=== PATIENT | female | born 1975 | race Caucasian/White ===

== ENCOUNTER 2022-08-26 16:47 | Emergency (ER) | payer MEDICAID, SELFPAY ==
[2022-08-26 16:48] VITALS: BP 164/107; PULSE 95; RESP 18; TEMP 36.6; O2SAT 95; BMI 49.6
--- NOTE | 2022-08-26 17:06 | RAD_ITS ---
STUDY: X-RAY - LEFT KNEE REASON FOR EXAM: Female, 47 years old. INJURY TECHNIQUE: 4 view(s) of the knee. COMPARISON: 12/30/2015 FINDINGS: Progression of spur formation along the distal femur and tibia on the medial greater than lateral, increased spurring along the femoral notch and tibial spine. Normal visualized proximal tibia and fibula. Normal proximal tibiofibular articulation. There is moderate degenerative arthrosis of the medial femorotibial compartment with moderate joint space narrowing. There is mild degenerative arthrosis of the lateral femorotibial compartment. There is mild degenerative arthrosis of the patellofemoral articulation. There is a soft tissue prominence in the suprapatellar region suggesting a small volume joint effusion. The soft tissue structures are unremarkable. RAD/Knee 4 or More Views IMPRESSION: Progression of tricompartmental degenerative changes with stable mild effusion Electronically Signed: Tanya Dupree MD at 19:35 EST Reading Location ID and State: , Service support ,
--- NOTE | 2022-08-26 18:40 | ED.VIS.LOWEX ---
HPI History of Present Illness Chief Complaint: Lower Extremity Injury Informant: patient Narrative Narrative: Patient states she was lifting a grill out of a truck and as she stepped back, she suddenly had pain with her left knee feeling like she hyperextended it. This was over a week ago. She presents on [place] because the pain is getting worse and she cannot bear weight on it hardly anymore. She denies other injury or pain or neurologic symptoms. She feels like it has been swollen. PFSH PFSH Medical History (Updated 08/26/22 @ 20:[address] Chilo Dave MD) Anxiety Benign essential hypertension BiPAP (biphasic positive airway pressure) dependence Brain aneurysm Depression DVT (deep venous thrombosis) history of bleeding aneurysm Hypertension Obesity Sleep apnea Smoker Substance abuse Tobacco abuse Home Medications gabapentin 600 mg tablet 800 mg PO TIDCM 01/21/16 [History Last Taken Unknown] bupropion HCl 300 mg 24 hr tablet, extended release 300 mg PO DAILY 08/26/22 [History Last Taken Unknown] naproxen 500 mg tablet 500 mg PO BID #14 tabs 08/26/22 [Rx Last Taken Unknown] prazosin 2 mg capsule 2 mg PO QHS 08/26/22 [History Last Taken Unknown] quetiapine 100 mg tablet 100 mg PO QHS 08/26/22 [History Last Taken Unknown] topiramate 200 mg tablet 200 mg PO QHS 08/26/22 [History Last Taken Unknown] tramadol 50 mg tablet 50 mg PO Q6H PRN pain 3 days #12 tabs 08/26/22 [Rx Last Taken Unknown] Allergy/AdvReac Type Severity Reaction Status Date / Time ondansetron HCl [From Zofran] Allergy Other Verified 08/26/22 16:49 meloxicam [From Mobic] AdvReac Nausea Verified 08/26/22 16:49 Surgical History (Updated 08/26/22 @ 19:24 by Mirian Bo) H/O foot surgery Social History Smoking Status: Current every day smoker tobacco type: cigarettes ROS ROS ED Constitutional Constitutional ED: Denies chills or fever(s) Musculoskeletal Musculoskeletal: Reports extremity pain; Denies neck pain Integumentary Denies Abrasions, rash or wounds Neurologic Neurologic: Denies paresthesias or weakness EXAM Physical Exam Const Vital Signs: 08/26/22 16:48 Temperature 97.8 F Temperature Source Temporal Pulse Rate 95 Respiratory Rate 18 Blood Pressure 164/107 H Blood Pressure Mean 126 Pulse Ox 95 Oxygen Delivery Method Room Air Positive well nourished and well developed General Appearance ED: well developed and NAD Neck full ROM and supple Back/Spine normal ROM and normal to inspection Extremity normal to inspection Extremity Narrative: Limited range of motion left knee with regards to flexion, it hurts to extend but she is able to fully. Extensor mechanism intact. Mild tenderness in the distal quadriceps, and around the patella, and very mild bony tenderness laterally near the joint line but no other areas of bony tenderness. Ligaments intact and stable without laxity but there is pain on stressing the ACL PCL especially ACL. Neuro oriented x3, no focal motor deficits and no sensory deficits noted Sensorium / Orientation: alert Psych mental status grossly normal and thought process normal Skin no wounds Rashes: no rashes MDM MDM MDM Narrative Medical decision making narrative: 4 view x-ray series of the left knee mitral rotation shows nothing acute. Radiology is in agreement, there is a mild effusion. Suspicious for possible ACL injury, but she is not examining like she is ruptured so I am placing her in an Marcelo wrap, given her crutches, anti-inflammatories and pain medication follow-up with orthopedics. Radiography Diagnostic Testing: Clinical Impression(s) from Imaging Studies Knee X-Ray 08/26/22 17:06 IMPRESSION: Progression of tricompartmental degenerative changes with stable mild effusion Electronically Signed: Tanya Dupree MD at 19:35 EST Reading Location ID and State: , Service support , Discharge Plan Triage Chief Complaint: Lower Extremity Injury ED Provider: Chilo Dave Dx/Rx/DC Orders Clinical Impression: ACL sprain Instructions: ACL Injury Tx Prescriptions: New tramadol 50 mg tablet 50 mg PO Q6H PRN (Reason: pain) 3 Days Qty: 12 0RF naproxen 500 mg tablet 500 mg PO BID Qty: 14 0RF No Action gabapentin 600 MG tablet 800 mg PO TIDCM quetiapine 100 mg tablet 100 mg PO QHS topiramate 200 mg tablet 200 mg PO QHS Label Comments: TAKE ONE TABLET BY MOUTH DAILY prazosin 2 mg capsule 2 mg PO QHS Label Comments: TAKE ONE CAPSULE BY MOUTH AT BEDTIME bupropion HCl 300 mg tablet extended release 24 hr 300 mg PO DAILY Primary Care Provider: Jose Hdez Referrals: Jose Hdez MD [Primary Care Provider] - Nicho Pope DO [Med Staff - Active Staff] - As soon as possible (Call for appointment after the weekend) Disposition Disposition: Home, Self Care
[2022-08-26] MEDS: Naproxen 250 MG Tablet 500 MG PO (19:18)
[2022-08-26] MEDS: traMADol 50 MG Tablet PO (19:18)
== END 2022-08-26 20:49 | disposition home or self-care (01) ==
PROVIDERS: Emergency Provider Emergency Medicine; PCP Family Medicine; Visit Provider Emergency Medicine
DX: S83.512A Sprain of anterior cruciate ligament of left knee, initial encounter (principal); I10 Essential (primary) hypertension; F17.210 Nicotine dependence, cigarettes, uncomplicated; F32.A Depression, unspecified; Z79.899 Other long term (current) drug therapy; X50.0XXA Overexertion from strenuous movement or load, initial encounter
CPT/HCPCS: 73564; 99284

== ENCOUNTER 2023-05-23 16:21 | Emergency (ER) | payer MEDICAID, SELFPAY ==
[2023-05-23 16:23] VITALS: BP 134/87; PULSE 96; RESP 20; TEMP 36.6; O2SAT 99; BMI 42.5
--- NOTE | 2023-05-23 16:32 | EKG12_ITS ---
Test Reason : SYNCOPE Blood Pressure : / mmHG Vent. Rate : 082 BPM Atrial Rate : 082 BPM P-R Int : 136 ms QRS Dur : 090 ms QT Int : 394 ms P-R-T Axes : 046 038 054 degrees QTc Int : 460 ms Normal sinus rhythm Normal ECG Confirmed by AUSTIN LOPEZ, GEE ([id number]), city editor BAKARI GALE ([id number]) on 05/29/2023 10:47:00 AM Referred By: Confirmed By:CRIS AVILA MD
--- NOTE | 2023-05-23 16:56 | CT_ITS ---
STUDY: CT BRAIN WITHOUT CONTRAST REASON FOR EXAM: Female, 48 years old. syncope, hx coil, headache RADIATION DOSAGE (If Supplied By Facility): CTDIvol = ( 44.99 ) mGy, DLP = ( 796.11 ) mGycm TECHNIQUE: Transaxial CT imaging of the brain was performed without administration of intravenous contrast material. Individualized dose optimization techniques were used for this CT. COMPARISON: 06/30/2013 FINDINGS: Normal soft tissue structures. Normal calvarium. Stable embolization coil in position compatible with the right anterior communicating artery. Normal size ventricles and extra-axial spaces for the patient''s age. Normal white matter tracts of the cerebral hemispheres. Normal basal ganglia and thalami. Normal brainstem. Normal cerebellum. There is no intracranial hemorrhage. There are no findings of an acute ischemic infarction. Normal visualized paranasal sinuses. CT/Brain/Head without Contrast IMPRESSION: No definite acute or significant abnormality seen. Electronically Signed: Pranay Flynn MD at 17:58 EDT ,
[2023-05-23 17:11] LABS: Mucous, Urine 0 SEEN /hpf (<or=2+); Red Blood Cells-Urine 0 SEEN /hpf (0-5); White Blood Cells 0 SEEN /hpf (0-5)
--- NOTE | 2023-05-23 17:11 | EX.ED.DYSGE1 ---
HPI History of Present Illness Chief Complaint: Syncope Informant: patient Narrative Narrative: Patient is a 48-year-old female with history of psychiatric diagnoses, tobacco use, migraines and DVT (provoked after seizure) presenting for dizziness, lightheadedness and 2 episodes of syncope. Patient states she was discharged from [place] and inpatient psychiatric care on 05/13. She had a lot of her psych meds adjusted. She is followed up outpatient with ann lyon. Since she switched her medications she has been feeling dizzy and lightheaded. She has been having nausea and then had 1 episode of vomiting with some dry heaves. She has had 2 episodes of syncope today when helping her mom that she had. She notes she is had some increased light sensitivity. States this feels little different than her migraine today but she does have a headache. She denies any chest pain, shortness of breath or difficulty breathing. She does note increased thirst and increased urination. Denies any dysuria. She thinks her symptoms are from her medication changes but wanted to get checked out further. Denies any swelling of her legs. No other complaints or concerns at this time. [facility] Medical History Anxiety Benign essential hypertension BiPAP (biphasic positive airway pressure) dependence Brain aneurysm Depression DVT (deep venous thrombosis) history of bleeding aneurysm Hypertension Obesity Sleep apnea Smoker Substance abuse Tobacco abuse Home Medications gabapentin 600 mg tablet 600 mg PO .Q6 01/21/16 [History Last Taken Unknown] bupropion HCl 300 mg 24 hr tablet, extended release 300 mg PO DAILY 08/26/22 [History Last Taken Unknown] prazosin 2 mg capsule 2 mg PO QHS 08/26/22 [History Last Taken Unknown] quetiapine 100 mg tablet 100 mg PO QHS 08/26/22 [History Last Taken Unknown] topiramate 200 mg tablet 200 mg PO QHS 08/26/22 [History Last Taken Unknown] aripiprazole 10 mg tablet 10 mg PO DAILY 05/23/23 [History Last Taken Unknown] lithium carbonate 300 mg capsule 300 mg PO .QAM 05/23/23 [History Last Taken Unknown] lithium carbonate 600 mg capsule 600 mg PO QHS 05/23/23 [History Last Taken Unknown] Allergy/AdvReac Type Severity Reaction Status Date / Time ondansetron HCl [From Zofran] Allergy Other Verified 05/23/23 16:22 Surgical History H/O foot surgery Social History Smoking Status: Current every day smoker tobacco type: cigarettes ROS ROS ED Constitutional Constitutional ED: Denies chills or fever(s) Eyes Eyes: Denies blurry vision or change in vision Cardiovascular Cardiovascular: Denies chest pain Respiratory/Chest Respiratory/Chest: Denies cough or dyspnea Gastrointestinal Gastrointestinal: Reports nausea and vomiting; Denies abdominal pain, constipation or diarrhea Genitourinary Genitourinary ED: Reports urinary frequency; Denies dysuria Musculoskeletal Musculoskeletal: Denies arthralgias or myalgias Integumentary Denies rash Neurologic Neurologic: Reports headache(s); Denies paresthesias or weakness Psychiatric Psychiatric: Denies anxiety Hematologic/Lymphatic Hematologic/Lymphatic: Denies easy bleeding or easy bruising EXAM Physical Exam Const Vital Signs: 05/23/23 16:23 05/23/23 17:25 Temperature 97.8 F Temperature Source Temporal Pulse Rate 96 Pulse Rate [Lying] 91 Pulse Rate [Sitting (for 1 minute prior to obtaining)] 85 Pulse Rate [Standing (for 1 minute prior to obtaining)] 84 Respiratory Rate 20 H Blood Pressure 134/87 H Blood Pressure [Lying] 116/59 L Blood Pressure [Sitting (for 1 minute prior to obtaining)] 138/89 H Blood Pressure [Standing (for 1 minute prior to obtaining)] 135/94 H Blood Pressure Mean 102 Blood Pressure Mean [Lying] 78 Blood Pressure Mean [Sitting (for 1 minute prior to obtaining)] 105 Blood Pressure Mean [Standing (for 1 minute prior to obtaining)] 107 Pulse Ox 99 Oxygen Delivery Method Room Air Positive well nourished and well developed General Appearance ED: well developed and NAD HEENT Reports TM's clear and moist mucous membranes Tympanic Membrane ED: Yes TM's clear Eyes PERRL and EOMs intact bilaterally Neck supple and no JVD Chest Wall inspection of chest normal and palpation of chest normal Resp normal respiratory effort and clear to auscultation bilaterally Cardio regular rate, regular rhythm and no murmurs GI normal to inspection, nondistended, normoactive bowel sounds and non-tender Extremity normal to inspection General Extremety ED: Negative for edema or tenderness General Extremity: Negative for edema Neuro oriented x3 Sensorium / Orientation: alert Motor Exam: Negative for general weakness Psych mental status grossly normal Mood & Affect: Negative for depressed or anxious Skin no rashes or lesions noted Skin Narrative: Superficial abrasion noted to the right anterior [place] MDM MDM MDM Narrative Medical decision making narrative: Patient evaluated for lightheadedness, syncope and headache. She is concerned it could be related to recent medication changes associate with her psych meds. She is not on any blood thinners does not history of DVT. Differential includes hypovolemia, medication side effect, hyperglycemia, UTI and vasovagal syncope. Her vital signs are normal and she is not hypoxic. Will obtain D-dimer for PE work-up. This is negative I think that is sufficient to rule out pulmonary embolism as the cause of her syncope. Especially she does not have any chest pain or shortness of breath. She does have a history of an aneurysm with a coil will obtain a CT of the brain as well. Patient is given IV fluids, Compazine and Benadryl for symptoms initially. Patient's orthostatics are mildly positive. She is given a liter of fluid however and states she feels much better. She has improvement with the Compazine and Benadryl for her headache. Her lab work is unremarkable. She is mildly subtherapeutic on her lithium but states that she was recently increased on her dose. Urinalysis is not consistent with infection. She has no HUY or electrolyte derangement. No signs of infection or anemia. Patient is comfortable with outpatient follow-up. CT of the brain does not show any acute process. She is discharged home in stable and improved condition. Lab Data Attestation: I reviewed the patient's lab results. Labs: Laboratory Results - last 24 hr 05/23/23 05/23/23 17:02 17:20 WBC 10.8 RBC 5.17 Hgb 15.0 Hct 46.8 MCV 90.5 MCH 29.0 MCHC 32.1 RDW Std Deviation 45.7 H RDW Coeff of Miya 13.7 Plt Count 426 MPV 8.7 Immature Gran % (Auto) 0.600 Neut % (Auto) 67.5 Lymph % (Auto) 25.0 Gray % (Auto) 4.9 Eos % (Auto) 1.8 Baso % (Auto) 0.2 Absolute Neuts (auto) 7.3 Absolute Lymphs (auto) 2.71 Nucleated RBC % 0 D-Dimer Quant (PE/DVT) 0.35 Sodium 139 Potassium 4.2 Chloride 107 Carbon Dioxide 29.0 Anion Gap 3 L BUN 8 Creatinine 0.61 Estim Creat Clear Calc 95.33 Est GFR (MDRD) Af Amer 137 Est GFR (MDRD) Non-Af 113 BUN/Creatinine Ratio 13.2 Glucose 89 Calcium 9.0 Urine Color Straw Urine Clarity Clear Urine pH 7.0 Ur Specific [place] 1.010 Urine Protein Negative Urine Glucose (UA) Normal Urine Ketones Negative Urine Occult Blood Negative Urine Nitrite Negative Urine Bilirubin Negative Urine Urobilinogen Normal Ur Leukocyte Esterase Negative Urine RBC 0 SEEN Urine WBC 0 SEEN Ur Squamous Epith Cells 0-5 SEEN Urine Bacteria RARE Urine Mucus 0 SEEN [place] 0.30 L Radiography Diagnostic Testing: Clinical Impression(s) from Imaging Studies Brain CT 05/23/23 16:56 IMPRESSION: No definite acute or significant abnormality seen. Electronically Signed: Pranay Flynn MD at 17:58 EDT , Rhythm Strip Rhythm Strip: Sinus Rhythm Rate: 82 Ectopy: None EKG Initial EKG: Attestation: I personally reviewed and interpreted this EKG as follows: Interpretation: Sinus Rhythm Comments: Normal sinus rhythm at a rate of 82 bpm Normal axis Normal intervals Normal ST segments Discharge Plan Triage Chief Complaint: Syncope ED Provider: Jasmine Hayes Dx/Rx/DC Orders Clinical Impression: Syncope and collapse, Abnormal lithium level in blood Instructions: ED Fainting, Uncertain Cause Prescriptions: No Action gabapentin 600 MG tablet 600 mg PO .Q6 quetiapine 100 mg tablet 100 mg PO QHS topiramate 200 mg tablet 200 mg PO QHS Patient Comments: TAKE ONE TABLET BY MOUTH DAILY prazosin 2 mg capsule 2 mg PO QHS Patient Comments: TAKE ONE CAPSULE BY MOUTH AT BEDTIME bupropion HCl 300 mg tablet extended release 24 hr 300 mg PO DAILY aripiprazole 10 mg tablet 10 mg PO DAILY lithium carbonate 300 mg capsule 300 mg PO .QAM lithium carbonate 600 mg capsule 600 mg PO QHS Patient Comments: TAKE ONE CAPSULE BY MOUTH AT BEDTIME Primary Care Provider: Care Physician,No Primary Referrals: Care Physician,No Primary [Primary Care Provider] - Activity Restrictions/Additional Instructions: Please follow-up with your primary care doctor. Make sure you are drinking enough fluids. Your work-up was largely normal today. I think it safe for her to go home. Of note your lithium level was 0.3, which is mildly low. He can follow-up with this with your psychiatrist. Disposition Disposition: Home, Self Care
[2023-05-23 17:12] LABS: Color, Urine Straw (Yellow); Glucose, Dipstick Normal (Normal); Ketone-Dipstick Negative (Negative); Leukocyte Esterase-Dipstick Negative /ul (Negative); Nitrite-Dipstick Negative (Negative); Occult Blood-Urine Negative /ul (Negative); Protein-Dipstick Negative (Negative); Urine Bilirubin Dipstick Negative (Negative); Urine Clarity Clear (Clear); Urine Urobilinogen Normal (Normal)
[2023-05-23] MEDS: 0.9% Normal Saline (1000mL) 1,000 ML 999 ML IV (17:21)
[2023-05-23 17:22] LABS: Bacteria RARE /hpf (None Seen); Squamous Epithelial Cells - UA 0-5 SEEN /hpf (5-10)
[2023-05-23] MEDS: proCHLORPERazine 10 MG/2 ML Vial 5 MG IV (17:22)
[2023-05-23 17:25] VITALS: BP 116/59; BP 135/94; BP 138/89; PULSE 84; PULSE 85; PULSE 91
[2023-05-23] MEDS: DiphenhydrAMINE 50 MG/ML Syringe 25 MG IV (17:32)
[2023-05-23 17:43] LABS: Absolute Lymphocyte Count 2.71 X10^3/uL (0.83-4.51); Absolute Neutrophil Count 7.3 X10^3/uL (2.0-7.7); Basophil# 0.02 X10^3/uL; Basophil% 0.2 % (0-1); Eosinophil# 0.19 X10^3/uL; Eosinophils% 1.8 % (0-5); Hematocrit 46.8 % (37-47); Lymphocyte # 2.71 X10^3/ul (0.83-4.51); Mean Corp Hgb Conc 32.1 g/dL (32-36); Mean Corpuscular Volume 90.5 fL (81-99); Mean Platelet Vol. 8.7 fl (6.2-12.0); Monocyte# 0.53 X10^3/uL; Monocyte% 4.9 % (0-10); NRBC Flagged by Analyzer 0 % (0-5); Neutrophil # 7.32 X10^3/uL (2.7-7.7); Neutrophil % 67.5 % (47-70); Platelet Count 426 K/mm3 (150-450); RBC Distribution Width CV 13.7 % (11.6-14.6); RBC Distribution Width SD 45.7 fl (35.1-43.9); Red Blood Count 5.17 M/mm3 (4.2-5.4); White Blood Count 10.8 K/mm3 (4.4-11.0)
[2023-05-23 17:57] LABS: D-Dimer Quantitative (DVT/PE) 0.35 FEU/ug/m (0.27-0.49)
[2023-05-23 17:59] LABS: Anion Gap 3 (5-15); BUN 8 mg/dL (7-18); BUN/Creat Ratio 13.2 RATIO (10-20); Chloride 107 mmol/L (98-107); Creatinine, Serum 0.61 mg/dL (0.55-1.02); EST Glomerular Filtration Rate 113 mL/min (>60); Est Glom Filt Rate - Afr Amer 137 mL/min (>60); Estimated Creatinine Clearance 95.33 ml/min; Glucose 89 mg/dL (74-106); Potassium 4.2 mmol/L (3.5-5.1); Sodium Level 139 mmol/L (136-145)
[2023-05-23 20:05] VITALS: RESP 16
== END 2023-05-23 20:07 | disposition home or self-care (01) ==
PROVIDERS: Emergency Provider Emergency Medicine; Visit Provider Emergency Medicine
DX: R55 Syncope and collapse (principal); R78.89 Finding of other specified substances, not normally found in blood; I10 Essential (primary) hypertension; R35.0 Frequency of micturition; R51.9 Headache, unspecified
CPT/HCPCS: 70450; 80048; 80178; 81001; 85025; 85379; 93005; 96361; 96374; 96375; 99285; J7030; A4216

== ENCOUNTER 2025-05-29 08:55 | Emergency (ER) | payer MEDICAID, SELFPAY ==
[2025-05-29] VITALS (14 sets, daily range): BP systolic 125–215; BP diastolic 80–127; PULSE 74–112; RESP 9–23; TEMP 36.6–37.1; O2SAT 93–100
--- NOTE | 2025-05-29 09:32 | EKG12_ITS ---
Test Reason : HIGH BP Blood Pressure : */* mmHG Vent. Rate : 90 BPM Atrial Rate : 90 BPM P-R Int : 130 ms QRS Dur : 86 ms QT Int : 374 ms P-R-T Axes : 40 55 59 degrees QTcB Int : 457 ms Normal sinus rhythm Cannot rule out Anterior infarct , age undetermined Abnormal ECG Confirmed by KWASI ACKERMAN ([id number]), telegraph editor BAKARI GALE ([id number]) on 06/01/2025 9:12:26 AM Referred By: Confirmed By: KWASI ACKERMAN
[2025-05-29] MEDS: 0.9% Normal Saline (1000mL) 1,000 ML 1000 ML IV (09:42)
--- NOTE | 2025-05-29 09:57 | EX.ED.DYSGE1 ---
HPI History of Present Illness Chief Complaint: Hypertension Narrative Narrative: Chief complaint and HPI: 50-year-old female with past medical history of HTN, depression, anxiety, methamphetamine abuse,, history of brain aneurysm with coil presents for evaluation of hypertension and headache. Patient states that she did methamphetamine on Sunday. States she feels that it was completely out of her system yesterday. Has had a headache for the past 2 days. Was seen to get help with her methamphetamine abuse today when her blood pressure was found to be elevated and she was sent to the emergency department. She denies any trauma or injury. Headache has been gradual. She denies any fever, chills, URI symptoms, neck pain, neurological deficits, syncope, weakness, numbness/tingling, chest pain, shortness of breath, abdominal pain, nausea, vomiting. States she has been under a lot of stress due to recently losing a loved one. Review of systems: See HPI Medications: As listed on the chart Allergies: As listed on the chart PFSH: Per chart Vital signs: As listed on the chart. Reviewed. Physical exam: Gen: A&O x3, NAD Head: Normocephalic, atraumatic Eyes: No sclera icterus, conjunctiva clear, PERRL, EOMI ENT: TMs clear BL, moist mucous membranes, posterior oropharynx unremarkable, uvula midline, tonsils not enlarged Neck: Trachea midline, No JVD, Full ROM, No meningismus CV: RRR, no murmurs, no peripheral edema Resp: Lungs CTA BL, no w/r/c GI: Abd soft, non-distended, non-tender, no r/r/g Musc: Full ROM, no deformity, strength +5/5 in all extremities Skin: Warm, dry, excoriations from scratching/picking Neuro: Alert, oriented, grossly intact, sensation intact Psych: Cooperative, appropriate mood and affect [facility] Medical History Anxiety Benign essential hypertension BiPAP (biphasic positive airway pressure) dependence Brain aneurysm Depression DVT (deep venous thrombosis) history of bleeding aneurysm Hypertension Obesity Sleep apnea Smoker Substance abuse Tobacco abuse Home Medications ?Medication ?Instructions ?Recorded ?Last Taken ?Type gabapentin 600 mg tablet 600 mg PO .Q6 01/21/16 Unknown History bupropion HCl 300 mg 24 hr tablet, 300 mg PO DAILY 08/26/22 Unknown History extended release prazosin 2 mg capsule 2 mg PO QHS 08/26/22 Unknown History quetiapine 100 mg tablet 100 mg PO QHS 08/26/22 Unknown History topiramate 200 mg tablet 200 mg PO QHS 08/26/22 Unknown History aripiprazole 10 mg tablet 10 mg PO DAILY 05/23/23 Unknown History lithium carbonate 300 mg capsule 300 mg PO .QAM 05/23/23 Unknown History lithium carbonate 600 mg capsule 600 mg PO QHS 05/23/23 Unknown History amlodipine 10 mg tablet 10 mg PO DAILY 30 days #30 tabs 05/29/25 Unknown Rx clonidine HCl 0.1 mg tablet 0.1 mg PO Q8H PRN hypertensive 05/29/25 Unknown Rx emergency 5 days #15 tabs Allergy/AdvReac Type Severity Reaction Status Date / Time ondansetron HCl (From Zofran) Allergy Other Verified 05/23/23 16:22 Surgical History H/O foot surgery Social History Smoking Status: Heavy Smoker (>10/day) EXAM Physical Exam Const Vital Signs: 05/29/25 08:55 05/29/25 08:56 05/29/25 09:04 Temperature 98.7 F 97.8 F Temperature Source Oral Oral Pulse Rate 101 H 100 Respiratory Rate 22 H 18 Respiratory Effort Normal Non-Labored Respiratory Pattern Normal Blood Pressure 172/100 H 200/100 H Blood Pressure Mean 124 133 Pulse Ox 97 95 Oxygen Delivery Method Room Air Room Air 05/29/25 09:55 05/29/25 10:00 05/29/25 11:00 Temperature 98.7 F 97.8 F Temperature Source Oral Oral Pulse Rate 94 86 112 H Respiratory Rate 20 H 17 23 H Respiratory Effort Respiratory Pattern Blood Pressure 215/127 H 171/111 H 198/115 H Blood Pressure Mean 156 131 142 Pulse Ox 96 100 97 Oxygen Delivery Method Room Air Room Air Room Air 05/29/25 11:10 05/29/25 11:15 05/29/25 11:30 Temperature Temperature Source Pulse Rate 91 101 H 102 H Respiratory Rate 13 21 H 21 H Respiratory Effort Respiratory Pattern Blood Pressure 198/115 H 205/103 H Blood Pressure Mean 138 126 Pulse Ox 97 96 95 Oxygen Delivery Method 05/29/25 11:45 05/29/25 11:50 05/29/25 11:51 Temperature Temperature Source Pulse Rate 108 H 86 87 Respiratory Rate 20 H 15 Respiratory Effort Respiratory Pattern Blood Pressure 188/106 H 139/80 H 139/80 H Blood Pressure Mean 123 92 99 Pulse Ox 98 93 Oxygen Delivery Method 05/29/25 12:00 05/29/25 12:16 Temperature Temperature Source Pulse Rate 80 74 Respiratory Rate 9 L 18 Respiratory Effort Respiratory Pattern Blood Pressure 137/88 H 128/104 H Blood Pressure Mean 100 112 Pulse Ox 93 97 Oxygen Delivery Method MDM MDM MDM Narrative Medical decision making narrative: 50-year-old female with past medical history of HTN, depression, anxiety, methamphetamine abuse, history of brain aneurysm with coil presents for evaluation of hypertension and headache. Patient states that she did methamphetamine on Sunday. States she feels that it was completely out of her system yesterday. Has had a headache for the past 2 days. States she has been under a lot of stress due to recently losing a loved one. Denies acute onset of headache reaching maximal intensity in under one hour. This is neither the worst headache that they have ever experienced, nor was the onset timed with exertional activity or trauma. Patient has not experienced any fever, unusual neck pain or stiffness, syncope, or near syncope. They deny numbness, tingling, or weakness of the extremities. Patient does have a history of a brain aneurysm with coil. Chart review, patient does not take any medication for her known hypertension. On presentation, patient no acute distress, vitals are stable other than hypertension. Differential diagnosis includes but is not limited to untreated hypertension, hypertension urgency, hypertension emergency, tension headache, migraine headache, side effect from methamphetamines, anxiety suspect less likely intracranial bleed or aneurysm. Patient requesting medication for anxiety. NS bolus, morphine, Ativan, hydralazine ordered. EKG and chest x-ray reviewed. Hypertension/headache workup ordered. CBC without leukocytosis. Patient has hemoconcentration of 17.7. Platelets unremarkable. BMP unremarkable. BNP unremarkable. Troponin unremarkable x 2. Urine drug screen positive for opiates but otherwise negative. CT head negative for any acute intracranial abnormality. 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 No evidence of residual or recurrent aneurysm. Patient remained hypertensive here in the emergency department however hypertension improved with clonidine as well as labetalol. Her headache has resolved and patient now asymptomatic. Patient's headache was likely secondary to hypertension urgency. She has a history of hypertension in which she does not take anything for it. Will place her on amlodipine daily. She was told to watch her blood pressure frequently at home. Clonidine for SBP greater than 175. Return back to ED symptoms change or worsen. Follow-up with primary care physician. She confirmed understand the plan. Patient able to discharge home. EKG: Interpreted by me/EM physician: EKG shows normal sinus rhythm without any ST elevation. Normal QTc. Diagnostic: Interpreted by me/EM physician: Chest x-ray without pneumonia, effusion, cardiomegaly, pneumothorax. Radiology in agreement. Impression: 1. Hypertension urgency 2. History of hypertension not on medication 3. Headache, resolved 4. History of methamphetamine abuse Lab Data Labs: Laboratory Results - last 24 hr 05/29/25 05/29/25 05/29/25 09:15 10:50 11:31 WBC 10.7 RBC 6.08 H Hgb 17.7 H Hct 51.5 H MCV 84.7 MCH 29.1 MCHC 34.4 RDW Std Deviation 41.2 RDW Coeff of Miya 13.3 Plt Count 449 MPV 9.4 Immature Gran % (Auto) 0.300 Neut % (Auto) 65.2 Lymph % (Auto) 27.1 [place] % (Auto) 5.7 Eos % (Auto) 1.3 Baso % (Auto) 0.4 Absolute Neuts (auto) 7.0 Absolute Lymphs (auto) 2.89 Nucleated RBC % 0 Sodium 136 Potassium 4.0 Chloride 103 Carbon Dioxide 22.0 Anion Gap 12 BUN 12 Creatinine 0.70 Est GFR (MDRD) Non-Af 107 BUN/Creatinine Ratio 17.1 Glucose 122 H Calcium 9.6 Troponin T High Sens < 6 Troponin T Hi Sens 2 Hr 9 NT pro BNP II 241 Urine Opiates Screen PRESUMPTIVE POSITIVE U Buprenorphine Qual NEGATIVE Ur Oxycodone Screen NEGATIVE Urine Methadone Screen NEGATIVE Urine Fentanyl Screen NEGATIVE Ur Barbiturates Screen NEGATIVE Ur Phencyclidine Scrn NEGATIVE Ur Amphetamines Screen NEGATIVE U Benzodiazepines Scrn NEGATIVE Urine Cocaine Screen NEGATIVE U Cannabinoids Screen NEGATIVE Radiography Diagnostic Testing: Clinical Impression(s) from Imaging Studies Brain CT 05/29/25 10:00 IMPRESSION: No acute intracranial abnormalities. 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 No evidence of residual or recurrent aneurysm. Reading Location: [id number] Chest X-Ray 05/29/25 10:10 IMPRESSION: No acute pulmonary process Reading Location: [id number] Discharge Plan Triage Chief Complaint: Hypertension ED Provider: Ajit Robles Dx/Rx/DC Orders Clinical Impression: Hypertensive urgency Instructions: ED Hypertension, Established Prescriptions: New amlodipine 10 mg tablet 10 mg PO DAILY 30 Days Qty: 30 0RF clonidine HCl 0.1 mg tablet 0.1 mg PO Q8H PRN (Reason: hypertensive emergency) 5 Days Qty: 15 0RF Rx Instructions: Take if SBP greater than 175 No Action gabapentin 600 MG tablet 600 mg PO .Q6 quetiapine 100 mg tablet 100 mg PO QHS topiramate 200 mg tablet 200 mg PO QHS Patient Comments: TAKE ONE TABLET BY MOUTH DAILY prazosin 2 mg capsule 2 mg PO QHS Patient Comments: TAKE ONE CAPSULE BY MOUTH AT BEDTIME bupropion HCl 300 mg tablet extended release 24 hr 300 mg PO DAILY aripiprazole 10 mg tablet 10 mg PO DAILY lithium carbonate 300 mg capsule 300 mg PO .QAM lithium carbonate 600 mg capsule 600 mg PO QHS Patient Comments: TAKE ONE CAPSULE BY MOUTH AT BEDTIME Primary Care Provider: Care Physician,No Primary Referrals: Armani William MD [Med Staff - Active Staff, Family Practice] - 3-5 Days Activity Restrictions/Additional Instructions: Monitor your blood pressure closely at home. Follow-up with your primary care physician, if you do not have a primary care physician follow-up with the one listed above. You were written for an antihypertensive. Take this every day. Clonidine as needed for severe hypertension. Return back to ED if symptoms change or worsen. Print Language: [place] Disposition Disposition: Home, Self Care
--- NOTE | 2025-05-29 10:00 | CT_ITS ---
PROCEDURE: CTA HEAD W/WO CONTRAST 05/29/2025 REASON FOR EXAM: GONZÁLES, HISTORY OF BRAIN ANEURYSM Previous aneurysm. Headache. TECHNIQUE: Procedure Code: [id number] Modality: CT Procedure: CTA HEAD W/WO CONTRAST Multiplanar Sagittal and Coronal images were obtained. 3D post processing was performed CONTRAST: Isovue 370 VOLUME: 100 mL One or more dose reduction techniques were used (e.g., Automated exposure control, adjustment of the mA and/or kV according to patient size, use of iterative reconstruction technique). RADIATION DOSE SUMMARY: CTDlvol: 80 mGy DLP: 1203 mGycm COMPARISON: CTA head May 2023. FINDINGS: CT BRAIN: Cerebrum: Normal cerebral volume. Negative for mass the frontal, parietal, temporal and occipital lobes negative. White matter: Negative for periventricular white matter changes. Cerebellum: Negative. Negative for mass. Negative for acute infarction. CSF pathways and ventricles: Negative. Negative for ventricular dilatation or obstruction. Basal ganglia and thalami: Negative. No acute infarctions. Brainstem: Midbrain, lucy and medulla otherwisenegative. Calvarium: Negative. Negative for fractures. Orbital structures: Globes negative. Extraocular muscles negative. Paranasal sinuses: No air fluid levels. Remainder of the sinuses negative. Vascular structures: Aneurysm clip adjacent to the anticipated location of the anterior communicating artery metallic artifact but no definitive residual aneurysm. Slight calcifications of the intracranial structures. Other: : Negative for acute intracranial hemorrhage. Negative for acute infarction. Remainder of exam negative. CTA BRAIN: Codominant distal vertebral arteries. Otherwise distal vertebral arteries negative. Basilar artery negative. Posterior cerebral arteries: Right posterior communicating artery patent. Left posterior communicating artery hypoplastic. Posterior cerebral arteries and branches otherwise negative. Negative for stenosis of the posterior cerebral arteries. Distal internal carotid arteries: Slight calcifications of the distal internal carotid arteries. Negative for stenosis. Anterior cerebral arteries: Metallic artifact adjacent to the anterior communicating artery. No residual or recurrent aneurysm noted. Anterior cerebral arteries and branches negative. Middle cerebral arteries: Middle cerebral arteries and branches otherwise negative. Negative for stenosis of the middle cerebral arteries. Negative for intracranial recurrent or residual aneurysm or significant stenosis. Asymmetric dural sinuses more prominent on the right. No thrombus. 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 No evidence of residual or recurrent aneurysm. Reading Location: [id number]
--- NOTE | 2025-05-29 10:00 | CT_ITS ---
PROCEDURE: BRAIN/HEAD WITHOUT CONTRAST 05/29/2025 REASON FOR EXAM: HEADACHE TECHNIQUE: Procedure Code: CTBR Modality: CT Procedure: BRAIN/HEAD WITHOUT CONTRAST Coronal and Sagittal reconstruction series were provided. One or more dose reduction techniques were used (e.g., Automated exposure control, adjustment of the mA and/or kV according to patient size, use of iterative reconstruction technique. RADIATION DOSE SUMMARY: CTDlvol: 21.20 mGy DLP: 1202.75 mGycm COMPARISON: CT head May 23, 2023. FINDINGS: Brain: No acute intracranial hemorrhage. No acute territorial infarction. No mass-effect or midline shift. The craniocervical junction is unremarkable. 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 The orbits are unremarkable. The craniocervical junction is unremarkable. CSF Spaces: Unremarkable. Sinuses/Mastoids: Clear. Bones: No acute bony abnormalities. CT/Brain/Head without Contrast IMPRESSION: No acute intracranial abnormalities. Reading Location: [id number]
[2025-05-29 10:02] LABS: Hematocrit 51.5 % (37-47); Hemoglobin 17.7 g/dL (12.0-15.0); Immature Granulocytes Count 0.030 X10^3/uL (0.0-0.0); Mean Corp Hgb Conc 34.4 g/dL (32-36); Mean Corpuscular Volume 84.7 fL (81-99); Mean Platelet Vol. 9.4 fl (6.2-12.0); NRBC Flagged by Analyzer 0 % (0-5); Platelet Count 449 K/mm3 (150-450); RBC Distribution Width CV 13.3 % (11.6-14.6); RBC Distribution Width SD 41.2 fl (35.1-43.9); Red Blood Count 6.08 M/mm3 (4.2-5.4); White Blood Count 10.7 K/mm3 (4.4-11.0)
--- NOTE | 2025-05-29 10:10 | RAD_ITS ---
PROCEDURE: CHEST PA AND LATERAL 05/29/2025 REASON FOR EXAM: HTN TECHNIQUE: Procedure Code: RADCXR Modality: DX Procedure: CHEST PA AND LATERAL PA and 2 lateral views of the chest COMPARISON: None FINDINGS: Hardware: EKG leads overlie the chest Heart: The heart size is normal. Mediastinum: The mediastinal contour is unremarkable. Lungs: The lungs are clear. Bones: Degenerative changes are identified within the thoracic spine. RAD/Chest PA and Lateral IMPRESSION: No acute pulmonary process Reading Location: [id number]
[2025-05-29 10:15] LABS: Troponin T High Sensitivity < 6 ng/L (<=14)
[2025-05-29 10:18] LABS: Anion Gap 12 (5-15); BUN 12 mg/dL (4-19); BUN/Creat Ratio 17.1 RATIO (10-20); Calcium,Total 9.6 mg/dL (7.6-11.0); Carbon Dioxide 22.0 mmol/L (21.0-32.0); Chloride 103 mmol/L (98-108); Glucose 122 mg/dL (70-99); Potassium 4.0 mmol/L (3.3-5.1); Pro- Brain NATRIURETIC PEPTIDE 241 pg/mL (<=450)
[2025-05-29 11:40] LABS: Barbiturate Urine NEGATIVE (< 200 ng/mL); Benzodiazepine Urine NEGATIVE (< 200 ng/mL); PCP Urine NEGATIVE (< 25 ng/mL); THC Urine NEGATIVE (< 50 ng/mL)
[2025-05-29 12:35] LABS: Troponin T High Sens 2 HR 9 ng/L (<=14)
== END 2025-05-29 13:58 | disposition home or self-care (01) ==
PROVIDERS: Emergency Provider Surgery; Visit Provider Surgery
DX: I16.0 Hypertensive urgency (principal); F15.10 Other stimulant abuse, uncomplicated; I10 Essential (primary) hypertension; Z63.4 Disappearance and death of family member; F32.A Depression, unspecified; F41.9 Anxiety disorder, unspecified; G47.30 Sleep apnea, unspecified; F17.200 Nicotine dependence, unspecified, uncomplicated; Z86.79 Personal history of other diseases of the circulatory system; Z86.718 Personal history of other venous thrombosis and embolism; Z79.899 Other long term (current) drug therapy
CPT/HCPCS: 70450; 70496; 71046; 80048; 80307; 83880; 84484; 85025; 93005; 96361; 96374; 96375; 96376; 99285; Q9967; A4216

== ENCOUNTER → 2025-06-02 | Outpatient (CLI) | payer MEDICAID, SELFPAY ==
[2025-06-02 11:14] LABS: Hematocrit 49.3 % (37-47); Hemoglobin 17.1 g/dL (12.0-15.0); Immature Granulocytes Count 0.030 X10^3/uL (0.0-0.0); Mean Corp Hgb Conc 34.7 g/dL (32-36); Mean Corpuscular Volume 83.7 fL (81-99); Mean Platelet Vol. 9.5 fl (6.2-12.0); NRBC Flagged by Analyzer 0 % (0-5); Platelet Count 408 K/mm3 (150-450); RBC Distribution Width CV 13.5 % (11.6-14.6); RBC Distribution Width SD 41.4 fl (35.1-43.9); Red Blood Count 5.89 M/mm3 (4.2-5.4); White Blood Count 11.2 K/mm3 (4.4-11.0)
[2025-06-02 11:50] LABS: Microalbumin,Random Urine 23.0 mg/L (<20 mg/L)
[2025-06-02 12:05] LABS: AST(SGOT) 24 U/L (<=31); Alanine Aminotransfer ALT/SGPT 19 U/L (<=34); Albumin, Serum 4.1 g/dL (3.5-5.0); Alkaline Phosphatase 113 U/L (35-104); Anion Gap 10 (5-15); BUN 13 mg/dL (4-19); BUN/Creat Ratio 21.2 RATIO (10-20); Calcium,Total 9.9 mg/dL (7.6-11.0); Carbon Dioxide 22.3 mmol/L (21.0-32.0); Chloride 104 mmol/L (98-108); Ferritin 165 ng/mL (22-378); Globulin 3.3 g/dL (2.2-4.2); Glucose 93 mg/dL (70-99); Magnesium 2.0 mg/dL (1.5-2.2); Potassium 4.7 mmol/L (3.3-5.1); Vitamin B12 313 pg/mL (180-914); Vitamin D,25 Hydroxy 20.1 ng/mL (30-100)
[2025-06-02 20:42] LABS: Cholesterol 233 mg/dL (<=200); Low Density Lipoprotein Calc. 151 mg/dL; Triglycerides 100 mg/dL; Very Low Density Lipoprotein 20 mg/dL (5-40); cholesterol:hdl ratio screen 3.78
== END | disposition home or self-care (01) ==
LOC: VSLAB 09:11
PROVIDERS: PCP Family Medicine; Visit Provider Family Medicine
DX: I10 Essential (primary) hypertension (principal); F39 Unspecified mood [affective] disorder
CPT/HCPCS: 36415; 80053; 80061; 82043; 82306; 82607; 82728; 83036; 83735; 84443; 85025

== ENCOUNTER → 2025-06-11 | Outpatient (CLI) | payer MEDICAID, SELFPAY ==
[2025-06-11 16:20] LABS: Hematocrit 46.9 % (37-47); Hemoglobin 15.7 g/dL (12.0-15.0); Immature Granulocytes Count 0.050 X10^3/uL (0.0-0.0); Mean Corp Hgb Conc 33.5 g/dL (32-36); Mean Corpuscular Volume 85.3 fL (81-99); Mean Platelet Vol. 9.6 fl (6.2-12.0); NRBC Flagged by Analyzer 0 % (0-5); Platelet Count 391 K/mm3 (150-450); RBC Distribution Width CV 13.2 % (11.6-14.6); RBC Distribution Width SD 41.3 fl (35.1-43.9); Red Blood Count 5.50 M/mm3 (4.2-5.4); White Blood Count 13.4 K/mm3 (4.4-11.0)
== END | disposition home or self-care (01) ==
LOC: LAB 15:13
PROVIDERS: PCP Family Medicine; Referring Provider Family Medicine; Visit Provider Family Medicine
DX: D75.1 Secondary polycythemia (principal)
CPT/HCPCS: 36415; 82668; 85025

== ENCOUNTER 2025-06-20 17:06 | Emergency (ER) | payer MEDICAID, SELFPAY ==
[2025-06-20 17:12] VITALS: BP 132/92; PULSE 92; RESP 19; TEMP 36.4; O2SAT 95; BMI 43.3
--- OUTSIDE RECORDS SUMMARY | 2025-06-20 17:40 | XMS RPT_ITS | CCD ---
Author Organization [facility] Care Team Providers Care It Consulting Manager Name Role Phone OLLIE PARK Unavailable Unavailable TERRI ESPINO Unavailable Unavailable Abhilash Sanchez Unavailable Unavailable Abhilash Sanchez Unavailable Unavailable Maura Slade Jeffers Primary Care Provider LUCIO WOOD JR. Consulting Unavail able ARTEMIO GAVIRIA Admitting Unavaila MAURA Mejias HASTY Primary Care Unavailab MELBA Zayas Attending Unavailable SABRINA AYALA Attending Unavailable [facility] Primary Care Unavailab NNEKA Mccall Attending Unavail able Free, Text Entry Unavailable Unavailable Gladis Spencer Unavailable Unavailable Angelita Espinoza Unavailable [phone] Ollie Oscar Unavailable Unavailable Rolf Rosas Unavailable Unavailable Madan Duran Unavailable Dr. Angelita Espinoza Primary Ca re Unavailable Madan Duran Attending Unavailable Scottie Ng Unavailable Unavailabl e Adelaide Westbrook Primary Care Provider [phone] [facility] Primary Care Unavailable ADRIEN BROOKS Attending Unavail able [facility] Primary Care Unavailable NAMAN SEGAL Attending Unavailable Angelita Espinoza MD Primary Care Provider Angelita Espinoza MD Primary Care Provider ANMOL SCHMITZ Attending Unavailable [facility] Referring Unavailable ANGELITA ESPINOZA Primary Care Unavailabl e [facility] RODG[facility] I Attending Unavailable HE[facility] RODGERS I Referring Unavailable ANGELITA ESPINOZA Primary Care Unavailabl e HEATH RODGERS I Admitting Unavailable ANGELITA ESPINOZA Primary Care Unavailabl e ANGELITA ESPINOZA Primary Care Unavailabl e HE[facility] RODGERS I Attending Unavailable ANGELITA ESPINOZA Referring Unavailruth e ANGELITA ESPINOZA Primary Care Unavailabl e Care Physician, No Primary Primary Care Physicia n Unavailable Dr. Ajit Robles DO Emergency Departmen t Physician Belen Wallace DO Primary Care Physician Belen Wallace DO Attending Physician [phone] Rodrigo VSC, Belen Primary Care Unavailable Landy INTERIOR BLOCK WIRER, Loulou Attending Unavailable Rodrigo VSC, Belen Referring Unavailable Ajit Robles Attending Unavailrtuh e Care Physician, No Primary Primary Care Unava ilable Rodrigo VSC, Belen Attending Unavailable Rodrigo VSC, Belen Primary Care Unavailable Rodrigo VSC Belen Attending Unavailable Rodrigo VSC, Belne Primary Care Unavailable Rodrigo VSC, Belen Referring Unavailable Allergies Allergy Classification Reported Allergen(s) Allergy Type Date of Onset Reaction(s) Facility (11 sources) Ondansetron; Translations: [Unknown] Drug Allergy 1 Anxiety, Mental Status Change, Other [facility] (9 sources) meloxicam; Translations: [MELOXICAM] Drug Allergy 3 GI Upset, Nausea/vomiting [facility] Work Phone: (2 sources) Ondansetron; Translations: [ondansetron HCl] Drug Allergy 2 Other [facility] Repository Medications Current Medications Medication Drug Class(es) Dates Sig (Normalized) Sig (Original) amLODIPine 10 mg oral tablet (1 source) Dihydropyridine Calcium Channel Claudette Start: 05-29-2025 take 1 tablet by mouth once daily ARIPiprazole 10 mg oral tablet (2 sources) Atypical Antipsychotic Start: 05-23-2023 take 1 tablet by mouth once daily cloNIDine hydrochloride 0.1 mg oral tablet (1 source) Central alpha-2 Adrenergic Agonist Start: 05-29-2025 cyclobenzaprine hydrochloride 10 mg oral tablet (7 sources) Muscle Relaxant Start: 12-08-2023 take 1 tablet by mouth three times daily as needed for muscle spasms cyclobenzaprine (Flexeril) 10 mg tablet Indications: Acute right-sided low back pain with right-sided sciatica Take 1 tablet (10 mg) by mouth 3 times a day as needed for muscle spasms for up to 12 doses. 12 tablet 12/08/2023 Active Start: 06-01-2016 End: 01-01-2019 take 10 mg by mouth three times daily as needed for muscle spasms 10 mg, Oral, 3 times daily PRN, muscle spasms, Starting Sun12/31/18 at 1344 Comment on above: Take 1 tablet by milo th three times daily as needed for Muscle Spasm. hydroCHLOROthiazide 12.5 mg / lisinopril 10 mg oral tablet (1 source) Thiazide Diuretic, Angiotensin Converting Enzyme Inhibitor Start: 10-19-19 take 10-12.5 mg by mouth once lisinopril-hydroc hlorothiazide (PRINZIDE,ZESTORE TIC) 10-12.5 mg per tablet Take 1 tablet by mouth daily. 0 10/19/2016 Active ibuprofen 600 mg oral tablet (3 sources) Nonsteroidal Anti-inflammatory Drug Start: 06-09-20 End: 06-09-20 ibuprofen tablet 600 mg Start: 06-09-2023 End: 06-09-2023 ibuprofen 600 mg tablet - Om nicell Override Pull Start: 04-14-2016 take 1 tablet by milo th every six hours as needed for pain ibuprofen (MOTRIN) 600 mg tablet Indications: Other polyneuropathy Take 1 tablet by mouth every 6 hours as needed. FOR PAIN. 30 tablet 3 04/14/2016 Active Comment on above: Take 1 tablet by milo th every 6 hours as needed. FOR PAIN. lithium carbonate 300 mg oral capsule (5 sources) Start: 05-23-2023 take 1 capsule by mouth once daily in the morning Start: 05-23-2023 take 1 capsule by me ut at bedtime Start: 12-14-2022 take 1 capsule by mo ut once daily at bedtime lithium carbonate 600 mg capsule Take 600 mg by mouth daily at bedtime. 0 12/14/2022 Active Comment on above: Take 600 mg by mouth daily at bedtime. naproxen 500 mg oral tablet (9 sources) Nonsteroidal Anti-inflammatory Drug Start: 12-18-2023 End: 01-17-2024 take 1 tablet by mouth twice daily naproxen (Naprosyn) 500 mg tablet Indications: Low back pain, unspecified back pain laterality, unspecified chronicity, unspecified whether sciatica present Take 1 tablet (500 mg) by mouth 2 times a day. 60 tablet 12/18/2023 01/17/2024 Active Start: 12-08-2023 End: 12-15-2023 take 1 tablet by mouth twice daily as needed for pain naproxen (Naprosyn) 500 mg tablet Indications: Acute right-sided low back pain with right-sided sciatica Take 1 tablet (500 mg) by mouth 2 times a day as needed for moderate pain (4 - 6) for up to 7 days. 14 tablet 0 12/08/2023 12/15/2023 Active Start: 08-26-2022 End: 05-23-2023 take 1 tablet by mouth twice daily Naproxen 500 mg tablet Discontinued 500 mg PO TWICE A DAY 14 0 August 26, 2022 1:00am May 23, 2023 4:41pm Comment on above: Check with your doct or before becoming .May cause drowsiness or dizziness.Obtain medical advice before taking any non-prescription drugs as some may affect the action of this medication.Take with food or milk. prazosin 2 mg oral capsule (4 sources) alpha-Adrenergic Claudette Start: 08-26-20 take 1 capsule by mouth at bedtime Comment on above: Take by mouth. predniSONE 20 mg oral tablet (2 sources) Start: 12-08-19 End: 12-13-19 take 2 tablets by mouth once daily predniSONE (Deltasone) 20 mg tablet Indications: Acute right-sided low back pain with right-sided sciatica Take 2 tablets (40 mg) by mouth once daily for 5 days. 10 tablet 0 12/08/2023 12/13/2023 Active QUEtiapine 100 mg oral tablet (3 sources) Atypical Antipsychotic Start: 08-26-20 take 1 tablet by mouth at bedtime topiramate 200 mg oral tablet (6 sources) Start: 08-26-20 take 1 tablet by mouth at bedtime Start: 01-01-2019 End: 01-01-2019 100 mg, Oral, Daily, First d ose on Sun01/01/19 at 0900 Do Not Crush or Chew if administering orally due to bitter taste. May be crushed if given via tube. Comment on above: Take by mouth. Completed/Discontinued Medications Medication Drug Class(es) Dates Sig (Normalized) Sig (Original) acetaminophen 325 mg / HYDROcodone bitartrate 7.5 mg oral tablet (2 sources) Opioid Agonist Start: 01-01-2019 End: 01-01-2019 take 1 tablet by mouth every six hours as needed HYDROcodone-aceta minophen (NORCO) 7.5-325 mg per tablet 1 tablet Start: 12-31-2018 End: 01-01-2019 take 1 tablet by mouth every four hours as needed 1 tablet, Oral, Every 4 hours PRN, moderate to severe pain, Starting Sun12/31/18 at 1347 albuterol 0.83 mg/ml inhalant solution (1 source) beta2-Adrenergic Agonist Start: 12-31-2018 End: 01-01-2019 take 2.5 mg by inhalation every two hours as needed 2.5 mg, Inhalation, Every 2 hour PRN (RT), wheezing, shortness of breath, Starting Sun12/31/18 at 1347 aluminum hydroxide 40 mg/ml / magnesium hydroxide 40 mg/ml / simethicone 4 mg/ml oral suspension (1 source) Start: 12-31-2018 End: 01-01-2019 take 30 mL by mouth every four hours as needed 30 mL, Oral, Every 4 hours PRN, indigestion, Starting Sun12/31/18 at 1347 bisacodyl 10 mg rectal suppository (1 source) Stimulant Laxative Start: 12-31-2018 End: 01-01-2019 take 10 mg rectal route once daily as needed for constipation 10 mg, Rectal, Daily PRN, constipation, Starting Sun12/31/18 at 1347 Try oral medications first for constipation.&n bsp; Try rectal medication if oral meds are ineffective, not tolerated, or not ordered. buprenorphine 4 mg / naloxone 1 mg sublingual film (3 sources) Partial Opioid Agonist, Opioid Antagonist Start: 01-07-2023 buprenorphine-n aloxone (SUBOXONE) 4-[address] FILM UNDER THE TONGUE AND ALLOW TO DISSOLVE THREE TIMES A DAY 0 01/07/2023 Active Start: 11-13-2016 SUBOXONE 8-2 m g Film Take by mouth daily. 0 11/13/2016 Active Start: 02-15-2016 Buprenorphine- nalOXone (SUBOXONE) 8-2 mg film Take one and 1/2 film daily 1 Each 0 02/15/2016 Active Comment on above: Take one and 1/[address] ONE FILM UNDER THE TONGUE AND ALLOW TO DISSOLVE THREE TIMES A DAY buprenorphine HCl/naloxone HCl (SUBOXONE SUBLINGUAL) (1 source) buprenorphine HCl/naloxone HCl (SUBOXONE SUBLINGUAL) Dissolve under the tongue. 0 Active Comment on above: Dissolve under the t ongue. 24 hr buPROPion hydrochloride 300 mg extended release oral tablet (4 sources) Aminoketone Start: 08-26-20 take 1 tablet by mouth every twenty-four hours buPROPion XL (WELLBUTRIN XL) 300 mg 24 hr tablet Take by mouth. 0 08/26/2022 Active Start: 08-26-2022 take 1 tablet by mouth once da fuad Comment on above: Take by mouth. calcium chloride 0.0014 meq/ml / potassium chloride 0.004 meq/ml / sodium chloride 0.103 meq/ml / sodium lactate 0.028 meq/ml injectable solution (1 source) Start: End: take 100 mL intravenous route every hour 100 mL/hr, Intravenous, Continuous, Starting 01/01/19 at 1245, PACU (only) cephalexin 500 mg oral capsule (6 sources) Cephalosporin Antibacterial Start: End: take 1 capsule by mouth four times daily Keflex 500 mg oral capsule ; 1 cap(s) orally 4 times a day Quantity: 28 Refills: 0 Ordered: 23-Jun-2021 Ollie Oscar Start: 23-Jun-2021 End: 27-Oct-2021 Generic Substitution Allowed Comments: Finish all this medication unless otherwise directed by prescriber. Comment on above: Finish all this medi cation unless otherwise directed by prescriber. cholecalciferol 1.25 mg oral capsule (1 source) Vitamin D Start: 016 take 1 capsule by mouth every week cholecalciferol, Vitamin D3, (VITAMIN D3) 50,000 unit cap capsule Take 1 capsule by mouth once each week. 12 capsule 0 02/28/2016 Active Comment on above: Take 1 capsule by [facility] once each week. 50 ml clindamycin 12 mg/ml injection (2 sources) Lincosamide Antibacterial Start: 019 End: 019 take 600 mg intravenous route every eight hours 600 mg, Intravenous, at 100 mL/hr, Every 8 hours, First dose on Sun12/31/18 at 1430 Indication: Skin & Soft Tissue Infection Start: 12-31-2018 End: 12-31-2018 clindamycin (CLEOCIN) IVPB 9 00 mg (premix) COMPOUNDED PRESCRIPTION (1 source) Start: 01-11-2016 COMPOUNDED PRESCRIPTION Indications: Other polyneuropathy KNEE HIGH COMPRESSION STOCKINGS 30-40 MM. DX: EDEMA 1 Each 2 01/11/2016 Active Comment on above: KNEE HIGH COMPRESSIO N STOCKINGS 30-40 MM. DX: EDEMA CPAP (1 source) Start: 07-07-2014 CPAP Initiate CPAP @ 12 cm of water with humidification. Mask (per patient preference) optional chin strap (if indicated) , filters, tubing, humidifier and lifetime supplies. 1 Device 0 07/07/2014 Active Comment on above: Initiate CPAP @ 12 c m of water with humidification. Mask (per patient preference) optional chin strap (if indicated) , filters, tubing, humidifier and lifetime supplies. 1 ml dexamethasone phosphate 4 mg/ml injection (1 source) Corticosteroid Start: 12-31-2018 End: 01-01-2019 take 8 mg intravenous route every eight hours dexamethasone (DECADRON) injection 8 mg diclofenac sodium 0.01 mg/mg topical gel (1 source) Nonsteroidal Anti-inflammatory Drug Start: 04-05-2016 apply 2 g topically four times daily diclofenac sodium (VOLTAREN) 1 % topical gel Apply 2 g to affected area four times daily. 1 Tube 0 04/05/2016 Active Comment on above: Apply 2 g to affecte d area four times daily. docusate sodium 100 mg oral capsule (1 source) Start: 03-14-2016 take 1 capsule by mouth every twelve hours as needed docusate sodium (COLACE) 100 mg capsule Take 1 capsule by mouth twice daily as needed for Constipation. 60 capsule 5 03/14/2016 Active Comment on above: Take 1 capsule by mo [facility] twice daily as needed for Constipation. DULoxetine 60 mg delayed release oral capsule (3 sources) Serotonin and Norepinephrine Reuptake Inhibitor Start: 06-01-2016 End: 01-01-2019 take 60 mg by mouth once daily 60 mg, Oral, Daily, First dose on Sun01/01/19 at 0900 DO NOT CRUSH OR CHEW. Comment on above: Take 1 capsule by [facility] once daily. 0.4 ml enoxaparin sodium 100 mg/ml prefilled syringe (1 source) Low Molecular Weight Heparin Start: 12-31-2018 End: 01-01-2019 inject 40 mg by subcutaneous injection once daily 40 mg, Subcutaneous, Daily, First dose on Sun12/31/18 at 1445 Administer in abdomen unless otherwise directed by prescriber. Notify physician if patient refuses. furosemide 40 mg oral tablet (7 sources) Loop Diuretic Start: 06-23-2021 End: 06-26-2021 take 1 tablet by mouth once daily Lasix 40 mg oral tablet ; 1 tab(s) orally once a day Quantity: 4 Refills: 0 Ordered: 23-Jun-2021 Ollie Oscar Start: 23-Jun-2021 End: 26-Jun-2021 Generic Substitution Allowed Comments: Avoid prolonged or excessive exposure to direct and/or artificial sunlight while taking this medication.It is very important that you take or use this exactly as directed. Do not skip doses or discontinue unless directed by your doctor.It may be advisable to drink a full glass orange juice or eat a banana daily while taking this medication. 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 60 tablet 1 06/01/2016 Active Comment on above: Avoid prolonged or e xcessive exposure to direct and/or artificial sunlight while taking this medication.It is very important that you take or use this exactly as directed. Do not skip doses or discontinue unless directed by your doctor.It may be advisable to drink a full glass orange juice or eat a banana daily while taking this medication. Take 1 tablet by milo th twice daily. gabapentin 600 mg oral tablet (4 sources) Anti-epileptic Agent Start: 01-21-2016 gabapentin (NEURONTIN) 600 mg tablet Take by mouth. 0 01/21/2016 Active Start: 01-21-2016 take 6 tablets by mouth once Start: 01-21-2016 take 800 mg by mouth three times daily at mealtime Gabapentin Active 800 MG PO 3 TIMES DAILY WITH MEALS January 20, 2016 11:00pm Comment on above: Take by mouth. HYDROmorphone (DILAUDID) 0.5 mg/mL injection 0.5 mg (3 sources) Start: 01-01-2019 End: 01-01-2019 0.5 mg, Intravenous, Every 5 min PRN, Pain, Starting 01/01/19 at 1148, For 6 doses, PACU (only) [] Give if fentanyl not effective or not ordered. [] Do not give more than 3 mg total. Start: 12-31-2018 End: 12-31-2018 HYDROmorphone (DILAUDID) 0.5 mg/mL injection 0.5 mg Start: 12-31-2018 End: 12-31-2018 HYDROmorphone (DILAUDID) 0.5 mg/mL injection 0.5 mg hydrOXYzine hydrochloride 50 mg oral tablet (1 source) Antihistamine Start: 01-07-2023 take 1 tablet by mouth every twenty-four hours as needed hydrOXYzine HCl (ATARAX) 50 mg tablet Take 50 mg by mouth at bedtime as needed. 0 01/07/2023 Active Comment on above: Take 50 mg by mouth at bedtime as needed. 1 ml ketorolac tromethamine 30 mg/ml injection (3 sources) Nonsteroidal Anti-inflammatory Drug, Cyclooxygenase Inhibitor Start: 12-08-2023 End: 12-08-2023 ketorolac (Toradol) injection 30 mg Start: 12-08-2023 End: 12-08-2023 ketorolac (Toradol) injectio n - Omnicell Override Pull Start: 12-31-2018 End: 12-31-2018 ketorolac (TORADOL) injectio n 15 mg lamoTRIgine 200 mg oral tablet (1 source) Mood Stabilizer, Anti-epileptic Agent Start: 11-25-2022 take 1 tablet by mouth once daily at bedtime lamoTRIgine (LAMICTAL) 200 mg tablet Take 200 mg by mouth daily at bedtime. 0 11/25/2022 Active Comment on above: Take 200 mg by mouth daily at bedtime. lidocaine 0.05 mg/mg medicated patch (1 source) Antiarrhythmic, Amide Local Anesthetic Start: 11-02-2015 apply 1 dose transdermal route every twenty-four hours lidocaine (LIDODERM) 5 % Apply 1 Patch as directed every 24 hours. Remove old patch prior to placing new patch. 30 Patch 0 11/02/2015 Active Comment on above: Apply 1 Patch as dir ected every 24 hours. Remove old patch prior to placing new patch. lisinopril 5 mg oral tablet (1 source) Angiotensin Converting Enzyme Inhibitor Start: 06-01-2016 take 1 tablet by mouth once daily lisinopril (ZESTRIL, PRINIVIL) 5 mg tablet Indications: Mild hypertension Take 1 tablet by mouth once daily. 30 tablet 1 06/01/2016 Active Comment on above: Take 1 tablet by milo once daily. lisinopril (PRINIVIL,ZESTRIL) 10 mg, hydroCHLOROthiazide (HYDRODIURIL) 12.5 mg COMBO (1 source) Start: 01-01-2019 End: 01-01-2019 take 1 dose by mouth once daily Oral, Daily, First dose on Sun01/01/19 at 0900 magnesium hydroxide 80 mg/ml oral suspension (1 source) Start: 12-31-2018 End: 01-01-2019 take 2400 mg by mouth once daily as needed for constipation 2,400 mg (30 mL), Oral, Daily PRN, constipation, For constipation., Starting Sun12/31/18 at 1347 methylPREDNISolone (1 source) Corticosteroid Start: 02-24-2016 methylPREDNISolone (MEDROL, GOSIA,) 4 mg Dose-Pack Indications: Local reaction to tetanus vaccine, initial encounter Take as directed 1 Package 0 02/24/2016 Active Comment on above: Take as directed metOLazone 2.5 mg oral tablet (1 source) Thiazide-like Diuretic Start: 06-01-2016 take 1 tablet by mouth twice daily metOLAzone (ZAROXOLYN) 2.5 mg tablet Indications: Other polyneuropathy Take 1 tablet by mouth twice daily. 60 tablet 1 06/01/2016 Active Comment on above: Take 1 tablet by [facility] twice daily. Naloxone (2 sources) Opioid Antagonist Start: 12-31-2018 End: 01-01-2019 0.1 mg, Intravenous, As needed, opioid reversal, For respiratory rate less than or equal to 8 per minute., Starting Sun12/31/18 at 1347 Mix nalOXone (NARCAN) 0.4 mg (1ml) with 9 mL of Normal Saline to total 10 mL. Administ er 0.1 mg (2.5ml) IV Push every 2 minutes until respiratory rate is 10 or greater. Start: 12-31-2018 End: 01-01-2019 0.4 mg, Intravenous, As need ed, opioid reversal, patient is pulseless, breathless, and unresponsive, Starting Sun12/31/18 at 1347 Call a code first, then administer naloxone dose undiluted IV Push over 30 seconds. naloxone (NARCAN) injection 0.1 mg (1 source) Start: 12-31-2018 End: 01-01-2019 naloxone (NARCAN) injection 0.1 mg 2 ml orphenadrine citrate 30 mg/ml injection (2 sources) Muscle Relaxant Start: 12-08-2023 End: 12-08-2023 orphenadrine (Norflex) injection 60 mg Start: 12-08-2023 End: 12-08-2023 orphenadrine (Norflex) injec tion - Omnicell Override Pull piperacillin 4000 mg / tazobactam 500 mg injection (1 source) Penicillin-class Antibacterial, beta Lactamase Inhibitor Start: 12-31-2018 End: 12-31-2018 piperacillin-tazobactam (ZOSYN) IVPB 4.5 g (premix) pregabalin 75 mg oral capsule (3 sources) Start: 01-01-2019 End: 01-01-2019 take 75 mg by mouth once daily 75 mg, Oral, Daily, First dose on Sun01/01/19 at 0900 Start: 06-01-2016 take 1 capsule by [facility] twice daily pregabalin (LYRICA) 75 mg capsule Indications: Other polyneuropathy Take 1 capsule by mouth twice daily. 60 capsule 0 06/01/2016 Active Comment on above: Take 1 capsule by mo [facility] twice daily. promethazine hydrochloride 25 mg oral tablet (1 source) Phenothiazine Start: 12-13-19 take 1 tablet by mouth every six hours as needed promethazine (PHENERGAN) 25 mg tablet Take 1 tablet by mouth every 6 hours as needed. 30 tablet 0 12/13/2015 Active Comment on above: Take 1 tablet by [facility] every 6 hours as needed. 1000 ml sodium chloride 9 mg/ml injection (2 sources) Start: 01-01-20 End: 01-02-20 sodium chloride 0.9% (NS) Start: 12-31-2018 End: 12-31-2018 sodium chloride 0.9% (NS) franklyn alex 1,000 mL traMADol hydrochloride 50 mg oral tablet (3 sources) Opioid Agonist Start: 08-26-2022 End: 05-23-2023 take 1 tablet by mouth every six hours as needed for pain Tramadol 50 mg tablet Discontinued 50 mg PO EVERY 6 HOURS as needed for pain 12 3 0 August 26, 2022 9:24pm May 23, 2023 4:42pm traZODone hydrochloride 50 mg oral tablet (1 source) Serotonin Reuptake Inhibitor Start: 12-31-2018 End: 01-01-2019 take 50 mg by mouth once daily as needed for sleep 50 mg, Oral, Nightly PRN, sleep, Starting Sun12/31/18 at 1347 [] May repeat times 1 in 30 minutes if still awake. vancomycin (VANCOCIN) 1500 mg in sodium chloride 0.9% (NS) 500 mL IVPB (1 source) Start: 12-31-2018 End: 12-31-2018 vancomycin (VANCOCIN) 1500 mg in sodium chloride 0.9% (NS) 500 mL IVPB varenicline (1 source) Partial Cholinergic Nicotinic Agonist Start: 04-25-2016 Varenicline (CHANTIX) 0.5 mg (11)- 1 mg (42) tablet Take 0.5 mg daily x3days, then twice daily for 4 days, then 1mg twice daily for duration. 1 Package 0 04/25/2016 Active Comment on above: Take 0.5 mg daily x3 days, then twice daily for 4 days, then 1mg twice daily for duration. 24 hr venlafaxine 150 mg extended release oral capsule (1 source) Serotonin and Norepinephrine Reuptake Inhibitor Start: 01-05-2023 take 1 capsule by mouth once daily in the morning venlafaxine ER (EFFEXOR XR) 150 mg 24 hr capsule Take 150 mg by mouth every morning. 0 01/05/2023 Active Comment on above: Take 150 mg by mouth every morning. Problems Active Problems Problem Classification Problem Date Documented Da te Episodic/Chronic Abdominal pain (4 sources) Abdominal pain; Translations: [Abdominal pain, unspecified site] 11-29-2021 Episodic Acute cerebrovascular disease (1 source) Hemorrhage into subarachnoid space of neuraxis; Translations: [Nontraumatic subarachnoid hemorrhage, unspecified] Onset: 02-20-2012 Chronic Anxiety disorders (1 source) Anxiety; Translations: [Anxiety disorder, unspecified] Onset: 05-02-2012 05-02-2012 Chronic E Codes: Fall (1 source) Unspecified fall, initial encounter; Translations: [Unspecified fall, initial encounter] Onset: 02-18-2023 Episodic Essential hypertension (6 sources) Essential (primary) hypertension; Translations: [Benign essential hypertension] Onset: 03-28-2011 03-28-2011 Chronic Genitourinary symptoms and ill-defined conditions (2 sources) Urinary symptoms 11-29-2021 Episodic Comment on above: URINARY SYMPTOMS Headache; including migraine (3 sources) Headache; including migraine; Translations: [Headache, unspecified] Onset: 02-18-2023 Hypertension with complications and secondary hypertension (1 source) Hypertensive urgency ; Translations: [Hypertensive urgency] 05-29-2025 Chronic Osteoarthritis (3 sources) Primary osteoarthritis of ankle; Translations: [Primary osteoarthritis, left ankle and foot] Onset: 06-09-2023 06-09-2023 Chronic Other connective tissue disease (1 source) Pain in leg, unspecified; Translations: [Pain in leg, unspecified] Onset: 02-18-2023 Episodic Other hematologic conditions (1 source) Secondary polycythemia; Translations: [Secondary polycythemia] Onset: 06-11-2025 Episodic Other hereditary and degenerative nervous system conditions (1 source) Dystonia, unspecified; Translations: [Dystonia, unspecified] Onset: 02-18-2023 Chronic Other nervous system disorders (2 sources) Chronic pain syndrome; Translations: [Chronic pain syndrome] Onset: 03-30-2018 Chronic Other nervous system disorders (1 source) Peripheral nerve disease ; Translations: [Polyneuropathy, unspecified] Onset: 06-13-2013 08-29-2021 Chronic Other non-traumatic joint disorders (1 source) Pain in joint, lower leg 01-05-2022 Episodic Other nutritional; endocrine; and metabolic disorders (3 sources) Obesity; Translations: [Obesity, unspecified] 08-26-2022 Chronic Other nutritional; endocrine; and metabolic disorders (1 source) Body mass index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 [place], [address] Cholesterol in VLDL [Mass/Vol] 20 mg/dL Normal 5-40 [facility] Comment on above: Performed By: #### L 503.0106, L500.4050, L502.0500, L500.4100, L100.0100, L501.5200, L501.9520, L501.9985, L503.6550, L506.1001 ####[facility] [address] [place], [address] Triglyceride [Mass/Vol] 100 mg/dL Normal [facility] Comment on above: Result Comment: The drugs N-Acetylcysteine and Metamizole may falsely depress this assay. Normal range: <150 mg/dL Borderline High: 150-199 mg/dL High: 200-499 mg/dL Very High: >500 mg/dL Performed By: #### L 503.0106, L500.4050, L502.0500, L500.4100, L100.0100, L501.5200, L501.9520, L501.9985, L503.6550, L506.1001 ####[facility] [address] [place], [place], [id number] MCV (mean corpuscular volume ) determinationOrdered By: Belen Wallace on 06-02-2025 MCV (RBC) [Entitic vol] 83.7 fL 81-99 [facility] Magnesiumon 06-02-2025 Magnesium [Mass/Vol] 2.0 mg/dL Normal 1.5-2.2 [facility] Comment on above: Performed By: #### L 503.0106, L500.4050, L502.0500, L500.4100, L100.0100, L501.5200, L501.9520, L501.9985, L503.6550, L506.1001 #### [facility] [address] [place], [place], [id number] Magnesium measurement (mass/ volume)Ordered By: Belen Wallace on 06-02-2025 Magnesium (Unsp spec) [Mass/Vol] 2.0 mg/dL 1.5-2.2 [facility] Mean corpuscular hemoglobin (MCH) determinationOrdered By: Belen Wallace on 06-02-2025 MCH (RBC) [Entitic mass] 29.0 pg 27.0-32.0 [facility] Mean corpuscular hemoglobin concentration (MCHC) determinationOrdered By: Belen Wallace on 06-02-2025 MCHC (RBC) [Mass/Vol] 34.7 g/dL 32-36 [facility] Mean platelet volume determi nationOrdered By: Belen Wallace on 06-02-2025 Platelet mean volume (Bld) [Entitic vol] 9.5 fL 6.2-12.0 [facility] Microalbumin,Random Urineon 06-02-2025 MICROALBUMIN,UR 23.0 mg/L Normal <20 mg/L [facility] Comment on above: Performed By: #### L 503.0106, L500.4050, L502.0500, L500.4100, L100.0100, L501.5200, L501.9520, L501.9985, L503.6550, L506.1001 #### [facility] [address] [place], [place], [id number] Monocyte percentageOrdered B y: Belen Wallace on 06-02-2025 Monocytes/100 WBC (Bld) 6.8 % 0-10 [facility] Neutrophil percentageOrdered By: Belen Wallace on 06-02-2025 Neutrophils/100 WBC (Bld) 59.5 % 47-70 [facility] Nucleated red blood cell per centageOrdered By: Belen Wallace on 06-02-2025 Nucleated RBC/100 WBC (Bld) [Ratio] 0 % 0-5 [facility] Platelet countOrdered By: Fran Wallace on 06-02-2025 Platelets (Bld) [#/Vol] 408 10*3/uL 150-450 [facility] Potassium measurement (mass/ volume)Ordered By: Belen Wallace on 06-02-2025 Potassium (Unsp spec) [Mass/Vol] 4.7 mmol/L 3.3-5.1 [facility] RBC Auto (Bld) [#/Vol]Ordere d By: Belen Wallace on 06-02-2025 RBC (Bld) [#/Vol] 5.89 10*6/uL High 4.2-5.4 [facility] Screening total cholesterol/ high density lipoprotein (HDL) cholesterol ratioOrdered By: Belen Wallace on 06-02-2025 Cholesterol.total/Cho lesterol in HDL [Mass ratio] 3.78 {ratio} [facility] Serum creatinine measurement (mass/volume)Ordered By: Belen Wallace on 06-02-2025 Creatinine [Mass/Vol] 0.62 mg/dL Low 0.70-1.20 [facility] Serum globulin measurementOr dered By: Belen Wallace on 06-02-2025 Globulin (S) [Mass/Vol] 3.3 g/dL 2.2-4.2 [facility] Serum glucose measurement (m ass/volume)Ordered By: Belen Wallace on 06-02-2025 Glucose [Mass/Vol] 93 mg/dL 70-[address] [facility] Serum or plasma alanine woods otransferase (ALT) measurementOrdered By: Belen Wallace on 06-02-2025 ALT [Catalytic activity/Vol] 19 U/L <35 [facility] Serum or plasma albumin savanna urement (mass/volume)Ordered By: Belen Wallace on 06-02-2025 Albumin [Mass/Vol] 4.1 g/dL 3.5-5.[address] [facility] Serum or plasma albumin/glob ulin mass ratioOrdered By: Belen Wallace on 06-02-2025 Albumin/Globulin [Mass ratio] 1.2 {ratio} 0.9-2.4 [facility] Serum or plasma alkaline ashwin sphatase measurementOrdered By: Belen Wallace on 06-02-2025 ALP [Catalytic activity/Vol] 113 U/L High 35-104 [facility] Serum or plasma calcium savanna urement (mass/volume)Ordered By: Belen Wallace on 06-02-2025 Calcium [Mass/Vol] 9.9 mg/dL 7.6-11.[address] [facility] Serum or plasma cholesterol in HDL measurement (mass/volume)Ordered By: Belen Wallace on 06-02-2025 Cholesterol in HDL [Mass/Vol] 62 mg/dL >40 [facility] Comment on above: National Cholesterol Education Program (NCEP) guidelines:<40 mg/dL: Low HDL-cholesterol (major risk factor for CHD)>= 60 mg/dL: High HDL-cholesterol (negative risk factor for CHD)HDL-cholesterol is affected by a number of factors, e.g. smoking, exercise, hormones, sex and age. Serum or plasma cholesterol measurement (mass/volume)Ordered By: Belne Wallace on 06-02-2025 Cholesterol [Mass/Vol] 233 mg/dL High <201 [facility] Comment on above: Cholesterol level, D esirable <200 mg/dLBorderline high cholesterol 200-239 mg/dLHigh cholesterol >=240 mg/dLRecommendations of the NCEP Adult Treatment Panel for the following risk-cutoff thresholds for the [place] population. Serum or plasma ferritin az surement (mass/volume)Ordered By: Belen Wallace on 06-02-2025 Ferritin [Mass/Vol] 165 ng/mL 22-378 [facility] Serum or plasma urea nitroge n measurement (mass/volume)Ordered By: Belen Wallace on 06-02-2025 Urea nitrogen [Mass/Vol] 13 mg/dL 4-19 [facility] Sodium levelOrdered By: Jose David Wallace on 06-02-2025 Sodium [Moles/Vol] 137 mmol/L 133-[address] [facility] TSH DL <= 0.005 mIU/L QnOrde red By: Belen Wallace on 06-02-2025 TSH Qn 2.450 uIU/mL 0.300-4.200 [facility] Thyroid Stim Hormone (TSH)on 06-02-2025 TSH 2.450 uIU/mL Normal 0.300-4.200 [facility] Comment on above: Performed By: #### L 503.0106, L500.4050, L502.0500, L500.4100, L100.0100, L501.5200, L501.9520, L501.9985, L503.6550, L506.1001 #### [facility] [place], [address] Total proteinOrdered By: Sweta Wallace on 06-02-2025 Protein [Mass/Vol] 7.4 g/dL 5.9-8.[address] [facility] Triglycerides measurementOrd ered By: Belen Wallace on 06-02-2025 Triglyceride [Mass/Vol] 100 mg/dL <199 [facility] Comment on above: The drugs N-Acetylcy steine and Metamizole may falsely depress this assay. Normal range: <150 mg/dLBorderline High: 150-199 mg/dLHigh: 200-499 mg/dLVery High: >500 mg/dL Urine albumin measurement wi detection limit of 20 mg/L or less (mass/volume)Ordered By: Belen Wallace on 06-02-2025 Albumin DL <= 20 mg/L (U) [Mass/Vol] 23.0 mg/L <20 mg/L [facility] Vitamin B12on 06-02-2025 Cobalamin (Vitamin B12) [Mass/Vol] 313 pg/mL Normal 180-914 [facility] Comment on above: Performed By: #### L 503.0106, L500.4050, L502.0500, L500.4100, L100.0100, L501.5200, L501.9520, L501.9985, L503.6550, L506.1001 #### [facility] [address] [facility] [place], [address] Vitamin B12 ser/plasOrdered By: Belen Wallace on 06-02-2025 Cobalamin (Vitamin B12) [Mass/Vol] 313 pg/mL 180-4 [facility] Vitamin D,25 Hydroxyon 06-02 Vitamin D 25-OH 20.1 ng/mL Low 30-100 [facility] Comment on above: Result Comment: Lisa min D Status Deficiency: <20 ng/mL (50nmol/L) Insufficiency: 20-30 ng/mL (50-75 nmol/L) Sufficiency: 30-100 ng/mL (75-250 nmol/L) Toxicity: >100 ng/mL (>250 nmol/L) Performed By: #### L 503.0106, L500.4050, L502.0500, L500.4100, L100.0100, L501.5200, L501.9520, L501.9985, L503.6550, L506.1001 ####[facility] [address] [place], [address] White blood cell (WBC) count Ordered By: Belen Wallace on 06-02-2025 WBC (Bld) [#/Vol] 11.2 10*3/uL High 4.4-11.0 [facility] 12 Lead EKGon 05-29-2025 12 Lead EKG [facility] [address] [place] [address] 12 Lead EKG 05/29/25 0941 MR#: [id number] Acct: [id number] Name: THEODORE STARKEY Rep #: [id number] : 1975 50 From: Kwasi Kerr MD Attending Dr: Status: DEP ER Ordering Dr: Ajit Robles DO Date: 5 Location: ED Sex: F C Admitted: Test Reason : HIGH BP Blood Pressure : */* mmHG Vent. Rate : 90 BPM Atrial Rate : 90 BPM P-R Int : 130 ms QRS Dur : 86 ms QT Int : 374 ms P-R-T Axes : 40 55 59 degrees QTcB Int : 457 ms Normal sinus rhythm Cannot rule out Anterior infarct , age undetermined Abnormal ECG Confirmed by KWASI KERR ([id number]), technical writer and editor BAKARI GALE ([id number]) on 06/01/2025 9:12:26 AM Referred By: Confirmed By: KWASI KERR 06/01/2512 Date Kwasi Kerr MD CC: Dr. Ajit Robles DO; No Primary Care Physician Signed Normal [facility] Absolute lymphocyte countOrd ered By: Ajit Robles on 05-29-2025 Lymphocytes Auto (Unsp spec) [#/Vol] 2.89 10*3/uL 0.83-4.51 [facility] Absolute neutrophil countOrd ered By: Ajit Robles on 05-29-2025 Neutrophils (Bld) [#/Vol] 7.0 10*3/uL 2.0-7.7 [facility] Amphetamine detection with 1 000 ng/mL as cutoffOrdered By: Ajit Robles on 05-29-2025 Amphetamines Screen method >1000 ng/mL Ql (U) Negative < 200 ng/mL [facility] Anion gap in Serum or Plasma Ordered By: Ajit Blanca on 05-29-2025 Anion gap [Moles/Vol] 12 mmol/L 01-15 [facility] Automated lymphocyte count a s percentage of total leukocytesOrdered By: Ajitshonna Robles on 05-29-2025 Lymphocytes/100 WBC Auto (Unsp spec) 27.1 % [facility] BUN/creatinine ratioOrdered By: [facility] Center[facility]va[facility]anco on 05-29-2025 Urea nitrogen/Creatinine [Mass ratio] 17.1 mg/mg - [facility] Basic Metabolic Profile (BMP )on 05-29-2025 BUN/CRE 17.1 RATIO Normal 06-22 [facility] Comment on above: Performed By: #### L 500.2500, L503.7505, L100.0100, L505.5000 ####[facility] [address] [place], [address] Calcium [Mass/Vol] 9.6 mg/dL Normal 7.6-11.[address] [facility] Comment on above: Performed By: #### L 500.2500, L503.7505, L100.0100, L505.5000 ####[facility] [address] [place], [address] Chloride [Moles/Vol] 103 mmol/L Normal 98-108 [facility] Comment on above: Performed By: #### L 500.2500, L503.7505, L100.0100, L505.5000 ####[facility] [address] [place], [address] CO2 [Moles/Vol] 22.0 mmol/L Normal 21.0-32.0 [facility] Comment on above: Performed By: #### L 500.2500, L503.7505, L100.0100, L505.5000 ####[facility] [address] [place], [address] Creatinine [Mass/Vol] 0.70 mg/dL Normal 0.70-1.20 [facility] Comment on above: Performed By: #### L 500.2500, L503.7505, L100.0100, L505.5000 ####[facility] [address] [place], [address] GAP 12 Normal 5-15 [facility] Comment on above: Performed By: #### L 500.2500, L503.7505, L100.0100, L505.5000 ####[facility] [address] [place], [address] GFR/1.73 sq M.predicted among non-blacks MDRD (S/P/Bld) [Vol rate/Area] 107 mL/min/{1.73_m2} Normal >60 [facility] Comment on above: Result Comment: mL/m in/1.73m2 CKD-EPI Creatinine Equation (2020) Performed By: #### L 500.2500, L503.7505, L100.0100, L505.5000 ####[facility] [address] [place], [address] Glucose [Mass/Vol] 122 mg/dL High 70-[address] [facility] Comment on above: Performed By: #### L 500.2500, L503.7505, L100.0100, L505.5000 ####[facility] [address] [place], [address] Potassium [Moles/Vol] 4.0 mmol/L Normal 3.3-5.1 [facility] Comment on above: Performed By: #### L 500.2500, L503.7505, L100.0100, L505.5000 ####[facility] [address] [place], [address] Sodium [Moles/Vol] 136 mmol/L Normal 133-[address] [facility] Comment on above: Performed By: #### L 500.2500, L503.7505, L100.0100, L505.5000 ####[facility] [address] [place], [address] Urea nitrogen [Mass/Vol] 12 mg/dL Normal 4-19 [facility] Comment on above: Performed By: #### L 500.2500, L503.7505, L100.0100, L505.5000 ####[facility] [address] [place], [address] Basophil percentageOrdered B y: Ajit Robles on 05-29-2025 Basophils/100 WBC (Bld) 0.4 % 0-1 [facility] Brain/Head without Contrasto n 05-29-2025 Brain/Head without Contrast [facility] [address] [place] [address] Brain/Head without Contrast MR#: [id number] Acct: [id number] Name: THEODORE STARKEY Rep #: [id number] : 1975 F 50 From: Kera Milligan MD PCP: Care Physician,No Primary Status: REG ER Study: Brain/Head without Contrast Date of Exam: 05/05 02/25 Exam# [id number] Ordering Dr: Ajit Robles DO PROCEDURE: BRAIN/HEAD WITHOUT CONTRAST 05/29/2025 REASON FOR EXAM: HEADACHE TECHNIQUE: Procedure Code: CTBR Modality: CT Procedure: BRAIN/HEAD WITHOUT CONTRAST Coronal and Sagittal reconstruction series were provided. One or more dose reduction techniques were used (e.g., Automated exposure control, adjustment of the mA and/or kV according to patient size, use of iterative reconstruction technique. RADIATION DOSE SUMMARY: CTDlvol: 21.20 mGy DLP: 1202.75 mGycm COMPARISON: CT head May 23, 2023. FINDINGS: Brain: No acute intracranial hemorrhage. No acute territorial infarction. No mass-effect or midline shift. The craniocervical junction is unremarkable. 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 The orbits are unremarkable. The craniocervical junction is unremarkable. CSF Spaces: Unremarkable. Sinuses/Mastoids: Clear. Bones: No acute bony abnormalities. CT/Brain/Head without Contrast IMPRESSION: No acute intracranial abnormalities. Reading Location: [id number] CC: [facility], ; No Primary Care Physician Medical Librarian: Signed Normal [facility] CBC W/Diff, Automatedon 05-05 Absolute Lymph 2.89 X10 3/uL Normal 0.83-4.51 [facility] Comment on above: Performed By: #### L 500.2500, L503.7505, L100.0100, L505.5000 ####[facility] [address] [place], [address] Absolute Neut 7.0 X10 3/uL Normal 2.0-7.7 [facility] Comment on above: Performed By: #### L 500.2500, L503.7505, L100.0100, L505.5000 ####[facility] [address] [place], [address] Basophils/100 WBC (Bld) 0.4 % Normal 0-1 [facility] Comment on above: Performed By: #### L 500.2500, L503.7505, L100.0100, L505.5000 ####[facility] [address] [place], [address] Eosinophils/100 WBC (Bld) 1.3 % Normal 0-5 [facility] Comment on above: Performed By: #### L 500.2500, L503.7505, L100.0100, L505.5000 ####[facility] [address] [place], [address] Erythrocyte distribution width (RBC) [Ratio] 13.3 % Normal 11.6-14.6 [facility] Comment on above: Performed By: #### L 500.2500, L503.7505, L100.0100, L505.5000 ####[facility] [address] [place], [address] Hematocrit (Bld) [Volume fraction] 51.5 % High 37-47 [facility] Comment on above: Performed By: #### L 500.2500, L503.7505, L100.0100, L505.5000 ####[facility] [address] [place], [address] Hemoglobin (Bld) [Mass/Vol] 17.7 g/dL High 12.0-15.0 [facility] Comment on above: Performed By: #### L 500.2500, L503.7505, L100.0100, L505.5000 ####[facility] [address] [place], [address] IG% 0.300 Normal 0.0-0.9 [facility] Comment on above: Result Comment: IG% - Immature Granulocytes (promyelocytes, myelocytes and metamyelocytes) > 1% indicates that a LEFT SHIFT is Present. Performed By: #### L 500.2500, L503.7505, L100.0100, L505.5000 ####[facility] [address] [place], [address] Lymphocytes/100 WBC (Bld) 27.1 % Normal 19-41 [facility] Comment on above: Performed By: #### L 500.2500, L503.7505, L100.0100, L505.5000 ####[facility] [address] [place], [address] MCH (RBC) [Entitic mass] 29.1 pg Normal 27.0-32.0 [facility] Comment on above: Performed By: #### L 500.2500, L503.7505, L100.0100, L505.5000 ####[facility] [address] [place], [address] MCHC (RBC) [Mass/Vol] 34.4 g/dL Normal 32-36 [facility] Comment on above: Performed By: #### L 500.2500, L503.7505, L100.0100, L505.5000 ####[facility] [address] [place], [address] MCV (RBC) [Entitic vol] 84.7 fL Normal 81-99 [facility] Comment on above: Performed By: #### L 500.2500, L503.7505, L100.0100, L505.5000 ####[facility] [address] [place], [address] Monocytes/100 WBC (Bld) 5.7 % Normal 0-10 [facility] Comment on above: Performed By: #### L 500.2500, L503.7505, L100.0100, L505.5000 ####[facility] [address] [place], [address] Neutrophils/100 WBC (Bld) 65.2 % Normal 47-70 [facility] Comment on above: Performed By: #### L 500.2500, L503.7505, L100.0100, L505.5000 ####[facility] [address] [place], [address] Nucleated RBC (Bld) [#/Vol] 0 10*3/uL Normal 0-5 [facility] Comment on above: Performed By: #### L 500.2500, L503.7505, L100.0100, L505.5000 ####[facility] [address] [place], [address] Platelet mean volume (Bld) [Entitic vol] 9.4 fL Normal 6.2-12.0 [facility] Comment on above: Performed By: #### L 500.2500, L503.7505, L100.0100, L505.5000 ####[facility] [address] [place], [address] Platelets (Bld) [#/Vol] 449 10*3/uL Normal 150-450 [facility] Comment on above: Performed By: #### L 500.2500, L503.7505, L100.0100, L505.5000 ####[facility] [address] [place], [address] RBC (Bld) [#/Vol] 6.08 10*6/uL High 4.2-5.4 [facility] Comment on above: Performed By: #### L 500.2500, L503.7505, L100.0100, L505.5000 ####[facility] [address] [place], [address] RDW SD 41.2 fl Normal 35.1-43.9 [facility] Comment on above: Performed By: #### L 500.2500, L503.7505, L100.0100, L505.5000 ####[facility] [address] [place], [address] WBC (Bld) [#/Vol] 10.7 10*3/uL Normal 4.4-11.0 [facility] Comment on above: Performed By: #### L 500.2500, L503.7505, L100.0100, L505.5000 ####[facility] [address] [place], [address] CTA Head W/WO Contraston CTA Head W/WO Contrast [facility] [address] [place] [address] CTA Head W/WO Contrast MR#: [id number] Acct: [id number] Name: THEODORE STARKEY Rep #: [id number] : 1975 F 50 From: Beck Martin MD PCP: Care Physician,No Primary Status: REG ER Study: CTA Head W/WO Contrast Date of Exam: 05/29/25 Exam# [id number] Ordering Dr: Ajit Robles DO PROCEDURE: CTA HEAD W/WO CONTRAST 05/29/2025 REASON FOR EXAM: GONZÁLES, HISTORY OF BRAIN ANEURYSM Previous aneurysm. Headache. TECHNIQUE: Procedure Code: CTCTAHWW Modality: CT Procedure: CTA HEAD W/WO CONTRAST Multiplanar Sagittal and Coronal images were obtained. 3D post processing was performed CONTRAST: Isovue 370 VOLUME: 100 mL One or more dose reduction techniques were used (e.g., Automated exposure control, adjustment of the mA and/or kV according to patient size, use of iterative reconstruction technique). RADIATION DOSE SUMMARY: CTDlvol: 80 mGy DLP: 1203 mGycm COMPARISON: CTA head May 2023. FINDINGS: CT BRAIN: Cerebrum: Normal cerebral volume. Negative for mass the frontal, parietal, temporal and occipital lobes negative. White matter: Negative for periventricular white matter changes. Cerebellum: Negative. Negative for mass. Negative for acute infarction. CSF pathways and ventricles: Negative. Negative for ventricular dilatation or obstruction. Basal ganglia and thalami: Negative. No acute infarctions. Brainstem: Midbrain, lucy and medulla otherwisenegative. Calvarium: Negative. Negative for fractures. Orbital structures: Globes negative. Extraocular muscles negative. Paranasal sinuses: No air fluid levels. Remainder of the sinuses negative. Vascular structures: Aneurysm clip adjacent to the anticipated location of the anterior communicating artery metallic artifact but no definitive residual aneurysm. Slight calcifications of the intracranial structures. Other: : Negative for acute intracranial hemorrhage. Negative for acute infarction. Remainder of exam negative. CTA BRAIN: Codominant distal vertebral arteries. Otherwise distal vertebral arteries negative. Basilar artery negative. Posterior cerebral arteries: Right posterior communicating artery patent. Left posterior communicating artery hypoplastic. Posterior cerebral arteries and branches otherwise negative. Negative for stenosis of the posterior cerebral arteries. Distal internal carotid arteries: Slight calcifications of the distal internal carotid arteries. Negative for stenosis. Anterior cerebral arteries: Metallic artifact adjacent to the anterior communicating artery. No residual or recurrent aneurysm noted. Anterior cerebral arteries and branches negative. Middle cerebral arteries: Middle cerebral arteries and branches otherwise negative. Negative for stenosis of the middle cerebral arteries. Negative for intracranial recurrent or residual aneurysm or significant stenosis. Asymmetric dural sinuses more prominent on the right. No thrombus. 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 No evidence of residual or recurrent aneurysm. Reading Location: [id number] CC: Dr. Ajit Robles DO; No Primary Care Physician Medical Librarian: Signed Normal [facility] Carbon dioxide, total [Moles /volume] in Central venous bloodOrdered By: Ajit Robles on 05-29-2025 CO2 [Moles/Vol] 22.0 mmol/L 21.0-32.0 [facility] Chest PA and Lateralon 05-29 Chest PA and Lateral [facility] [address] [place] [address] [id number] Chest PA and Lateral MR#: [id number] Acct: [id number] Name: THEODORE STARKEY Rep #: [id number] : 1975 F 50 From: Seth Chairez MD PCP: Care Physician,No Primary Status: REG ER Study: Chest PA and Lateral Date of Exam: 05/29/25 Exam# [id number] Ordering Dr: Ajit Robles DO PROCEDURE: CHEST PA AND LATERAL 05/29/2025 REASON FOR EXAM: HTN TECHNIQUE: Procedure Code: RADCXR Modality: DX Procedure: CHEST PA AND LATERAL PA and 2 lateral views of the chest COMPARISON: None FINDINGS: Hardware: EKG leads overlie the chest Heart: The heart size is normal. Mediastinum: The mediastinal contour is unremarkable. Lungs: The lungs are clear. Bones: Degenerative changes are identified within the thoracic spine. RAD/Chest PA and Lateral IMPRESSION: No acute pulmonary process Reading Location: [facility] CC: Dr. Ajit Robles DO; No Primary Care Physician Medical Librarian: Signed Normal [facility] Chloride assayOrdered By: Pedro Robles on 05-29-2025 Chloride [Moles/Vol] 103 mmol/L 98-108 [facility] Electrocardiogram reportOrde red By: Kwasi Kerr on 05-29-2025 EKG study [facility] [address] [place] [address] 12 Lead EKG 05/29/25 0941 MR#: [id number] Acct: [id number] Name: THEODORE STARKEY Rep #:[id number] : 1975 50 From: Kwasi Kerr MD Attending Dr: Status: DEP E R Ordering Dr: Ajit Robles ate: 05/29/25 Location: ED Sex: F C Admitted: Test Reason : HIGH BP Blood Pressure : */* mmHG Vent. Rate : 90 BPM Atrial Rate : 90 BPM P-R Int : 130 ms QRS Dur : 86 ms QT Int : 374 ms P-R-T Axes : 40 55 59 degrees QTcB Int : 457 ms Normal sinus rhythm Cannot rule out Anterior infarct , age undetermined Abnormal ECG Confirmed by KWASI KERR ([id number]), technical writer and editor BAKARI GALE ([id number]) on 06/01/2025 9:12:26 AM Referred By: Confirmed By: KWASI KERR 06/01/25911 Date _ Kwasi Kerr MD CC: Dr. Ajit Robles DO; No Primary Care Physician ~ Signed [facility] Other Emergency Department Summary on 05-29-2025 Emergency Department Summary [facility] Medical Records Department [address] [place] [address] Emergency Department Summary 05/29/25 MR#: [id number] Acct: [id number] Name: THEODORE STARKEY Rep #: [id number] : 1975 50 From: Ajit Robles DO PCP: Care Physician,No Primary Status:REG ER Location: ED HPI History of Present Illness Chief Complaint: Hypertension Narrative Narrative: Chief complaint and HPI: 50-year-old female with past medical history of HTN, depression, anxiety, methamphetamine abuse,, history of brain aneurysm with coil presents for evaluation of hypertension and headache. Patient states that she did methamphetamine on Sunday. States she feels that it was completely out of her system yesterday. Has had a headache for the past 2 days. Was seen to get help with her methamphetamine abuse today when her blood pressure was found to be elevated and she was sent to the emergency department. She denies any trauma or injury. Headache has been gradual. She denies any fever, chills, URI symptoms, neck pain, neurological deficits, syncope, weakness, numbness/tingling, chest pain, shortness of breath, abdominal pain, nausea, vomiting. States she has been under a lot of stress due to recently losing a loved one. Review of systems: See HPI Medications: As listed on the chart Allergies: As listed on the chart PFSH: Per chart Vital signs: As listed on the chart. Reviewed. Physical exam: Gen: A O x3, NAD Head: Normocephalic, atraumatic Eyes: No sclera icterus, conjunctiva clear, PERRL, EOMI ENT: TMs clear BL, moist mucous membranes, posterior oropharynx unremarkable, uvula midline, tonsils not enlarged Neck: Trachea midline, No JVD, Full ROM, No meningismus CV: RRR, no murmurs, no peripheral edema Resp: Lungs CTA BL, no w/r/c GI: Abd soft, non-distended, non-tender, no r/r/g Musc: Full ROM, no deformity, strength +5/5 in all extremities Skin: Warm, dry, excoriations from scratching/picking Neuro: Alert, oriented, grossly intact, sensation intact Psych: Cooperative, appropriate mood and affect [facility] Medical History Anxiety Benign essential hypertension BiPAP (biphasic positive airway pressure) dependence Brain aneurysm Depression DVT (deep venous thrombosis) history of bleeding aneurysm Hypertension Obesity Sleep apnea Smoker Substance abuse Tobacco abuse Home Medications ???Medication ???Instructions ???Recorded ???Last Taken ???Type gabapentin 600 mg tablet 600 mg PO .Q6 01/21/16 Unknown His tory bupropion HCl 300 mg 24 hr tablet, 300 mg PO DAILY 08/26/22 Unknown History extended release prazosin 2 mg capsule 2 mg PO QHS 08/26/22 Unknown Histo ry quetiapine 100 mg tablet 100 mg PO QHS 08/26/22 Unknown His tory topiramate 200 mg tablet 200 mg PO QHS 08/26/22 Unknown His tory aripiprazole 10 mg tablet 10 mg PO DAILY 05/23/23 Unknown Hi story lithium carbonate 300 mg capsule 300 mg PO .QAM 05/23/23 Unknown Hi story lithium carbonate 600 mg capsule 600 mg PO QHS 05/23/23 Unknown His tory amlodipine 10 mg tablet 10 mg PO DAILY 30 days #30 tabs Unknown Rx clonidine HCl 0.1 mg tablet 0.1 mg PO Q8H PRN hypertensive Unknown Rx emergency 5 days #15 tabs Allergy/AdvReac Type Severity Reaction Status Date / Time ondansetron HCl (From Zofran) Allergy Other Verified 05/23/23 16:22 Surgical History H/O foot surgery Social History Smoking Status: Heavy Smoker (>10/day) EXAM Physical Exam Const Vital Signs: 05/29/25 08:55 05/29/25 08:56 05/29/25 09:04 Temperature 98.7 F 97.8 F Temperature Source Oral Oral Pulse Rate 101 H 100 Respiratory Rate 22 H 18 Respiratory Effort Normal Non-Labored Respiratory Pattern Normal Blood Pressure 172/100 H 200/100 H Blood Pressure Mean 124 133 Pulse Ox 97 95 Oxygen Delivery Method Room Air Room Air 05/29/25 09:55 05/29/25 10:00 05/29/25 11:00 Temperature 98.7 F 97.8 F Temperature Source Oral Oral Pulse Rate 94 86 112 H Respiratory Rate 20 H 17 23 H Respiratory Effort Respiratory Pattern Blood Pressure 215/127 H 171/111 H 198/115 H Blood Pressure Mean 156 131 142 Pulse Ox 96 100 97 Oxygen Delivery Method Room Air Room Air Room Air 05/29/25 11:10 05/29/25 11:15 05/29/25 11:30 Temperature Temperature Source Pulse Rate 91 101 H 102 H Respiratory Rate 13 21 H 21 H Respiratory Effort Respiratory Pattern Blood Pressure 198/115 H 205/103 H Blood Pressure Mean 138 126 Pulse Ox 97 96 95 Oxygen Delivery Method 05/29/25 11:45 05/29/25 11:50 05/29/25 (more content not included)... Normal [facility] Eosinophil percentageOrdered By: Ajit Robles on 05-29-2025 Eosinophils/100 WBC (Bld) 1.3 % 0-5 [facility] Erythrocyte distribution wid th ratioOrdered By: Ajitshonna Robles on 05-29-2025 Erythrocyte distribution width (RBC) [Ratio] 13.3 % 11.6-14.6 [facility] Erythrocyte distribution wid th standard deviationOrdered By: Gypsum Corinne Gamez on 05-29-2025 Erythrocyte distribution width (RBC) [Ratio] 41.2 fl 35.1-43.9 [facility] Glomerular filtration rate ( GFR) estimation/1.73 sq m using serum, plasma, or whole bOrdered By: Ajit Robles on 05-29-2025 GFR/1.73 sq M.predicted among non-blacks MDRD (S/P/Bld) [Vol rate/Area] 107 mL/min/{1.73_m2} >60 [facility] Comment on above: mL/min/1.73m2 CKD-EP I Creatinine Equation (2020) Hematocrit Auto (Bld) [Volum e fraction]Ordered By: Ajit Travis on 05-29-2025 Hematocrit (Bld) [Volume fraction] 51.5 % High 37-47 [facility] Hemoglobin measurementOrdere d By: Ajit Robles on 05-29-2025 Hemoglobin (Bld) [Mass/Vol] 17.7 g/dL High 12.0-15.0 [facility] Immature granulocytes/100 WB C Auto (Bld)Ordered By: Ajit Robles on 05-29-2025 Immature granulocytes/100 WBC (Bld) 0.300 % 0.0-0.9 [facility] Comment on above: IG% - Immature Granu locytes (promyelocytes, myelocytes and metamyelocytes) > 1% indicates that a LEFT SHIFT is Present. L501.4021on 05-29-2025 Trop T High Sen < 6 Normal <=14 [facility] Comment on above: Performed By: #### L 501.4021 ####[facility] [address] [place], [address] MCV (mean corpuscular volume ) determinationOrdered By: Ajit Robles on 05-29-2025 MCV (RBC) [Entitic vol] 84.7 fL 81-99 [facility] Mean corpuscular hemoglobin (MCH) determinationOrdered By: Gypsum Travis on 05-29-2025 MCH (RBC) [Entitic mass] 29.1 pg 27.0-32.0 [facility] Mean corpuscular hemoglobin concentration (MCHC) determinationOrdered By: Ajitshonna Robles on 05-29-2025 MCHC (RBC) [Mass/Vol] 34.4 g/dL 32-36 [facility] Mean platelet volume determi nationOrdered By: Ajitshonna Robles on 05-29-2025 Platelet mean volume (Bld) [Entitic vol] 9.4 fL 6.2-12.0 [facility] Monocyte percentageOrdered B y: Ajit Robles on 05-29-2025 Monocytes/100 WBC (Bld) 5.7 % 0-10 [facility] Natriuretic peptide.B prohor arthur N-Terminal [Mass/volume] in Serum or PlasmaOrdered By: Ajit Robles on 05-29-2025 Natriuretic peptide.B prohormone N-Terminal [Mass/Vol] 241 pg/mL <450 [facility] Comment on above: Heart Failure Unlike ly: < 300 pg/mLHeart Failure Likely< 50 Years: > 450 pg/mL50-75 Years: > 900 pg/mL>75 Years: > 1800 pg/mL Neutrophil percentageOrdered By: Ajit Robles on 05-29-2025 Neutrophils/100 WBC (Bld) 65.2 % 47-70 [facility] No Panel InformationOrdered By: Ajit Robles on 05-29-2025 Urine Buprenorphine Qualitative Negative < 200 ng/mL [facility] Urine Oxycodone Screen Negative < 100 ng/mL [facility] Nucleated red blood cell per centageOrdered By: Ajit Robles on 05-29-2025 Nucleated RBC/100 WBC (Bld) [Ratio] 0 % 0-5 [facility] Platelet countOrdered By: Pedro Robles on 05-29-2025 Platelets (Bld) [#/Vol] 449 10*3/uL 150-450 [facility] Potassium measurement (mass/ volume)Ordered By: Ajit Robles on 05-29-2025 Potassium (Unsp spec) [Mass/Vol] 4.0 mmol/L 3.3-5.1 [facility] Pro- Brain NATRIURETIC PEPTI Allyssa 05-29-2025 Natriuretic peptide B (Bld) [Mass/Vol] 241 pg/mL Normal <=450 [facility] Comment on above: Result Comment: Hear t Failure Unlikely: < 300 pg/mL Heart Failure Likely < 50 Years: > 450 pg/mL 50-75 Years: > 900 pg/mL >75 Years: > 1800 pg/mL Performed By: #### L 500.2500, L503.7505, L100.0100, L505.5000 ####[facility] [address] [place], [address] Quantitative urine opiates m easurementOrdered By: Ajit Robles on 05-29-2025 Opiates Ql (U) Positive < 300 ng/mL [facility] Comment on above: If confirmation test ing is needed, a separate order will be required to send out testing to the reference laboratory. RBC Auto (Bld) [#/Vol]Ordere d By: Ajit Robles on 05-29-2025 RBC (Bld) [#/Vol] 6.08 10*6/uL High 4.2-5.4 [facility] Screening urine fentanyl az surementOrdered By: Ajit Robles on 05-29-2025 fentaNYL Screen Ql (U) Negative <5 ng/mL [facility] Comment on above: CONFIRMATORY TESTING FOR ALL POSITIVE URINE DRUG SCREENRESULTS WILL ONLY BE SENT OUT UPON PHYSICIAN ORDER. Too Pro Urine Drug Screen methods provide only preliminaryanalytical test results. A more specific alternate chemicalmethod must be used in order to obtain a confirmedanalytical result. Gas chromatography/mass spectrometery(GC/MS) is the preferred confirmatory method. Clinicalconsideration and professional judgement should be appliedto any drug of abuse test result, particularly whenpreliminary positive results are used. Urine TCA testing must be ordered separately. Use test mnemonic: [facility] Serum creatinine measurement (mass/volume)Ordered By: Ajit Robles on 05-29-2025 Creatinine [Mass/Vol] 0.70 mg/dL 0.70-1.20 [facility] Serum glucose measurement (m ass/volume)Ordered By: Ajit Robles on 05-29-2025 Glucose [Mass/Vol] 122 mg/dL High 70-[address] [facility] Serum or plasma calcium savanna urement (mass/volume)Ordered By: Ajit Gamez on 05-29-2025 Calcium [Mass/Vol] 9.6 mg/dL 7.6-11.[address] [facility] Serum or plasma urea nitroge n measurement (mass/volume)Ordered By: Ajit Robles on 05-29-2025 Urea nitrogen [Mass/Vol] 12 mg/dL 4-19 [facility] Sodium levelOrdered By: Jamil Robles on 05-29-2025 Sodium [Moles/Vol] 136 mmol/L 133-[address] [facility] Troponin T HS 2 HRon 025 Trop T High Sen 9 ng/L Normal <=14 [facility] Comment on above: Performed By: #### L 499.0042 ####[facility] [address] [place], [address] Troponin T.cardiac [Mass/vol ume] in Serum or Plasma by High sensitivity methodOrdered By: Ajit Robles on 05-29-2025 Troponin T.cardiac High sensitivity method [Mass/Vol] 9 ng/L <14 [facility] Troponin T.cardiac High sensitivity method [Mass/Vol] < 6 ng/L <14 [facility] Urine Drug Screen (VISTA)on 05-29-2025 AMPHETAMINES Negative Normal <1000 ng/mL [facility] Comment on above: Performed By: #### L 500.2500, L503.7505, L100.0100, L505.5000 ####[facility] [address] [place] [address] BARBITIURATES Negative Normal < 200 ng/mL [facility] Comment on above: Performed By: #### L 500.2500, L503.7505, L100.0100, L505.5000 ####[facility] [address] [place] [address] BENZODIAZIPINE Negative Normal < 200 ng/mL [facility] Comment on above: Performed By: #### L 500.2500, L503.7505, L100.0100, L505.5000 ####[facility] [address] [place] [address] BUP Ur Drug Scr Negative Normal < 200 ng/mL [facility] Comment on above: Performed By: #### L 500.2500, L503.7505, L100.0100, L505.5000 ####[facility] [address] [place] [address] COCAINE Negative Normal < 300 ng/mL [facility] Comment on above: Performed By: #### L 500.2500, L503.7505, L100.0100, L505.5000 ####[facility] [address] [place] [address] Fentanyl Negative Normal <5 ng/mL [facility] Comment on above: Result Comment: CONF IRMATORY TESTING FOR ALL POSITIVE URINE DRUG SCREEN RESULTS WILL ONLY BE SENT OUT UPON PHYSICIAN ORDER. Too Pro Urine Drug Screen methods provide only preliminary analytical test results. A more specific alternate chemical method must be used in order to obtain a confirmed analytical result. Gas chromatography/mass spectrometery (GC/MS) is the preferred confirmatory method. Clinical consideration and professional judgement should be applied to any drug of abuse test result, particularly when preliminary positive results are used. Urine TCA testing must be ordered separately. Use test mnemonic: [facility]CA Performed By: #### L 500.2500, L503.7505, L100.0100, L505.5000 ####[facility] [address] [facility] [address] METHADONE Negative Normal < 300 ng/mL [facility] Comment on above: Performed By: #### L 500.2500, L503.7505, L100.0100, L505.5000 ####[facility] [address] [place] [address] OPIATES Positive Normal < 300 ng/mL [facility] Comment on above: Result Comment: If c onfirmation testing is needed, a separate order will be required to send out testing to the reference laboratory. Performed By: #### L 500.2500, L503.7505, L100.0100, L505.5000 ####[facility] [facility] [address] [place], [address] OXYCODONE Negative Normal < 100 ng/mL [facility] Comment on above: Performed By: #### L 500.2500, L503.7505, L100.0100, L505.5000 ####[facility] [address] [facility] [address] PCP Negative Normal < 25 ng/mL [facility] Comment on above: Performed By: #### L 500.2500, L503.7505, L100.0100, L505.5000 ####[facility] [address] [facility] [address] THC Negative Normal < 50 ng/mL [facility] Comment on above: Performed By: #### L 500.2500, L503.7505, L100.0100, L505.5000 ####[facility] [address] [place], [address] Urine benzodiazepine levelOr dered By: Ajit Robles on 05-29-2025 Benzodiazepines Ql (U) Negative < 200 ng/mL [facility] Urine cocaine levelOrdered B y: Ajit Gust on 05-29-2025 Cocaine Ql (U) Negative < 300 ng/mL [facility] Urine uvxur-1-uzyfgcvrixgfyi abinol (THC) measurementOrdered By: Ajit Gamez on 05-29-2025 Cannabinoids Screen Ql (U) Negative < 50 ng/mL [facility] Urine phencyclidine (PCP) de tectionOrdered By: Ajit Travis on 05-29-2025 Phencyclidine Ql (U) Negative < 25 ng/mL [facility] White blood cell (WBC) count [facility] WBC (Bld) [#/Vol] 10.7 10*3/uL 4.4-11.0 [facility] BI MAMMO BILATERAL SCREENING TOMOSYNTHESISon 01-02-2024 BI MAMMO BILATERAL SCREENING TOMOSYNTHESIS Interpreted By: Lamin Lam, STUDY: BI MAMMO BILATERAL SCREENING TOMOSYNTHESIS; 01/02/2024 10:29 am ACCESSION NUMBER(S): [id number] ORDERING CLINICIAN: ANGELITA ESPINOZA INDICATION: Screening. COMPARISON: No prior examination available for comparison. If a prior examination becomes available, this examination will be compared to the prior study. Addendum report will be issued. FINDINGS: 2D and tomosynthesis images were reviewed at 1 mm slice thickness. Density: The breast tissue is almost entirely fatty. No suspicious masses or calcifications are identified. IMPRESSION: No mammographic evidence of malignancy. Based on the Tyrer-Cuzick model for breast cancer risk assessment, the patient's lifetime risk of breast cancer is 3.82%. Patients with over a 20% lifetime risk of developing breast cancer may benefit from additional screening with breast MRI or ultrasound. Please note that this estimate is based on responses provided on the patient questionnaire. For more information regarding high risk consultation, please call [phone]. BI-RADS CATEGORY: BI-RADS Category: 1 Negative. Recommendation: Annual Screening. Recommended Date: 1 Year. Laterality: Bilateral. For any future breast imaging appointments, please call [phone] ([phone]). MACRO: None Signed by: Lamin Lam 01/02/2024 5:04 PM Dictation workstation: [id number] [facility] DBT Breast - bilateralon No mammographic evidence of malignancy. Based on the Tyrer-Cuzick model for breast cancer risk assessment, the patient's lifetime risk of breast cancer is 3.82%. Patients with over a 20% lifetime risk of developing breast cancer may benefit from additional screening with breast MRI or ultrasound. Please note that this estimate is based on responses provided on the patient questionnaire. For more information regarding high risk consultation, please call [phone]. BI-RADS CATEGORY: BI-RADS Category: 1 Negative. Recommendation: Annual Screening. Recommended Date: 1 Year. Laterality: Bilateral. For any future breast imaging appointments, please call [phone]). MACRO: None Signed by: Lamin Lam 01/02/2024 5:04 PM Dictation workstation: [id number] MMODAL Interpreted By: Lamin Lam, STUDY: BI MAMMO BILATERAL SCREENING TOMOSYNTHESIS; 01/02/2024 10:29 am ACCESSION NUMBER(S): [id number] ORDERING CLINICIAN: ANGELITA ESPINOZA INDICATION: Screening. COMPARISON: No prior examination available for comparison. If a prior examination becomes available, this examination will be compared to the prior study. Addendum report will be issued. FINDINGS: 2D and tomosynthesis images were reviewed at 1 mm slice thickness. Density: The breast tissue is almost entirely fatty. No suspicious masses or calcifications are identified. MMODAL Lamin Lam MD - 01/02/2024 Interpreted By: Lamin Lam, STUDY: BI MAMMO BILATERAL SCREENING TOMOSYNTHESIS; 01/02/2024 10:29 am ACCESSION NUMBER(S): [id number] ORDERING CLINICIAN: ANGELITA ESPINOZA INDICATION: Screening. COMPARISON: No prior examination available for comparison. If a prior examination becomes available, this examination will be compared to the prior study. Addendum report will be issued. FINDINGS: 2D and tomosynthesis images were reviewed at 1 mm slice thickness. Density: The breast tissue is almost entirely fatty. No suspicious masses or calcifications are identified. IMPRESSION: No mammographic evidence of malignancy. Based on the Tyrer-Cuzick model for breast cancer risk assessment, the patient's lifetime risk of breast cancer is 3.82%. Patients with over a 20% lifetime risk of developing breast cancer may benefit from additional screening with breast MRI or ultrasound. Please note that this estimate is based on responses provided on the patient questionnaire. For more information regarding high risk consultation, please call [phone]. BI-RADS CATEGORY: BI-RADS Category: 1 Negative. Recommendation: Annual Screening. Recommended Date: 1 Year. Laterality: Bilateral. For any future breast imaging appointments, please call [phone] ([phone]). MACRO: None Signed by: Lamin Lam 01/02/2024 5:04 PM Dictation workstation: [id number] [facility] Work Phone: Radiology Study observation (narrative) [facility] Work Phone: DBT Breast - bilateralOrdere d By: Lamin Lam on 01-02-2024 [facility] Work Phone: CT LUMBAR SPINE WO IV CONTRA STon 12-08-2023 CT LUMBAR SPINE WO IV CONTRAST STUDY: CT Lumbar Spine without IV Contrast; 12/08/2023 at 5:09 PM INDICATION: Fall 5 days ago, lumbar spine pain. COMPARISON: XR right hip/pelvis imaging of same date, 12/08/23. CT lumbar spine 02/18/23. ACCESSION NUMBER(S): [id number] ORDERING CLINICIAN: THEODORE TINEO TECHNIQUE: CT of the lumbar spine was performed without intravenous or intrathecal contrast. Sagittal and coronal reconstructions were generated. Automated mA/kV exposure control was utilized and patient examination was performed in strict accordance with principles of ALARA. FINDINGS: No spondylolysis or spondylolisthesis. Intact vertebral body heights with no acute fracture. Multilevel mild degenerative disc disease. Slight sclerosis about the L4-5 disc space. Mild multilevel disc space narrowing. There is moderate to severe multilevel facet arthropathy. At T11-12 no significant canal or foraminal encroachment. At T12-L1 no significant canal or foraminal encroachment. At L1-L2, no significant canal or foraminal encroachment. At L2-L3 diffuse generalized disc bulging and moderate facet arthropathy resulting in moderate bilateral foraminal encroachment. Ligamentum flavum hypertrophy. No central canal stenosis. At L3-4, there is generalized disc bulging. Moderate facet arthropathy and ligamentum flavum hypertrophy. Mild to moderate bilateral foraminal encroachment. No central canal stenosis. At L4-5 there is generalized disc bulging. Moderate to severe facet arthropathy right greater than left. Ligamentum flavum hypertrophy and mild calcification. Moderate to severe bilateral foraminal encroachment and mild central canal stenosis. There is equivocal subtle soft tissue density which may arise from the left facet joint or may represent extruded disc on slice 224 of series 4 with left foraminal encroachment appreciated. This focus also fills the left lateral recess. At the L5-S1 level, generalized disc bulging is appreciated. There is central disc protrusion slightly extending inferiorly raising the possibility of disc extrusion. Severe facet arthropathy and mild ligamentum flavum hypertrophy. No central canal stenosis. Mild to moderate left and mild right foraminal encroachment. 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 No visualized hepatic or splenic lesion. Thickening of the left greater than right adrenal gland. No hydronephrosis. Atherosclerosis with no visualized aneurysm. No adenopathy is seen.. Underdistended urinary bladder with possible mild wall and mucosal prominence. Small amount of gas in the vagina. Hysterectomy. IMPRESSION: No CT evidence of acute fracture of the lumbar spine. There is multilevel degenerative disc disease and moderate to severe facet arthropathy is appreciated. Most concerning levels are L4-5 and L5-S1. At L4-5 possible disc extrusion and/or synovial cyst with severe left foraminal encroachment. Mild central canal stenosis. At L5-S1 central disc protrusion possibly extending inferiorly raising the possibility of extrusion but without significant canal encroachment. Mild to moderate left and mild right foraminal encroachment. MRI is the study of choice for the indicated symptoms if not contraindicated. Please see incidental findings above. Cystitis should be excluded clinically. Signed by Leonila Fermin MD [facility] CT Lumbar spine WO contrasto n 12-08-[address] evidence of ac [place] fracture of the lumbar spine. There is multilevel degenerative disc disease and moderate to severe facet arthropathy is appreciated. Most concerning levels are L4-5 and L5-S1. At L4-5 possible disc extrusion and/or synovial cyst with severe left foraminal encroachment. Mild central canal stenosis. At L5-S1 central disc protrusion possibly extending inferiorly raising the possibility of extrusion but without significant canal encroachment. Mild to moderate left and mild right foraminal encroachment. MRI is the study of choice for the indicated symptoms if not contraindicated. Please see incidental findings above. Cystitis should be excluded clinically. Signed by Leonila Fermin MD TELERADIOLOGY STUDY: CT Lumbar Spine without IV Contrast; 12/08/2023 at 5:09 PM INDICATION: Fall 5 days ago, lumbar spine pain. COMPARISON: XR right hip/pelvis imaging of same date, 12/08/23. CT lumbar spine 02/18/23. ACCESSION NUMBER(S): [id number] ORDERING CLINICIAN: THEODORE TINEO TECHNIQUE: CT of the lumbar spine was performed without intravenous or intrathecal contrast. Sagittal and coronal reconstructions were generated. Automated mA/kV exposure control was utilized and patient examination was performed in strict accordance with principles of ALARA. FINDINGS: No spondylolysis or spondylolisthesis. Intact vertebral body heights with no acute fracture. Multilevel mild degenerative disc disease. Slight sclerosis about the L4-5 disc space. Mild multilevel disc space narrowing. There is moderate to severe multilevel facet arthropathy. At T11-12 no significant canal or foraminal encroachment. At T12-L1 no significant canal or foraminal encroachment. At L1-L2, no significant canal or foraminal encroachment. At L2-L3 diffuse generalized disc bulging and moderate facet arthropathy resulting in moderate bilateral foraminal encroachment. Ligamentum flavum hypertrophy. No central canal stenosis. At L3-4, there is generalized disc bulging. Moderate facet arthropathy and ligamentum flavum hypertrophy. Mild to moderate bilateral foraminal encroachment. No central canal stenosis. At L4-5 there is generalized disc bulging. Moderate to severe facet arthropathy right greater than left. Ligamentum flavum hypertrophy and mild calcification. Moderate to severe bilateral foraminal encroachment and mild central canal stenosis. There is equivocal subtle soft tissue density which may arise from the left facet joint or may represent extruded disc on slice 224 of series 4 with left foraminal encroachment appreciated. This focus also fills the left lateral recess. At the L5-S1 level, generalized disc bulging is appreciated. There is central disc protrusion slightly extending inferiorly raising the possibility of disc extrusion. Severe facet arthropathy and mild ligamentum flavum hypertrophy. No central canal stenosis. Mild to moderate left and mild right foraminal encroachment. 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 No visualized hepatic or splenic lesion. Thickening of the left greater than right adrenal gland. No hydronephrosis. Atherosclerosis with no visualized aneurysm. No adenopathy is seen.. Underdistended urinary bladder with possible mild wall and mucosal prominence. Small amount of gas in the vagina. Hysterectomy. TELERADIOLOGY Leonila Fermin MD - 12/08/2023 STUDY: CT Lumbar Spine without IV Contrast; 12/08/2023 at 5:09 PM INDICATION: Fall 5 days ago, lumbar spine pain. COMPARISON: XR right hip/pelvis imaging of same date, 12/08/23. CT lumbar spine 02/18/23. ACCESSION NUMBER(S): [id number] ORDERING CLINICIAN: THEODORE TINEO TECHNIQUE: CT of the lumbar spine was performed without intravenous or intrathecal contrast. Sagittal and coronal reconstructions were generated. Automated mA/kV exposure control was utilized and patient examination was performed in strict accordance with principles of ALARA. FINDINGS: No spondylolysis or spondylolisthesis. Intact vertebral body heights with no acute fracture. Multilevel mild degenerative disc disease. Slight sclerosis about the L4-5 disc space. Mild multilevel disc space narrowing. There is moderate to severe multilevel facet arthropathy. At T11-12 no significant canal or foraminal encroachment. At T12-L1 no significant canal or foraminal encroachment. At L1-L2, no significant canal or foraminal encroachment. At L2-L3 diffuse generalized disc bulging and moderate facet arthropathy resulting in moderate bilateral foraminal encroachment. Ligamentum flavum hypertrophy. No central canal stenosis. At L3-4, there is generalized disc bulging. Moderate facet arthropathy and ligamentum flavum hypertrophy. Mild to moderate bilateral foraminal encroachment. No central canal stenosis. At L4-5 there is generalized disc bulging. Moderate to severe facet arthropathy right greater than left. Ligamentum flavum hypertrophy and mild calcification. Moderate to severe bilateral foraminal encroachment and mild central canal stenosis. There is equivocal subtle soft tissue density which may arise from the left facet joint or may represent extruded disc on slice 224 of series 4 with left foraminal encroachment appreciated. This focus also fills the left lateral recess. At the L5-S1 level, generalized disc bulging is appreciated. There is central disc protrusion slightly extending inferiorly raising the possibility of disc extrusion. Severe facet arthropathy and mild ligamentum flavum hypertrophy. No central canal stenosis. Mild to moderate left and mild right foraminal encroachment. 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 No visualized hepatic or splenic lesion. Thickening of the left greater than right adrenal gland. No hydronephrosis. Atherosclerosis with no visualized aneurysm. No adenopathy is seen.. Underdistended urinary bladder with possible mild wall and mucosal prominence. Small amount of gas in the vagina. Hysterectomy. IMPRESSION: No CT evidence of acute fracture of the lumbar spine. There is multilevel degenerative disc disease and moderate to severe facet arthropathy is appreciated. Most concerning levels are L4-5 and L5-S1. At L4-5 possible disc extrusion and/or synovial cyst with severe left foraminal encroachment. Mild central canal stenosis. At L5-S1 central disc protrusion possibly extending inferiorly raising the possibility of extrusion but without significant canal encroachment. Mild to moderate left and mild right foraminal encroachment. MRI is the study of choice for the indicated symptoms if not contraindicated. Please see incidental findings above. Cystitis should be excluded clinically. Signed by Leonila Fermin MD [facility] Work Phone: Radiology Study observation (narrative) [facility] Work Phone: CT Lumbar spine WO contrastO rdered By: Leonila Fermin on 12-08-2023 [facility] Work Phone: XR HIP RIGHT WITH PELVIS WHE N PERFORMED 2 OR 3 VIEWSon 12-08-2023 XR HIP RIGHT WITH PELVIS WHEN PERFORMED 2 OR 3 VIEWS STUDY: Pelvis and Right Hip Radiographs; 12-08-2023 at 5:08 PM INDICATION: Pain, post fall. COMPARISON: None Available. ACCESSION NUMBER(S): [id number] ORDERING CLINICIAN: THEODORE TINEO TECHNIQUE: AP view of the pelvis and two view(s) of the right hip. FINDINGS: PELVIS: The pelvic ring is intact. There is no acute fracture. RIGHT HIP: There is no displaced fracture. The alignment is anatomic. No soft tissue abnormality is seen. IMPRESSION: No fracture of the right hip. Signed by Enmanuel Aldrich MD [facility] XR Hip Viewson 12-08-2023 No fracture of the right hip. Signed by Enmanuel Aldrich MD TELERADIOLOGY STUDY: Pelvis and Right Hip Radiographs; 12-08-2023 at 5:08 PM INDICATION: Pain, post fall. COMPARISON: None Available. ACCESSION NUMBER(S): [id number] ORDERING CLINICIAN: THEODORE TINEO TECHNIQUE: AP view of the pelvis and two view(s) of the right hip. FINDINGS: PELVIS: The pelvic ring is intact. There is no acute fracture. RIGHT HIP: There is no displaced fracture. The alignment is anatomic. No soft tissue abnormality is seen. TELERADIOLOGY Enmanuel Aldrich M D - 12/08/2023 STUDY: Pelvis and Right Hip Radiographs; 12-08-2023 at 5:08 PM INDICATION: Pain, post fall. COMPARISON: None Available. ACCESSION NUMBER(S): [id number] ORDERING CLINICIAN: THEODORE TINEO TECHNIQUE: AP view of the pelvis and two view(s) of the right hip. FINDINGS: PELVIS: The pelvic ring is intact. There is no acute fracture. RIGHT HIP: There is no displaced fracture. The alignment is anatomic. No soft tissue abnormality is seen. IMPRESSION: No fracture of the right hip. Signed by Enmanuel Aldrich MD [facility] Work Phone: Radiology Study observation (narrative) [facility] Work Phone: XR Hip ViewsOrdered By: Iker Aldrich on 12-08-2023 [facility] Work Phone: CBC W Auto Differential pane l (Bld)on 06-09-2023 Basophils (Bld) [#/Vol] 0.03 10*3/uL [facility] Basophils/100 WBC (Bld) 0.3 % 0.0 - 2.0 % [facility] Eosinophils (Bld) [#/Vol] 0.27 10*3/uL [facility] Eosinophils/100 WBC (Bld) 3.1 % 0.0 - 6.0 % [facility] Erythrocyte distribution width (RBC) [Ratio] 14.1 % 11.5 - 14.5 % [facility] Hematocrit (Bld) [Volume fraction] 43.0 % 36.0 - 46.0 % [facility] Hemoglobin (Bld) [Mass/Vol] 14.2 g/dL 12.0 - 16.0 g/dL [facility] Immature granulocytes (Bld) [#/Vol] 0.04 10*3/uL [facility] Immature granulocytes/100 WBC (Bld) 0.5 % 0.0 - 0.9 % [facility] Comment on above: Immature Granulocyte Count (IG) includes promyelocytes, myelocytes and metamyelocytes but does not include bands. Percent differential counts (%) should be interpreted in the context of the absolute cell counts (cells/UL). Lymphocytes (Bld) [#/Vol] 2.63 10*3/uL [facility] Lymphocytes/100 WBC (Bld) 30.1 % 13.0 - 44.0 % [facility] MCH (RBC) [Entitic mass] 30.1 pg 26.0 - 34.0 pg [facility] MCHC (RBC) [Mass/Vol] 33.0 g/dL 32.0 - 36.0 g/dL [facility] MCV (RBC) [Entitic vol] 91 fL 80 - 100 fL [facility] Monocytes (Bld) [#/Vol] 0.48 10*3/uL [facility] Monocytes/100 WBC (Bld) 5.5 % 2.0 - 10.0 % [facility] Neutrophils (Bld) [#/Vol] 5.30 10*3/uL [facility] Comment on above: Percent differential counts (%) should be interpreted in the context of the absolute cell counts (cells/uL). Neutrophils/100 WBC (Bld) 60.5 % 40.0 - 80.0 % [facility] Nucleated RBC/100 WBC (Bld) [Ratio] 0.0 % [facility] Platelet mean volume (Bld) [Entitic vol] 9.2 fL 7.5 - 11.5 fL [facility] Platelets (Bld) [#/Vol] 314 10*3/uL [facility] RBC (Bld) [#/Vol] 4.71 10*6/uL [facility] WBC (Bld) [#/Vol] 8.8 10*3/uL [facility] Basophils (Bld) [#/Vol] 0.03 x10*3/uL Normal 0.00-0.10 [facility] Comment on above: Performed By: #### 5 7021-8 #### YOAV Pendleton ([id number]) [facility] ([facility]) [address] [place] [address] Basophils/100 WBC (Bld) 0.3 % Normal 0.0-2.0 [facility] Comment on above: Performed By: #### 5 7021-8 #### YOAV Pendleton ([id number]) [facility] ([facility]) [address] [place] [id number] Eosinophils (Bld) [#/Vol] 0.27 x10*3/uL Normal 0.00-0.70 [facility] Comment on above: Performed By: #### 5 7021-8 #### YOAV Pendleton ([id number]) [facility] ([facility]) [address] [place] [address] Eosinophils/100 WBC (Bld) 3.1 % Normal 0.0-6.0 [facility] Comment on above: Performed By: #### 5 7021-8 #### YOAV Pendleton ([id number]) [facility] ([facility]) [address] [place] [address] Erythrocyte distribution width (RBC) [Ratio] 14.1 % Normal 11.5-14.5 [facility] Comment on above: Performed By: #### 5 7021-8 #### YOAV Pendleton ([id number]) [facility] ([facility]) [address] [place] [address] Hematocrit (Bld) [Volume fraction] 43.0 % Normal 36.0-46.0 [facility] Comment on above: Performed By: #### 5 7021-8 #### YOAV Pendleton ([id number]) [facility] ([facility]) [address] [place] [address] Hemoglobin (Bld) [Mass/Vol] 14.2 g/dL Normal 12.0-16.0 [facility] Comment on above: Performed By: #### 5 7021-8 #### YOAV Pendleton ([id number]) [facility] ([facility]) [address] [place] [address] Immature granulocytes (Bld) [#/Vol] 0.04 x10*3/uL Normal 0.00-0.70 [facility] Comment on above: Performed By: #### 5 7021-8 #### YOAV Pendleton ([id number]) [facility] ([facility]) [address] [place] [address] Immature granulocytes/100 WBC (Bld) 0.5 % Normal 0.0-0.9 [facility] Comment on above: Result Comment: Vanessa ture Granulocyte Count (IG) includes promyelocytes, myelocytes and metamyelocytes but does not include bands. Percent differential counts (%) should be interpreted in the context of the absolute cell counts (cells/UL). Performed By: #### 5 7021-8 #### YOAV Pendleton ([id number]) [facility] ([facility]) [address] [place] [address] Lymphocytes (Bld) [#/Vol] 2.63 x10*3/uL Normal 1.20-4.80 [facility] Comment on above: Performed By: #### 5 7021-8 #### YOAV Pendleton ([id number]) [facility] ([facility]) [address] [place] [address] Lymphocytes/100 WBC (Bld) 30.1 % Normal 13.0-44.0 [facility] Comment on above: Performed By: #### 5 7021-8 #### YOAV Pendleton ([id number]) [facility] ([facility]) [address] [place] [address] MCH (RBC) [Entitic mass] 30.1 pg Normal 26.0-34.0 [facility] Comment on above: Performed By: #### 5 7021-8 #### YOAV Pendleton ([id number]) [facility] ([facility]) [address] [place] [address] MCHC (RBC) [Mass/Vol] 33.0 g/dL Normal 32.0-36.0 [facility] Comment on above: Performed By: #### 5 7021-8 #### YOAV Pendleton ([id number]) [facility] ([facility]) [address] [place] [address] MCV (RBC) [Entitic vol] 91 fL Normal 80-100 [facility] Comment on above: Performed By: #### 5 7021-8 #### YOAV Pendleton ([id number]) [facility] ([facility]) [address] [place] [address] 11486 Monocytes (Bld) [#/Vol] 0.48 x10*3/uL Normal 0.10-1.00 [facility] Comment on above: Performed By: #### 5 7021-8 #### YOAV Pendleton ([id number]) [facility] ([facility]) [address] [place] [address] 76040 Monocytes/100 WBC (Bld) 5.5 % Normal 2.0-10.0 [facility] Comment on above: Performed By: #### 5 7021-8 #### YOAV Pendleton ([id number]) [facility] ([facility]) [address] [place] [address] 09575 Neutrophils (Bld) [#/Vol] 5.30 x10*3/uL Normal 1.20-7.70 [facility] Comment on above: Result Comment: Perc ent differential counts (%) should be interpreted in the context of the absolute cell counts (cells/uL). Performed By: #### 5 7021-8 #### YOAV Pendleton ([id number]) [facility] ([facility]) [address] [place] [address] Neutrophils/100 WBC (Bld) 60.5 % Normal 40.0-80.0 [facility] Comment on above: Performed By: #### 5 7021-8 #### YOAV Pendleton ([id number]) [facility] ([facility]) [address] [place] [address] Nucleated RBC/100 WBC (Bld) [Ratio] 0.0 /100 WBCs Normal 0.0-0.0 [facility] Comment on above: Performed By: #### 5 7021-8 #### YOAV Pendleton ([id number]) [facility] ([facility]) [address] [place] [address] 02608 Platelet mean volume (Bld) [Entitic vol] 9.2 fL Normal 7.5-11.5 [facility] Comment on above: Performed By: #### 5 7021-8 #### YOAV Pendleton ([id number]) [facility] ([facility]) [address] [place] [address] 10323 Platelets (Bld) [#/Vol] 314 x10*3/uL Normal 150-450 [facility] Comment on above: Performed By: #### 5 7021-8 #### YOAV Pendleton ([id number]) [facility] ([facility]) [address] [place] [address] RBC (Bld) [#/Vol] 4.71 x10*6/uL Normal 4.00-5.20 [facility] Comment on above: Performed By: #### 5 7021-8 #### YOAV Pendleton ([id number]) [facility] ([facility]) [address] [place] [address] WBC (Bld) [#/Vol] 8.8 x10*3/uL Normal 4.4-11.3 [facility] Comment on above: Performed By: #### 5 7021-8 #### YOAV Pendleton ([id number]) [facility] ([facility]) [address] [place] [address] Natriuretic peptide B [Mass/ Vol]on 06-09-2023 Interpretation and review of laboratory results Normal [facility] Natriuretic peptide B (Bld) [Mass/Vol] 27 pg/mL 0 - 99 pg/mL [facility] <100 pg/mL - Heart failure unlikely 100-299 pg/mL - Intermediate probability of acute heart failure exacerbation. Correlate with clinical context and patient history. >=300 pg/mL - Heart Failure likely. Correlate with clinical context and patient history. BNP testing is performed using different testing methodology at [facility] than at [facility]. Direct result comparisons should only be made within the same method. [facility] Natriuretic peptide B (Bld) [Mass/Vol] 27 pg/mL Normal 0-99 [facility] Comment on above: Order Comment: <100 pg/mL - Heart failure unlikely 100-299 pg/mL - Intermediate probability of acute heart failure exacerbation. Correlate with clinical context and patient history. >=300 pg/mL - Heart Failure likely. Correlate with clinical context and patient history. BNP testing is performed using different testing methodology at [facility] than at [facility]. Direct result comparisons should only be made within the same method. Performed By: #### 3 0934-4 #### YOAV Pendleton ([id number]) [facility] ([facility]) [address] [place] [address] US.doppler Lower extremity v ein - righton 06-09-2023 No sign of deep veno us thrombus in the right lower extremity. MACRO: None. Signed by: Diane Sarkar 06/09/2023 1:34 AM Dictation workstation: [id number] MMODAL Interpreted By: Diane Sarkar, STUDY: [facility] US LOWER EXTREMITY VENOUS DUPLEX RIGHT; 06/09/2023 1:31 am INDICATION: Signs/Symptoms:right leg swelling. COMPARISON: Ultrasound of the right lower extremity dated 11/29/2021. ACCESSION NUMBER(S): [id number] ORDERING CLINICIAN: HEATH RODGERS TECHNIQUE: 2D grayscale and color-flow duplex images were obtained along with Doppler spectral waveform analysis of the deep venous system of the right lower extremity from the groin to the knee. Attempts were made to image the calf veins. Venous compression and augmentation were performed. Contralateral common femoral vein also interrogated. FINDINGS: Right Lower Extremity: There is normal compressibility and flow within the visualized vessels of the deep venous system of right lower extremity. Contralateral common femoral vein was patent. MMODAL Rosalina Sarkar v, MD - 06/09/2023 Interpreted By: Diane Sarkar, STUDY: [facility] US LOWER EXTREMITY VENOUS DUPLEX RIGHT; 06/09/2023 1:31 am INDICATION: Signs/Symptoms:right leg swelling. COMPARISON: Ultrasound of the right lower extremity dated 11/29/2021. ACCESSION NUMBER(S): [id number] ORDERING CLINICIAN: HEATH RODGERS TECHNIQUE: 2D grayscale and color-flow duplex images were obtained along with Doppler spectral waveform analysis of the deep venous system of the right lower extremity from the groin to the knee. Attempts were made to image the calf veins. Venous compression and augmentation were performed. Contralateral common femoral vein also interrogated. FINDINGS: Right Lower Extremity: There is normal compressibility and flow within the visualized vessels of the deep venous system of right lower extremity. Contralateral common femoral vein was patent. IMPRESSION: No sign of deep venous thrombus in the right lower extremity. MACRO: None. Signed by: Diane Sarkar 06/09/2023 1:34 AM Dictation workstation: [id number] [facility] Work Phone: Radiology Study observation (narrative) [facility] Work Phone: US.doppler Lower extremity v ein - rightOrdered By: Diane Sarkar on 06-09-2023 [facility] Work Phone: [facility] US LOWER EXTREMITY VENO US DUPLEX RIGHTon 06-09-2023 [facility] US LOWER EXTREMITY VENOUS DUPLEX RIGHT Interpreted By: Diane Sarkar, STUDY: [facility] US LOWER EXTREMITY VENOUS DUPLEX RIGHT; 06/09/2023 1:31 am INDICATION: Signs/Symptoms:right leg swelling. COMPARISON: Ultrasound of the right lower extremity dated 11/29/2021. ACCESSION NUMBER(S): [id number] ORDERING CLINICIAN: HEATH RODGERS TECHNIQUE: 2D grayscale and color-flow duplex images were obtained along with Doppler spectral waveform analysis of the deep venous system of the right lower extremity from the groin to the knee. Attempts were made to image the calf veins. Venous compression and augmentation were performed. Contralateral common femoral vein also interrogated. FINDINGS: Right Lower Extremity: There is normal compressibility and flow within the visualized vessels of the deep venous system of right lower extremity. Contralateral common femoral vein was patent. IMPRESSION: No sign of deep venous thrombus in the right lower extremity. MACRO: None. Signed by: Diane Sarkar 06/09/2023 1:34 AM Dictation workstation: [id number] [facility] XR ANKLE RIGHT 3+ VIEWSon XR ANKLE RIGHT 3+ VIEWS Interpreted By: Pilo Koehler, STUDY: XR ANKLE RIGHT 3+ VIEWS; ; 06/09/2023 1:36 am INDICATION: Signs/Symptoms:fall. COMPARISON: None. ACCESSION NUMBER(S): [id number] ORDERING CLINICIAN: HEATH RODGERS FINDINGS: Three views of the right ankle. There is lucency through the base of a dorsal osteophyte arising from the talar neck on the lateral radiograph, that could relate to acute or chronic fracture deformity versus fortuitous imaging of a nutrient foramen. Please correlate clinically with mechanism of injury and point tenderness on physical exam. Otherwise, no evidence of acute fracture or malalignment. Moderate tibiotalar osteoarthropathy. Plantar and dorsal calcaneal enthesophytes. Questionable tibiotalar joint effusion. Diffuse soft tissue swelling and subcutaneous edema of the lower leg, ankle and imaged foot. Nonspecific calcification in the medial soft tissues of the lower leg. IMPRESSION: Please see above. MACRO: None Signed by: Pilo Koehler 06/09/2023 1:39 AM Dictation workstation: [id number] [facility] XR Ankle - right 3 Viewson 1 Please see above. MACRO: None Signed by: Pilo Koehler 06/09/2023 1:39 AM Dictation workstation: [id number] [facility] MMODAL Interpreted By: Pilo Morel, STUDY: XR ANKLE RIGHT 3+ VIEWS; ; 06/09/2023 1:36 am INDICATION: Signs/Symptoms:fall. COMPARISON: None. ACCESSION NUMBER(S): [id number] ORDERING CLINICIAN: HEATH RODGERS FINDINGS: Three views of the right ankle. There is lucency through the base of a dorsal osteophyte arising from the talar neck on the lateral radiograph, that could relate to acute or chronic fracture deformity versus fortuitous imaging of a nutrient foramen. Please correlate clinically with mechanism of injury and point tenderness on physical exam. Otherwise, no evidence of acute fracture or malalignment. Moderate tibiotalar osteoarthropathy. Plantar and dorsal calcaneal enthesophytes. Questionable tibiotalar joint effusion. Diffuse soft tissue swelling and subcutaneous edema of the lower leg, ankle and imaged foot. Nonspecific calcification in the medial soft tissues of the lower leg. [facility] MMODAL Pilo Koehler MD - 06/09/2023 Interpreted By: Pilo Koehler, STUDY: XR ANKLE RIGHT 3+ VIEWS; ; 06/09/2023 1:36 am INDICATION: Signs/Symptoms:fall. COMPARISON: None. ACCESSION NUMBER(S): [id number] ORDERING CLINICIAN: HEATH RODGERS FINDINGS: Three views of the right ankle. There is lucency through the base of a dorsal osteophyte arising from the talar neck on the lateral radiograph, that could relate to acute or chronic fracture deformity versus fortuitous imaging of a nutrient foramen. Please correlate clinically with mechanism of injury and point tenderness on physical exam. Otherwise, no evidence of acute fracture or malalignment. Moderate tibiotalar osteoarthropathy. Plantar and dorsal calcaneal enthesophytes. Questionable tibiotalar joint effusion. Diffuse soft tissue swelling and subcutaneous edema of the lower leg, ankle and imaged foot. Nonspecific calcification in the medial soft tissues of the lower leg. IMPRESSION: Please see above. MACRO: None Signed by: Pilo Koehler 06/09/2023 1:39 AM Dictation workstation: [id number] [facility] Work Phone: Radiology Study observation (narrative) [facility] Work Phone: XR Ankle - right 3 ViewsOrde red By: Pilo Koehler on 06-09-2023 [facility] Work Phone: Absolute lymphocyte countOrd ered By: Jasmine Hayes on 05-23-2023 Lymphocytes Auto (Unsp spec) [#/Vol] 2.71 10*3/uL 0.83-4.51 [facility] Basophil percentageOrdered B y: Jasmine Hayes on 05-23-2023 Basophils/100 WBC (Bld) 0.2 % 0-1 [facility] Chloride [Moles/Vol] 107 mmol/L 98-107 [facility] Eosinophils/100 WBC (Bld) 1.8 % 0-5 [facility] Glucose [Mass/Vol] 89 mg/dL 74-[address] [facility] Neutrophils (Bld) [#/Vol] 7.3 10*3/uL 2.0-7.7 [facility] Neutrophils/100 WBC (Bld) 67.5 % 47-70 [facility] Potassium [Moles/Vol] 4.2 mmol/L 3.5-5.1 [facility] Sodium [Moles/Vol] 139 mmol/L 136-[address] [facility] WBC (Bld) [#/Vol] 10.8 10*3/uL 4.4-11.0 [facility] Basophil percentage 0 SEEN /hpf 0-5 [facility] Bilirubin Test strip Ql (U)O rdered By: Jasmine Hayes on 05-23-2023 Bilirubin Ql (U) Negative Negative [facility] Blood erythrocytes count (nu mber/volume)Ordered By: Jasmine Hayes on 05-23-2023 RBC (Bld) [#/Vol] 5.17 10*6/uL 4.2-5.4 [facility] Blood hemoglobin measurement (mass/volume)Ordered By: Jasmine Hayes on 05-23-2023 Hemoglobin (Bld) [Mass/Vol] 15.0 g/dL 12.0-15.0 [facility] Blood lymphocytes/100 leukoc ytesOrdered By: Jasmine Hayes on 05-23-2023 Lymphocytes/100 WBC (Bld) 25.0 % 19-41 [facility] Blood monocytes/100 leukocyt esOrdered By: Jasmine Hayes on 05-23-2023 Monocytes/100 WBC (Bld) 4.9 % 0-10 [facility] Blood platelet mean volumeOr dered By: Jasmine Hayes on 05-23-2023 Platelet mean volume (Bld) [Entitic vol] 8.7 fL 6.2-12.0 [facility] Determination of erythrocyte mean corpuscular volume (MCV)Ordered By: Jasmine Hayes on 05-23-2023 MCV (RBC) [Entitic vol] 90.5 fL 81-99 [facility] Hematocrit Auto (Bld) [Volum e fraction]Ordered By: Jasmine Hayes on 05-23-2023 Hematocrit (Bld) [Volume fraction] 46.8 % 37-47 [facility] Ketones Test strip Ql (U)Ord ered By: Jasmine Hayes on 05-23-2023 Ketones Ql (U) Negative Negative [facility] Laboratory - Chemistry and C hemistry - challengeOrdered By: Jasmine Hayes on 05-23-2023 CO2 [Moles/Vol] 29.0 mmol/L 21.0-32.0 [facility] Urea nitrogen/Creatinine [Mass ratio] 13.2 mg/mg 06-22 [facility] Laboratory - Hematology and Cell countsOrdered By: Jasmine Hayes on 05-23-2023 Erythrocyte distribution width (RBC) [Entitic vol] 45.7 fL 35.1-43.9 [facility] Erythrocyte distribution width (RBC) [Ratio] 13.7 % 11.6-14.6 [facility] Immature granulocytes/100 WBC (Bld) 0.600 % 0.0-0.9 [facility] Comment on above: IG% - Immature Granu locytes (promyelocytes, myelocytes and metamyelocytes) > 1% indicates that a LEFT SHIFT is Present. MCH (RBC) [Entitic mass] 29.0 pg 27.0-32.0 [facility] Nucleated RBC/100 WBC (Bld) [Ratio] 0 % 0-5 [facility] MCHC Auto (RBC) [Mass/Vol]Or dered By: Jasmine Hayes on 05-23-2023 MCHC (RBC) [Mass/Vol] 32.1 g/dL 32-36 [facility] Mucus LM Ql (Urine sed)Order ed By: Jasmine Hayes on 05-23-2023 Mucus Ql (Urine sed) 0 SEEN /hpf [facility] Nitrite Test strip Ql (U)Ord ered By: Jasmine Hayes on 05-23-2023 Nitrite Ql (U) Negative Negative [facility] No Panel InformationOrdered By: Jasmine Hayes on 05-23-2023 D-Dimer Quantitative (PE/DVT) 0.35 FEU/ug/m 0.27-0.49 [facility] Comment on above: NORMAL D-Dimer level (<0.50) indicates no DVT or PE. Estimated Creatinine Clearance Calc 95.33 ml/min [facility] Estimated GFR (MDRD) Amer 137 mL/min >60 [facility] Comment on above: GFR Calc Estimated GFR (MDRD) Non-Af Amer 113 mL/min >60 [facility] Comment on above: Non- GFR Calc Cetronia Level 0.30 mmol/L 0.60-1.20 [facility] Platelets bldOrdered By: Katiana Hayes on 05-23-2023 Platelets (Bld) [#/Vol] 426 10*3/uL 150-450 [facility] Protein Test strip Ql (U)Ord ered By: Jasmine Hayes on 05-23-2023 Protein Ql (U) Negative Negative [facility] Serum or plasma calcium savanna urement (mass/volume)Ordered By: Jasmine Hayes on 05-23-2023 Calcium [Mass/Vol] 9.0 mg/dL 8.5-10.[address] [facility] Serum or plasma creatinine m easurement (mass/volume)Ordered By: Jasmine Hayes on 05-23-2023 Creatinine [Mass/Vol] 0.61 mg/dL 0.55-1.02 [facility] Comment on above: The validity of the calculated GFR & GFRAA in patients over 70 years has not been determined. Clinical correlation is essential. Serum or plasma urea nitroge n measurement (mass/volume)Ordered By: Jasmine Hayes on 05-23-2023 Urea nitrogen [Mass/Vol] 8 mg/dL 7-18 [facility] Squamous epithelial cells de tection in urine sediment by light microscopyOrdered By: Jasmine Hayes on 05-23-2023 Epithelial cells.squamous LM Ql (Urine sed) 0-5 SEEN /hpf 5-10 [facility] Thin prep Papanicolaou smear with manual screeningOrdered By: Jasmine Hayes on 05-23-2023 Thin prep Papanicolaou smear with manual screening 3 5-15 [facility] Urine blood detectionOrdered By: Jasmine Hayes on 05-23-2023 RBC Ql (U) Negative Negative [facility] RBC Ql (U) 0 SEEN /hpf 0-5 [facility] Urine clarityOrdered By: Katiana Hayes on 05-23-2023 Clarity (U) Clear Clear [facility] Urine color determinationOrd ered By: Jasmine Hayes on 05-23-2023 Color (U) Straw Yellow [facility] Urine glucose detectionOrder ed By: Jasmine Hayes on 05-23-2023 Glucose Ql (U) Normal mg/dl Normal [facility] Urine leukocyte esterase det ection by dipstickOrdered By: Jasmine Hayes on 05-23-2023 Leukocyte esterase Test strip Ql (U) Negative Negative [facility] Urine pHOrdered By: Jasmine jeff on 05-23-2023 pH (U) 7.0 [pH] 5.0 - 8.0 [facility] Urine sediment bacteria coun t by microscopy (number/high power field)Ordered By: Jasmine Hayes on 05-23-2023 Bacteria LM.HPF (Urine sed) [#/Area] RARE /hpf None Seen [facility] Urine specific gravity measu rementOrdered By: Jasmine Hayes on 05-23-2023 Specific gravity (U) [Rel density] 1.010 1.002-1.030 [facility] Urobilinogen Auto test strip Ql (U)Ordered By: Jasmine Hayes on 05-23-2023 Urobilinogen Ql (U) Normal mg/dl Normal [facility] APAP SerPl-mCncon 05-11-2023 Acetaminophen [Mass/Vol] ug/mL Low 10-30 [facility] Comment on above: Order Comment: Speci filomena Type: BLOOD SPECIMEN [facility] Facility[facility] Address: [address] [place] [address] Result Comment: Toxi c > 150 ug/mL 4 hours post ingestion The Presley Machado nomogram can be used to estimate the probability of hepatotoxicity via the relationship of plasma acetaminophen concentration to the post ingestion interval. (Odalys. Pediatrics. 1975. 55:871 to 876 and Presley et al. Arch [employer] Med. 1981. 141:380 to 385). Reference ranges and high/low indicator flags are provided as general guidelines only. The treating physician must determine appropriate target levels/dosing based on the specific clinical situation. Performed By: #### 3 0934-4 #### [facility] CLIA [id number] [facility] [place] [address] [place] CBC W Auto Differential pane l (Bld)on 05-11-2023 Basophils (Bld) [#/Vol] 0.04 10*3/uL Normal <0.11 [facility] Comment on above: Order Comment: Escobar butt Type: BLOOD SPECIMEN [facility] Address: [address] [address] Performed By: #### 5 7021-8 #### [facility] CLIA [id number] [address] [place] [address] [place] Basophils/100 WBC (Bld) 0.4 % Normal [facility] Comment on above: Order Comment: Speci men Type: BLOOD SPECIMEN [facility] Address: [address] [address] Performed By: #### 5 7021-8 #### [facility] CLIA [id number] [address] [place] [address] [place] Differential cell count method Nom (Bld) Auto Normal [facility] Comment on above: Order Comment: Speci men Type: BLOOD SPECIMEN [facility] Address: [address] [place] [address] Performed By: #### 5 7021-8 #### [facility] CLIA [id number] [address] [place] Eosinophils (Bld) [#/Vol] 0.30 10*3/uL Normal <0.46 [facility] Comment on above: Order Comment: Speci men Type: BLOOD SPECIMEN [facility] Address: [address] [address] Performed By: #### 5 7021-8 #### [facility] CLIA [id number] [address] Eosinophils/100 WBC (Bld) 2.6 % Normal [facility] Comment on above: Order Comment: Speci men Type: BLOOD SPECIMEN [facility] Address: [address] [place] [address] Performed By: #### 5 7021-8 #### [facility] CLIA [id number] [address] [place] Erythrocyte distribution width (RBC) [Ratio] 13.9 % Normal 11.5-15.0 [facility] Comment on above: Order Comment: Speci men Type: BLOOD SPECIMEN [facility] Address: [address] [address] Performed By: #### 5 7021-8 #### [facility] CLIA [id number] [address] [place] Hematocrit (Bld) [Volume fraction] 41.5 % Normal 36.0-46.0 [facility] Comment on above: Order Comment: Speci men Type: BLOOD SPECIMEN [facility] Address: [address] [place] [address] Performed By: #### 5 7021-8 #### [facility] CLIA [id number] [address] [place] Hemoglobin (Bld) [Mass/Vol] 13.7 g/dL Normal 11.5-15.5 [facility] Comment on above: Order Comment: Speci men Type: BLOOD SPECIMEN [facility] Address: [address] [place] [address] Performed By: #### 5 7021-8 #### [facility] CLIA [id number] [address] [place] Immature granulocytes (Bld) [#/Vol] 0.09 10*3/uL Normal <0.10 [facility] Comment on above: Order Comment: Speci men Type: BLOOD SPECIMEN [facility] Address: [address] [place] [address] Performed By: #### 5 7021-8 #### [facility] CLIA [id number] [address] [place] Immature granulocytes/100 WBC (Bld) 0.8 % Normal [facility] Comment on above: Order Comment: Speci men Type: BLOOD SPECIMEN Order[facility] Address: [address] [place] [address] Performed By: #### 5 7021-8 #### [facility] CLIA [id number] [address] [place] Lymphocytes (Bld) [#/Vol] 4.17 10*3/uL High 1.00-4.00 [facility] Comment on above: Order Comment: Speci men Type: BLOOD SPECIMEN Order[facility] Address: [address] [place] [address] Performed By: #### 5 7021-8 #### [facility] CLIA [id number] [address] [place] Lymphocytes/100 WBC (Bld) 36.7 % Normal [facility] Comment on above: Order Comment: Speci men Type: BLOOD SPECIMEN Ordering [facility] Address: [address] [place] [address] Performed By: #### 5 7021-8 #### [facility] CLIA [id number] [address] MCH (RBC) [Entitic mass] 29.3 pg Normal 26.0-34.0 [facility] Comment on above: Order Comment: Speci men Type: BLOOD SPECIMEN Order[facility] Address: [address] [place] [address] Performed By: #### 5 7021-8 #### [facility] CLIA [id number] [address] MCHC (RBC) [Mass/Vol] 33.0 g/dL Normal 30.5-36.0 [facility] Comment on above: Order Comment: Speci men Type: BLOOD SPECIMEN [facility] Address: [address] [place] [address] Performed By: #### 5 7021-8 #### [facility] LABORATORY CLIA [id number] [address] MCV (RBC) [Entitic vol] 88.7 fL Normal 80.0-100.0 [facility] Comment on above: Order Comment: Speci men Type: BLOOD SPECIMEN [facility] Facility[facility] Address: [address] [place] [address] Performed By: #### 5 7021-8 #### [facility] CLIA [id number] [address] Monocytes (Bld) [#/Vol] 0.86 10*3/uL Normal <0.87 [facility] Comment on above: Order Comment: Speci men Type: BLOOD SPECIMEN [facility] Address: [address] [place] [address] Performed By: #### 5 7021-8 #### [facility] CLIA [id number] [address] Monocytes/100 WBC (Bld) 7.6 % Normal [facility] Comment on above: Order Comment: Speci men Type: BLOOD SPECIMEN [facility] Address: [address] [address] Performed By: #### 5 7021-8 #### [facility] CLIA [id number] [address] [place] Neutrophils (Bld) [#/Vol] 5.89 10*3/uL Normal 1.45-7.50 [facility] Comment on above: Order Comment: Speci men Type: BLOOD SPECIMEN [facility] Address: [address] [place] [address] Performed By: #### 5 7021-8 #### [facility] CLIA [id number] [address] Neutrophils/100 WBC (Bld) 51.9 % Normal [facility] Comment on above: Order Comment: Speci men Type: BLOOD SPECIMEN [facility] Address: [address] [place] [address] Performed By: #### 5 7021-8 #### [facility] CLIA [id number] [address] [place] Nucleated RBC (Bld) [#/Vol] 10*3/uL Normal <0.01 [facility] Comment on above: Order Comment: Speci men Type: BLOOD SPECIMEN [facility] Address: [address] [place] [address] Performed By: #### 5 7021-8 #### [facility] CLIA [id number] [address] OF [facility] Nucleated RBC/100 WBC (Bld) [Ratio] 0.0 /100 WBC Normal [facility] Comment on above: Order Comment: Speci men Type: BLOOD SPECIMEN [facility] Address: [address] [place] [address] Performed By: #### 5 7021-8 #### [facility] CLIA [id number] [address] [place] Platelet mean volume (Bld) [Entitic vol] 8.8 fL Low 9.0-12.7 [facility] Comment on above: Order Comment: Speci men Type: BLOOD SPECIMEN [facility] Address: [address] [place] [address] Performed By: #### 5 7021-8 #### [facility] CLIA [id number] [address] OF [facility] Platelets (Bld) [#/Vol] 387 10*3/uL Normal 150-400 [facility] Comment on above: Order Comment: Speci men Type: BLOOD SPECIMEN [facility] Address: [address] [place] [address] Performed By: #### 5 7021-8 #### [facility] CLIA [id number] [address] RBC (Bld) [#/Vol] 4.68 10*6/uL Normal 3.90-5.20 [facility] Comment on above: Order Comment: Speci men Type: BLOOD SPECIMEN [facility] Address: [address] [place] [address] Performed By: #### 5 7021-8 #### [facility] CLIA [id number] [address] OF [facility] WBC (Bld) [#/Vol] 11.35 10*3/uL High 3.70-11.00 [facility] Comment on above: Order Comment: Speci men Type: BLOOD SPECIMEN [facility] Address: [address] [place] [address] Performed By: #### 5 7021-8 #### [facility] CLIA [id number] [address] OF [facility] CK SerPl-cCncon 05-11-2023 CK [Catalytic activity/Vol] 101 U/L Normal 42-196 [facility] Comment on above: Order Comment: Speci men Type: BLOOD SPECIMEN [facility] Address: [address] [place] [address] Performed By: #### 2 4328, 2157-02 #### [facility] CLIA [id number] [address] Comprehensive metabolic 2000 panelon 05-11-2023 Albumin [Mass/Vol] 3.6 g/dL Low 3.9-4.9 [facility] Comment on above: Order Comment: Speci men Type: BLOOD SPECIMEN [facility] Address: [address] [place] [address] Performed By: #### 2 8, 2157-02 #### [facility] CLIA [id number] [address] ALP [Catalytic activity/Vol] 101 U/L Normal 34-123 [facility] Comment on above: Order Comment: Speci men Type: BLOOD SPECIMEN [facility] Address: [address] [place] [address] Performed By: #### 2 4323-04, 2157-02 #### [facility] CLIA [id number] [address] ALT With P-5'-P [Catalytic activity/Vol] 43 U/L High 7-38 [facility] Comment on above: Order Comment: Speci men Type: BLOOD SPECIMEN [facility] Address: [address] [place] [address] Performed By: #### 2 4323-04, 2157-02 #### [facility] CLIA [id number] [address] Anion gap [Moles/Vol] 10 mmol/L Normal 9-18 [facility] Comment on above: Order Comment: Speci men Type: BLOOD SPECIMEN [facility] Address: [address] [place] [address] Performed By: #### 2 8, 2157-02 #### [facility] CLIA [id number] [address] AST With P-5'-P [Catalytic activity/Vol] 24 U/L Normal 13-35 [facility] Comment on above: Order Comment: Speci men Type: BLOOD SPECIMEN [facility] Address: [address] [place] [address] Performed By: #### 2 8, 2157-02 #### [facility] CLIA [id number] [address] [place] Bilirubin [Mass/Vol] 0.2 mg/dL Normal 0.2-1.3 [facility] Comment on above: Order Comment: Speci men Type: BLOOD SPECIMEN [facility] Address: [address] [place] [address] Performed By: #### 2 4323-04, 2157-02 #### [facility] CLIA [id number] [address] [place] Calcium [Mass/Vol] 9.3 mg/dL Normal 8.5-10.2 [facility] Comment on above: Order Comment: Speci men Type: BLOOD SPECIMEN [facility] Address: [address] [place] [address] Performed By: #### 2 4323-04, 2157-02 #### [facility] CLIA [id number] [address] [place] Chloride [Moles/Vol] 108 mmol/L High 97-105 [facility] Comment on above: Order Comment: Speci men Type: BLOOD SPECIMEN [facility] Address: [address] [address] Performed By: #### 2 4323-04, 2157-02 #### [facility] CLIA [id number] [address] [place] [address] [place] CO2 [Moles/Vol] 21 mmol/L Low 22-30 [facility] Comment on above: Order Comment: Speci men Type: BLOOD SPECIMEN [facility] Address: [address] [address] Performed By: #### 2 4323-04, 2157-02 #### [facility] CLIA [id number] [address] [place] Creatinine [Mass/Vol] 0.84 mg/dL Normal 0.58-0.96 [facility] Comment on above: Order Comment: Escobar butt Type: BLOOD SPECIMEN [facility] Address: [address] [place] [address] Performed By: #### 2 4323-8, 2157-02 #### [facility] CLIA [id number] [address] Creatinine and Glomerular filtration rate.predicted panel (S/P/Bld) 87 mL/min/1.73m??? Normal >=60 [facility] Comment on above: Order Comment: Escobar butt Type: BLOOD SPECIMEN [facility] Address: [address] [place] [address] Result Comment: Caroline mated Glomerular Filtration Rate (eGFR) is calculated using the 2020 CKD-EPI creatinine equation. This equation utilizes serum creatinine, sex, and age as parameters. The creatinine assay has traceable calibration to isotope dilution-mass spectrometry. Refer to KDIGO guidelines for clinical interpretation. In patients with unstable renal function, e.g. those with acute kidney injury, the eGFR may not accurately reflect actual GFR. Performed By: #### 2 4323-8, 2157-02 #### [facility] CLIA [id number] [address] STATES OF [facility] Glucose [Mass/Vol] 83 mg/dL Normal 74-99 [facility] Comment on above: Order Comment: Escobar butt Type: BLOOD SPECIMEN [facility] Address: [address] [place], [place] [address] Result Comment: The [place] [employer] (ADA) provides guidance for cutoff values for fasting glucose and random glucose. The ADA defines fasting as no caloric intake for at least 8 hours. Fasting plasma glucose results between 100 to 125 mg/dL indicate increased risk for diabetes (prediabetes). Fasting plasma glucose results greater than or equal to 126 mg/dL meet the criteria for diagnosis of diabetes. In the absence of unequivocal hyperglycemia, results should be confirmed by repeat testing. In a patient with classic symptoms of hyperglycemia or hyperglycemic crisis, random plasma glucose results greater than or equal to 200 mg/dL meet the criteria for diagnosis of diabetes. Reference: Standards of Medical Care in Diabetes 2016, [place] [employer]. Diabetes Care. 2016.39(Suppl 1). Performed By: #### 2 8, 2157-02 #### [facility] CLIA [id number] [address] [place] [address] [place] Potassium [Moles/Vol] 3.9 mmol/L Normal 3.7-5.1 [facility] Comment on above: Order Comment: Speci men Type: BLOOD SPECIMEN [facility] Address: [address] [place] [address] Performed By: #### 2 4323-04, 2157-02 #### [facility] CLIA [id number] [address] [place] [address] [place] Protein [Mass/Vol] 6.3 g/dL Normal 6.3-8.0 [facility] Comment on above: Order Comment: Speci men Type: BLOOD SPECIMEN [facility] Address: [address] [address] Performed By: #### 2 4323-04, 2157-02 #### [facility] CLIA [id number] [address] [place] Sodium [Moles/Vol] 139 mmol/L Normal 136-144 [facility] Comment on above: Order Comment: Speci men Type: BLOOD SPECIMEN [facility] Address: [address] [address] Performed By: #### 2 4323-04, 2157-02 #### [facility] CLIA [id number] [address] [place] [address] [place] Urea nitrogen [Mass/Vol] 14 mg/dL Normal 7-21 [facility] Comment on above: Order Comment: Speci men Type: BLOOD SPECIMEN [facility] Address: [address] [address] Performed By: #### 2 4323-04, 6 #### [facility][1] CLIA [id number] [address] STATES OF [facility] ECG COMPLETEon 05-11-2023 ECG COMPLETE Ventricular Rate : 7 3 BPM Atrial Rate : 73 BPM P-R Interval : 150 ms QRS Duration : 100 ms Q-T Interval : 414 ms QTC Calculation(Bazett) : 456 ms Calculated P [place] : 40 degrees Calculated R [place] : 41 degrees Calculated T [place] : 60 degrees NORMAL SINUS RHYTHM NONSPECIFIC T WAVE ABNORMALITY ABNORMAL ECG WHEN COMPARED WITH ECG OF 17-JAN-2023 15:58, NO SIGNIFICANT CHANGE WAS FOUND Confirmed by MD KUMAR THOMAS ([id number]) on 05/28/2023 12:02:13 AM NAME : THEODORE STARKEY PID : [id number] : 1975 Gender : Female Race : ORD : [id number] Procedure Date : May 10 2023 23:17:04 Edit Date : May 28 2023 00:02:16 Diagnosis: NORMAL SINUS RHYTHM NONSPECIFIC T WAVE ABNORMALITY ABNORMAL ECG WHEN COMPARED WITH ECG OF 17-JAN-2023 15:58, NO SIGNIFICANT CHANGE WAS FOUND Confirmed by MD KUMAR THOMAS ([id number]) on 05/28/2023 12:02:13 AM Test Reason : Chest Pain Location : 4 : [facility] EM Overread By : MD KUMAR THOMAS Edited By : MD KUMAR THOMAS Referred By : , Acquired by : DANILO RASCON [facility] ED NOTEon 05-11-2023 ED NOTE HNO ID: [id number] Author: Homer Santos RN Service: ? Author Type: Registered Nurse Type: ED Notes Filed: 05/10/2023 11:12 PM Note Text: Bed: [facility] Expected date: Expected time: Means of arrival: Comments: [facility] ED PROV NOTEon 05-11-2023 ED PROV NOTE HNO ID: [id number] Author: Adrien Brooks DO Service: Emergency Medicine Author Type: Physician Type: ED Provider Notes Filed: 05/11/2023 1:19 AM Note Text: The patient was seen and evaluated with the resident physician. I performed a separate HANDP. Please see the resident's note for further details. I agree with the resident's assessment and plan. I personally saw the patient and performed a substantive portion of the visit including all aspects of the medical decision making. HPI: Patient presents to the ED with a chief complaint of medical clearance. She presented to has because she states for the past week she has been having billy. She has a history of bipolar disorder and is on lithium. She states she also has been having suicidal thoughts. She increased her lithium without results. PE: She is cooperative in no distress with a GCS of 15. Lungs are clear to auscultation. Heart regular rate and rhythm. Skin is dry and intact. ADRIEN BROOKS 05/11/23 0119 Normal [facility] ED PROV NOTE HNO ID: [id number] Author: Adrien Brooks DO Service: Emergency Medicine Author Type: Physician Type: ED Provider Notes Filed: 05/25/2023 8:13 AM Note Text: ED Provider Note Patient Name: Theodore Starkey : 1975 SERVICE DATE: 05/10/23 History Patient presents with: Medical Clearance: Pt from [facility] and was brought here by EMS for med clearance. Pt admits to taking more of her medications that she is supposed to b/c she could not reach her psychiatrist and she was trying to get rid of her billy. Pt also admits to using meth yesterday. Denies SI/HI. Pt is AANDOx3. Patient is a 48-year-old female presenting [facility]. She states that she was seen on 05/06/2023 for positive suicidal ideation with plan. At that time she also admitted to homicidal ideation. At that time, she stated she could not get a hold of her psychiatrist via telephone so she took an extra each of her at home medications. She states she did this to get rid of her billy. Today she denies any suicidal ideation, homicidal ideation, auditory or visual hallucinations. Patient admits to using methamphetamines, most recently 2 days ago. Denies any chest pain or shortness of breath at this time. PAST MEDICAL HISTORY Diagnosis Date Abnormal Pap smear Cerebral aneurysm 02/20/12 SAH, anterior communicating artery aneurysm Concussion with no loss of consciousness 08/08/2007 no LOC Diverticulosis DVT (deep venous thrombosis) (HCC) 2011 after plantar fascitis Hypertension 03/28/2011 Idiopathic peripheral neuropathy 05/27/2013 verified by EMG Migraine PAST SURGICAL HISTORY Procedure Laterality Date DELIVERY ONLY , low cervical x 2 COLPOSCOPY CERVIX UPPER/ADJACENT VAGINA 1998 Colposcopy LEEP PROCEDURE (PANTRY CHEF DEPT)_*FL 02/11 TRACI 2 LIG/TRNSXJ FLP TUBE ABDL/VAG APPR UNI/BI 2000 Tubal ligation after she had her daughter NEUROPLASTY AND/TRANSPOS MEDIAN NRV CARPAL TUNNE Carpal tunnel decomp BL NOV2012 PAST SURGICAL HISTORY OF 2008 bone spur left ankle- in pain management PAST SURGICAL HISTORY OF planter facitis surg/ dvt after SIMPLE INTRACRANIAL ARYSM CAROTID CIRCULATION 02/20/12 coil bleeding anterior communicating artery aneurysm FAMILY HISTORY Problem Relation Age of Onset Emphysema Mother Alive None Father of drug overdose Cancer Maternal Grandfather Cancer Paternal Grandmother Diabetes Paternal Grandmother Diabetes Maternal Aunt Diabetes Maternal Aunt Diabetes Maternal Grandfather Alcohol/Drug Father None Brother Headache Daughter COPD Mother Social History Tobacco Use Smoking status: Every Day Packs/day: 2.00 Years: 15.00 Additional pack years: 0.00 Total pack years: 30.00 Types: Cigarettes Smokeless tobacco: Never Substance and Sexual Activity Alcohol use: No Drug use: Yes Types: Amphetamines Comment: smokes meth once every 5 months Sexual activity: Never Partners: Female control/protection: Tubal Ligation ALLERGIES Allergen Reactions Mobic [Meloxicam] GI Upset Zofran [Ondansetron* Mental Status Change Review of Systems Constitutional: Negative for fatigue and fever. HENT: Negative for congestion. Eyes: Negative for visual disturbance. Respiratory: Negative for cough and shortness of breath. Cardiovascular: Negative for chest pain. Gastrointestinal: Negative for abdominal pain, diarrhea, nausea and vomiting. Genitourinary: Negative for dysuria, flank pain and hematuria. Musculoskeletal: Negative for back pain and myalgias. Skin: Negative for rash. Neurological: Negative for dizziness, weakness and headaches. Psychiatric/Behavioral: Positive for suicidal ideas (Suicidal ideation yesterday, denies active suicidal ideation today). Negative for hallucinations. Physical Exam Vitals [05/10/23 2337] BP Pulse Temp Temp src Resp SpO2 Weight Height 136/89 74 36.5 ?C (97.7 ?F) Oral 18 97 % 117.9 kg (260 lb) 1.6 m (5' 3) Physical Exam Vitals and nursing note reviewed. Constitutional: Appearance: Normal appearance. HENT: Head: Normocephalic and atraumatic. Mouth/Throat: Pharynx: Oropharynx is clear. Eyes: Extraocular Movements: Extraocular movements intact. Pupils: Pupils are equal, round, and reactive to light. Cardiovascular: Rate and Rhythm: Normal rate and regular rhythm. Pulmonary: Effort: Pulmonary effort is normal. Breath sounds: Normal breath sounds. Abdominal: General: Abdomen is flat. Palpations: Abdomen is soft. Tenderness: There is no abdominal tenderness. There is no guarding. Musculoskeletal: Cervical back: Neck supple. Skin: General: Skin is warm and dry. Neurological: General: No focal deficit present. Mental Status: She is oriented to person, place, and time. Psychiatric: Mood and Affect: Mood normal. Behavior: Behavior normal. Diagnostic Testing ED Labs Ordered (more content not included)... Normal [facility] Ethanol SerPl-ncon 023 Ethanol [Mass/Vol] mg/dL Normal <11 [facility] Comment on above: Order Comment: Escobar butt Type: BLOOD SPECIMEN [facility] Address: [address] [place] [address] Performed By: #### 3 0934-4 #### [facility] CLIA [id number] [address] [place], [place] [address] [place] HCG Preg Ur Qlon 05-11-2023 HCG ( test) Ql (U) Negative Normal Negative [facility] Comment on above: Order Comment: Escobar butt Type: URINE SPECIMEN [facility] Address: [address] [place] [address] Result Comment: This test is intended to aid in the early detection of . Very dilute urine samples, as indicated by a low specific gravity, may not contain bilingual call center representative levels of hCG. This test detects intact hCG only. This test does not reliably detect hCG degradation products, including free-beta subunit and beta-core fragment. Therefore, this test may show reduced reactivity in urine after 8 weeks gestation. A number of conditions other than , including trophoblastic disease and certain non-trophoblastic neoplasms cause elevated levels of hCG. As with any assay employing mouse antibodies, the possibility exists for interference by human anti-mouse antibodies (HAMA) in the specimen. The test provides a presumptive diagnosis for . Performed By: #### 2 106-3 #### [facility][1] CLIA [id number] [address] [place] Cetronia SerPl-sCncon 023 Cetronia [Moles/Vol] 0.5 mmol/L Low 0.6-1.2 [facility] Comment on above: Order Comment: Speci men Type: BLOOD SPECIMEN [facility] Address: [address] [place] [phone] Result Comment: Refe rence ranges and high/low indicator flags are provided as general guidelines only. The treating physician must determine appropriate target levels/dosing based on the specific clinical situation. Performed By: #### 1 4334-7 #### [facility][1] CLIA [id number] [address] [place] [address] [place] SARS-CoV-2 RNA Resp Ql JAZMINE+p robeon 05-11-2023 SARS-CoV-2 (COVID-19) RNA JAZMINE+probe Ql (Resp) COVID 19 RESULT: Not detected The method used is RT-PCR or an equivalent NAAT method. Reference Range(the expected result in uninfected individuals): Not detected Normal [facility] Comment on above: Performed By: #### 2 4323-8, 2157-6 #### [facility][1] CLIA [id number] [address] [place] Salicylates SerPl-mCncon Salicylates [Mass/Vol] mg/dL Low 3.0-30.0 [facility] Comment on above: Order Comment: Speci filomena Type: BLOOD SPECIMEN [facility] Address: [address] [place] [phone] Result Comment: The therapeutic range varies and has been reported to be 3.0 to 10.0 mg/dL for anti pyretic/analgesic conditions and 15.0 to 30.0 mg/dL for anti inflammatory/rheumatic fever conditions. Ranges published by the instrument senior counsel. Reference ranges and high/low indicator flags are provided as general guidelines only. The treating physician must determine appropriate target levels/dosing based on the specific clinical situation. Performed By: #### 3 0934-4 #### [facility] CLIA [id number] [address] [place] TOX SCREEN ROUT URon 023 Amphetamines Confirm (U) [Mass/Vol] Positive Abnormal Negative [facility] Comment on above: Order Comment: Speci men Type: BLOOD SPECIMEN [facility] Address: [address] [place] [address] Result Comment: Cuto ff threshold at 1000 ng/mL. Performed By: #### 2 4323-04, 2157-02 #### [facility] CLIA [id number] [address] BARBITURATES, URINE Negative Normal Negative [facility] Comment on above: Order Comment: Speci men Type: BLOOD SPECIMEN [facility] Address: [address] [place] [address] Result Comment: Cuto ff threshold at 200 ng/mL. Performed By: #### 2 4323-04, 2157-02 #### [facility] CLIA [id number] [address] [place] BENZODIAZEPINES, UR Negative Normal Negative [facility] Comment on above: Order Comment: Speci men Type: BLOOD SPECIMEN [facility] Address: [address] [place] [address] Result Comment: Cuto ff threshold at 200 ng/mL. Performed By: #### 2 4323-04, 2157-02 #### [facility] CLIA [id number] [address] OF [facility] Cannabinoids Screen Ql (U) Positive Abnormal Negative [facility] Comment on above: Order Comment: Speci men Type: BLOOD SPECIMEN [facility] Address: [address] [address] Result Comment: Cuto ff threshold at 50 ng/mL. Performed By: #### 2 4323-04, 2157-02 #### [facility] CLIA [id number] [address] [place] Cocaine Ql (U) Negative Normal Negative [facility] Comment on above: Order Comment: Speci men Type: BLOOD SPECIMEN [facility] Address: [address] [place] [address] Result Comment: Cuto ff threshold at 300 ng/mL. Performed By: #### 2 4323-04, 2157-02 #### [facility] CLIA [id number] [address] [place] Ethanol (U) [Mass/Vol] <11 Normal <11 [facility] Comment on above: Order Comment: Speci men Type: BLOOD SPECIMEN [facility] Address: [address] [place] [address] Performed By: #### 2 4323-04, 2157-02 #### [facility] CLIA [id number] [address] Opiates Screen Ql (U) Negative Normal Negative [facility] Comment on above: Order Comment: Speci men Type: BLOOD SPECIMEN [facility] Address: [address] [place] [address] Result Comment: Cuto ff threshold at 300 ng/mL. Performed By: #### 2 4323-04, 2157-02 #### [facility] CLIA [id number] [address] oxyCODONE cutoff Screen (U) [Mass/Vol] Negative Normal Negative [facility] Comment on above: Order Comment: Speci men Type: BLOOD SPECIMEN [facility] Address: [address] [place] [address] Result Comment: Cuto ff threshold at 100 ng/mL. Performed By: #### 2 4323-04, 2157-02 #### [facility] CLIA [id number] [address] [place] Phencyclidine Ql (U) Negative Normal Negative [facility] Comment on above: Order Comment: Speci filomena Type: BLOOD SPECIMEN [facility] Address: [address] [place] [phone] Result Comment: Cuto ff threshold at 25 ng/mL. Performed By: #### 2 4323-8, 2157-02 #### [facility] CLIA [id number] [address] Urinalysis complete pnl Uron 05-11-2023 Urinalysis complete panel (U) COLOR: Light [place] CLARITY: Dense Turbid GLUCOSE, URINE: Negative BILIRUBIN, URINE: Negative KETONES, URINE: Negative SPECIFIC GRAVITY, UR: 1.015 HEMOGLOBIN/BLOOD, UR: Negative PH, URINE: 7.0 PROTEIN, URINE: Trace UROBILINOGEN: Normal NITRITES: Negative LEUKEST: Negative WBC, URINE: >25 /HPF RBC, URINE: 6-10 /HPF BACTERIA: Few SQUAMOUS EPITHELIAL CELLS: Moderate HYALINE CASTS: >10 /LPF BUDDING YEAST (UA): Many CULTURE, URINE: 10,000-<50,000 CFU/mL Three or more organisms, no one type predominant, suggesting contamination during collection. Recollect if clinically indicated. Abnormal [facility] Comment on above: Order Comment: Escobar butt Type: BLOOD SPECIMEN [facility] Address: [address] [place] [phone] Performed By: #### 2 4323-8, 2157-02 #### [facility] CLIA [id number] [address] [place] [address] Provider Note - ED v3on 02-01 Provider Note - ED v3 Provider Note: Results/Vital Signs: Pediatric Clinical Scoring (GIOVANA) is no recent GIOVANA charted on this account Chart Review: ED NOTES ED NOTES: Patient presents after a fall last evening. She states that she has an issue with sleepwalking. She slept walk last night and apparently fell backwards and hit her head and neck. She having pain in the neck and lower back. The pain in the back radiates down the left leg. Pain is worse with movement. She denies any numbness or tingling in the arms or extremities. Denies any weakness in her legs. She states she has had issues with sleepwalking for many months. She is on a multitude of psychiatric medications which she states exacerbates this. She denies any vision changes. She took nothing for the pain at home. She is on no blood thinning medications. Physical exam: Vital signs are reviewed. Age appropriate individual in no acute distress. Head is atraumatic. EENT exam shows equal pupils. Extraocular motions are intact. The mucous membranes are moist. Heart is regular rate and rhythm without murmurs. Lungs are clear to auscultation bilaterally. Abdomen soft and nontender. Spine is diffusely tender. There is tenderness in the lower lumbar spine region as well. No step-offs noted. Extremities reveal no edema. Peripheral pulses are equal. GCS 15. Strength and sensation are equal bilaterally. She does have dyskinetic movements, likely due to her psychiatric medications. Skin exam reveals no rashes or cyanosis. HISTORY OF PRESENTING ILLNESS THEODORE is a 47 year old Female and was seen by me at 18-Feb-2023 13:19 for a chief complaint of (states she fell while sleep walking, head,neck, back, leg pain)(1). Triage Information: Most recent Vital Sign Value Date Temp (F): 98.7 02-18-2023 13:06 Temp (C): 37 02-18-2023 13:06 Heart Rate (beats/min): 98 02-18-2023 13:06 Respirations (breaths/min): 18 02-18-2023 13:06 SpO2 (%): 95 02-18-2023 13:06 BP Systolic (mm Hg): 136 02-18-2023 13:06 BP Diastolic (mm Hg): 68 02-18-2023 13:06 PAST MEDICAL HISTORY ALLERGIES/INTOLERANCES: No Known Allergies HEALTH HISTORY: No documented data. OUTPATIENT MEDICATIONS: Home Medications Review Status for Reconciliation: N/A Med Status: Incomplete Medication History Drug Name: Keflex 500 mg oral capsule Instructions: 1 cap(s) orally 4 times a day Drug Name: Lasix 40 mg oral tablet Instructions: 1 tab(s) orally once a day SIGNIFICANT EVENTS: Past Medical History Description:aneurysm brain Past Surgical History Description:brain surgery MDM MDM/ED COURSE: Differentials include fracture versus contusion. Imaging studies, if performed, were independently reviewed and interpreted by myself and confirmed by radiologist. EKG(s), if performed, were interpreted by myself.The patient had CAT scans of the head, C-spine and L-spine. No acute findings were found on these imaging studies. Patient was given 1 oxycodone here. This is likely contusions to each of these areas. At this time I feel the patient can be discharged to take naproxen for pain at home. She will use ice on any areas that are sore and will follow-up with her PCP. DISPOSITION Diagnosis/Annotation: ED Dx Name:Lumbar contusion Code:S30.0XXA Name:Cervical strain Code:S16.1XXA Disposition: discharged CONSULT CRITICAL CARE TIME Is this a critically ill patient: no Electronic Signatures: Madan Duran) (Signed 18-Feb-2023 15:22) Authored: ED Notes, HPI, PMH, Results/Vital Signs, MDM/ED Course, Clinical Impression, Attestation, Chart Review, Scores Last Updated: 18-Feb-2023 15:22 by Madan Duran) References: 1. Data Referenced From Triage - ED 18-Feb-2023 13:06 Normal [facility] Risk Screen - Adult Emergenc yon 02-18-2023 Risk Screen - Adult Emergency Preferred Language: Preferred Language: Preferred Language for Discussing Health Care (patient/designee)Ricky blair Patient Preferred Pharmacy: Patient Preferred Pharmacy Statement: I have reviewed and updated the patient's preferred pharmacy selection for today's visit. Advanced Directives: Advance Directive/DNRno Advance Directive Information Givenpatient/family declined Family Violence Adult: Abuse Screen: Are you or have you been threatened or abused physically, emotionally, or sexually by anyoneno Learning Assessment (Patient): Learning Assessment (Patient): Patient is Able to be Assessed for Learningyes Factors Influencing Readiness to Learnacuteness of illness; anxiety Factors that Impact Ability to Learnnone Devices/Methods Used to Communicatenone Learning Preferencesverbal instruction; individual instruction Cultural Considerationsnone Developmental Considerationsnone Pentecostalism Considerationsnone Learning Assessment (Other Learner): Learning Assessment (Other Learner): Other learner availableno Pressure Injury/TB/Substance: Pressure Injury: Do you have a coughno Smoking Statusunable to assess Admission Risk Screen: Significant IndicatorsComplete CAGE: CAGE: Is this an injured patient at a Trauma Center ([facility]/[place]): no Electronic Signatures: Jennifer Henning (RN) (Signed 18-Feb-2023 13:59) Authored: Preferred Language, Patient Preferred Pharmacy, Advanced Directives, Family Violence Adult, Learning Assessment (Patient), Learning Assessment (Other Learner), Pressure Injury/TB/Substance, Pressure Injury, CAGE Last Updated: 18-Feb-2023 13:59 by Jennifer Henning (RN) Normal [facility] Basic metabolic 2000 panelon 01-17-2023 Anion gap [Moles/Vol] 3 mmol/L Low 9-18 [facility] Comment on above: Order Comment: Speci men Type: BLOOD SPECIMEN [facility] Address: [address] [place] [address] Performed By: #### 2 4321-2 #### [facility] CLIA [id number] [address] [place] [address] [place] Calcium [Mass/Vol] 9.0 mg/dL Normal 8.6-10.3 [facility] Comment on above: Order Comment: Speci men Type: BLOOD SPECIMEN [facility] Address: [address] [address] Performed By: #### 2 4321-2 #### [email or web address] CLIA [id number] [address] [place] [address] [place] Chloride [Moles/Vol] 110 mmol/L Normal 101-111 [facility] Comment on above: Order Comment: Speci men Type: BLOOD SPECIMEN [facility] Address: [address] [address] Performed By: #### 2 4321-2 #### [facility] CLIA [id number] [address] [place] [address] [place] CO2 [Moles/Vol] 26 mmol/L Normal 21-31 [facility] Comment on above: Order Comment: Speci men Type: BLOOD SPECIMEN [facility] Address: [address] [address] Performed By: #### 2 4321-2 #### [email or web address] CLIA [id number] [address] [place], [place] [address] [place] Creatinine [Mass/Vol] 0.76 mg/dL Normal 0.60-1.30 [facility] Comment on above: Order Comment: Speckosta butt Type: BLOOD SPECIMEN [facility] Address: [address] [place] [address] Result Comment: Use of this assay is not recommended for patients undergoing treatment with phenindione, due to the potential for falsely depressed results. Performed By: #### 2 4321-2 #### [email or web address] CLIA [id number] [address] [place], [place] [address] [place] [facility] ESTIMATED GLOMERULAR FILTRATION RATE 99 mL/min/1.73m??? Normal >=60 [facility] Comment on above: Order Comment: Escobar butt Type: BLOOD SPECIMEN [facility] Address: [address] [place] [address] Result Comment: Caroline mated Glomerular Filtration Rate (eGFR) is calculated using the 2020 CKD-EPI creatinine equation. This equation utilizes serum creatinine, sex, and age as parameters. The creatinine assay has traceable calibration to isotope dilution-mass spectrometry. Refer to KDIGO guidelines for clinical interpretation. In patients with unstable renal function, e.g. those with acute kidney injury, the eGFR may not accurately reflect actual GFR. Performed By: #### 2 4321-2 #### [email or web address] CLIA [id number] [address] [place], [place] [address] [place] Glucose [Mass/Vol] 87 mg/dL Normal 74-99 [facility] Comment on above: Order Comment: Escobar butt Type: BLOOD SPECIMEN [facility] Address: [address] [place] [address] Result Comment: The [place] Diabetes Association (ADA) provides guidance for cutoff values for fasting glucose and random glucose. The ADA defines fasting as no caloric intake for at least 8 hours. Fasting plasma glucose results between 100 to 125 mg/dL indicate increased risk for diabetes (prediabetes). Fasting plasma glucose results greater than or equal to 126 mg/dL meet the criteria for diagnosis of diabetes. In the absence of unequivocal hyperglycemia, results should be confirmed by repeat testing. In a patient with classic symptoms of hyperglycemia or hyperglycemic crisis, random plasma glucose results greater than or equal to 200 mg/dL meet the criteria for diagnosis of diabetes. Reference: Standards of Medical Care in Diabetes 2016, [place] Diabetes Association. Diabetes Care. 2016.39(Suppl 1). Performed By: #### 2 4321-2 #### [facility] CLIA [id number] [address] [place] [address] [place] Potassium [Moles/Vol] 4.0 mmol/L Normal 3.6-5.1 [facility] Comment on above: Order Comment: Speci filomena Type: BLOOD SPECIMEN [facility] Address: [address] [place] [address] Performed By: #### 2 4321-2 #### [facility] CLIA [id number] [address] [place] [address] [place] Sodium [Moles/Vol] 139 mmol/L Normal 136-144 [facility] Comment on above: Order Comment: Escobar butt Type: BLOOD SPECIMEN [facility] Address: [address] [place] [address] Performed By: #### 2 4321-2 #### [facility] CLIA [id number] [address] [place] [address] [place] Urea nitrogen [Mass/Vol] 15 mg/dL Normal 7-25 [facility] Comment on above: Order Comment: Speci men Type: BLOOD SPECIMEN [facility] Address: [address] [place] [address] Performed By: #### 2 4321-2 #### [facility] CLIA [id number] [address] [place], [place] [address] [place] CBC W Auto Differential pane l (Bld)on 01-17-2023 Basophils (Bld) [#/Vol] 10*3/uL Normal <0.11 [facility] Comment on above: Order Comment: Speci men Type: BLOOD SPECIMEN [facility] Address: [address] [place] [address] Performed By: #### 5 7021-8 #### [facility] CLIA [id number] [address] [place] [address] [place] Basophils/100 WBC (Bld) 0.2 % Normal [facility] Comment on above: Order Comment: Speci men Type: BLOOD SPECIMEN [facility] Address: [address] [address] Performed By: #### 5 7021-8 #### [facility] CLIA [id number] [address] [place] [address] [place] Differential cell count method Nom (Bld) Auto Normal [facility] Comment on above: Order Comment: Speci men Type: BLOOD SPECIMEN [facility] Address: [address] [place] [address] Performed By: #### 5 7021-8 #### [facility] CLIA [id number] [address] [place] [address] [place] Eosinophils (Bld) [#/Vol] 0.31 10*3/uL Normal <0.46 [facility] Comment on above: Order Comment: Speci men Type: BLOOD SPECIMEN [facility] Address: [address] [address] Performed By: #### 5 7021-8 #### [facility] CLIA [id number] [address] [place] [address] [place] Eosinophils/100 WBC (Bld) 3.5 % Normal [facility] Comment on above: Order Comment: Speci men Type: BLOOD SPECIMEN [facility] Address: [address] [place] [address] Performed By: #### 5 7021-8 #### [facility] CLIA [id number] [address] [place] Erythrocyte distribution width (RBC) [Ratio] 12.5 % Normal 11.5-15.0 [facility] Comment on above: Order Comment: Speci men Type: BLOOD SPECIMEN [facility] Address: [address] [place] [address] Performed By: #### 5 7021-8 #### [facility] CLIA [id number] [address] [place] [address] [place] Hematocrit (Bld) [Volume fraction] 40.4 % Normal 36.0-46.0 [facility] Comment on above: Order Comment: Speci men Type: BLOOD SPECIMEN [facility] Address: [address] [place] [address] Performed By: #### 5 7021-8 #### [facility] CLIA [id number] [address] [place] [address] [place] Hemoglobin (Bld) [Mass/Vol] 13.0 g/dL Normal 11.5-15.5 [facility] Comment on above: Order Comment: Speci men Type: BLOOD SPECIMEN [facility] Address: [address] [place] [address] Performed By: #### 5 7021-8 #### [facility] CLIA [id number] [address] [place] [address] [place] Immature granulocytes (Bld) [#/Vol] 10*3/uL Normal <0.10 [facility] Comment on above: Order Comment: Speci men Type: BLOOD SPECIMEN [facility] Address: [address] [place] [address] Performed By: #### 5 7021-8 #### [facility] CLIA [id number] [address] [address] [facility] [place] Immature granulocytes/100 WBC (Bld) 0.1 % Normal [facility] Comment on above: Order Comment: Speci men Type: BLOOD SPECIMEN [facility] Address: [address] [address] Performed By: #### 5 7021-8 #### [facility] CLIA [id number] [address] [place], [place] [address] [place] Lymphocytes (Bld) [#/Vol] 2.83 10*3/uL Normal 1.00-4.00 [facility] Comment on above: Order Comment: Speci men Type: BLOOD SPECIMEN [facility] Address: [address] [place] [address] Performed By: #### 5 7021-8 #### [facility] CLIA [id number] [address] [place] [address] [place] Lymphocytes/100 WBC (Bld) 31.9 % Normal [facility] Comment on above: Order Comment: Speci men Type: BLOOD SPECIMEN [facility] Address: [address] [place] [address] Performed By: #### 5 7021-8 #### [facility] CLIA [id number] [address] [place] [address] [place] MCH (RBC) [Entitic mass] 28.7 pg Normal 26.0-34.0 [facility] Comment on above: Order Comment: Speci men Type: BLOOD SPECIMEN [facility] Address: [address] [place] [address] Performed By: #### 5 7021-8 #### [facility] CLIA [id number] [address] [place], [place] [address] [place] MCHC (RBC) [Mass/Vol] 32.2 g/dL Normal 30.5-36.0 [facility] Comment on above: Order Comment: Speci men Type: BLOOD SPECIMEN [facility] Address: [address] [place] [address] Performed By: #### 5 7021-8 #### [facility] CLIA [id number] [address] [place] [address] [place] MCV (RBC) [Entitic vol] 89.2 fL Normal 80.0-100.0 [facility] Comment on above: Order Comment: Speci men Type: BLOOD SPECIMEN [facility] Address: [address] [place] [address] Performed By: #### 5 7021-8 #### [facility] CLIA [id number] [address] [place] [address] [place] Monocytes (Bld) [#/Vol] 0.57 10*3/uL Normal <0.87 [facility] Comment on above: Order Comment: Speci men Type: BLOOD SPECIMEN [facility] Address: [address] [place] [address] Performed By: #### 5 7021-8 #### [facility] CLIA [id number] [address] [place] [address] [place] Monocytes/100 WBC (Bld) 6.4 % Normal [facility] Comment on above: Order Comment: Speci men Type: BLOOD SPECIMEN [facility] Address: [address] [place] [address] Performed By: #### 5 7021-8 #### [facility] CLIA [id number] [address] [place] [address] [place] Neutrophils (Bld) [#/Vol] 5.13 10*3/uL Normal 1.45-7.50 [facility] Comment on above: Order Comment: Speci men Type: BLOOD SPECIMEN [facility] Address: [address] [place] [address] Performed By: #### 5 7021-8 #### [facility] CLIA [id number] [address] [place] [address] [place] Neutrophils/100 WBC (Bld) 57.9 % Normal [facility] Comment on above: Order Comment: Speci men Type: BLOOD SPECIMEN [facility] Address: [address] [place] [address] Performed By: #### 5 7021-8 #### [facility] CLIA [id number] [address] [place], [place] [address] [place] Nucleated RBC (Bld) [#/Vol] Normal [facility] Comment on above: Order Comment: Speci men Type: BLOOD SPECIMEN [facility] Address: [address] [address] Performed By: #### 5 7021-8 #### [facility] CLIA [id number] [address] [place] [address] [place] Nucleated RBC/100 WBC (Bld) [Ratio] Normal [facility] Comment on above: Order Comment: Speci men Type: BLOOD SPECIMEN [facility] Address: [address] [address] Performed By: #### 5 7021-8 #### [facility] CLIA [id number] [address] [place] [address] [place] Platelet mean volume (Bld) [Entitic vol] 8.6 fL Low 9.0-12.7 [facility] Comment on above: Order Comment: Speci men Type: BLOOD SPECIMEN [facility] Address: [address] [address] Performed By: #### 5 7021-8 #### [facility] CLIA [id number] [address] [place] [address] [place] Platelets (Bld) [#/Vol] 295 10*3/uL Normal 150-400 [facility] Comment on above: Order Comment: Speci men Type: BLOOD SPECIMEN [facility] Address: [address] Performed By: #### 5 7021-8 #### [facility] CLIA [id number] [address] [place], [place] [address] [place] RBC (Bld) [#/Vol] 4.53 10*6/uL Normal 3.90-5.20 [facility] Comment on above: Order Comment: Speci men Type: BLOOD SPECIMEN [facility] Address: [place] Performed By: #### 5 7021-8 #### [facility] CLIA [id number] [address] [place] [address] [place] WBC (Bld) [#/Vol] 8.87 10*3/uL Normal 3.70-11.00 [facility] Comment on above: Order Comment: Speci men Type: BLOOD SPECIMEN [facility] Address: [address] [address] Performed By: #### 5 7021-8 #### [facility] CLIA [id number] [address] ECG COMPLETEon 01-17-2023 ECG COMPLETE Ventricular Rate : 6 3 BPM Atrial Rate : 63 BPM P-R Interval : 158 ms QRS Duration : 106 ms Q-T Interval : 436 ms QTC Calculation(Bazett) : 446 ms Calculated P [place] : 41 degrees Calculated R [place] : 38 degrees Calculated T [place] : 58 degrees NORMAL SINUS RHYTHM T WAVE ABNORMALITY, CONSIDER ANTERIOR ISCHEMIA ABNORMAL ECG NO PREVIOUS ECGS AVAILABLE Confirmed by MD KUMAR THOMAS ([id number]) on 02/04/2023 7:29:19 AM NAME : THEODORE STARKEY PID : [id number] : 1975 Gender : Female Race : ORD : [id number] Procedure Date : Jan 17 2023 15:58:12 Edit Date : Feb 04 2023 07:29:21 Diagnosis: NORMAL SINUS RHYTHM T WAVE ABNORMALITY, CONSIDER ANTERIOR ISCHEMIA ABNORMAL ECG NO PREVIOUS ECGS AVAILABLE Confirmed by MD KUMAR THOMAS ([id number]) on 02/04/2023 7:29:19 AM Test Reason : Chest Pain Location : 153 : [facility]-ED 5 Overread By : MD KUMAR THOMAS Edited By : MD KUMAR THOMAS Referred By : , Acquired by : SHELLEY MILLER [facility] ED PROV NOTEon 01-17-2023 ED PROV NOTE HNO ID: [id number] Author: Naamn Segal MD Service: Emergency Medicine Author Type: Physician Type: ED Provider Notes Filed: 01/17/2023 5:14 PM Note Text: ED Provider Note Patient Name: Theodore Starkey : 1975 SERVICE DATE: 01/17/23 History Patient presents with: Fall: States fall on Sunday off porch landing on back. Ms Starkey presents with a 4-day history of pain in her left knee after a fall. She states she is always had weak legs and falls frequently, has had problems with her knees and they frequently give out. 4 days ago, her knee gave out and she fell backwards. Did not hit her head, no loss of consciousness, confusion, vomiting since the event. She has had persistent pain in her left knee since then, she says she is able to walk but it occasionally gives out on her again. She also says that her legs have been more swollen than normal for the last several months so she wanted that checked out to make sure it was not a heart problem. When asked about chest pain or shortness of breath, she says she has that intermittently over the last several months but not exertional, no orthopnea, no specific situations where it occurs. PAST MEDICAL HISTORY Diagnosis Date Abnormal Pap smear Cerebral aneurysm 02/20/12 SAH, anterior communicating artery aneurysm Concussion with no loss of consciousness 08/08/2007 no LOC Diverticulosis DVT (deep venous thrombosis) ([facility]) 2011 after plantar fascitis Hypertension 03/28/2011 Idiopathic peripheral neuropathy 05/27/2013 verified by [facility] PAST SURGICAL HISTORY Procedure Laterality Date DELIVERY ONLY , low cervical x 2 COLPOSCOPY CERVIX UPPER/ADJACENT VAGINA 1998 Colposcopy LEEP PROCEDURE (PANTRY CHEF DEPT)_*FL 02/11 TRACI 2 LIG/TRNSXJ FLP TUBE ABDL/VAG APPR UNI/BI 2000 Tubal ligation after she had her daughter NEUROPLASTY AND/TRANSPOS MEDIAN NRV CARPAL TUNNE Carpal tunnel decomp BL NOV2012 PAST SURGICAL HISTORY OF 2008 bone spur left ankle- in pain management PAST SURGICAL HISTORY OF [place] facitis surg/ dvt after SIMPLE INTRACRANIAL ARYSM CAROTID CIRCULATION 02/20/12 coil bleeding anterior communicating artery aneurysm FAMILY HISTORY Problem Relation Age of Onset Emphysema Mother Alive None Father of drug overdose Cancer Maternal Grandfather Cancer Paternal Grandmother Diabetes Paternal Grandmother Diabetes Maternal Aunt Diabetes Maternal Aunt Diabetes Maternal Grandfather Alcohol/Drug Father None Brother Headache Daughter COPD Mother Social History Tobacco Use Smoking status: Every Day Packs/day: 2.00 Years: 9.00 Pack years: 18.00 Types: Cigarettes Smokeless tobacco: Never Substance and Sexual Activity Alcohol use: No Drug use: No Comment: caffeine 2 reg coffee cups and Mountain dew 6 cans a day, former IV drug use Sexual activity: Never Partners: Female control/protection: Tubal Ligation ALLERGIES Allergen Reactions Mobic [Meloxicam] GI Upset Zofran [Ondansetron* Mental Status Change Review of Systems Constitutional: Negative for chills and fever. HENT: Negative. Negative for congestion and sore throat. Eyes: Negative for visual disturbance. Respiratory: Positive for shortness of breath. Negative for cough and wheezing. Cardiovascular: Positive for chest pain. Gastrointestinal: Negative for abdominal pain, diarrhea and vomiting. Endocrine: Negative. Genitourinary: Negative. Negative for difficulty urinating. Musculoskeletal: Positive for arthralgias. Negative for myalgias. Skin: Negative for color change and rash. Allergic/Immunologic: Negative. Neurological: Negative for headaches. Hematological: Negative. Does not bruise/bleed easily. Psychiatric/Behavioral: Negative. Negative for confusion. All other systems reviewed and are negative. Physical Exam Vitals [01/17/23 1457] BP Pulse Temp Temp src Resp SpO2 Weight Height 158/86 56 36.2 ?C (97.2 ?F) Temporal 20 96 % 124.7 kg (275 lb) -- Physical Exam Vitals and nursing note reviewed. Constitutional: Appearance: She is well-developed. HENT: Head: Normocephalic and atraumatic. Nose: Nose normal. Mouth/Throat: Mouth: Mucous membranes are moist. Eyes: Extraocular Movements: Extraocular movements intact. Neck: Comments: Cervical spine nontender Cardiovascular: Rate and Rhythm: Normal rate and regular rhythm. Heart sounds: Normal heart sounds. No murmur heard. No friction rub. No gallop. Pulmonary: Effort: Pulmonary effort is normal. No respiratory distress. Breath sounds: Normal breath sounds. No wheezing or rales. Abdominal: Palpations: Abdomen is soft. Tenderness: There is no abdominal tenderness. There is no guarding or rebound. Musculoskeletal: General: No tenderness. Normal range of motion. Cervical back: Normal range of motion and neck supple. Comments: Mild swelling of the legs bilateral (more content not included)... Normal [facility] HIGH SENSITIVITY TROPONIN Io n 01-17-2023 Tropinin I.cardiac panel High sensitivity method 2.0 pg/mL Normal <=20.7 [facility] Comment on above: Order Comment: Speci men Type: BLOOD SPECIMEN Ordering Facility: [facility] Address: [address] [place] [address] Result Comment: New methodology (high sensitivity troponin I)/new testing platform; please note change in reference range. Performed By: #### H STROP #### [facility] CLIA [id number] [address] [place] [address] OF [place] Natriuretic peptide B [Mass/ Vol]on 01-17-2023 Natriuretic peptide B (Bld) [Mass/Vol] 38 pg/mL Normal <=100 [facility] Comment on above: Order Comment: Speci men Type: BLOOD SPECIMEN Ordering Facility: [facility] Address: [address] [place] [address] Result Comment: New methodology (BNP)/new testing platform; please note change in reference range. Performed By: #### 3 [id number] #### [facility] CLIA [id number] [address] [place] [address] [place] XR CHEST 2V FRONTAL/LATon XR CHEST 2V FRONTAL/LAT * * *Final Report* * * DATE OF EXAM: Jan 17 2023 4:35PM [id number] [id number] - XR CHEST 2V FRONTAL/LAT / PROCEDURE REASON: Chest pain, nonspecific * * * * Physician Interpretation * * * * EXAMINATION: CHEST RADIOGRAPH (2 VIEW FRONTAL and LATERAL) CLINICAL HISTORY: Chest pain, nonspecific MQ: [id number] EXAM DATE/TIME: 01/17/2023 4:35 PM COMPARISON: 02/21/2012, and others RESULT: Lines, tubes, and devices: None. Lungs and pleura: No consolidation. No lung mass. No pleural effusion. No pneumothorax. Cardiomediastinal silhouette: Normal cardiomediastinal silhouette. Bones and soft tissues: Unremarkable. IMPRESSION: No acute radiographic abnormality. Medical Librarian: MISSY Transcribe Date/Time: Jan 17 2023 5:05P Dictated by : LIZA BOWSER MD This examination was interpreted and the report reviewed and electronically signed by: LIZA BOWSER MD on Jan 17 2023 5:06PM EST [id number] Normal [facility] XR KNEE 2V AP/LAT LTon 01-17 XR KNEE 2V AP/LAT LT * * *Final Report* * * DATE OF EXAM: Jan 17 2023 4:35PM GRX [id number] - XR KNEE 2V AP/LAT LT / PROCEDURE REASON: Joint pain, knee * * * * Physician Interpretation * * * * LEFT KNEE: CLINICAL INDICATION: Joint pain, knee REFERENCE: 06/24/2015 FINDINGS: 2 Radiographs of the left knee demonstrate normally aligned and intact osseous structures. No fracture or dislocation is evident. Mild tricompartmental degenerative changes No large effusion or other soft tissue abnormality is present. IMPRESSION: Mild tricompartmental degenerative changes with no acute fracture or dislocation identified. Medical Librarian: [facility] Transcribe Date/Time: Jan 17 2023 5:06P Dictated by : LIZA BOWSER MD This examination was interpreted and the report reviewed and electronically signed by: LIZA BOWSER MD on Jan 17 2023 5:07PM EST [id number] Normal [facility] ED Provider Noteon ED Provider Note Emergency Department Encounter [facility] EMERGENCY DEPT Patient: Theodore Starkey : 1975 Date of Evaluation: 03/10/2021 ED Provider: YONIS RUBI MD During my exam I wore PPE including N95, surgical mask, and goggles TRIAGE NOTE I saw the patient in triage to initiate preliminary assessment and orders. Please see other providers notations for clinical course, results, initial diagnostic impressions, and disposition. BRIEF HPI: In brief, Theodore Starkey is a 45 y.o. female that presents for discomfort. Patient states that she has a history of mental health problems and has been on and off of her Effexor because her medications had run out and she was having some hot flashing symptoms because of that. Today though she has started back on her medications and started to notice that she was having a midsternal chest discomfort and that her blood pressure has been running high. She does not have a history of hypertension that she is aware of she is a smoker has a history of a cerebral aneurysm that was coiled, no known history of coronary artery disease, she does have a history of opioid use disorder and is on Suboxone. Pain is midsternal slightly worse with deep breathing or cough, no recent risk factors for DVT or pulmonary emboli and no prior history of any clotting disorder/VTE, she denies any orthopnea PND or new exertional dyspnea.. LIMITED PHYSICAL EXAM: ED Triage Vitals [03/10/211922] Enc Vitals Group BP (!) 136/92 Pulse 108 Resp 20 Temp 97.6 ?F (36.4 ?C) Temp Source Temporal SpO2 96 % Weight 300 lb (136.1 kg) Height Head Circumference Peak Flow Pain Score Pain Loc Pain Edu? Excl. in GC? LUNGS: Breath sounds are equal, clear to auscultation, no wheeze retractions or cyanosis and no crackles present. HEART: Slightly tachycardic no murmur thrill or rub Abdomen: BMI of 53 otherwise abdomen soft and nontender no guarding or rebound EXTREMITIES: Pulses are present, cap refills less than 2 seconds, no edema, no palpable tenderness negative cords, no signs of deep vein thrombosis. No erythema or warmth, or redness, neurovascularly intact and normal. INITIAL CLINICAL COURSE: I will initiate diagnostics/treatments as indicated. EKG laboratory studies and a troponin will be obtained she is tachycardic with a heart rate of 108 on presentation so we will get a D-dimer as well she is complaining of slight discomfort with a deep breath, and she is a BMI of 53. EKG obtained sinus tachycardia rate of 107 with no acute STEMI or significant ST segment depression there was some baseline artifact.. Please see other providers notations for results, and final diagnosis and disposition. YONIS RUBI MD [employer] Yonis Rubi MD 03/10/211927 Normal [facility] CNCOon 01-26-2021 CNCO Letter Text Normal [facility] CR Knee 1 or 2 Views Righton 12-08-2020 CR Knee 1 or 2 Views Right [facility]: [id number] Radiology ACCESSION EXAM DATE/TIME PROCEDURE ORDERING PROVIDER [id number] 12/08/2020 20:14 EDT CR Knee 1 or 2 Views MD JAZMIN, ANN Right CPT code 86125 Reason For Exam (CR Knee 1 or 2 Views Right) R knee pain, twisted it Report Clinical history: R knee pain, twisted it COMPARISON: None. TECHNIQUE: Right knee, two views FINDINGS: No focal soft tissue abnormalities are seen. No evidence of joint effusion. No acute fractures or dislocations are seen. Mild tricompartmental osteophytosis is seen. IMPRESSION: No acute osseous abnormality of the right knee. Report Dictated on Final Dictated: 12/08/2020 8:26 pm Dictating Physician: MD MANUEL JAMES Signed Date and Time: 12/08/2020 8:27 pm Signed by: MD MANUEL JAMES Transcribed Date and Time: 12/08/2020 8:26 Normal [facility] ED Provider Noteon [facility] Patient: Theodore Starkey : 1975 Date of Evaluation: 12/08/2020 ED TRUE Provider: SOFIE Garcia I have evaluated this patient on my own, per my scope of practice, with an attending physician available for consultation in the emergency department. Does this patient come from an ECF, SNF, Rehab, Detention or other Congregate setting: no (If yes to above patient needs a Covid-19 test) Chief Complaint Chief Complaint Patient presents with ? Knee Injury patient c/o right knee pain after twisting it on Sunday. KIERSTEN Starkey is a 45 y.o. female who presents to the emergency department for evaluation of right knee injury that occurred on Sunday. Patient states she was standing up from the restroom and twisted her right knee, heard a pop and now she is having pain mainly to the lateral aspect of her right knee and behind her right proximal calf muscle. It is constant, burning worse with ambulation alleviated with rest and nonradiating. 9 out of 10. She has not tried any diqq-obd-pyhgiyz analgesia. She denies numbness or tingling. She states her knee swelled after the injury. ROS: Review of Systems At least 10 systemsreviewed and otherwise acutely negative except as in the PAUMA. Past History Past Medical History: Diagnosis Date ? Aneurysm (HCC) head, I have a coil ? Hepatitis C ? Hypertension ? Neuropathy History reviewed. No pertinent surgical history. Social History Socioeconomic History ? Marital status: Spouse name: None ? Number of children: None ? Years of education: None ? Highest education level: None Occupational History ? None Social Needs ? Financial resource strain: None ? Food insecurity Worry: None Inability: None ? Transportation needs Medical: None Non-medical: None Tobacco Use ? Smoking status: Current Every Day Smoker Packs/day: 1.00 Types: Cigarettes ? Smokeless tobacco: Never Used Substance and Sexual Activity ? Alcohol use: Never Frequency: Never ? Drug use: Not Currently Types: Opiates , Methamphetamines Comment: Pt on suboxone, prev Heroin; Meth; Vicodin ? Sexual activity: None Lifestyle ? Physical activity Days per week: None Minutes per session: None ? Stress: None Relationships ? Social connections Talks on phone: None Gets together: None Attends methodist service: None Active member of club or organization: None Attends meetings of clubs or organizations: None Relationship status: None ? Intimate partner violence Fear of current or ex partner: None Emotionally abused: None Physically abused: None Forced sexual activity: None Other Topics Concern ? None Social History Narrative ? None Medications/Allergies Discharge Medication List as of 12/08/2020 8:53 PM CONTINUE these medications which have NOT CHANGED Details busPIRone (BUSPAR) 10 MG tablet Take 10 mg by mouth 3 times dailyHistorical Med QUEtiapine (SEROQUEL XR) 200 MG extended release tablet Take 200 mg by mouth nightlyHistorical Med Allergies Allergen Reactions ? Meloxicam Nausea And Vomiting ? Ondansetron Anxiety and Other (See Comments) Physical Exam ED Triage Vitals BP Temp Temp Source Pulse Resp SpO2 Height Weight 12/08/20192912/08/20 19312/08/20 19312/08/20192912/08/20192912/08/20192912/08/20192712/08/201927 (!) 152/98 98.1 ?F (36.7 ?C) Temporal 97 18 95 % 5' 3 (1.6 m) 300 lb (136.1 kg) Physical Exam Vitals signs and nursing note reviewed. Constitutional: General: She is not in acute distress. Appearance: Normal appearance. She is not ill-appearing, toxic-appearing or diaphoretic. HENT: Head: Normocephalic and atraumatic. Eyes: Extraocular Movements: Extraocular movements intact. Pupils: Pupils are equal, round, and reactive to light. Neck: Musculoskeletal: Normal range of motion. Cardiovascular: Rate and Rhythm: Normal rate. Pulmonary: Effort: Pulmonary effort is normal. No tachypnea, accessory muscle usage or respiratory distress. Musculoskeletal: Comments: There is no overt edema to the right knee, however this examination is limited due to the patient's body habitus. No skin changes to the right knee. There is a positive lateral Jean's. No medial lateral joint laxity. Negative ballottement sign. Negative Idalia's. Patient can fully flex and extend her right knee through passive and active range of motion without crepitus. She does have some pain with terminal flexion. 2+ DP PT pulses. She can wiggle all of her toes. Cap refill brisk. There are some tenderness palpation behind the right lateral proximal calf muscle. There is no knotting of the muscular ecchymosis or bruising. Negative Homans Skin: General: Skin is warm and dry. Neurological: General: No focal deficit present. Mental Status: She is alert and oriented to person, place, and time. SCREEN (more content not included)... Normal [facility] Basic Metabolic Panelon 03- Calcium [Mass/Vol] 9.6 mg/dL Normal 8.4-10.4 [facility] Comment on above: Performed By: #### L FT3, BMP3, TROPN, HEMDF, BNP3 #### [facility] [address] [place] [address] Glucose [Mass/Vol] 126 mg/dL High 70-100 [facility] Comment on above: Performed By: #### L FT3, BMP3, TROPN, HEMDF, BNP3 #### [facility] [address] [place], [place] Urea nitrogen [Mass/Vol] 8 mg/dL Normal 7-20 [facility] Comment on above: Performed By: #### L FT3, BMP3, TROPN, HEMDF, BNP3 #### [facility] [address] [place], [place] Anion gap [Moles/Vol] 6 mmol/L Normal 3-13 [facility] Comment on above: Performed By: #### L FT3, BMP3, TROPN, HEMDF, BNP3 #### [facility] [address] [place], [place] CO2 [Moles/Vol] 27 mmol/L Normal 22-30 [facility] Comment on above: Performed By: #### L FT3, BMP3, TROPN, HEMDF, BNP3 #### [facility] [address] [place], [place] Creatinine [Mass/Vol] 0.54 mg/dL Normal 0.52-1.25 [facility] Comment on above: Performed By: #### L FT3, BMP3, TROPN, HEMDF, BNP3 #### [facility] [address] [place], [place] eGFR OTHER > 90.0 Normal >60 [facility] Comment on above: Result Comment: KDIG O guidelines provide the following GFR categories: Stage GFR(ml/min/1.73 m2) Terms G1 >=90 Normal or high G2 60-89 Mildly decreased* G3a 45-59 Mildly to moderately decreased G3b 30-44 Moderately to severely decreased G4 15-29 Severely decreased G5 <15 Kidney failure *Relative to young adult level. In the absence of evidence of kidney damage, neither GFR category G1 nor G2 fulfill the criteria for CKD. The CKD-EPI equation is validated in individuals 18 years of age and older. Currently the best equation for estimating glomerular filtration rate (GFR) from serum creatinine in children is the Bedside Agudelo equation. It is less accurate in patients with extremes of muscle mass, restriction of dietary protein, ingestion of creatine, extra-renal metabolism of creatinine, or treatment with medications that affect renal tubular creatinine secretion. Performed By: #### L FT3, BMP3, TROPN, HEMDF, BNP3 #### [place] [address] [address] [place], [place] GFR/1.73 sq M.predicted among blacks MDRD (S/P/Bld) [Vol rate/Area] mL/min/{1.73_m2} Normal >60 [facility] Comment on above: Performed By: #### L FT3, BMP3, TROPN, HEMDF, BNP3 #### [place] [address] [address] [place], [place] Chloride [Moles/Vol] 103 mmol/L Normal 98-[address] [facility] Comment on above: Performed By: #### L FT3, BMP3, TROPN, HEMDF, BNP3 #### [address] Potassium [Moles/Vol] 4.1 mmol/L Normal 3.5-5.1 [facility] Comment on above: Result Comment: Slig htly hemolysed, interpret with caution. Performed By: #### L FT3, BMP3, TROPN, HEMDF, BNP3 #### [place] [address] [place], [place] Sodium [Moles/Vol] 136 mmol/L Normal 135-145 [facility] Comment on above: Performed By: #### L FT3, BMP3, TROPN, HEMDF, BNP3 #### [place] [address] [address] [place], [place] CR Chest Portableon 11-20-19 21 CR Chest Portable Patient [facility]: [id number] Diagnostic Radiology ACCESSION EXAM DATE/TIME PROCEDURE ORDERING PROVIDER [id number] 11/18/2020 22:25 EDT CR Chest Portable SHANIKA GAYTAN RYAN CPT code 34635 Reason For Exam (CR Chest Portable) SOB Report CHEST PORTABLE CLINICAL INDICATION: SOB TECHNIQUE: Single, portable chest x-ray. COMPARISON: None. FINDINGS: Cardiac and mediastinal silhouette within normal limits. Lungs are grossly clear. No significant vascular congestion. No apparent pleural effusion or pneumothorax. Mild degenerative change again noted in the thoracic spine. IMPRESSION: 1. No acute findings. Report Dictated on Workstation: MATY Final Dictated: 11/18/2020 10:45 pm Dictating Physician: MD MEDEIROS WENDELL Signed Date and Time: 11/18/2020 10:45 pm Signed by: MD MEDEIROS WENDELL Transcribed Date and Time: 11/18/2020 10:45 Normal [facility] Hemogram w/ Autodiffon 11-19 Abs Baso Cnt 0.1 10*3/uL Normal 0.0-0.2 [facility] Comment on above: Performed By: #### L FT3, BMP3, TROPN, HEMDF, BNP3 #### [address] Abs Neutrophile Cnt 6.5 10*3/uL Normal 1.8-7.[address] [facility] Comment on above: Performed By: #### L FT3, BMP3, TROPN, HEMDF, BNP3 #### [address] Basophils/100 WBC (Bld) 0.9 % Normal 0.0-2.0 [facility] Comment on above: Performed By: #### L FT3, BMP3, TROPN, HEMDF, BNP3 #### [address] Eosinophils (Bld) [#/Vol] 0.2 10*3/uL Normal 0.0-0.5 [facility] Comment on above: Performed By: #### L FT3, BMP3, TROPN, HEMDF, BNP3 #### [address] Eosinophils/100 WBC (Bld) 2.3 % Normal 1.0-6.0 [facility] Comment on above: Performed By: #### L FT3, BMP3, TROPN, HEMDF, BNP3 #### [address] Erythrocyte distribution width (RBC) [Ratio] 14.0 % Normal 11.5-14.5 [facility] Comment on above: Performed By: #### L FT3, BMP3, TROPN, HEMDF, BNP3 #### [address] Granulocytes/100 WBC (Bld) 62.8 % Normal 40.0-80.0 [facility] Comment on above: Performed By: #### L FT3, BMP3, TROPN, HEMDF, BNP3 #### [address] Hematocrit (Bld) [Volume fraction] 42.3 % Normal 35.0-47.0 [facility] Comment on above: Performed By: #### L FT3, BMP3, TROPN, HEMDF, BNP3 #### [address] Hemoglobin (Bld) [Mass/Vol] 14.3 g/dL Normal 11.7-16.0 [facility] Comment on above: Performed By: #### L FT3, BMP3, TROPN, HEMDF, BNP3 #### [address] Lymphocytes (Bld) [#/Vol] 3.0 10*3/uL Normal 1.0-4.3 [facility] Comment on above: Performed By: #### L FT3, BMP3, TROPN, HEMDF, BNP3 #### [address] Lymphocytes/100 WBC (Bld) 28.6 % Normal 20.0-40.0 [facility] Comment on above: Performed By: #### L FT3, BMP3, TROPN, HEMDF, BNP3 #### [address] MCH (RBC) [Entitic mass] 29.7 pg Normal 26.0-34.0 [facility] Comment on above: Performed By: #### L FT3, BMP3, TROPN, HEMDF, BNP3 #### [address] MCHC 33.8 % Normal 32.0-36.0 [facility] Comment on above: Performed By: #### L FT3, BMP3, TROPN, HEMDF, BNP3 #### [place] [address] [address] [place], [place] MCV (RBC) [Entitic vol] 88.0 fL Normal 79.0-98.0 [facility] Comment on above: Performed By: #### L FT3, BMP3, TROPN, HEMDF, BNP3 #### [place] [address] [address] [place], [place] Monocytes (Bld) [#/Vol] 0.6 10*3/uL Normal 0.0-0.8 [facility] Comment on above: Performed By: #### L FT3, BMP3, TROPN, HEMDF, BNP3 #### [place] [address] [address] [place], [place] Monocytes/100 WBC (Bld) 5.4 % Normal 2.0-10.0 [facility] Comment on above: Performed By: #### L FT3, BMP3, TROPN, HEMDF, BNP3 #### [place] [address] [address] [place], [place] Platelet mean volume (Bld) [Entitic vol] 7.0 fL Low 7.4-10.4 [facility] Comment on above: Performed By: #### L FT3, BMP3, TROPN, HEMDF, BNP3 #### [place] [address] [address] [place], [place] Platelets (Bld) [#/Vol] 313 10*3/uL Normal 140-440 [facility] Comment on above: Performed By: #### L FT3, BMP3, TROPN, HEMDF, BNP3 #### [place] [address] [address] [place], [place] RBC (Bld) [#/Vol] 4.81 10*6/uL Normal 3.80-5.20 [facility] Comment on above: Performed By: #### L FT3, BMP3, TROPN, HEMDF, BNP3 #### [place] [address] [place], [place] WBC (Bld) [#/Vol] 10.3 10*3/uL Normal 3.6-10.7 [facility] Comment on above: Performed By: #### L FT3, BMP3, TROPN, HEMDF, BNP3 #### [facility] [address] [place], [place] Hepatic Functionon 1 ALP [Catalytic activity/Vol] 121 U/L Normal 38-126 [facility] Comment on above: Result Comment: Slig htly hemolysed, interpret with caution. Performed By: #### L FT3, BMP3, TROPN, HEMDF, BNP3 #### [place] [address] [address] [place], [place] ALT [Catalytic activity/Vol] 178 U/L High 0-34 [facility] Comment on above: Result Comment: The ALT test is performed by an updated assay method. Please note that the reference intervals have been changed and are now sex specific. Performed By: #### L FT3, BMP3, TROPN, HEMDF, BNP3 #### [place] [address] [address] [place], [place] AST [Catalytic activity/Vol] 99 U/L High 15-46 [facility] Comment on above: Result Comment: Slig htly hemolysed, interpret with caution. Performed By: #### L FT3, BMP3, TROPN, HEMDF, BNP3 #### [place] [address] [address] [place], [place] Bilirubin [Mass/Vol] 0.5 mg/dL Normal 0.2-1.[address] [facility] Comment on above: Performed By: #### L FT3, BMP3, TROPN, HEMDF, BNP3 #### [place] [address] [address] [place], [place] Bilirubin.indirect [Mass/Vol] 0.0 mg/dL Normal 0.0-0.3 [facility] Comment on above: Performed By: #### L FT3, BMP3, TROPN, HEMDF, BNP3 #### [place] [address] [address] [place], [place] Protein [Mass/Vol] 7.3 g/dL Normal 6.3-8.2 [facility] Comment on above: Performed By: #### L FT3, BMP3, TROPN, HEMDF, BNP3 #### [address] [address] [address] Albumin [Mass/Vol] 3.9 g/dL Normal 3.5-5.0 [facility] Comment on above: Performed By: #### L FT3, BMP3, TROPN, HEMDF, BNP3 #### [address] [address] NT pro BNPon 11-19-2020 Natriuretic peptide B (Bld) [Mass/Vol] 16 pg/mL Normal 0-125 [facility] Comment on above: Performed By: #### L FT3, BMP3, TROPN, HEMDF, BNP3 #### [address] [address] Troponin Ion 11-19-2020 Troponin I.cardiac [Mass/Vol] ng/mL Normal 0.000-0.034 [facility] Comment on above: Result Comment: . Performed By: #### L FT3, BMP3, TROPN, HEMDF, BNP3 #### [address] [address] ED Provider Noteon 1 ED Provider Note [facility] EMERGENCY DEPARTMENT ENCOUNTER Pt Name: Theodore Starkey Birthdate 1975 Date of evaluation: 11/18/2020 Provider: JOHNNIE Stephens CNP Patient was seen in conjunction with Dr. Freeman whom also independently obtained history and evaluated the patient Due to concern for COVID-19 in the healthcare setting I wore protective eyewear, N95 respirator and surgical mask for the entirety of the encounter. CHIEF COMPLAINT Chief Complaint Patient presents with ? Leg Swelling Pt is having lower leg swelling for several days, SOB and wet cough. She has been taking an over the counter diuretic. ? Shortness of Breath ? Cough HISTORY OF PRESENT ILLNESS (Location/Symptom, Timing/Onset,Context/Se tting, Quality, Duration, Modifying Factors, Severity) Note limiting factors. HPI Theodore Starkey is a 45 y.o. female who presents to the emergency department with complaints of leg swelling. Patient tells me that for the past 2 weeks she has had increased swelling to her legs. She has had this before but is not on any current medications. She does not have a PCP. She actually just recently scheduled appointment for next week regarding this. She claims that she has gained 50 pounds over the course of the past 2 weeks. She states all of her clothes are very tight fitting. She feels swollen around her abdomen and also in her legs. She feels short of breath after a moist cough. She denies any chest pain. She purchased [id number] diuretics and potassium plans to try to help with the swelling. Nursing Notes were reviewed. REVIEW OFSYSTEMS (2+ for level 4; 10+ level 5) Review of Systems All other systems reviewed and are negative except as noted in history of present illness PAST MEDICAL HISTORY Past Medical History: Diagnosis Date ? Aneurysm (HCC) head, I have a coil ? Hepatitis C ? Hypertension ? Neuropathy SURGICAL HISTORY No past surgical history on file. CURRENT MEDICATIONS Previous Medications BUSPIRONE (BUSPAR) 10 MG TABLET Take 10 mg by mouth 3 times daily QUETIAPINE (SEROQUEL XR) 200 MG EXTENDED RELEASE TABLET Take 200 mg by mouth nightly ALLERGIES Meloxicam and Ondansetron FAMILY HISTORY No family history on file. SOCIAL HISTORY Social History Socioeconomic History ? Marital status: Single Spouse name: Not on file ? Number of children: Not on file ? Years of education: Not on file ? Highest education level: Not on file Occupational History ? Not on file Social Needs ? Financial resource strain: Not on file ? Food insecurity Worry: Not on file Inability: Not on file ? Transportation needs Medical: Not on file Non-medical: Not on file Tobacco Use ? Smoking status: Current Every Day Smoker Packs/day: 1.50 Types: Cigarettes ? Smokeless tobacco: Never Used Substance and Sexual Activity ? Alcohol use: Never Frequency: Never ? Drug use: Not Currently Types: Opiates , Methamphetamines Comment: Pt on suboxone, prev Heroin; Meth; Vicodin ? Sexual activity: Not on file Lifestyle ? Physical activity Days per week: Not on file Minutes per session: Not on file ? Stress: Not on file Relationships ? Social connections Talks on phone: Not on file Gets together: Not on file Attends methodist service: Not on file Active member of club or organization: Not on file Attends meetings of clubs or organizations: Not on file Relationship status: Not on file ? Intimate partner violence Fear of current or ex partner: Not on file Emotionally abused: Not on file Physically abused: Not on file Forced sexual activity: Not on file Other Topics Concern ? Not on file Social History Narrative ? Not on file SCREENINGS PHYSICAL EXAM (up to 7 for level 4, 8 or more for level 5) ED Triage Vitals BP Temp Temp Source Pulse Resp SpO2 Height Weight 11/18/20205711/18/20205711/18/20205711/18/20205711/18/20205711/18/20205711/18/20205711/18/202057 (!) 157/90 97.9 ?F (36.6 ?C) Temporal 93 22 95 % 5' 3 (1.6 m) 300 lb (136.1 kg) Physical Exam Vitals signs and nursing note reviewed. Constitutional: General: She is not in acute distress. Appearance: She is well-developed. She is obese. She is not toxic-appearing or diaphoretic. HENT: Head: Normocephalic and atraumatic. Eyes: General: Right eye: No discharge. Left eye: No discharge. Conjunctiva/sclera: Conjunctivae normal. Neck: Musculoskeletal: Normal range of motion and neck supple. Cardiovascular: Rate and Rhythm: Normal rate. Pulses: Normal pulses. Heart sounds: Normal heart sounds. Pulmonary: Effort: Pulmonary effort is normal. No respiratory distress. Breath sounds: Wheezing present. Abdominal: General: Bowel sounds are normal. There is no distension. Palpations: Abdomen is soft. Tenderness: There is no abdominal tenderness. There is no guarding or rebound. Musculoskeletal: Normal range o (more content not included)... Normal [facility] ED Provider Note Emergency Department Encounter [facility] EMERGENCY DEPT Patient: Theodore Starkey : 1975 Date of Evaluation: 11/18/2020 ED Supervising Physician: Michelle Freeman DO I independently examined and evaluated Theodore Starkey. In brief, Theodore Starkey is a 45 y.o. female MHx HTN that presents to the emergency department with concern for lower extremity edema, shortness of breath, weight gain over the last 2 weeks. States she has gained approximately 50 pounds in the last 2 weeks. States she went from baseline to 50 pounds to 300 pounds. Purchase [id number] diuretics and potassium pills. No established history of heart failure. Denies orthopnea or paroxysmal nocturnal dyspnea. Denies chest pain. Has PCP appointment next week. Focused exam: BP (!) 163/84 Pulse 89 Temp 97.9 ?F (36.6 ?C) (Temporal) Resp 20 Ht 5' 3 (1.6 m) Wt 136.1 kg (300 lb) SpO2 95% BMI 53.14 kg/m? Constitutional: Alert, awake Lungs: CTABL, no wheezing, no rales Heart: RRR , no murmurs, equal distal pulses to extremities, no peripheral edema/erythema/warmth of LEs b/l. Vascular: radial 2/4 equal B/L, dp 2/4 equal B/L Brief ED course/MDM: EKG interpreted by myself: Normal Sinus Rhythm, Rate 92, Normal [place], Normal Intervals, No ST-T wave changes. 45-year-old female with medical history of hypertension presenting with concern for lower extremity edema/shortness of breath. Vital signs stable, afebrile. Exam benign. No pitting edema. Lungs clear. EKG normal sinus rhythm without ischemic changes. No LVH. Troponin within normal limits. BNP within normal limits. Chest x-ray without cardiomegaly or pleural effusion/pulmonary edema. Ambulated without desaturation. Patient reassured. Given single dose of Lasix while in emergency department. Discharged home with structure and to follow-up with PCP for echo. Clinical Impression: 1. Peripheral edema All diagnostic, treatment, and disposition decisions were made by myself in conjunction with the TRUE. For all further details of the patient's emergency department visit, please see their documentation. Total critical care time today provided was at least 0 minutes. This excludes seperately billable procedure. Critical care time provided for n/a that required close evaluation and/or intervention with concern for patient decompensation. (Please note that portions of this note may have been completed with a voice recognition program. Efforts were made to edit the dictations but occasionally words are mis-transcribed.) Michelle Freeman DO [employer] Michelle Freeman DO 11/19/20 0257 [facility] ED Provider Noteon 0 ED Provider Note Emergency Department Encounter [facility] EMERGENCY DEPT Patient: Theodore Starkey : 1975 Date of Evaluation: 05/14/2020 ED Supervising Physician: Leon Yu MD I independently examined and evaluated Theodore Starkey. In brief, Theodore Starkey is a 45 y.o. female that presents to the emergency department lacerated her right ring finger while opening a can of mushroom soup. Has a laceration at the DIP lateral aspect of her right ring finger. Tetanus is been within the last 7 years. No paresthesias no other injuries Focused exam: Patient alert and oriented times for. Vital signs are noted. Cardiopulmonary exam is normal. Right ring finger notes normal capillary refill, range of motion. There is a laceration present Brief ED course/MDM: We will repair her laceration All diagnostic, treatment, and disposition decisions were made by myself in conjunction with the TRUE. For all further details of the patient's emergency department visit, please see their documentation. (Please note that portions of this note may have been completed with a voice recognition program. Efforts were made to edit the dictations but occasionally words are mis-transcribed.) Leon Yu MD [facility] Leon Yu MD 05/14/20 1701 Normal [facility] ED Provider Note Emergency DepartmentEncounter [facility] EMERGENCY DEPT Patient: Theodore Starkey : 1975 Date of Evaluation: 05/14/2020 ED TRUE Provider: SOFIE Crump EDcare was supervised by Dr. Yu who independently examined and evaluated the patient. Please see their attestation note for further details. Chief Complaint Chief Complaint Patient presents with ? Laceration Right hand, fourth digit, lacerated finger on a can of soup PAUMA I was wearing an N95 mask for the entirety of this encounter. Theodore Starkey is a 45 y.o. female whopresents to the emergency department with a laceration to her right ring finger. She is right-handed without injury to that finger in the past. She reports she was opening a can of soup at home slipped and lacerated the distal full R surface of her right ring finger. It did bleed profusely afterwards but was able to be controlled with direct pressure. She denies numbness or tingling or inability to flex her MCP, PIP or DIP joint. Per patient her last tetanus was 3 years previously. No history of clotting disorders. She is a cigarette smoker but is trying to cut back. Otherwise very healthy. ROS: At least 10 systems reviewed and otherwise acutely negative except as in the PAUMA. Past History Past Medical History: Diagnosis Date ? Aneurysm (HCC) head, I have a coil ? Hepatitis C ? Hypertension ? Neuropathy No past surgical history on file. Social History Socioeconomic History ? Marital status: Single Spouse name: Not on file ? Number of children: Not on file ? Years of education: Not on file ? Highest education level: Not on file Occupational History ? Not on file Social Needs ? Financial resource strain: Not on file ? Food insecurity Worry: Not on file Inability: Not on file ? Transportation needs Medical: Not on file Non-medical: Not on file Tobacco Use ? Smoking status: Current Every Day Smoker Packs/day: 1.50 Types: Cigarettes ? Smokeless tobacco: Never Used Substance and Sexual Activity ? Alcohol use: Never Frequency: Never ? Drug use: Not Currently Types: Opiates , Methamphetamines Comment: Pt on suboxone, prev Heroin; Meth; Vicodin ? Sexual activity: Not on file Lifestyle ? Physical activity Days per week: Not on file Minutes per session: Not on file ? Stress: Not on file Relationships ? Social connections Talks on phone: Not on file Gets together: Not on file Attends methodist service: Not on file Active member of club or organization: Not on file Attends meetings of clubs or organizations: Not on file Relationship status: Not on file ? Intimate partner violence Fear of current or ex partner: Not on file Emotionally abused: Not on file Physically abused: Not on file Forced sexual activity: Not on file Other Topics Concern ? Not on file Social History Narrative ? Not on file Medications/Allergies Current Discharge Medication List CONTINUE these medications which have NOT CHANGED Details busPIRone (BUSPAR) 10 MG tablet Take 10 mg by mouth 3 times daily QUEtiapine (SEROQUEL XR) 200 MG extended release tablet Take 200 mg by mouth nightly Allergies Allergen Reactions ? Meloxicam Nausea And Vomiting ? Ondansetron Anxiety and Other (See Comments) Physical Exam ED Triage Vitals BP Temp Temp Source Pulse Resp SpO2 Height Weight 05/14/20 1535 05/14/20 1535 05/14/20 1535 05/14/20 1535 05/14/20 1535 05/14/20 1535 05/14/20 1535 05/14/20 1535 (!) 141/66 98 ?F (36.7 ?C) Temporal 94 16 97 % 5' 3 (1.6 m) 250 lb (113.4 kg) GENERAL APPEARANCE: Awake and alert. Cooperative. No acute distress. HEAD: Normocephalic. Atraumatic. EYES: EOM's grossly intact. ENT: Mucous membranes are moist. Tolerates saliva. No trismus. Nose without rhinorrhea. NECK: Supple. HEART: RRR. No gallops or murmurs noted. LUNGS: Respirations unlabored. CTAB, no rhonchi, rales or wheezing with inspiration or expiration. ABDOMEN: Soft. Non-tender. No guarding or rebound. EXTREMITIES: - There is a 1 cm superficial laceration that is linear over the volar surface of the fourth finger. It extends across the DIP joint. The patient is able to flex her DIP, PIP and MCP independently. Cap Refill is brisk she has sensation intact in the median, radial and ulnar nerve distributions. Ulnar and radial pulses are 2+ bilaterally. SKIN: Warm and dry. No rashes or abnormal bruising. NEUROLOGICAL: No gross facial drooping. No obvious focal deficits. PSYCHIATRIC: Normal mood. SCREENINGS D ED Course and MDM In brief, Theodore Starkey rylan 45 y.o. female who presented to the emergency department with laceration of the right ring finger. On initial evaluation the patient was hemodynamically stable, in no acute distress, and saturating appropriately on room air. Physical exam revealed a laceration as described above. She has normal range of motion and is neurovascularly intact. Low suspic (more content not included)... Normal [facility] US DVT UPPER RTon 07-25-2019 US DVT UPPER RT * * *Final Report* * * DATE OF EXAM: Jul 25 2019 3:13PM AKU 1004 - US DVT UPPER RT / PROCEDURE REASON: Arm swelling or pain, DVT suspected * * * * Physician Interpretation * * * * RIGHT UPPER EXTREMITY DEEP VENOUS DUPLEX DOPPLER ULTRASOUND CLINICAL HISTORY: Intravenous drug abuser with right arm pain. Possible broken subcutaneous needle. COMPARISON: None TECHNIQUE: Carranza scale ultrasound with and without compression, where accessible, color and spectral Doppler with augmentation. Images were obtained and stored in a permanent archive. RESULT: RIGHT UPPER EXTREMITY: Deep veins- Internal Jugular vein: Patent and compressible, normal respiratory phasicity Subclavian vein: Patent with normal respiratory phasicity Axillary vein: Patent and compressible, normal respiratory phasicity Brachial vein: Patent and compressible, normal respiratory phasicity Superficial veins- Basilic vein: Patent and compressible Cephalic vein: Patent and compressible IMPRESSION: NEGATIVE STUDY FOR ACUTE RIGHT UPPER EXTREMITY DVT. NEGATIVE STUDY FOR SUPERFICIAL VENOUS THROMBUS IN THE CEPHALIC AND BASILIC VEINS. Medical Librarian: PSCKyle Transcribe Date/Time: Jul 25 2019 3:16P Dictated by : KARINA GALLAGHER MD This examination was interpreted and the report reviewed and electronically signed by: KARINA GALLAGHER MD on Jul 25 2019 3:17PM EST Normal [facility] US SOFT TISSUE/Salma 2018 US SOFT TISSUE/MASS US SOFT TISSUE/MASS Ordering Physician: Paz Vincent 06/20/2019 2:20 PM ULTRASOUND SOFT TISSUE MASS Clinical Statement: Pain in anterior right upper extremity, potential foreign body/broken needle Comparison: None FINDINGS: Sonographic evaluation of the right upper extremity was performed at the site of concern described by the patient. There is no sonographically discrete mass, soft tissue edema, or fluid collection. No sonographically discrete foreign body is identified. Routine radiograph would be very helpful in assessing a metallic retained foreign body in the soft tissues. Incidental made is made of a tubular hypoechoic structure just deep to the skin surface in the anterior forearm, potentially a thrombosed small venous branch measuring 3 mm in diameter. IMPRESSION: No sonographic evidence for mass or retained foreign body. Recommend routine radiographic correlation to evaluate potential for retained needle. Suspect focal superficial thrombophlebitis. ---- Electronic Signature on File ---- Signed By: Kayla Mulligan MD [email or web address] Dictated: 06/20/2019 2:40 PM Signed: 06/20/2019 2:44 PM Reported By: KAYLA MULLIGAN M.D. Signed By: KAYLA MULLIGAN M.D. [facility] HEPATITIS PROFILEon 05-18-20 19 HEPATITIS A VIRUS ANTIBODY IGM Negative Normal NEGAT [facility] HEPATITIS B CORE AB IGM Negative Normal NEGAT [facility] Comment on above: Result Comment: Test Performed By: [facility] [address] [place] [address] Aviation Maintenance Technician: Brittany Knowles MD, PhD --- 05/18/19 1352 --- ANTI HBc IGM previously reported as: Negative HEPATITIS PROFILEon 05-17-20 HEPATITIS C AB Positive Abnormal [facility] HEPATITIS B SURFACE ANTIGEN Negative Normal [facility] ED.PDOCon 05-16-2019 ED.PDOC [facility] [id number] Attending provider: KIZZY ER ER [id number] Juju Villalta 1975 44 DOS: 05/15/19 Hx/Exam - History of Present Illness Chief Complaint: DETOX MEDICAL CLEARANCE Additional Comments: seeking detox from opiates. + nausea last use last night + vomiting abd cramping. - Review of Systems All Other Systems: Pertinent Positives in HPI, All Other Systems Negative - Past Medical History General History: Yes Anxiety, Yes HTN - Past Surgical History Comments: ANUERYSM, CARPAL TUNNEL X 2,FOOT R - Social History Smoking Status: Current every day smoker Hx Drug Use: Heroin Living Conditions: Alone - Physical Exam General Appearance: awake, alert, mild distress Eyes: PERRL, EOMI, conjunctivae clear Head, Ears, Nose, and Throat: TMs normal, pharynx normal, EAC normal, mucous membranes moist, nares clear, atraumatic, mastoid non-tender Neck: supple Respiratory: lungs clear Cardiovascular: regular rate, rhythm Abdomen/GI: non tender, soft, non-distended, normal bowel sounds Extremity: normal range of motion Pulses: Radial: 2+ Neurologic: normal gait, speech clear/fluent Psychiatric: oriented x3, calm, normal affect Skin Exam: warm/dry, normal color Lymphatic: no adenopathy - Source of History Source of History: Nursing Notes/Vital Signs/Triage Reviewed and Agree Note(s) - Physician Notes Additional Notes, See Orders for Details: 05/15/19 23:29 medically cleared. EKG - EKG EKG Interpretation: Not Applicable Discharge Screen - Discharge Discharge Problem: Desire for detoxification Disposition: COMM QUE[facility] Condition: Good Referrals: eBck Ortega [Family Provider] - Call,On [Primary Care Provider] - Dictated By: Juju Villalta NP Dictated Date/Time:05/15/192328 Electronically Signed Date/Time: 05/15/19 2331 Normal [facility] RAPID PLASMA REAGINon 2018 RAPID PLASMA REAGIN NONREACTIVE Normal NONREACTIVE [facility] Comment on above: Performed By: #### R MD #### [address] [place] [address] ALCOHOLon 05-15-2019 Ethanol [Mass/Vol] mg/dL Normal [facility] Comment on above: Result Comment: < 3 mg/dl NONE DETECTED 50-100 mg/dl MAY SHOW SIGNS OF INTOXICATION 300-500 mg/dl COMATOSE LEVEL Performed By: #### M N, ALC #### [address] [place] [address] CBC with AUTO DIFFon 019 BAS0 % 0.20 % Normal 0-2 [facility] Comment on above: Performed By: #### C BC #### [address] [place] [address] Basophils (Bld) [#/Vol] 0.0 10*3/uL Normal 0-0.1 [facility] Comment on above: Performed By: #### C BC #### [address] [place] [address] Eosinophils (Bld) [#/Vol] 0.3 10*3/uL Normal 0.0-1.80 [facility] Comment on above: Performed By: #### C BC #### [address] [address] Eosinophils/100 WBC (Bld) 3.3 % Normal 0-8 [facility] Comment on above: Performed By: #### C BC #### [address] [address] GRAN # 4.4 K/uL Normal 2.2-9.1 [facility] Comment on above: Performed By: #### C BC #### [facility] [address] [place] [address] GRAN % 51.3 % Normal 42-80 [facility] Comment on above: Performed By: #### C BC #### [address] [address] Hematocrit (Bld) [Volume fraction] 49.0 % High 37.0-47.0 [facility] Comment on above: Performed By: #### C BC #### [facility] [address] [place] [address] Hemoglobin (Bld) [Mass/Vol] 17.1 g/dL High 12.0-16.0 [facility] Comment on above: Performed By: #### C BC #### [facility] [address] [place] [address] Lymphocytes (Bld) [#/Vol] 3.2 10*3/uL Normal 1.0-4.0 [facility] Comment on above: Performed By: #### C BC #### [facility] [address] [place] [address] Lymphocytes/100 WBC (Bld) 36.8 % Normal 16-48 [facility] Comment on above: Performed By: #### C BC #### [facility] [address] [place] [address] MCH (RBC) [Entitic mass] 35.0 g/dL Normal 31.0-36.0 [facility] Comment on above: Performed By: #### C BC #### [facility] [address] [place] [address] MCV (RBC) [Entitic vol] 84.9 fL Normal 80-97 [facility] Comment on above: Performed By: #### C BC #### [facility] [address] [place] [address] MEAN CORPUSCULAR HGB 29.7 pg Normal 26.0-32.0 [facility] Comment on above: Performed By: #### C BC #### [facility] [address] [place] [address] Monocytes (Bld) [#/Vol] 0.7 10*3/uL Normal 0.1-1.7 [facility] Comment on above: Performed By: #### C BC #### [facility] [address] [place] [address] Monocytes/100 WBC (Bld) 8.4 % Normal 3-9 [facility] Comment on above: Performed By: #### C BC #### [facility] [address] [place] [address] Platelet mean volume (Bld) [Entitic vol] 7.2 fL Normal 6.6-10.5 [facility] Comment on above: Performed By: #### C BC #### [address] [place] [address] Platelets (Bld) [#/Vol] 511 10*3/uL High 140-450 [facility] Comment on above: Performed By: #### C BC #### [facility] [address] [place] [address] RBC (Bld) [#/Vol] 5.77 10*6/uL High 4.20-5.50 [facility] Comment on above: Performed By: #### C BC #### [facility] [address] [place] [address] RED CELL DISTRI WIDTH 15.4 % Normal 11.0-15.5 [facility] Comment on above: Performed By: #### C BC #### [facility] [address] [place] [address] WBC (Bld) [#/Vol] 8.6 10*3/uL Normal 4.0-11.0 [facility] Comment on above: Performed By: #### C BC #### [facility] [address] [place] [address] COMPREHENSIVE METABOLIC PANE Scar 05-15-2019 Albumin [Mass/Vol] 3.2 g/dL Normal 3.0-5.0 [facility] Comment on above: Performed By: #### M N, ALC #### [facility] [address] [place] [address] Albumin/Globulin [Mass ratio] 0.7 {ratio} Low 1.1-1.8 [facility] Comment on above: Performed By: #### M N, ALC #### [facility] [address] [place] [address] ALP [Catalytic activity/Vol] 215 U/L High 45-117 [facility] Comment on above: Performed By: #### M N, ALC #### [facility] [address] [place] [address] ALT [Catalytic activity/Vol] 371 U/L High 12-78 [facility] System Comment on above: Performed By: #### M N, ALC #### [facility] [address] [place] [address] Anion gap [Moles/Vol] 8.3 mmol/L Low 11-23 [facility] Comment on above: Performed By: #### M N, ALC #### [address] [place] [address] Bilirubin [Mass/Vol] 0.3 mg/dL Normal 0-1.0 [facility] Comment on above: Performed By: #### M N, ALC #### [facility] [address] [place] [address] Calcium [Mass/Vol] 9.4 mg/dL Normal 8.5-10.1 [facility] Comment on above: Performed By: #### M N, ALC #### [facility] [address] [place] [address] Chloride [Moles/Vol] 111 mmol/L High 98-107 [facility] Comment on above: Performed By: #### M N, ALC #### [facility] [address] [place] [address] CO2 [Moles/Vol] 25.0 mmol/L Normal 21-32 [facility] Comment on above: Performed By: #### M N, ALC #### [address] [place] [address] Creatinine [Mass/Vol] 0.80 mg/dL Normal 0.4-1.2 [facility] Comment on above: Performed By: #### M N, ALC #### [facility] [address] [place] [address] GFR AM > 60.0 [facility] Comment on above: Result Comment: THE NORMAL LEVEL OF GFR VARIES ACCORDING TO AGE, SEX, AND BODY SIZE. A GFR LEVEL OF LESS THAN 60 ML/MIN REPRESENTS LOSS OF THE ADULT LEVEL OF NORMAL KIDNEY FUNCTION. Performed By: #### M N, ALC #### [facility] [address] [place] [address] GFR/1.73 sq M.predicted MDRD (S/P/Bld) [Vol rate/Area] mL/min/{1.73_m2} [facility] Comment on above: Performed By: #### M N, ALC #### [facility] [address] [place] [address] Globulin (S) [Mass/Vol] 4.7 g/dL High 2.5-4.6 [facility] Comment on above: Performed By: #### M N, ALC #### [facility] [address] [place] [address] Glucose [Mass/Vol] 83 mg/dL Normal 70-100 [facility] Comment on above: Performed By: #### M N, ALC #### [facility] [address] [place] [address] Potassium [Moles/Vol] 3.9 mmol/L Normal 3.6-5.2 [facility] Comment on above: Performed By: #### M N, ALC #### [facility] [address] [place] [address] Protein [Mass/Vol] 7.9 g/dL Normal 6.0-8.3 [facility] Comment on above: Performed By: #### M N, ALC #### [facility] [address] [place] [address] SGOT/AST 77 U/L High 9-34 [facility] Comment on above: Performed By: #### M N, ALC #### [facility] [address] [place] [address] Sodium [Moles/Vol] 141 mmol/L Normal 136-147 [facility] Comment on above: Performed By: #### M N, ALC #### [facility] [address] [place] [address] Urea nitrogen [Mass/Vol] 7.0 mg/dL Normal 7-18 [facility] Comment on above: Performed By: #### M N, ALC #### [facility] [address] [place] [address] Basic Metabolic Panelon 05-0 Anion gap molar conc 10 mmol/L 10 - 20 mmol/L [facility] Calcium mass conc 8.4 mg/dL 8.4 - 10.2 mg/dL [facility] Chloride molar conc 108 mmol/L 98 - 108 mmol/L [facility] Creatinine mass conc 0.57 mg/dL 0.4 - 1 .1 mg/dL [facility] GFR/1.73 sq M predicted among non-blacks MDRD vol rate/area (S/P/Bld) The eGFR should be used for monitoring renal function only and not for medication dosing. [facility] GFR/1.73 sq M.predicted CKD-EPI vol rate/area (S/P/Bld) 116 >=60 mL/min/1.[address] [facility] Glucose mass conc 121 mg/dL High 65 - 99 mg/dL [facility] HCO3 molar conc 23 mmol/L 21 - 32 mmol/L [facility] Interpretation and review of laboratory results Abnormal [facility] Potassium molar conc 4.0 mmol/L 3.5 - 5 .1 mmol/L [facility] Sodium molar conc 137 mmol/L 135 - 145 mmol/L [facility] Urea nitrogen mass conc 9 mg/dL 8 - 25 mg/dL [facility] Urea nitrogen/Creatinine mass ratio 15.8 mg/mg [facility] CBC WITH AUTO DIFFERENTIALon 01-01-2019 Basophils #/vol (Bld) 0.01 10*3/uL [facility] Basophils/100 WBC (Bld) 0.1 % [facility] Eosinophils #/vol (Bld) 0.00 10*3/uL [facility] Eosinophils/100 WBC (Bld) 0.0 % [facility] Erythrocyte distribution width Entitic volume (RBC) 13.5 % 11.6 - 14.8 % [facility] Hematocrit Volume Fraction (Bld) 38.8 % 36 - 46 % [facility] Hemoglobin mass conc (Bld) 13.0 g/dL 12 - 16 g/dL [facility] Immature granulocytes #/vol (Bld) 0.06 10*3/uL [facility] Immature granulocytes/100 WBC (Bld) 0.50 % [facility] Comment on above: The IG parameter is the percentage of metamyelocytes, myelocytes, and promyelocytes. Interpretation and review of laboratory results Abnormal [facility] Lymphocytes #/vol (Bld) 0.74 10*3/uL Low [facility] Lymphocytes/100 WBC (Bld) 5.9 % [facility] MCH Entitic mass (RBC) 29.1 pg 26 - [address] [facility] MCHC mass conc (RBC) 33.5 g/dL 31 - 37 g/dL [facility] MCV Entitic volume (RBC) 86.8 fL 80 - [address] [facility] Monocytes #/vol (Bld) 0.19 10*3/uL Low [facility] Monocytes/100 WBC (Bld) 1.5 % [facility] Neutrophils #/vol (Bld) 11.47 10*3/uL High [facility] Neutrophils/100 WBC (Bld) 92.0 % [facility] Comment on above: Peripheral smear rev iewed manually Nucleated RBC #/vol (Bld) 0.00 10*3/uL [facility] Nucleated RBC/100 WBC Ratio (Bld) 0.0 % [facility] Platelet mean volume Entitic volume (Bld) 9.5 fL 9 - 15.[address] [facility] Platelets #/vol (Bld) 325 10*3[facility] RBC #/vol (Bld) 4.47 10*6/uL [facility] WBC #/vol (Bld) 12.47 10*3/uL [facility] MORPHOLOG[facility] 01-01-2019 RBC morphology finding Nom (Bld) Normal [facility] CBC WITH AUTO DIFFERENTIALon 12-31-2018 Basophils #/vol (Bld) 0.03 10*3/uL [facility] Basophils/100 WBC (Bld) 0.2 % [facility] Eosinophils #/vol (Bld) 0.09 10*3/uL [facility] Eosinophils/100 WBC (Bld) 0.7 % [facility] Erythrocyte distribution width Entitic volume (RBC) 13.7 % 11.6 - 14.8 % [facility] Hematocrit Volume Fraction (Bld) 39.1 % 36 - 46 % [facility] Hemoglobin mass conc (Bld) 12.9 g/dL 12 - 16 g/dL [facility] Immature granulocytes #/vol (Bld) 0.06 10*3/uL [facility] Immature granulocytes/100 WBC (Bld) 0.40 % [facility] Comment on above: The IG parameter is the percentage of metamyelocytes, myelocytes, and promyelocytes. Interpretation and review of laboratory results Abnormal [facility] Lymphocytes #/vol (Bld) 2.69 10*3/uL [facility] Lymphocytes/100 WBC (Bld) 19.5 % [facility] MCH Entitic mass (RBC) 29.0 pg 26 - [address] [facility] MCHC mass conc (RBC) 33.0 g/dL 31 - 37 g/dL [facility] MCV Entitic volume (RBC) 87.9 fL 80 - [address] [facility] Monocytes #/vol (Bld) 0.87 10*3/uL [facility] Monocytes/100 WBC (Bld) 6.3 % [facility] Neutrophils #/vol (Bld) 10.06 10*3/uL High [facility] Neutrophils/100 WBC (Bld) 72.9 % [facility] Nucleated RBC #/vol (Bld) 0.00 10*3/uL [facility] Nucleated RBC/100 WBC Ratio (Bld) 0.0 % [facility] Platelet mean volume Entitic volume (Bld) 9.5 fL 9 - 15.[address] [facility] Platelets #/vol (Bld) 342 10*3/uL [facility] RBC #/vol (Bld) 4.45 10*6/uL [facility] lth WBC #/vol (Bld) 13.80 10*3/uL [facility] [place] MAXILLOFACIAL WITH CONTRA STon 12-31-2018 CT MAXILLOFACIAL WITH CONTRAST EXAMINATION: CT MAXILLOFACIAL WITH CONTRAST HISTORY: infection. ORDERING SYSTEM PROVIDED HISTORY: infection, TECHNOLOGIST PROVIDED HISTORY: Reason for exam: facial swelling Illness/Other Encounter Type: Initial Additional signs and symptoms: pt popped a zit in her left nares and then her face swelled up ORDERING SYSTEM PROVIDED DIAGNOSIS CODES: COMPARISON: MRI 12/08/2016. TECHNIQUE: Multiple axial CT images of the maxillofacial bones were obtained following IV administration of 75 mL of Isovue-370. 2D coronal and sagittal reformations were submitted for review. Dose reduction techniques were achieved by using automated exposure control and/or adjustment of mA and/or kV according to patient size and/or use of iterative reconstruction technique. FINDINGS: The maxilla is edentulous. Within the central/left paracentral aspect of the left upper lip, there is a peripherally enhancing abscess measuring 0.8 x 0.6 cm, transverse by AP dimension extending 3.1 cm in craniocaudal dimension towards the left nostril where there is swelling and adjacent cellulitis noted. Facial soft tissues appear otherwise unremarkable. No postseptal inflammation identified. Orbital structures appear unremarkable. Paranasal sinuses appear clear. Mastoid air cells and middle ear cavities appear clear. Parapharyngeal soft tissues appear unremarkable. There is a coil mass in the region of the anterior communicating artery resulting in beam-hardening artifact. Intracranial structures appear generally unchanged. Facial bones appear preserved. IMPRESSION: 1. Cellulitis is noted along the upper lip. Associated abscess in the central/left paracentral region of the upper lip extending to the left nostril. 2. Facial bones are intact. No CT evidence of osteomyelitis. MPH/wgc Workstation ID: [id number] Dictated by: RYAN HAYNES on SunDec 31, 2018 7:04:32 AM EDT Transcribed by: JV MONSON on SunDec 31, 2018 7:06:18 AM EDT Finalized by: RYAN HAYNES on SunDec 31, 2018 7:26:31 AM EDT [facility] Comment on above: Order Comment: Reaso n for exam?:facial swelling Injury/Trauma or Illness?:Illness/Other How long have you had these symptoms (acute/chronic)?:Acute Type of Exam?:Initial Additional signs and symptoms?:pt popped a zit in her left nares and then her face swelled up CT Maxillofacial With Contra ston 12-31-2018 Interface, Rad In Derek hernández Speechq - 12/31/2018 7:29 AM EDT EXAMINATION: CT MAXILLOFACIAL WITH CONTRAST HISTORY: infection. ORDERING SYSTEM PROVIDED HISTORY: infection, TECHNOLOGIST PROVIDED HISTORY: Reason for exam: facial swelling Illness/Other Encounter Type: Initial Additional signs and symptoms: pt popped a zit in her left nares and then her face swelled up ORDERING SYSTEM PROVIDED DIAGNOSIS CODES: COMPARISON: MRI 12/08/2016. TECHNIQUE: Multiple axial CT images of the maxillofacial bones were obtained following IV administration of 75 mL of Isovue-370. 2D coronal and sagittal reformations were submitted for review. Dose reduction techniques were achieved by using automated exposure control and/or adjustment of mA and/or kV according to patient size and/or use of iterative reconstruction technique. FINDINGS: The maxilla is edentulous. Within the central/left paracentral aspect of the left upper lip, there is a peripherally enhancing abscess measuring 0.8 x 0.6 cm, transverse by AP dimension extending 3.1 cm in craniocaudal dimension towards the left nostril where there is swelling and adjacent cellulitis noted. Facial soft tissues appear otherwise unremarkable. No postseptal inflammation identified. Orbital structures appear unremarkable. Paranasal sinuses appear clear. Mastoid air cells and middle ear cavities appear clear. Parapharyngeal soft tissues appear unremarkable. There is a coil mass in the region of the anterior communicating artery resulting in beam-hardening artifact. Intracranial structures appear generally unchanged. Facial bones appear preserved. IMPRESSION: 1. Cellulitis is noted along the upper lip. Associated abscess in the central/left paracentral region of the upper lip extending to the left nostril. 2. Facial bones are intact. No CT evidence of osteomyelitis. MPH/wgc Workstation ID: [id number] [facility] EXAMINATION: CT MAXILLOFACIAL WITH CONTRAST HISTORY: infection. ORDERING SYSTEM PROVIDED HISTORY: infection, TECHNOLOGIST PROVIDED HISTORY: Reason for exam: facial swelling Illness/Other Encounter Type: Initial Additional signs and symptoms: pt popped a zit in her left nares and then her face swelled up ORDERING SYSTEM PROVIDED DIAGNOSIS CODES: COMPARISON: MRI 12/08/2016. TECHNIQUE: Multiple axial CT images of the maxillofacial bones were obtained following IV administration of 75 mL of Isovue-370. 2D coronal and sagittal reformations were submitted for review. Dose reduction techniques were achieved by using automated exposure control and/or adjustment of mA and/or kV according to patient size and/or use of iterative reconstruction technique. FINDINGS: The maxilla is edentulous. Within the central/left paracentral aspect of the left upper lip, there is a peripherally enhancing abscess measuring 0.8 x 0.6 cm, transverse by AP dimension extending 3.1 cm in craniocaudal dimension towards the left nostril where there is swelling and adjacent cellulitis noted. Facial soft tissues appear otherwise unremarkable. No postseptal inflammation identified. Orbital structures appear unremarkable. Paranasal sinuses appear clear. Mastoid air cells and middle ear cavities appear clear. Parapharyngeal soft tissues appear unremarkable. There is a coil mass in the region of the anterior communicating artery resulting in beam-hardening artifact. Intracranial structures appear generally unchanged. Facial bones appear preserved. [facility] 1. Cellulitis is not ed along the upper lip. Associated abscess in the central/left paracentral region of the upper lip extending to the left nostril. 2. Facial bones are intact. No CT evidence of osteomyelitis. MPH/wgc Workstation ID: [id number] [facility] Chem 7on 12-31-2018 Anion gap molar conc 10 mmol/L 10 - 20 mmol/L [facility] Chloride molar conc 104 mmol/L 98 - 108 mmol/L [facility] Creatinine mass conc 0.81 mg/dL 0.4 - 1 .1 mg/dL [facility] GFR/1.73 sq M predicted among non-blacks MDRD vol rate/area (S/P/Bld) The eGFR should be used for monitoring renal function only and not for medication dosing. [facility] GFR/1.73 sq M.predicted CKD-EPI vol rate/area (S/P/Bld) 90 >=60 mL/min/1.[address] [facility] Glucose mass conc 88 mg/dL 65 - 99 mg/dL [facility] HCO3 molar conc 27 mmol/L 21 - 32 mmol/L [facility] Interpretation and review of laboratory results Abnormal [facility] Potassium molar conc 3.5 mmol/L 3.5 - 5 .1 mmol/L [facility] Sodium molar conc 137 mmol/L 135 - 145 mmol/L [facility] Urea nitrogen mass conc 8 mg/dL 8 - 25 mg/dL [facility] Urea nitrogen/Creatinine mass ratio 9.9 mg/mg Low [facility] Hepatic Function Panel (LFT) on 12-31-2018 Albumin mass conc 3.4 g/dL 3.2 - 5.2 g/dL [facility] ALP enzyme act/vol 108 U/L 40 - 150 U/L [facility] ALT enzyme act/vol 27 U/L 14 - 65 U/L [facility] ealth AST enzyme act/vol 15 U/L 0 - 45 U/L [facility] alth Bilirubin mass conc 0.6 mg/dL 0 - 1.3 mg/dL [facility] Bilirubin.conjugated mass conc 0.1 mg/dL 0 - 0.4 mg/dL [facility] Interpretation and review of laboratory results Normal [facility] Protein mass conc 7.3 g/dL 6 - 8 g/dL [facility] Lactic Acid, Plasmaon 2018 Interpretation and review of laboratory results Normal [facility] Lactate molar conc 1.2 mmol/L 0.6 - 2 mmol/L [facility] Otheron 12-31-2018 Extra Tube Hold for add-ons. [facility] Comment on above: Auto resulted. Potassiumon 07-28-2018 Potassium molar conc 4.3 mmol/L Normal 3.5-5.1 [facility] Comment on above: Performed By: #### K ####Unless otherwise noted, all testing performed by [facility] [id number]: [id number] Director: Justin Palm M.D. Progress Noteon 07-28-2018 History And Physical-Dictated [address]PIN[place], [place] [address]JJKJTHEODORE [facility] [id number] 1977ADMITHISTORY AND PHYSICALIDENTIFYING INFORMATIONRenarcisa Starkey is a 43-year-old unemployed [place].HISTORY OF PRESENT ILLNESSPatient was brought to the emergency department with application for emergencyadmission signed by [place] [employer] after patient had cut the leftforearm with a knife in suicidal attempt. The patient stated that she has along history of heroin abuse and had maintained sobriety for past 2 years. Thepatient had recently relapsed methamphetamine, fentanyl, heroin, and wasinvolved in argument with her who over the relapsing and claimed thatthis had caused a strain on the relationship. The patient stated that she hadbeen angry, irritable, impulsive and has ongoing financial stressors. Thepatient reported that lately she did not care for herself and was constantlythinking about getting the drugs and was feeling down, depressed, andworthless. The patient has not been eating or sleeping well, was not takingcare of the ADLs.Patient has history of previous psychiatric [facility], [facility] 16[facility] [place] [facility].Considering her deteriorating emotional state, suicidal attempt, and refusalto contract for the safety, was admitted for further evaluation and treatment.PAST MEDICAL HISTORYPatient was hospitalized at the age of 16 at [place], [place], for 1 year.FAMILY HISTORYBiological parents were when patient was 8 years old. Parents hadhistory of substance abuse and had been in custodial for 4 years for drugtrafficking. The patient had lived with maternal grandparents for 4 years. Thepatient's father had from a drug overdose. The patient's mother [facility] [place]. The patient's 1 brother is currently in custodial for drug-relatedcharges.The patient has 2 daughters, age 35 and 17 from previous relationship.The patient is currently living with for past 3 years. is receivingdisability benefits.SOCIAL HISTORYThe patient had obtained GED after dropping out from the school. 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 Was also usingmethamphetamine. Her drug screening revealed cannabinoid and amphetaminepositive.MED ICAL HISTORYPatient has history of hypertension, sleep apnea, brain aneurysm, footsurgery. She had a cholecystectomy, carpal tunnel surgery, tubal ligation,partial hysterectomy, and 2 sections.MENTAL STATUS EXAMINATIONRenarcisa Starkey is a 43-year-old female, poorly groomed, ambulatory,alert, oriented, looking older than stated age. Appeared sad, tearful duringevaluation. The patient had verbalized suicidal plan, intent, and thought. Nodelusions or auditory or visual hallucinations noted. Patient had verbalizedfeeling of hopelessness, helplessness, and verbalized feeling of low self-esteem. Psychomotor activities appeared in somewhat agitated range whiletalking about her conflict with . She is seclusive, withdrawn. Has flataffect. Attention, concentration span fair. Memory of recent and remote eventsintact. Intelligence average.DIAGNOSTIC IMPRESSION1. Depressive disorder, history of opiate abuse, methamphetamine abuse,cannabinoid abuse.2. History of hypertension, sleep apnea, brain aneurysm, status post footsurgery, cholecystectomy, carpal tunnel surgery, tubal ligation, partialhysterectomy, section.PHYSICAL EXAMINATIONConstitution al: Height 5 feet 3 inches, weight 250 pounds, BMI 44.29.Vital signs: Temperature 98.4, pulse 92, blood pressure 120/65, [id number].LABORATO RY DATAChemistry including test revealed no significant finding. Hematologyunremarkable. Toxicology revealed amphetamine, cannabinoid positive.REVIEW OF SYSTEMSTen systems were reviewed. No significant findingGeneral appearance: Theodore Starkey is a 43-year-old female,ambulatory, alert, oriented.Skin and mucous membranes: No lesions.Lymphatics: No lymphadenopathySkeletal and extremities: Normal range of motion.Head: Normocephalic.Ears: No discharge noted.Eyes: Pupils round, equal, regular.Nose: No discharge noted.Mouth and pharynx: Decker mucosa.Neck: Supple.Respiratory: Clear to auscultation.Cardiovasc ular: Normal heart sounds.Abdomen: Soft, nontender.Neurological: Unremarkable.PLANDayami e lab work. SP-2 for unpredictable behaviors. Patient is prescribedLexapro 10 mg at h.s., Desyrel 50 mg at h.s. She was prescribed clonidine 0.1mg patch q. week for opiate withdrawal. The patient was explained in detail ofthe role of the prescribed medication, known indication, adverse effect,contraindication , alternatives to treatment. She will be seen in individualsupportive therapy. She is encouraged to participate in group therapy,activities therapy. She is also encouraged to participate in substance abusegroups on the unit.ABHILASH SANCHEZ, [facility] 07/24/2018 18:32 [id number] 07/24/2018 19:02 YKD/MODLElectronically Signed By Abhilash Sanchez M.D. on 26 Jul 2018 16:58:37 GMT Normal [facility] Protein mass conc [address], [place] [address]IDZGTHEODORE [facility] [id number] 1977DATEPROGRESS NOTEPatient was seen individually. Case discussed with nursing staff. Medicalrecords were reviewed.Patient is calm, cooperative on approach. Denied of suicidal or homicidalplan, intent, or thought. Psychomotor activities improving. Affect isappropriate to thought content.The patient is discharged today. She will attend the center for followup.ABHILASH SANCHEZ, [facility] 07/28/2018 12:42 [id number] 07/28/2018 12:55 YKD/MODLElectronically Signed By Abhilash Sanchez M.D. on 29 Jul 2018 14:57:39 GMT Normal [facility] CBC with Diffon 07-24-2018 Basophils Auto #/vol (Bld) 0.0 K/mcL Normal 0-0.[address] [facility] Comment on above: Performed By: #### C MET, LIPID, CBCDIF, TSH ####Unless otherwise noted, all testing performed by [address] [id number]: [id number] Director: Justin Palm M.D. Basophils/100 WBC Auto (Bld) 0.4 % Normal [facility] Comment on above: Performed By: #### C MET, LIPID, CBCDIF, TSH ####Unless otherwise noted, all testing performed by [address] [id number]: [id number] Director: Justin Palm M.D. Eosinophils Auto #/vol (Bld) 0.2 K/mcL Normal 0-0.[address] [facility] Comment on above: Performed By: #### C MET, LIPID, CBCDIF, TSH ####Unless otherwise noted, all testing performed by [address] [phone]: [id number] Director: Justin Palm M.D. Eosinophils/100 WBC Auto (Bld) 2.5 % Normal [facility] Comment on above: Performed By: #### C MET, LIPID, CBCDIF, TSH ####Unless otherwise noted, all testing performed by [place] [id number]: [id number] Director: Justin Palm M.D. Erythrocyte distribution width Auto Ratio (RBC) 15.2 % High 10.0-14.[address] [facility] Comment on above: Performed By: #### C MET, LIPID, CBCDIF, TSH ####Unless otherwise noted, all testing performed by [place] [id number]: [id number] Director: Justin Palm M.D. Hematocrit Auto Volume Fraction (Bld) 42.1 % Normal 34.4-44.[address] [facility] Comment on above: Performed By: #### C MET, LIPID, CBCDIF, TSH ####Unless otherwise noted, all testing performed by [place] [id number]: [id number] Director: Justin Palm M.D. Hemoglobin mass conc (Bld) 13.9 g/dL Normal 11.6-15.[address] [facility] Comment on above: Performed By: #### C MET, LIPID, CBCDIF, TSH ####Unless otherwise noted, all testing performed by [address] [phone]: [id number] Director: Justin Palm M.D. Lymphocytes Auto #/vol (Bld) 3.2 K/mcL Normal 1.0-3.[address] [facility] Comment on above: Performed By: #### C MET, LIPID, CBCDIF, TSH ####Unless otherwise noted, all testing performed by [address] [phone]: [id number] Director: Justin Palm M.D. Lymphocytes/100 WBC Auto (Bld) 40.5 % Normal [facility] Comment on above: Performed By: #### C MET, LIPID, CBCDIF, TSH ####Unless otherwise noted, all testing performed by [address] [phone]: [id number] Director: Justin Plam M.D. MCH Auto Entitic mass (RBC) 28.7 pg Normal 27.9-33.[address] [facility] Comment on above: Performed By: #### C MET, LIPID, CBCDIF, TSH ####Unless otherwise noted, all testing performed by [address] [phone]: [id number] Director: Justin Palm M.D. MCHC Auto mass conc (RBC) 33.1 g/dL Normal 33.1-35.[address] [facility] Comment on above: Performed By: #### C MET, LIPID, CBCDIF, TSH ####Unless otherwise noted, all testing performed by [address] [id number]: [id number] Director: Justin Palm M.D. MCV Auto Entitic volume (RBC) 86.7 fL Normal 82.6-98.[address] [facility] Comment on above: Performed By: #### C MET, LIPID, CBCDIF, TSH ####Unless otherwise noted, all testing performed by [address] [phone]: [id number] Director: Justin Palm M.D. Monocytes Auto #/vol (Bld) 0.5 K/mcL Normal 0.1-0.[address] [facility] Comment on above: Performed By: #### C MET, LIPID, CBCDIF, TSH ####Unless otherwise noted, all testing performed by [address] [phone]: [id number] Director: Justin Palm M.D. Monocytes/100 WBC Auto (Bld) 6.1 % Normal [facility] Comment on above: Performed By: #### C MET, LIPID, CBCDIF, TSH ####Unless otherwise noted, all testing performed by [address] [phone]: [id number] Director: Justin Palm M.D. Neutrophils Auto #/vol (Bld) 4.0 K/mcL Normal 1.2-6.[address] [facility] Comment on above: Performed By: #### C MET, LIPID, CBCDIF, TSH ####Unless otherwise noted, all testing performed by [address] [place] [phone]: [id number] Director: Justin Palm M.D. Platelet mean volume Auto Entitic volume (Bld) 7.4 fL Normal 7.0-10.[address] [facility] Comment on above: Performed By: #### C MET, LIPID, CBCDIF, TSH ####Unless otherwise noted, all testing performed by [address] [phone]: [id number] Director: Justin Palm M.D. Platelets Auto #/vol (Bld) 393 K/mcL Normal 162-[address] [facility] Comment on above: Performed By: #### C MET, LIPID, CBCDIF, TSH ####Unless otherwise noted, all testing performed by [address] [phone]: [id number] Director: Justin Palm M.D. RBC Auto #/vol (Bld) 4.86 M/mcL Normal 3.7-5.0 [facility] Comment on above: Performed By: #### C MET, LIPID, CBCDIF, TSH ####Unless otherwise noted, all testing performed by [address] [phone]: [id number] Director: Justin Palm M.D. Segmented Neut % 50.5 % Normal [facility] Comment on above: Performed By: #### C MET, LIPID, CBCDIF, TSH ####Unless otherwise noted, all testing performed by [address] [phone]: [id number] Director: Justin Palm M.D. WBC Auto #/vol (Bld) 7.9 K/mcL Normal 3.4-10.6 [facility] Comment on above: Performed By: #### C MET, LIPID, CBCDIF, TSH ####Unless otherwise noted, all testing performed by [address] [phone]: [id number] Director: Justin Palm M.D. Comprehensive [facility] 07-24-2018 Albumin mass conc 2.8 g/dL Low 3.2-5.2 [facility] Comment on above: Performed By: #### C MET, LIPID, CBCDIF, TSH ####Unless otherwise noted, all testing performed by [address] [phone]: [id number] Director: Justin Palm M.D. ALP enzyme act/vol 91 U/L Normal 40-150 [facility] Comment on above: Performed By: #### C MET, LIPID, CBCDIF, TSH ####Unless otherwise noted, all testing performed by [address] [phone]: [id number] Director: Justin Palm M.D. ALT enzyme act/vol 25 U/L Normal 14-65 [facility] Comment on above: Result Comment: This test result might be falsely depressed or falsely elevated onsamples drawn from patients taking Sulfasalazine and Sulfapyridine.Venipuncture should occur prior to taking either of these drugs. Performed By: #### C MET, LIPID, CBCDIF, TSH ####Unless otherwise noted, all testing performed by [address] [phone]: [id number] Director: Justin Palm M.D. AST enzyme act/vol 15 U/L Normal 0-45 [facility] Comment on above: Result Comment: This test result might be falsely depressed or falsely elevated onsamples drawn from patients taking Sulfasalazine and Sulfapyridine.Venipuncture should occur prior to taking either of these drugs. Performed By: #### C MET, LIPID, CBCDIF, TSH ####Unless otherwise noted, all testing performed by [address] [phone]: [id number] Director: Justin Palm M.D. Bilirubin mass conc 0.3 mg/dL Normal 0.3-1.2 [facility] Comment on above: Performed By: #### C MET, LIPID, CBCDIF, TSH ####Unless otherwise noted, all testing performed by [address] [phone]: [id number] Director: Justin Palm M.D. Calcium mass conc 8.4 mg/dL Normal 8.4-10.2 [facility] Comment on above: Performed By: #### C MET, LIPID, CBCDIF, TSH ####Unless otherwise noted, all testing performed by [address] [phone]: [id number] Director: Justin Palm M.D. Chloride molar conc 109 mmol/L High 98-108 [facility] Comment on above: Performed By: #### C MET, LIPID, CBCDIF, TSH ####Unless otherwise noted, all testing performed by [address] [phone]: [id number] Director: Justin Palm M.D. CO2 molar conc 25 mmol/L Normal 21-[address] [facility] Comment on above: Performed By: #### C MET, LIPID, CBCDIF, TSH ####Unless otherwise noted, all testing performed by [address] [phone]: [id number] Director: Justin Palm M.D. Creatinine mass conc 0.74 mg/dL Normal 0.40-1.10 [facility] Comment on above: Performed By: #### C MET, LIPID, CBCDIF, TSH ####Unless otherwise noted, all testing performed by [place] [phone]: [id number] Director: Justin Palm M.D. GFR/1.73 sq M predicted among blacks MDRD vol rate/area (S/P/Bld) mL/min/{1.73_m2} Normal [facility] Comment on above: Result Comment: Afri can Haitian GFR Calc Performed By: #### C MET, LIPID, CBCDIF, TSH ####Unless otherwise noted, all testing performed by [address] [phone]: [id number] Director: Justin Palm M.D. GFR/1.73 sq M predicted among non-blacks MDRD vol rate/area (S/P/Bld) mL/min/{1.73_m2} Normal [facility] Comment on above: Result Comment: Non- GFR CalceGFR is an estimated Glomerular Filtration Rate based on the valueof the patient's serum creatinine. In outpatients, eGFR should be usedas a helpful tool in screening for CKD. In inpatients or patients withacute renal failure, eGFR represents the GFR at the moment of the drawand should be used with caution. Performed By: #### C MET, LIPID, CBCDIF, TSH ####Unless otherwise noted, all testing performed by [place] [phone]: [id number] Director: Justin Palm M.D. Glucose mass conc 83 mg/dL Normal 70-99 [facility] Comment on above: Result Comment: This test result might be falsely depressed or falsely elevated onsamples drawn from patients taking Sulfasalazine and Sulfapyridine.Venipuncture should occur prior to taking either of these drugs. Performed By: #### C MET, LIPID, CBCDIF, TSH ####Unless otherwise noted, all testing performed by [address]CLIA: [id number] Director: Justin Palm M.D. Potassium molar conc 3.4 mmol/L Low 3.5-5.1 [facility] Comment on above: Performed By: #### C MET, LIPID, CBCDIF, TSH ####Unless otherwise noted, all testing performed by [place] [id number]: [id number] Director: Justin Palm M.D. Protein mass conc 6.5 g/dL Normal 6.0-8.0 [facility] Comment on above: Performed By: #### C MET, LIPID, CBCDIF, TSH ####Unless otherwise noted, all testing performed by [place] [id number]: [id number] Director: Justin Palm M.D. Sodium molar conc 139 mmol/L Normal 135-145 [facility] Comment on above: Performed By: #### C MET, LIPID, CBCDIF, TSH ####Unless otherwise noted, all testing performed by [address] [phone]: [id number] Director: Justin Palm M.D. Urea nitrogen mass conc 7 mg/dL Low 8-[address] [facility] Comment on above: Performed By: #### C MET, LIPID, CBCDIF, TSH ####Unless otherwise noted, all testing performed by [address] [phone]: [id number] Director: Justin Palm M.D. Lipid Panelon 07-24-2018 Cholesterol in HDL mass conc 40 mg/dL Normal 40-[address] [facility] Comment on above: Performed By: #### C MET, LIPID, CBCDIF, TSH ####Unless otherwise noted, all testing performed by [address] [phone]: [id number] Director: Justin Palm M.D. Cholesterol in LDL mass conc 106 mg/dL Normal 10-[address] [facility] Comment on above: Performed By: #### C MET, LIPID, CBCDIF, TSH ####Unless otherwise noted, all testing performed by [address] [phone]: [id number] Director: Justin Palm M.D. Cholesterol in VLDL mass conc 25 mg/dL Normal 5-[address] [facility] Comment on above: Performed By: #### C MET, LIPID, CBCDIF, TSH ####Unless otherwise noted, all testing performed by [address], [place] [phone]: [id number] Director: Justin Palm M.D. Cholesterol mass conc 170 mg/dL Normal 100-199 [facility] Comment on above: Performed By: #### C MET, LIPID, CBCDIF, TSH ####Unless otherwise noted, all testing performed by [address] [phone]: [id number] Director: Justin Palm M.D. Cholesterol.total/Cho lesterol in HDL mass ratio 4.2 {ratio} Normal 3.2-5.[address] [facility] Comment on above: Result Comment: Fema le Coronary Heart Disease Risk Factor (CHDRF):Average risk= 4.41/2 Average risk= 3.32 times Average risk= 7.1 Performed By: #### C MET, LIPID, CBCDIF, TSH ####Unless otherwise noted, all testing performed by [address] [phone]: [id number] Director: Justin Palm M.D. Triglyceride mass conc 123 mg/dL Normal 30-[address] [facility] Comment on above: Performed By: #### C MET, LIPID, CBCDIF, TSH ####Unless otherwise noted, all testing performed by [address] [phone]: [id number] Director: Justin Palm M.D. TSHon 07-24-2018 Thyrotropin Qn 0.72 uIU/mL Normal 0.270-4.200 [facility] Comment on above: Result Comment: Samp les from patients routinely receiving high dose biotin therapy(100-300 mg/day) may show falsely decreased results. Please correlateclinically.Please note reference range change as of 06/25/18. Performed By: #### C MET, LIPID, CBCDIF, TSH ####Unless otherwise noted, all testing performed by [address] [phone]: [id number] Director: Justin Palm M.D. Alcohol, Medicalon 8 Ethanol mass conc Negative Normal [facility] Comment on above: Performed By: #### A LC, HCGQL ####Unless otherwise noted, all testing performed by [address] [phone]: [id number] Director: Justin Palm M.D. Drugs of Abuse, Urineon 07-05 Amphetamines,Ur Positive Abnormal None Detected [facility] Comment on above: Performed By: #### D RUGSCRU ####Unless otherwise noted, all testing performed by [address] [phone]: [id number] Director: Justin Palm M.D. Barbiturates,Ur None Detected Normal None Detected [facility] Comment on above: Performed By: #### D RUGSCRU ####Unless otherwise noted, all testing performed by [address] [phone]: [id number] Director: Justin Palm M.D. Benzodiazepine,Ur None Detected Normal None Detected [facility] Comment on above: Performed By: #### D RUGSCRU ####Unless otherwise noted, all testing performed by [address] [phone]: [id number] Director: Justin Palm M.D. Cannabinoids,Ur Positive Abnormal None Detected [facility] Comment on above: Performed By: #### D ALESSANDRA ####Unless otherwise noted, all testing performed by [address] [phone]: [id number] Director: Justin Palm M.D. Cocaine,Ur None Detected Normal None Detected [facility] Comment on above: Performed By: #### D ALESSANDRA ####Unless otherwise noted, all testing performed by [address] [phone]: [id number] Director: Justin Palm M.D. DOA Cutoffs See comment. Normal [facility] Comment on above: Result Comment: Drug s of Abuse, Urine Presumptive Positive Cutoff Concentrations.Amphetamine/Methamphetamine: 1000 ng/mlBarbiturates: 200 ng/mlBenzodiazepines and metabolities: 200 ng/mlCannabinoids: 50 ng/mlCocaine/Benzoylecgonine: 300 ng/mlMethadone:300 ng/mlOpiates: 300 ng/mlOxycodone/Oxymorphone: 100 ng/ml Performed By: #### D ALESSANDRA ####Unless otherwise noted, all testing performed by [address] [phone]: [id number] Director: Justin Palm M.D. Methadone,Ur None Detected Normal None Detected [facility] Comment on above: Performed By: #### D ALESSANDRA ####Unless otherwise noted, all testing performed by [address] [phone]: [id number] Director: Justin Palm M.D. Opiates,Ur None Detected Normal None Detected [facility] Comment on above: Performed By: #### D ALESSANDRA ####Unless otherwise noted, all testing performed by [address] [phone]: [id number] Director: Justin Palm M.D. Oxycodone, Urine None Detected Normal None Detected [facility] Comment on above: Result Comment: THES E DRUGS OF ABUSE TESTS ARE PROVIDED A MEDICAL SCREENING ONLY.POSITIVE RESULTS ARENOT CONFIRMED BY GCMS Performed By: #### D ALESSANDRA ####Unless otherwise noted, all testing performed by [address] [phone]: [id number] Director: Justin Palm M.D. HCG, Qualitativeon 8 HCG, Qualitative Negative Normal [facility] Comment on above: Result Comment: Nega tive: The result is less than or equal to 5 mIU/mL of HCG. Performed By: #### A LC, HCGQL ####Unless otherwise noted, all testing performed by [address] [phone]: [id number] Director: Justin Palm M.D. ED NOTEon 03-30-2018 [facility] NOTES Normal [facility] ED PROVIDERon 03-30-2018 [facility] NOTES Normal [facility] Vital Signs Date Time Vital Sign Value Performing Clinician Facility 05-29-2025 13:55-0400 Body temperature 97.9 [degF] No Primary Care Physician [facility] 05-29-2025 13:55-0400 Diastolic blood pressure 82 mm[Hg] No Primary Care Physician [facility] 05-29-2025 13:55-0400 Heart rate 80 /min No Primary Care Physician [facility] 05-29-2025 13:55-0400 Respiratory rate 18 /min No Primary Care Physician [facility] 05-29-2025 13:55-0400 SaO2% (BldA) [Mass fraction] 97 % No Primary Care Physician [facility] 05-29-2025 13:55-0400 Systolic blood pressure 125 mm[Hg] No Primary Care Physician [facility] 05-29-2025 08:56-0400 Body height 160.02 cm No Primary Care Physician [facility] 01-02-2024 10:20-0400 Body height 160 cm Por 2 [facility] 01-02-2024 10:20-0400 Body mass index (BMI) [Ratio] 48.71 kg/m2 Por 2 [facility] 01-02-2024 10:20-0400 Body weight 124.74 kg Por 2 [facility] 12-17-2023 08:14-0400 Body height 160 cm Anmol Schmitz MD Work Phone: [facility] 12-17-2023 08:14-0400 Body mass index (BMI) [Ratio] 44.29 kg/m2 Anmol Schmitz MD Work Phone: [facility] 12-17-2023 08:14-0400 Body weight 113.4 kg Anmol Schmitz MD Work Phone: [facility] 12-10-2023 11:38-0400 Body height 160 cm Heath Rodgers MD Work Phone: [facility] 12-10-2023 11:38-0400 Body mass index (BMI) [Ratio] 44.29 kg/m2 Heath Rodgers MD Work Phone: [facility] 12-10-2023 11:38-0400 Body temperature 98.01 [degF] Heath Rodgers MD Work Phone: [facility] 12-10-2023 11:38-0400 Body weight 113.4 kg Heath Rodgers MD Work Phone: [facility] 12-10-2023 11:38-0400 Diastolic blood pressure 85 mm[Hg] Heath Rodgers MD Work Phone: [facility] 12-10-2023 11:38-0400 Heart rate 98 /min Heath Rodgers MD Work Phone: [facility] 12-10-2023 11:38-0400 Respiratory rate 18 /min Heath Rodgers MD Work Phone: [facility] 12-10-2023 11:38-0400 SaO2% (BldA) [Mass fraction] 95 % Heath Rodgers MD Work Phone: [facility] 12-10-2023 11:38-0400 Systolic blood pressure 154 mm[Hg] Heath Rodgers MD Work Phone: [facility] 12-08-2023 16:11-0400 Body height 162.6 cm Angelita Espinoza MD Work Phone: [facility] 12-08-2023 16:11-0400 Body mass index (BMI) [Ratio] 42.91 kg/m2 Angelita Espinoza MD Work Phone: [facility] 12-08-2023 16:11-0400 Body temperature 98.01 [degF] Angelita Espinoza MD Work Phone: [facility] 12-08-2023 16:11-0400 Body weight 113.4 kg Angelita Espinoza MD Work Phone: [facility] 12-08-2023 16:11-0400 Diastolic blood pressure 94 mm[Hg] Angelita Espinoza MD Work Phone: [facility] 12-08-2023 16:11-0400 Heart rate 99 /min Angelita Espinoza MD Work Phone: [facility] 12-08-2023 16:11-0400 Respiratory rate 20 /min Angelita Espinoza MD Work Phone: [facility] 12-08-2023 16:11-0400 SaO2% (BldA) [Mass fraction] 94 % Angelita Espinoza MD Work Phone: [facility] 12-08-2023 16:11-0400 Systolic blood pressure 140 mm[Hg] Angelita Espinoza MD Work Phone: [facility] 06-09-2023 00:11-0400 Body height 160 cm Heath Rodgers MD Work Phone: [facility] 06-09-2023 [id number] Body mass index (BMI) [Ratio] 44.29 kg/m2 Heath Rodgers MD Work Phone: [facility] 06-09-2023 [id number] Body temperature 98.49 [degF] Heath Rodgers MD Work Phone: [facility] 06-09-2023 [id number] Body weight 113.4 kg Heath Rodgers MD Work Phone: [facility] 06-09-2023 [id number] Diastolic blood pressure 77 mm[Hg] Heath Rodgers MD Work Phone: [facility] 06-09-2023 00:[id number] Heart rate 73 /min Heath Rodgers MD Work Phone: [facility] 06-09-2023 [id number] Respiratory rate 18 /min Heath Rodgers MD Work Phone: [facility] 06-09-2023 00:11-0400 SaO2% (BldA) [Mass fraction] 94 % Heath Rodgers MD Work Phone: [facility] 06-09-2023 00:11-0400 Systolic blood pressure 130 mm[Hg] Heath Rodgers MD Work Phone: [facility] 05-23-2023 20:05-0400 Respiratory rate 16 /min [facility] 05-23-2023 17:25-0400 Diastolic blood pressure 94 mm[Hg] [facility] 05-23-2023 17:25-0400 Heart rate 84 /min [facility] 05-23-2023 17:25-0400 Systolic blood pressure 135 mm[Hg] [facility] 05-23-2023 16:23-0400 Body height 160.02 cm [facility] 05-23-2023 16:23-0400 Body mass index (BMI) [Ratio] 42.5 kg/m2 [facility] 05-23-2023 16:23-0400 Body temperature 97.8 [degF] [facility] 05-23-2023 16:23-0400 Body weight 109 kg [facility] 05-23-2023 16:23-0400 SaO2% (BldA) [Mass fraction] 99 % [facility] 02-18-2023 17:38-0400 Diastolic blood pressure 72 mm[Hg] Angelita sEpinoza Other Phone: [facility] 02-18-2023 17:38-0400 Heart rate 89 /min Angelita Espinoza Other Phone: [facility] 02-18-2023 17:38-0400 Respiratory rate 18 /min Angelita Espinoza Other Phone: [facility] 02-18-2023 17:38-0400 SaO2% (BldA) [Mass fraction] 96 % Angelita Espinoza Other Phone: [facility] 02-18-2023 17:38-0400 Systolic blood pressure 141 mm[Hg] Angelita Espinoza Other Phone: [facility] 02-18-2023 15:06-0400 Body height 160 cm Angelita Espinoza Other Phone: [facility] 02-18-2023 15:06-0400 Body temperature 98.6 [degF] Angelita Espinoza Other Phone: [facility] 02-18-2023 15:06-0400 Body weight 122 kg Angelita Espinoza Other Phone: [facility] 08-26-2022 16:48-0500 Body height 160.02 cm [facility] Work Phone: 08-26-2022 16:48-0500 Body mass index (BMI) [Ratio] 49.6 kg/m2 [facility] Work Phone: 08-26-2022 16:48-0500 Body temperature 97.8 [degF] [facility] Work Phone: 08-26-2022 16:48-0500 Body weight 127 kg [facility] Work Phone: 08-26-2022 16:48-0500 Diastolic blood pressure 107 mm[Hg] [facility] Work Phone: 08-26-2022 16:48-0500 Heart rate 95 /min [facility] Work Phone: 08-26-2022 16:48-0500 Respiratory rate 18 /min [facility] Work Phone: 08-26-2022 16:48-0500 SaO2% (BldA) [Mass fraction] 95 % [facility] Work Phone: 08-26-2022 16:48-0500 Systolic blood pressure 164 mm[Hg] [facility] Work Phone: 02-02-2022 20:06-0400 Body height 154.9 cm Angelita Espinoza Other Phone: [facility] 02-02-2022 20:06-0400 Body temperature 98.6 [degF] Angelita Espinoza Other Phone: [phone] [place] [address] 02-02-2022 20:06-0400 Body weight 136.3 kg Angelita Espinoza Other Phone: [facility] 02-02-2022 20:06-0400 Diastolic blood pressure 79 mm[Hg] Angelita Espinoza Other Phone: [facility] 02-02-2022 20:06-0400 Heart rate 93 /min Angelita Espinoza Other Phone: [facility] 02-02-2022 20:06-0400 Respiratory rate 16 /min Angelita Espinoza Other Phone: [facility] 02-02-2022 20:06-0400 SaO2% (BldA) [Mass fraction] 96 % Angelita Espinoza Other Phone: [facility] 02-02-2022 20:06-0400 Systolic blood pressure 128 mm[Hg] Angelita Espinoza Other Phone: [facility] 01-05-2022 15:52-0400 Body temperature 97.34 [degF] Angelita Espinoza Other Phone: [facility] 01-05-2022 15:52-0400 Diastolic blood pressure 81 mm[Hg] Angelita Espinoza Other Phone: [facility] 01-05-2022 15:52-0400 Heart rate 87 /min Angelita Espinoza Other Phone: [facility] 01-05-2022 15:52-0400 Respiratory rate 16 /min Angelita Espinoza Other Phone: [facility] 01-05-2022 15:52-0400 SaO2% (BldA) [Mass fraction] 95 % Angelita Espinoza Other Phone: [facility] 01-05-2022 15:52-0400 Systolic blood pressure 148 mm[Hg] Angelita Espinoza Other Phone: [facility] 01-05-2022 12:54-0400 Body height 160 cm Angelita Espinoza Other Phone: [facility] 01-05-2022 12:54-0400 Body weight 136.3 kg Angelita Espinoza Other Phone: [facility] 11-29-2021 20:02-0400 Diastolic blood pressure 91 mm[Hg] Angelita Espinoza Other Phone: [facility] 11-29-2021 20:02-0400 Heart rate 84 /min Angelita Espinoza Other Phone: [facility] 11-29-2021 20:02-0400 Respiratory rate 15 /min Angelita Espinoza Other Phone: [facility] 11-29-2021 20:02-0400 SaO2% (BldA) [Mass fraction] 97 % Angelita Espinoza Other Phone: [facility] 11-29-2021 20:02-0400 Systolic blood pressure 129 mm[Hg] Angelita Espinoza Other Phone: [facility] 11-29-2021 15:48-0400 Body height 160 cm Angelita Espinoza Other Phone: [facility] 11-29-2021 15:48-0400 Body temperature 97.7 [degF] Angelita Espinoza Other Phone: [facility] 11-29-2021 15:48-0400 Body weight 137 kg Angelita Espinoza Other Phone: [facility] 06-23-2021 21:33-0400 Diastolic blood pressure 92 mm[Hg] Angelita Espinoza Other Phone: [facility] 06-23-2021 21:33-0400 Heart rate 83 /min Angelita Espinoza Other Phone: [facility] 06-23-2021 21:33-0400 Respiratory rate 18 /min Angelita Espinoza Other Phone: [facility] 06-23-2021 21:33-0400 SaO2% (BldA) [Mass fraction] 97 % Angelita Espinoza Other Phone: [facility] 06-23-2021 21:33-0400 Systolic blood pressure 147 mm[Hg] Angelita Espinoza Other Phone: [facility] 06-23-2021 18:59-0400 Body height 160 cm Angelita Espinoza Other Phone: [facility] 06-23-2021 18:59-0400 Body temperature 97.88 [degF] Angelita Espionza Other Phone: [facility] 06-23-2021 18:59-0400 Body weight 148 kg Angelita Espinoza Other Phone: [facility] 03-27-2021 19:02-0400 Body height 160 cm Text Entry [facility] 03-27-2021 19:02-0400 Body temperature 97.34 [degF] Text Entry [facility] 03-27-2021 19:02-0400 Body weight 150 kg Text Entry [facility] 03-27-2021 19:02-0400 Diastolic blood pressure 74 mm[Hg] Text Entry Free [facility] 03-27-2021 19:02-0400 Heart rate 74 /min Text Entry Free [facility] 03-27-2021 19:02-0400 Respiratory rate 18 /min Text Entry [facility] 03-27-2021 19:02-0400 SaO2% (BldA) [Mass fraction] 95 % Text Entry Free [facility] 07-25-2021 19:02-0400 Systolic blood pressure 134 mm[Hg] Text Entry Free [facility] 01-01-2019 13:22-0400 BP Diastolic 90 mm[Hg] Ryan Hernandez [facility] 01-01-2019 13:22-0400 BP Systolic 138 mm[Hg] Ryan Hernandez [facility] 01-01-2019 13:22-0400 Pulse (Heart Rate) 97 /min Ryan Hernandez [facility] 01-01-2019 13:22-0400 Pulse Oximetry 95 % Ryan Hernandez [facility] 01-01-2019 12:53-0400 Body Temperature 97.7 [degF] Ryan Hernandez [facility] 01-01-2019 12:53-0400 Respiratory Rate 16 /min Ryan Hernandez [facility] 01-01-2019 10:41-0400 BMI (Body Mass Index) 38.39 kg/m2 Ryanpj Hernandez [facility] 01-01-2019 10:41-0400 Height 160 cm Ryan Hernandez [facility] 01-01-2019 10:41-0400 Weight 98.3 kg Ryan Hernandez [facility] Encounters Encounter Date Encounter Type Care Provider Facility Start: [facility] Start: 06-11-2025 ambulatory [facility] Fac[facility] lity:[facility] Start: 06-02-2025 ambulatory [facility] Fac[facility] lity:[facility] Start: 05-29-2025 End: 05-29-2025 Emergency department patient visit No Primary Care Physician -Emergency Department Work Phone: Start: 01-02-2024 End: 01-02-2024 Subsequent hospital visit by physician Por Mammo 2 [facility] Comment on above: Encounter for screen ing mammogram for malignant neoplasm of breast Start: 01-02-2024 End: 01-02-2024 [facility] Start: 12-17-2023 End: 12-17-2023 ambulatory ANMOL Mayo [facility] Start: 12-17-2023 End: 12-17-2023 Office consultation new/estab patient 60 min Anmol Schmitz MD Work Phone: [facility] Comment on above: Lumbar strain, initi al encounter (Primary Dx); Low back pain, unspecified back pain laterality, unspecified chronicity, unspecified whether sciatica present Start: 12-10-2023 End: 12-10-2023 Emergency department patient visit Heath Rodgers MD Work Phone: [facility] Medicine Comment on above: Lumbosacral radiculo kvng (Primary Dx) Start: 12-08-2023 End: 12-08-2023 Emergency department patient visit ANGELITA ESPINOZA [facility] Comment on above: Acute right-sided lo w back pain with right-sided sciatica (Primary Dx) Start: 06-09-2023 End: 06-09-2023 Emergency department patient visit Heath Rodgers MD Work Phone: [facility] Comment on above: Sprain of right ankl e, unspecified ligament, initial encounter (Primary Dx); Primary osteoarthritis of left ankle Start: 05-23-2023 End: 05-23-2023 Emergency department patient visit [facility]-Emergency Department Work Phone: Start: 05-11-2023 Admission to establishment May Hawley RN [facility] Start: 05-11-2023 ambulatory May Hawley RN [facility] Comment on above: Medical Clearance Start: 05-11-2023 Admission to establishment ADRIEN BROOKS [facility] Start: 05-11-2023 End: 05-11-2023 Emergency department patient visit ADELAIDE WESTBROOK Facility:[facility] Start: 05-06-2023 End: 05-06-2023 Emergency department patient visit Scottie Ng [facility] Start: 02-18-2023 End: 02-18-2023 Emergency department patient visit Madan Duran [facility] Start: 01-17-2023 End: 01-17-2023 Emergency department patient visit ADELAIDE WESTBROOK Facility:[facility] Start: 08-26-2022 End: 08-26-2022 Emergency department patient visit [facility]Emergency Department Start: 02-02-2022 End: 02-02-2022 Emergency department patient visit Gladis Spencer [facility] Start: 01-05-2022 End: 01-05-2022 Emergency department patient visit Madan Duran [facility] Start: 11-29-2021 End: 11-29-2021 Emergency department patient visit Rolf Rosas [facility] Start: 06-23-2021 End: 06-23-2021 Emergency department patient visit Ollie [facility] Start: 03-27-2021 End: 03-27-2021 Emergency department patient visit Gladis Spencer [facility] Start: 12-15-2019 Patient encounter procedure [facility] Start: 12-31-2018 End: 01-01-2019 Evaluation and management of inpatient LUCIO PANIAGUA MAXX DALE. [facility] Start: 12-31-2018 End: 01-01-2019 Evaluation and management of inpatient Ryan Hernandez Work Phone: [facility] Medical Observation Comment on above: Facial abscess (Prim moises Dx); Facial abscess Start: 07-23-2018 End: 07-28-2018 Evaluation and management of inpatient Abhilash Sanchez Facility:[place] Start: 03-30-2018 End: 03-30-2018 Emergency department patient visit TERRI Eleno [facility] Start: 03-02-2017 End: 03-02-2017 Ambulatory OLLIE LAW [facility] Procedures Date Procedure Procedure Detail Performing Clinician Start: 06-02-2025 Vitamin D, 25-hydrox y measurement No Primary Care Physician Comment on above: Vitamin D StatusDefi ciency: <20 ng/mL (50nmol/L)Insufficiency: 20-30 ng/mL (50-75 nmol/L)Sufficiency: 30-100 ng/mL (75-250 nmol/L)Toxicity: >100 ng/mL (>250 nmol/L) Start: 05-29-2025 Methadone measuremen t, urine No Primary Care Physician Start: 05-29-2025 Radiologic exam ches t 2 views No Primary Care Physician Start: 05-29-2025 CT angiography of head No Primary Care Physician Start: 05-29-2025 CT of head without contrast No Primary Care Physician Start: 01-02-2024 BI MAMMO BILATERAL SCREENING TOMOSYNTHESIS [facility] Start: 01-02-2024 End: 01-02-2024 Screening digital breast tomosynthesis bi Angelita Espinoza MD Work Phone: Start: 12-17-2023 AMB REFERRAL TO ORTH OPAEDIC SURGERY ANMOL REHMANBANKS Start: 12-08-2023 CT LUMBAR SPINE WO I V CONTRAST [facility] Start: 12-08-2023 XR HIP RIGHT WITH PE LVIS WHEN PERFORMED 2 OR 3 VIEWS [facility] Start: 12-08-2023 Ct lumbar spine w/o contrast material Theodore S Eduard 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: Start: 12-08-2023 Radex hip unilateral with pelvis 2-3 views Theodore S Eduard 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: Start: 06-09-2023 XR ANKLE RIGHT 3+ VIEWS [facility] Start: 06-09-2023 VASC US LOWER EXTREM ITY VENOUS DUPLEX RIGHT [facility] Start: 06-09-2023 CBC W Auto Different ial panel - Blood [facility] Start: 06-09-2023 Natriuretic peptide B [Mass/volume] in Blood [facility] Start: 06-09-2023 Radex ankle complete minimum 3 views Heath Rodgers MD Work Phone: Start: 06-09-2023 Dup-scan xtr veins unilateral/limited study Heath Rodgers MD Work Phone: Start: 06-09-2023 Natriuretic peptide Laura Rodgers MD Work Phone: Start: 05-23-2023 CT of head without contrast Start: 08-26-2022 Radiologic examinati on of knee Start: 06-23-2021 End: 06-23-2021 EKG impression Ollie Oscar Start: 01-01-2019 Basic metabolic 2000 panel - Serum or Plasma Artemio Gaviria Work Phone: Start: 01-01-2019 Complete blood count with white cell differential, automated Artemio Gaviria Work Phone: Start: 01-01-2019 Complete blood count with white cell differential, manual Artemio Crespo Eid Work Phone: Start: 01-01-2019 Red blood cell morphology Artemio Crespo Everette Work Phone: Start: 12-31-2018 Ct maxillofacial w/c ontrast material Linda Salguero Work Phone: Start: 12-31-2018 End: 12-31-2018 Bacteria identified in Blood by Culture Linda Salguero Work Phone: Start: 12-31-2018 Complete blood count with white cell differential, automated Ryan Hernandez Work Phone: Start: 12-31-2018 Complete blood count with white cell differential, manual Ryan Hernandez Work Phone: Start: 12-31-2018 LAVENDER TOP Ryan Valdez Work Phone: Start: 12-31-2018 Basic metabolic 1998 panel - Serum or Plasma Ryan Hernandez Work Phone: Start: 12-31-2018 Hepatic function 200 0 panel - Serum or Plasma Ryan Hernandez Work Phone: Start: 12-31-2018 Lactate [Moles/volum e] in Serum or Plasma Ryan Hernandez Work Phone: Start: 12-31-2018 LIGHT BLUE TOP Ryan Hernandez Work Phone: Start: 12-31-2018 LIGHT GREEN TOP Ryan Hernandez Work Phone: Start: 12-31-2018 MINT GREEN TOP Ryan Hernandez Work Phone: Start: 12-31-2018 RAINBOW DRAW Ryan Valdez Work Phone: Plan of Treatment Date Care Activity Detail Author Start: 2037 RSV patient s and/or patients aged 60+ years (1 - 1-dose 60+ series) RSV patients and/or patients aged 60+ years (1 - 1-dose 60+ series) [facility] Start: 2027 Zoster Vaccines (1 o f 2) Zoster Vaccines (1 of 2) [facility] Start: 05-10-2026 DIABETES SCREEN DIABETES SCREEN [facility] Start: 02-21-2026 DTaP/Tdap/Td Vaccine s (7 - Td or Tdap) DTaP/Tdap/Td Vaccines (7 - Td or Tdap) [facility] Start: 02-21-2026 Tetanus vaccination TETANUS EVERY [address] [facility] Start: 02-21-2026 Urine microalbumin profile DTAP,TDAP,TD (7 - Td or Tdap) [facility] Start: 06-02-2025 Patient encounter procedure Registered Clinical -Laboratory Julissa Grande Start: 05-29-2025 [facility] Start: 05-29-2025 [facility] Start: 01-01-2025 Screening for malign ant neoplasm of breast Mammogram [facility] Start: 05-04-2024 Influenza vaccination Influenz a Vaccine (Season Ended) [facility] Start: 01-04-2024 End: 01-04-2024 ambulatory 01/04/2024 3:15 PM EDT Evaluation [address] [address] Belen Dwyer, PT [address] [facility] [place], [place] [id number] [facility] Start: 12-26-2023 End: 12-26-2023 ambulatory 12/26/2023 1:45 PM EDT Evaluation [address] [address] Georgiana Pugh, PT [address] [facility], [address] [place] [id number] [facility] Start: 05-04-2023 COVID-19 Vaccine ( season) COVID-19 Vaccine ( season) [facility] Start: 05-04-2023 Influenza vaccination [facility] Start: 09-03-2022 DEPRESSION ASSESSMENT DEPRESSION ASS ESSMENT [facility] Start: 2022 COLOGUARD (FIT-DNA) COLOGUARD (FIT-D NA) [facility] Start: 2022 Colonoscopy COLONOSCOPY [facility] Start: 2022 COLORECTAL CANCER SCREENING COLORECTAL CANCER SCREENING [facility] Start: [address] COLONOGRAPHY [facility] Start: 2022 FECAL OCCULT BLOOD FECAL OCCULT BLOO D [facility] Start: 2022 LIPID SCREEN LIPID SCREEN [facility] Start: 2022 SIGMOIDOSCOPY SIGMOIDOSCOPY [facility] Start: 07-27-2021 COVID-19 VACCINE (2 - Pfizer series) COVID-19 VACCINE (2 - Pfizer series) [facility] Start: 05-04-2019 Influenza vaccinatio n given SEQUENTIAL INFLUENZA VACCINE (Season Ended) [facility] Start: 01-09-2019 End: 01-09-2019 Office Visit 01/09/2019 Office Visit Otolaryngology Lucio Wood Jr., DO [address] [place], [place] [id number] [phone] [facility] Physicians Start: 11-15-2017 PAP TESTING PAP TESTING [facility] Start: 2017 Mammography MAMMOGRAM [facility] Start: 2017 Screening for malign ant neoplasm of breast Mammogram [facility] Start: 11-30-2015 HPV TESTING HPV TESTING [facility] Start: 1998 Screening for malign ant neoplasm of cervix [facility] Start: 1996 Hepatitis B Vaccines (1 of 3 - 19+ 3-dose series) Hepatitis B Vaccines (1 of 3 - 19+ 3-dose series) [facility] Start: 1995 ANNUAL PCP TEAM HEALTH [employer]UB ATTENDANT MAN DISEASE VISIT ANNUAL PCP TEAM CHRONIC DISEASE VISIT [facility] Start: 1995 BP CONTROLLED (<130/80) BP CONTROLLE D (<130/80) [facility] Start: 1995 Diabetes mellitus screening Diabetes Screening [facility] Start: 1995 Hepatitis C screening Hepatitis C [facility] Start: 1983 PNEUMOCOCCAL (1 - PCV) PNEUMOCOCCAL (1 - PCV) [facility] Start: 1983 Pneumococcal Vaccine : Pediatrics (0 to 5 Years) and At-Risk Patients (6 to 64 Years) (1 - PCV) Pneumococcal Vaccine: Pediatrics (0 to 5 Years) and At-Risk Patients (6 to 64 Years) (1 - PCV) [facility] Start: 1983 Pneumococcal Vaccine : Pediatrics (0 to 5 Years) and At-Risk Patients (6 to 64 Years) (1 of 2 - PCV) Pneumococcal Vaccine: Pediatrics (0 to 5 Years) and At-Risk Patients (6 to 64 Years) (1 of 2 - PCV) [facility] Start: 1980 History and physical examination, annual for health maintenance Wellness Visit [facility] Start: 1977 HEPATITIS B (1 of 3 - 3-dose series) HEPATITIS B (1 of 3 - 3-dose series) [facility] Start: 1977 Hepatitis B Vaccines (1 of 3 - 3-dose series) Hepatitis B Vaccines (1 of 3 - 3-dose series) [facility] Start: 1977 HIV screening HIV Screening [facility] Start: 1977 Lipid panel Lipid Panel [facility] Start: 1977 Protein mass conc Mammogram [facility] Start: 1977 Screening for malign ant neoplasm of cervix PAP SMEAR [facility] Start: 1977 Screening for malign ant neoplasm of colon [facility] Start: 1977 Yearly Adult Physical Yearly Adult P hysical [facility] Bacteria identified Cx Nom (Bld) [facility] End: 06-09-2023 Basic metabolic 2000 panel - Serum or Plasma Basic metabolic panel Lab STAT STAT (Lab) for 1 Occurrences starting 06/09/2023 until 06/09/2023 [facility] Work Phone: Comment on above: STAT (Lab) for 1 Occ urrences starting 06/09/2023 until 06/09/2023 End: 06-09-2023 Creatine kinase [Enzymatic activity/volume] in Serum or Plasma Cardiac Enzymes - CPK Lab STAT STAT (Lab) for 1 Occurrences starting 06/09/2023 until 06/09/2023 [facility] Work Phone: Comment on above: STAT (Lab) for 1 Occ urrences starting 06/09/2023 until 06/09/2023 End: 06-09-2023 Hepatic function 2000 panel - Serum or Plasma Hepatic function panel Lab STAT STAT (Lab) for 1 Occurrences starting 06/09/2023 until 06/09/2023 [facility] Work Phone: Comment on above: STAT (Lab) for 1 Occ urrences starting 06/09/2023 until 06/09/2023 Patient Education [facility] Work Phone: Patient referral [facility] Work Phone: Procedure on tissue specimen [facility] Comment on above: Once for 1 Occurrenc es starting 01/01/2019, 1 completed End: 12-08-2023 Urinalysis complete panel - Urine Urinalysis with Reflex Microscopic Lab STAT STAT (Lab) for 1 Occurrences starting 12/08/2023 until 12/08/2023 [facility] Work Phone: Comment on above: STAT (Lab) for 1 Occ urrences starting 12/08/2023 until 12/08/2023 Immunizations Immunization Date Immunization Notes Care Provider Mei zelaya 06-01-2021 Covid (Pfizer) [facility] 02-22-2016 tetanus toxoid, redu usman diphtheria toxoid, and acellular pertussis vaccine, adsorbed May Hawley RN [facility] 03-02-1992 tetanus and diphther ia toxoids, adsorbed, preservative free, for adult use (2 Lf of tetanus toxoid and 2 Lf of diphtheria toxoid) May Hawley RN [facility] Work Phone: 01-07-1991 measles, mumps and rubella virus vaccine May Hawley RN [facility] Work Phone: 10-01-1981 DTP-Haemophilus influenzae type b conjugate vaccine May Hawley RN [facility] Work Phone: 05-08-1979 DTP-Haemophilus influenzae type b conjugate vaccine May Hawley RN [facility] Work Phone: 05-08-1979 measles, mumps and rubella virus vaccine May Hawley RN [facility] Work Phone: 05-08-1979 trivalent poliovirus vaccine, live, oral May Hawley RN [facility] Work Phone: 1977 DTP-Haemophilus influenzae type b conjugate vaccine May Hawley RN [facility] Work Phone: 1977 trivalent poliovirus vaccine, live, oral May Hawley [facility] Work Phone: 1977 DTP-Haemophilus influenzae type b conjugate vaccine May Hawley [facility] Work Phone: 1977 trivalent poliovirus vaccine, live, oral May Hawley [facility] Work Phone: 1977 DTP-Haemophilus influenzae type b conjugate vaccine May Hawley [facility] Work Phone: 1977 trivalent poliovirus vaccine, live, oral May Hawley [facility] Work Phone: Payers Date Payer Category Payer Self-pay 2022 Medicaid [employer] [facility] [id number] 2022-Present [phone] [address] [place] [address] Medicaid [id number] 2022 Unknown [id number] 2019 Unknown 2016 Medicaid [id number] 2016 Medicaid [employer] MEDICA[employer] [facility] MEDICAID xxxxxxxxxxx 2016-Present xxxxxxxxxxx [id number] 2013 Unknown [id number] 1977 Unknown [id number] 1977 Unknown [id number] 1977 Unknown [id number] 1977 Unknown [id number] 1977 Unknown [id number] 1977 Unknown [id number] 1977 Unknown [id number] 1977 Unknown [id number] 1977 Unknown [id number] Unknown [id number] Unknown [id number] Unknown [id number] Unknown [id number] Social History Date Type Detail Facility Start: 01-01-2019 End: 12-08-2023 Tobacco smoking status SCIS Current every day smoker [facility] Start: 01-01-2019 End: 12-08-2023 Cigarettes smoked current (pack per day) - Reported [facility] Start: 12-31-2018 History SDOH Alcohol Frequency [address] 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) [facility] Start: 05-10-2023 End: 12-08-2023 Tobacco use panel [facility] PHQ-2 Score 0 [facility] Start: 10-16-2022 Gender identity Identifies as female gender (finding) [facility] Start: 10-16-2022 Sexual orientation Homosexual (findi ng) [facility] Start: 05-30-2023 End: 01-02-2024 Exposure to SARS-CoV-2 (event) Not sure [facility] Work Phone: Start: 12-08-2023 End: 01-02-2024 Alcohol intake Ex-drinker (finding) [facility] Work Phone: Start: 05-29-2025 Tobacco smoking stat us NHIS Current Heavy tobacco smoker [facility] Mental Status Date Assessment Result Facility 05-29-2025 Cognitive function Level Of Consciousness Awake [facility] Work Phone: 05-23-2023 Cognitive function Level Of Cons ciousness Awake;Alert;Appropriate;Follow s Commands [facility] Work Phone: Clinical Notes 08-14-2011 to 05-29-2025 Anmol Schmitz MD - 12/17/2023 8:20 AM Tova Rodgers MD - 12/10/2023 11:35 AM Tova Rodgers MD - 12/10/2023 11:35 AM Tova Rodgers MD - 06/08/2023 11:54 PM EDT Note Date & Type Note Facility 05-29-2025 Discharge summary [facility] 05-29-2025 Radiology Diagnostic study note [facility] Imaging Services [address] [place] [id number] CTA Head W/WO Contrast MR#: [id number] Acct: [id number] Name: THEODORE STARKEY Rep #: [id number] : 1975 F 50 From: Wilian Martin MD PCP: Care Physician,No Primary Status: REG ER Study:CTA Head W/WO Contrast Date of Exam: 05/29/25 Exam# [id number] Ordering Dr: Ajit Mayorga DO PROCEDURE: CTA HEAD W/WO CONTRAST 05/29/2025 REASON FOR EXAM: GONZÁLES, HISTORY OF BRAIN ANEURYSM Previous aneurysm. Headache. TECHNIQUE: Procedure Code: [id number] Modality: CT Procedure: CTA HEAD W/WO CONTRAST Multiplanar Sagittal and Coronal images were obtained. 3D post processing was performed CONTRAST: Isovue 370 VOLUME: 100 mL One or more dose reduction techniques were used (e.g., Automated exposure control, adjustment of the mA and/or kV according to patient size, use of iterative reconstruction technique). RADIATION DOSE SUMMARY: CTDlvol: 80 mGy DLP: 1203 mGycm COMPARISON: CTA head May 2023. FINDINGS: CT BRAIN: Cerebrum: Normal cerebral volume. Negative for mass the frontal, parietal, temporal and occipital lobes negative. White matter: Negative for periventricular white matter changes. Cerebellum: Negative. Negative for mass. Negative for acute infarction. CSF pathways and ventricles: Negative. Negative for ventricular dilatation or obstruction. Basal ganglia and thalami: Negative. No acute infarctions. Brainstem: Midbrain, lucy and medulla otherwisenegative. Calvarium: Negative. Negative for fractures. Orbital structures: Globes negative. Extraocular muscles negative. Paranasal sinuses: No air fluid levels. Remainder of the sinuses negative. Vascular structures: Aneurysm clip adjacent to the anticipated location of the anterior communicating artery metallic artifact but no definitive residual aneurysm. Slight calcifications of the intracranial structures. Other: : Negative for acute intracranial hemorrhage. Negative for acute infarction. Remainder of exam negative. CTA BRAIN: Codominant distal vertebral arteries. Otherwise distal vertebral arteries negative. Basilar artery negative. Posterior cerebral arteries: Right posterior communicating artery patent. Left posterior communicating artery hypoplastic. Posterior cerebral arteries and branches otherwise negative. Negative for stenosis of the posterior cerebral arteries. Distal internal carotid arteries: Slight calcifications of the distal internal carotid arteries. Negative for stenosis. Anterior cerebral arteries: Metallic artifact adjacent to the anterior communicating artery. No residual or recurrent aneurysm noted. Anterior cerebral arteries and branches negative. Middle cerebral arteries: Middle cerebral arteries and branches otherwise negative. Negative for stenosis of the middle cerebral arteries. Negative for intracranial recurrent or residual aneurysm or significant stenosis. Asymmetric dural sinuses more prominent on the right. No thrombus. 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 No evidence of residual or recurrent aneurysm. Reading Location: [id number] CC: Dr. Ajit Robles DO; No Primary Care Physician ~ Medical Librarian: Signed [facility] 05-29-2025 Radiology Diagnostic study note [facility] Imaging Services [address] [place] [address] Chest PA and Lateral MR#: [id number] Acct: [id number] Name: THEODORE STARKEY Rep #: [id number] : 1975 F 50 From: Nupur Chairez MD PCP: Care Physician,No Primary Status: REG ER Study:Chest PA and Lateral Date of Exam: 05/29/25 Exam# [id number] Ordering Dr: Ajit Mayorga DO PROCEDURE: CHEST PA AND LATERAL 05/29/2025 REASON FOR EXAM: HTN TECHNIQUE: Procedure Code: RADCXR Modality: DX Procedure: CHEST PA AND LATERAL PA and 2 lateral views of the chest COMPARISON: None FINDINGS: Hardware: EKG leads overlie the chest Heart: The heart size is normal. Mediastinum: The mediastinal contour is unremarkable. Lungs: The lungs are clear. Bones: Degenerative changes are identified within the thoracic spine. RAD/Chest PA and Lateral IMPRESSION: No acute pulmonary process Reading Location: [id number] CC: Dr. Ajit Robles DO; No Primary Care Physician ~ Medical Librarian: Signed [facility] 05-29-2025 Radiology Diagnostic study note [facility] Imaging Services [address] [place] [address] Brain/Head without Contrast MR#: [id number] Acct: [id number] Name: THEODORE STARKEY Rep #: [id number] : 1975 F 50 From: Moshe Milligan MD PCP: Care Physician,No Primary Status: [facility] ER Study:Brain/Head without Contrast Date of Exa m: 05/29/25 Exam# [id number] Ordering Dr: Ajit Mayorga DO PROCEDURE: BRAIN/HEAD WITHOUT CONTRAST 05/29/2025 REASON FOR EXAM: HEADACHE TECHNIQUE: Procedure Code: CTBR Modality: CT Procedure: BRAIN/HEAD WITHOUT CONTRAST Coronal and Sagittal reconstruction series were provided. One or more dose reduction techniques were used (e.g., Automated exposure control, adjustment of the mA and/or kV according to patient size, use of iterative reconstruction technique. RADIATION DOSE SUMMARY: CTDlvol: 21.20 mGy DLP: 1202.75 mGycm COMPARISON: CT head May 23, 2023. FINDINGS: Brain: No acute intracranial hemorrhage. No acute territorial infarction. No mass-effect or midline shift. The craniocervical junction is unremarkable. 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 The orbits are unremarkable. The craniocervical junction is unremarkable. CSF Spaces: Unremarkable. Sinuses/Mastoids: Clear. Bones: No acute bony abnormalities. CT/Brain/Head without Contrast IMPRESSION: No acute intracranial abnormalities. Reading Location: [facility] CC: Dr. Ajit Robles DO; No Primary Care Physician ~ Medical Librarian: Signed [facility] 12-17-2023 History of Present illness Narrative HPI:Theodore Starkey is a 48-year-old woman, who 2 weeks ago slipped and went to the ER as a result of back pain and leg pain. She has some tingling in the legs. Her symptoms are slowly improving. She has not had any recent physical therapy. She has been taking naproxen which has been helpful for her symptoms. ROS: Reviewed on EMR and patient intake sheet. PMH/SH: Reviewed on EMR and patient intake sheet. Exam: Physical Exam Constitutional: Well appearing; no acute distress Eyes: pupils are equal and round Psych: normal affect Respiratory: non-labored breathing Cardiovascular: regular rate and rhythm GI: non-distended abdomen Musculoskeletal: no pain with range of motion of the hips bilaterally Neurologic: [4]/5 strength in the lower extremities bilaterally]; [negative] straight leg raise Radiology: CT scan personally reviewed. No evidence of acute fracture. Disc bulges noted at L4-5 L5-S1. Diagnosis: Acute lumbar strain Assessment and Plan: 48-year-old woman, with acute lumbar strain. At this point, she has no persistent radicular symptoms. I recommend physical therapy and anti-inflammatories. She was given a prescription for naproxen. If her symptoms persist despite nonoperative management, then MRI follow-up would be appropriate. The patient was in agreement with the plan. At the end of the visit today, the patient felt that all questions had been answered satisfactorily. The patient was pleased with the visit and very appreciative for the care rendered. Thank you very much for the kind referral. It is a privilege, and a pleasure, to partner with you in the care of your patients. I would be delighted to assist you with any further consultations as needed. Anmol Schmitz MD Chief of Spine Surgery, [facility] Director of Spine Service, [facility] Mechanic Senior, Department of Orthopaedics [facility] [employer] [facility] [id number] [place] [address] P: [phone] [facility] This note was dictated with voice recognition software. It has not been proofread for grammatical errors, typographical mistakes or other semantic inconsistencies. documented in this encounter [facility] Work Phone: 12-10-2023 Emergency department Note HPI Chief Complaint Patient presents with lower back pain/ numbness in groin/ denies incontinence uri HPI: [] 48-year white female with a history of a cerebral aneurysm, chronic back pain seen in the ED recently for a mechanical fall CT of the spine showed advanced DJD and multilevel disc herniations, she left AMA today comes in after she has some tingling in her groin area. She was told if she has numbness or tingling, go to the hospital. Her pain is well-controlled. No new trauma. She has no incontinence. She has no retention. She has no weakness or numbness of the lower extremities. She denies abdominal pain nausea diarrhea fever chills cough congestion incontinence seizures syncope or near syncope no history of back surgery in the past. No fever no chills. No drug use. Past history: Cerebral aneurysm, chronic back pain, lumbosacral disc disease Social: Patient is a smoker denies Alcortin A drug abuse. REVIEW OF SYSTEMS: GENERAL.: No weight loss, fatigue, anorexia, insomnia, fever. EYES: No vision loss, double vision, drainage, eye pain. ENT: No pharyngitis, dry mouth. CARDIOPULMONARY: No chest pain, palpitations, syncope, near syncope. No shortness of breath, cough, hemoptysis. GI: No abdominal pain, change in bowel habits, melena, hematemesis, hematochezia, nausea, vomiting, diarrhea. : No discharge, dysuria, frequency, urgency, hematuria. MS: No limb pain, joint pain, joint swelling. Positive for back pain SKIN: No rashes. PSYCH: No depression, anxiety, suicidality, homicidality. Review of systems is otherwise negative unless stated above or in history of present illness. Social history, family history, allergies reviewed. PHYSICAL EXAM: GENERAL: Vitals noted, no distress. Alert and oriented x 3. Non-toxic. High BMI EENT: TMs clear. Posterior oropharynx unremarkable. No meningismus. No LAD. NECK: Supple. Nontender. No midline tenderness. CARDIAC: Regular, rate, rhythm. No murmurs rubs or gallops. No JVD PULMONARY: Lungs clear bilaterally with good aeration. No wheezes rales or rhonchi. No respiratory distress. ABDOMEN: Soft, nonsurgical. Nontender. No peritoneal signs. Normoactive bowel sounds. No pulsatile masses. EXTREMITIES: No peripheral edema. Negative Homans bilaterally, no cords. 2+ bounding pulses well-perfused SKIN: No rash. Intact. Musculoskeletal: Patient midline C, T, L-spine tenderness. Pelvis stable she has good range of motion of both hips knees and ankles. NEURO: No focal neurologic deficits, NIH score of 0. Cranial nerves normal as tested from II through XII. Patient motor strength lower extremities 5 out of 5 her sensations are intact with light touch and pinprick patient has no saddle anesthesia, she has intact sensation in the perineum, rectal tone is normal, DTRs absent at the knees and ankles. Straight leg is positive right lower extremity at 45 degrees. MEDICAL DECISION MAKING: Impression: #1 lumbosacral disc disease, #2 right-sided lumbosacral radiculopathy/sciatica Plan set MDM: 48 female history of chronic back pain who comes in with tingling in her groin area on my exam she has a no signs of cauda equina syndrome and/or spinal cord compression. Her motor strength is normal equal and symmetric bilaterally sensory exam is normal equal and symmetric bilaterally she has normal rectal tone, she has no saddle anesthesia, she is no anesthesia and or paresthesias in the perineum or the vaginal area., She has no symptoms of retention and/or incontinence both stool or urine. Currently no signs of cauda equina syndrome and/or spinal cord compression. Given reassured examination and no signs of cauda equina syndrome and no spinal cord compression with no saddle anesthesia no anesthesia in the perineum and no incontinence motor strength within normal limits and sensory exam within normal limits, emergent MRI and or spine consultation not indicated, patient be discharged home with supportive care outpatient follow-up with spine surgery with strict return precaution. Ernesto Coma Scale Score: 15 Patient History No past medical history on file. No past surgical history on file. No family history on file. Social History Tobacco Use Smoking status: Every Day Packs/day: 2.00 Years: 25.00 Additional pack years: 0.00 Total pack years: 50.00 Types: Cigarettes Smokeless tobacco: Never Vaping Use Vaping Use: Never used Substance Use Topics Alcohol use: Not Currently Drug use: Never Physical Exam ED Triage Vitals [12/10/23 1138] Temperature Heart Rate Respirations BP 36.7 C (98 F) 98 18 154/85 Pulse Ox Temp Source Heart Rate Source Patient Position 95 % Temporal Monitor Sitting BP Location FiO2 (%) Left arm -- Physical Exam ED Course & MDM ED Course as of 12/10/23 1225 SunDec 10, 2023 1218 On my exam patient is comfortable her motor strength lower extremities 5 out of 5, sensory exam is normal to light touch pinprick sensation intact, DTRs are absent in the knees and the ankles, she has no saddle anesthesia, shingle trimmer present, I performed a detailed examine the perineum she has a good sensation in the perineum her rectal tone is normal, pain well-controlled, current no signs of cauda equina syndrome and/or spinal cord compression. She has no saddle anesthesia and she has normal rectal tone. Patient be discharged home with outpatient follow-up with spine surgery and pain management with strict return precaution. [MT] ED Course User Index [MT] Heath Rodgers MD Diagnoses as of 12/10/23 1225 Lumbosacral radiculopathy Medical Decision Making Procedure Procedures Heath Rodgers MD 12/10/23 1225 documented in this encounter [facility] Work Phone: 12-10-2023 Physician Emergency department Note HPI Chief Complaint Patient presents with lower back pain/ numbness in groin/ denies incontinence uri HPI: [] 48-year white female with a history of a cerebral aneurysm, chronic back pain seen in the ED recently for a mechanical fall CT of the spine showed advanced DJD and multilevel disc herniations, she left AMA today comes in after she has some tingling in her groin area. She was told if she has numbness or tingling, go to the hospital. Her pain is well-controlled. No new trauma. She has no incontinence. She has no retention. She has no weakness or numbness of the lower extremities. She denies abdominal pain nausea diarrhea fever chills cough congestion incontinence seizures syncope or near syncope no history of back surgery in the past. No fever no chills. No drug use. Past history: Cerebral aneurysm, chronic back pain, lumbosacral disc disease Social: Patient is a smoker denies Alcortin A drug abuse. REVIEW OF SYSTEMS: GENERAL.: No weight loss, fatigue, anorexia, insomnia, fever. EYES: No vision loss, double vision, drainage, eye pain. ENT: No pharyngitis, dry mouth. CARDIOPULMONARY: No chest pain, palpitations, syncope, near syncope. No shortness of breath, cough, hemoptysis. GI: No abdominal pain, change in bowel habits, melena, hematemesis, hematochezia, nausea, vomiting, diarrhea. : No discharge, dysuria, frequency, urgency, hematuria. MS: No limb pain, joint pain, joint swelling. Positive for back pain SKIN: No rashes. PSYCH: No depression, anxiety, suicidality, homicidality. Review of systems is otherwise negative unless stated above or in history of present illness. Social history, family history, allergies reviewed. PHYSICAL EXAM: GENERAL: Vitals noted, no distress. Alert and oriented x 3. Non-toxic. High BMI EENT: TMs clear. Posterior oropharynx unremarkable. No meningismus. No LAD. NECK: Supple. Nontender. No midline tenderness. CARDIAC: Regular, rate, rhythm. No murmurs rubs or gallops. No JVD PULMONARY: Lungs clear bilaterally with good aeration. No wheezes rales or rhonchi. No respiratory distress. ABDOMEN: Soft, nonsurgical. Nontender. No peritoneal signs. Normoactive bowel sounds. No pulsatile masses. EXTREMITIES: No peripheral edema. Negative Homans bilaterally, no cords. 2+ bounding pulses well-perfused SKIN: No rash. Intact. Musculoskeletal: Patient midline C, T, L-spine tenderness. Pelvis stable she has good range of motion of both hips knees and ankles. NEURO: No focal neurologic deficits, NIH score of 0. Cranial nerves normal as tested from II through XII. Patient motor strength lower extremities 5 out of 5 her sensations are intact with light touch and pinprick patient has no saddle anesthesia, she has intact sensation in the perineum, rectal tone is normal, DTRs absent at the knees and ankles. Straight leg is positive right lower extremity at 45 degrees. MEDICAL DECISION MAKING: Impression: #1 lumbosacral disc disease, #2 right-sided lumbosacral radiculopathy/sciatica Plan set MDM: 48 female history of chronic back pain who comes in with tingling in her groin area on my exam she has a no signs of cauda equina syndrome and/or spinal cord compression. Her motor strength is normal equal and symmetric bilaterally sensory exam is normal equal and symmetric bilaterally she has normal rectal tone, she has no saddle anesthesia, she is no anesthesia and or paresthesias in the perineum or the vaginal area., She has no symptoms of retention and/or incontinence both stool or urine. Currently no signs of cauda equina syndrome and/or spinal cord compression. Given reassured examination and no signs of cauda equina syndrome and no spinal cord compression with no saddle anesthesia no anesthesia in the perineum and no incontinence motor strength within normal limits and sensory exam within normal limits, emergent MRI and or spine consultation not indicated, patient be discharged home with supportive care outpatient follow-up with spine surgery with strict return precaution. [place] Coma Scale Score: 15 Patient History No past medical history on file. No past surgical history on file. No family history on file. Social History Tobacco Use Smoking status: Every Day Packs/day: 2.00 Years: 25.00 Additional pack years: 0.00 Total pack years: 50.00 Types: Cigarettes Smokeless tobacco: Never Vaping Use Vaping Use: Never used Substance Use Topics Alcohol use: Not Currently Drug use: Never Physical Exam ED Triage Vitals [12/10/23 1138] Temperature Heart Rate Respirations BP 36.7 C (98 F) 98 18 154/85 Pulse Ox Temp Source Heart Rate Source Patient Position 95 % Temporal Monitor Sitting BP Location FiO2 (%) Left arm -- Physical Exam ED Course & MDM ED Course as of 12/10/23 1225 SunDec 10, 2023 1218 On my exam patient is comfortable her motor strength lower extremities 5 out of 5, sensory exam is normal to light touch pinprick sensation intact, DTRs are absent in the knees and the ankles, she has no saddle anesthesia, shingle trimmer present, I performed a detailed examine the perineum she has a good sensation in the perineum her rectal tone is normal, pain well-controlled, current no signs of cauda equina syndrome and/or spinal cord compression. She has no saddle anesthesia and she has normal rectal tone. Patient be discharged home with outpatient follow-up with spine surgery and pain management with strict return precaution. [MT] ED Course User Index [MT] Heath Rodgers MD Diagnoses as of 12/10/23 1225 Lumbosacral radiculopathy Medical Decision Making Procedure Procedures Heath Rodgers MD 12/10/231224 [facility] Work Phone: 06-08-2023 Emergency department Note HPI Chief Complaint Patient presents with Leg Swelling Right leg, concern for blood clot HPI: [] 48-year-old white female history of schizophrenia, remote DVT, remote cerebral aneurysm requiring coiling history of anticoagulation on anymore comes in with rectal extremity and ankle swelling for the last couple days and also she did twist her ankle today. Able to bear weight. She is concerned about a DVT. She denies any chest pain pressure heaviness fever chills nausea vomit diarrhea cough congestion incontinence seizures syncope or near syncope no hematemesis melena medic easy no recent travel hospitalization or antibiotic use. Past history: Hypertension, schizophrenia, remote DVT, remote cerebral aneurysm requiring coiling Social: Patient is a smoker denies alcohol denies drug abuse. REVIEW OF SYSTEMS: GENERAL.: No weight loss, fatigue, anorexia, insomnia, fever. EYES: No vision loss, double vision, drainage, eye pain. ENT: No pharyngitis, dry mouth. CARDIOPULMONARY: No chest pain, palpitations, syncope, near syncope. No shortness of breath, cough, hemoptysis. GI: No abdominal pain, change in bowel habits, melena, hematemesis, hematochezia, nausea, vomiting, diarrhea. : No discharge, dysuria, frequency, urgency, hematuria. MS: No limb pain, positive right ankle pain,, right ankle joint swelling, positive for right leg swelling. SKIN: No rashes. PSYCH: No depression, anxiety, suicidality, homicidality. Review of systems is otherwise negative unless stated above or in history of present illness. Social history, family history, allergies reviewed. PHYSICAL EXAM: GENERAL: Vitals noted, no distress. Alert and oriented x 3. Non-toxic. EENT: TMs clear. Posterior oropharynx unremarkable. No meningismus. No LAD. NECK: Supple. Nontender. No midline tenderness. CARDIAC: Regular, rate, rhythm. No murmurs rubs or gallops. No JVD PULMONARY: Lungs clear bilaterally with good aeration. No wheezes rales or rhonchi. No respiratory distress. ABDOMEN: Soft, nonsurgical. Nontender. No peritoneal signs. Normoactive bowel sounds. No pulsatile masses. EXTREMITIES: Left lower extremity has trace nonpitting peripheral edema. Negative Homans bilaterally, no cords. Right extremity has mild erythema redness just above the ankle, has 1+ nonpitting edema, calf is supple equal in girth bilaterally, good range of motion of both ankles and knees, bounding pulses 2+, equal and symmetric, no ascending lymphangitis. Right ankle has no deformity tender palpation lateral malleolus but good range of motion. Full active and passive. SKIN: No rash. Intact. NEURO: No focal neurologic deficits, NIH score of 0. Cranial nerves normal as tested from II through XII. MEDICAL DECISION MAKING: CBC with differential shows no leukocytosis BNP is normal ultrasound negative DVT plain x-rays show effusion of the talofibular joint with osteoarthritis nonspecific calcification but no obvious fracture. Treatment in ED: Immobilized in a Aircast and given ibuprofen. Impression: #1 ankle sprain, #2 osteoarthritis of the ankle Plan/MDM: 48-year-old female history of remote DVT today comes in with right lower extremity swelling and right ankle injury on exam she is comfortable afebrile calf is supple low suspicion for a septic joint compartment syndrome or DVT or necrotizing fasciitis or ankle fracture, patient be discharged home with Aircast rest ice elevation weightbearing as tolerated NSAID for pain control outpatient follow-up with orthopedic surgery with strict return precaution. No data recorded Patient History No past medical history on file. No past surgical history on file. No family history on file. Social History Tobacco Use Smoking status: Not on file Smokeless tobacco: Not on file Substance Use Topics Alcohol use: Not on file Drug use: Not on file Physical Exam ED Triage Vitals [06/09/23 0011] Temp Heart Rate Resp BP 36.9 C (98.5 F) 73 18 130/77 SpO2 Temp src Heart Rate Source Patient Position 94 % -- Monitor -- BP Location FiO2 (%) -- -- Physical Exam ED Course & MDM ED Course as of 06/09/23 0155 Sat Jun 09, 2023 0149 Patient's ultrasound negative for DVT, plain x-rays of the ankle do show tibiotalar arthropathy with a joint effusion. No obvious fractures. CBC with differential is normal BNP is normal anticipate patient will be discharged home with Aircast partial weightbearing as needed leg elevation and outpatient follow-up with orthopedic surgery and primary doctor. [MT] ED Course User Index [MT] Heath Rodgers MD Diagnoses as of 06/09/23154 Sprain of right ankle, unspecified ligament, initial encounter Primary osteoarthritis of left ankle Medical Decision Making Procedure Procedures Heath Rodgers MD 06/09/23154 documented in this encounter [facility] Work Phone: 06-08-2023 Physician Emergency department Note HPI Chief Complaint Patient presents with Leg Swelling Right leg, concern for blood clot HPI: [] 48-year-old white female history of schizophrenia, remote DVT, remote cerebral aneurysm requiring coiling history of anticoagulation on anymore comes in with rectal extremity and ankle swelling for the last couple days and also she did twist her ankle today. Able to bear weight. She is concerned about a DVT. She denies any chest pain pressure heaviness fever chills nausea vomit diarrhea cough congestion incontinence seizures syncope or near syncope no hematemesis melena medic easy no recent travel hospitalization or antibiotic use. Past history: Hypertension, schizophrenia, remote DVT, remote cerebral aneurysm requiring coiling Social: Patient is a smoker denies alcohol denies drug abuse. REVIEW OF SYSTEMS: GENERAL.: No weight loss, fatigue, anorexia, insomnia, fever. EYES: No vision loss, double vision, drainage, eye pain. ENT: No pharyngitis, dry mouth. CARDIOPULMONARY: No chest pain, palpitations, syncope, near syncope. No shortness of breath, cough, hemoptysis. GI: No abdominal pain, change in bowel habits, melena, hematemesis, hematochezia, nausea, vomiting, diarrhea. : No discharge, dysuria, frequency, urgency, hematuria. MS: No limb pain, positive right ankle pain,, right ankle joint swelling, positive for right leg swelling. SKIN: No rashes. PSYCH: No depression, anxiety, suicidality, homicidality. Review of systems is otherwise negative unless stated above or in history of present illness. Social history, family history, allergies reviewed. PHYSICAL EXAM: GENERAL: Vitals noted, no distress. Alert and oriented x 3. Non-toxic. EENT: TMs clear. Posterior oropharynx unremarkable. No meningismus. No LAD. NECK: Supple. Nontender. No midline tenderness. CARDIAC: Regular, rate, rhythm. No murmurs rubs or gallops. No JVD PULMONARY: Lungs clear bilaterally with good aeration. No wheezes rales or rhonchi. No respiratory distress. ABDOMEN: Soft, nonsurgical. Nontender. No peritoneal signs. Normoactive bowel sounds. No pulsatile masses. EXTREMITIES: Left lower extremity has trace nonpitting peripheral edema. Negative Homans bilaterally, no cords. Right extremity has mild erythema redness just above the ankle, has 1+ nonpitting edema, calf is supple equal in girth bilaterally, good range of motion of both ankles and knees, bounding pulses 2+, equal and symmetric, no ascending lymphangitis. Right ankle has no deformity tender palpation lateral malleolus but good range of motion. Full active and passive. SKIN: No rash. Intact. NEURO: No focal neurologic deficits, NIH score of 0. Cranial nerves normal as tested from II through XII. MEDICAL DECISION MAKING: CBC with differential shows no leukocytosis BNP is normal ultrasound negative DVT plain x-rays show effusion of the talofibular joint with osteoarthritis nonspecific calcification but no obvious fracture. Treatment in ED: Immobilized in a Aircast and given ibuprofen. Impression: #1 ankle sprain, #2 osteoarthritis of the ankle Plan/MDM: 48-year-old female history of remote DVT today comes in with right lower extremity swelling and right ankle injury on exam she is comfortable afebrile calf is supple low suspicion for a septic joint compartment syndrome or DVT or necrotizing fasciitis or ankle fracture, patient be discharged home with Aircast rest ice elevation weightbearing as tolerated NSAID for pain control outpatient follow-up with orthopedic surgery with strict return precaution. No data recorded Patient History No past medical history on file. No past surgical history on file. No family history on file. Social History Tobacco Use Smoking status: Not on file Smokeless tobacco: Not on file Substance Use Topics Alcohol use: Not on file Drug use: Not on file Physical Exam ED Triage Vitals [06/09/23 0011] Temp Heart Rate Resp BP 36.9 C (98.5 F) 73 18 130/77 SpO2 Temp src Heart Rate Source Patient Position 94 % -- Monitor -- BP Location FiO2 (%) -- -- Physical Exam ED Course & MDM ED Course as of 06/09/23 0155 Sat Jun 09, 2023 0149 Patient's ultrasound negative for DVT, plain x-rays of the ankle do show tibiotalar arthropathy with a joint effusion. No obvious fractures. CBC with differential is normal BNP is normal anticipate patient will be discharged home with Aircast partial weightbearing as needed leg elevation and outpatient follow-up with orthopedic surgery and primary doctor. [MT] ED Course User Index [MT] Heath Rodgers MD Diagnoses as of 06/09/23154 Sprain of right ankle, unspecified ligament, initial encounter Primary osteoarthritis of left ankle Medical Decision Making Procedure Procedures Heath Rodgers MD 06/09/23154 [facility] Work Phone: 05-23-2023 Discharge summary Note Date/Time May 23, 2023 5:16pm [facility] Medical Records Department [address] [place] [address] Emergency Department Summary 05/23/23 MR#: [id number] Acct: [id number] Name: THEODORE STARKEY Rep #:[id number] : 1975 48 From: Jasmine Smith PCP: Care Physician,No Primary Status :REG ER Location: ED HPI History of Present Illness Chief Complaint: Syncope Informant: patient Narrative Narrative: Patient is a 48-year-old female with history of psychiatric diagnoses, tobacco use, migraines and DVT (provoked after seizure) presenting for dizziness, lightheadedness and 2 episodes of syncope. Patient states she was discharged from and inpatient psychiatric care on 05/13. She had a lot of her psych meds adjusted. She is followed up outpatient with ann lyon. Since she switched her medications she has been feeling dizzy and lightheaded. She has been having nausea and then had 1 episode of vomiting with some dry heaves. Shehas had 2 episodes of syncope today when helping her mom that she had. She notes she is had some increased light sensitivity. States this feels little different than her migraine today but she does have a headache. She denies any chest pain, shortness of breath or difficulty breathing. She does note increased thirst and increased urination. Denies any dysuria. She thinks her symptoms are from her medication changes but wanted to get checked out further. Denies any swelling of her legs. No other complaints or concerns at this time. [facility] Medical History Anxiety Benign essential hypertension BiPAP (biphasic positive airway pressure) dependence Brain aneurysm Depression DVT (deep venous thrombosis) history of bleeding aneurysm Hypertension Obesity Sleep apnea Smoker Substance abuse Tobacco abuse Home Medications gabapentin 600 mg tablet 600 mg PO .Q6 01/21/16 [History Last Taken Unknown] bupropion HCl 300 mg 24 hr tablet, extended release 300 mg PO DAILY 08/26/22 [History Last Taken Unknown] prazosin 2 mg capsule 2 mg PO QHS 08/26/22 [History Last Taken Unknown] quetiapine 100 mg tablet 100 mg PO QHS 08/26/22 [History Last Taken Unknown] topiramate 200 mg tablet 200 mg PO QHS 08/26/22 [History Last Taken Unknown] aripiprazole 10 mg tablet 10 mg PO DAILY 05/23/23 [History Last Taken Unknown] lithium carbonate 300 mg capsule 300 mg PO .QAM 05/23/23 [History Last Taken Unknown] lithium carbonate 600 mg capsule 600 mg PO QHS 05/23/23 [History Last Taken Unknown] Allergy/AdvReac Type Severity Reaction Status Date / Time ondansetron HCl [From Zofran] Allergy Other Verified 05/23/23 16:22 Surgical History H/O foot surgery Social History Smoking Status: Current every day smoker tobacco type: cigarettes ROS ROS ED Constitutional Constitutional ED: Denies chills or fever(s) Eyes Eyes: Denies blurry vision or change in vision Cardiovascular Cardiovascular: Denies chest pain Respiratory/Chest Respiratory/Chest: Denies cough or dyspnea Gastrointestinal Gastrointestinal: Reports nausea and vomiting; Denies abdominal pain, constipation or diarrhea Genitourinary Genitourinary ED: Reports urinary frequency; Denies dysuria Musculoskeletal Musculoskeletal: Denies arthralgias or myalgias Integumentary Denies rash Neurologic Neurologic: Reports headache(s); Denies paresthesias or weakness Psychiatric Psychiatric: Denies anxiety Hematologic/Lymphatic Hematologic/Lymphatic: Denies easy bleeding or easy bruising EXAM Physical Exam Const Vital Signs: 05/23/23 16:23 05/23/23 17:25 Temperature 97.8 F Temperature Source Temporal Pulse Rate 96 Pulse Rate [Lying] 91 Pulse Rate [Sitting (for 1 minute prior to obtaining)] 85 Pulse Rate [Standing (for 1 minute prior to obtaining)] 84 Respiratory Rate 20 H Blood Pressure 134/87 H Blood Pressure [Lying] 116/59 L Blood Pressure [Sitting (for 1 minute prior to obtaining)] 138/89 H Blood Pressure [Standing (for 1 minute prior to obtaining)] 135/94 H Blood Pressure Mean 102 Blood Pressure Mean [Lying] 78 Blood Pressure Mean [Sitting (for 1 minute prior to obtaining)] 105 Blood Pressure Mean [Standing (for 1 minute prior to obtaining)] 107 Pulse Ox 99 Oxygen Delivery Method Room Air Positive well nourished and well developed General Appearance ED: well developed and NAD HEENT Reports TM's clear and moist mucous membranes Tympanic Membrane ED: Yes TM's clear Eyes PERRL and EOMs intact bilaterally Neck supple and no JVD Chest Wall inspection of chest normal and palpation of chest normal Resp normal respiratory effort and clear to auscultation bilaterally Cardio regular rate, regular rhythm and no murmurs GI normal to inspection, nondistended, normoactive bowel sounds and non-tender Extremity normal to inspection General Extremety ED: Negative for edema or tenderness General Extremity: Negative for edema Neuro oriented x3 Sensorium / Orientation: alert Motor Exam: Negative for general weakness Psych mental status grossly normal Mood & Affect: Negative for depressed or anxious Skin no rashes or lesions noted Skin Narrative: Superficial abrasion noted to the right anterior christianson MDM MDM MDM Narrative Medical decision making narrative: Patient evaluated for lightheadedness, syncope and headache. She is concerned it could be related to recent medication changes associate with her psych meds. She is not on any blood thinners does not history of DVT. Differential includeshypovolemia, medication side effect, hyperglycemia, UTI and vasovagal syncope. Her vital signs are normal and she is not hypoxic. Will obtain D-dimer for PE work-up. This is negative I think that is sufficient to rule out pulmonary embolism as the cause of her syncope. Especially she does not have any chest pain or shortness of breath. She does have a history of an aneurysm with a coilwill obtain a CT of the brain as well. Patient is given IV fluids, Compazine and Benadryl for symptoms initially. Patient's orthostatics are mildly positive. She is given a liter of fluid however and states she feels much better. She has improvement with the Compazine and Benadryl for her headache. Her lab work is unremarkable. She is mildly subtherapeutic on her lithium but states that she was recently increased on her dose. Urinalysis is not consistent with infection. She has no HUY or electrolyte derangement. No signs of infection or anemia. Patient is comfortable with outpatient follow-up. CT of the brain does not show any acute process. She is discharged home in stable and improved condition. Lab Data Attestation: I reviewed the patient's lab results. Labs: Laboratory Results - last 24 hr 05/23/23 05/23/23 17:02 17:20 WBC 10.8 RBC 5.17 Hgb 15.0 Hct 46.8 MCV 90.5 MCH 29.0 MCHC 32.1 RDW Std Deviation 45.7 H RDW Coeff of Miya 13.7 Plt Count 426 MPV 8.7 Immature Gran % (Auto) 0.600 Neut % (Auto) 67.5 Lymph % (Auto) 25.0 [place] % (Auto) 4.9 Eos % (Auto) 1.8 Baso % (Auto) 0.2 Absolute Neuts (auto) 7.3 Absolute Lymphs (auto) 2.71 Nucleated RBC % 0 D-Dimer Quant (PE/DVT) 0.35 Sodium 139 Potassium 4.2 Chloride 107 Carbon Dioxide 29.0 Anion Gap 3 L BUN 8 Creatinine 0.61 Estim Creat Clear Calc 95.33 Est GFR (MDRD) Af Amer 137 Est GFR (MDRD) Non-Af 113 BUN/Creatinine Ratio 13.2 Glucose 89 Calcium 9.0 Urine Color Straw Urine Clarity Clear Urine pH 7.0 Ur Specific [place] 1.010 Urine Protein Negative Urine Glucose (UA) Normal Urine Ketones Negative Urine Occult Blood Negative Urine Nitrite Negative Urine Bilirubin Negative Urine Urobilinogen Normal Ur Leukocyte Esterase Negative Urine RBC 0 SEEN Urine WBC 0 SEEN Ur Squamous Epith Cells 0-5 SEEN Urine Bacteria RARE Urine Mucus 0 SEEN [place] 0.30 L Radiography Diagnostic Testing: Clinical Impression(s) from Imaging Studies Brain CT 05/23/23 16:56 IMPRESSION: No definite acute or significant abnormality seen. Electronically Signed: Pranay Flynn MD at 17:58 EDT , Rhythm Strip Rhythm Strip: Sinus Rhythm Rate: 82 Ectopy: None EKG Initial EKG: Attestation: I personally reviewed and interpreted this EKG as follows: Interpretation: Sinus Rhythm Comments: Normal sinus rhythm at a rate of 82 bpm Normal axis Normal intervals Normal ST segments Discharge Plan Triage Chief Complaint: Syncope ED Provider: Jasmine Hayes Dx/Rx/DC Orders Clinical Impression: Syncope and collapse, Abnormal lithium level in blood Instructions: ED Fainting, Uncertain Cause Prescriptions: No Action gabapentin 600 MG tablet 600 mg PO .Q6 quetiapine 100 mg tablet 100 mg PO QHS topiramate 200 mg tablet 200 mg PO QHS Patient Comments: TAKE ONE TABLET BY MOUTH DAILY prazosin 2 mg capsule 2 mg PO QHS Patient Comments: TAKE ONE CAPSULE BY MOUTH AT BEDTIME bupropion HCl 300 mg tablet extended release 24 hr 300 mg PO DAILY aripiprazole 10 mg tablet 10 mg PO DAILY lithium carbonate 300 mg capsule 300 mg PO .QAM lithium carbonate 600 mg capsule 600 mg PO QHS Patient Comments: TAKE ONE CAPSULE BY MOUTH AT BEDTIME Primary Care Provider: Care Physician,No Primary Referrals: Care Physician,No Primary [Primary Care Provider] - Activity Restrictions/Additional Instructions: Please follow-up with your primary care doctor. Make sure you are drinking enough fluids. Your work-up was largely normal today. I think it safe for her to go home. Of note your lithium level was 0.3, which is mildly low. He can follow-up with this with your psychiatrist. Disposition Disposition: Home, Self Care What to do if you have Problems For any increased pain, shortness of breath, bleeding, nausea or vomiting, chestpain, or any unexpected problems, contact your Primary Care Provider. Call [facility] ([phone]) or report to the closest Emergency Room. Call 911 if necessary. 05/23/231950 <Electronically signed by Jasmine Hayes DO> Cosigner Signature (if applicable): CC: No Primary Care Physician ~ Signed [facility] Work Phone: [phone]) 997-958809-08-2023 Miscellaneous Notes* Behavorial Health Intake - May Hawley RN - 05/11/2023 6:09 AM EDTSummary: psych triage BEHAVIORAL HEALTH BRIEF INTAKE NOTE SERVICE DATE: 05/11/2023 SERVICE TIME: 6:09 AM Theodore Starkey is a 48 year old female brought in to [place] ED from [facility] by ambulance for medical clearance. 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 06/10/2012 Sprain of ankle, unspecified site 12/19/2007 06/10/2012 documented as of this encounter (statuses as of 05/11/2023) [facility] Ajit Robles [facility] Note Date/Time May 29, 2025 1:05pm [facility] Medical Records Department [address] [place] [id number] Emergency Department Summary 05/29/25 MR#: [id number] Acct: [id number] Name: THEODORE STARKEY Rep #:[id number] : 1975 50 From: Ajit macario DO PCP: Care Physician,No Primary Status :REG ER Location: ED HPI History of Present Illness Chief Complaint: Hypertension Narrative Narrative: Chief complaint and HPI: 50-year-old female with past medical history of HTN, depression, anxiety, methamphetamine abuse,, history of brain aneurysm with coilpresents for evaluation of hypertension and headache. Patient states that she did methamphetamine on Sunday. States she feels that it was completely out of her system yesterday. Has had a headache for the past 2 days. Was seen to get help with her methamphetamine abuse today when her blood pressure was found to be elevated and she was sent to the emergency department. She denies any traumaor injury. Headache has been gradual. She denies any fever, chills, URI symptoms, neck pain, neurological deficits, syncope, weakness, numbness/tingling, chest pain, shortness of breath, abdominal pain, nausea, vomiting. States she has been under a lot of stress due to recently losing a loved one. Review of systems: See HPI Medications: As listed on the chart Allergies: As listed on the chart PFSH: Per chart Vital signs: As listed on the chart. Reviewed. Physical exam: Gen: A&O x3, NAD Head: Normocephalic, atraumatic Eyes: No sclera icterus, conjunctiva clear, PERRL, EOMI ENT: TMs clear BL, moist mucous membranes, posterior oropharynx unremarkable, uvula midline, tonsils not enlarged Neck: Trachea midline, No JVD, Full ROM, No meningismus CV: RRR, no murmurs, no peripheral edema Resp: Lungs CTA BL, no w/r/c GI: Abd soft, non-distended, non-tender, no r/r/g Musc: Full ROM, no deformity, strength +5/5 in all extremities Skin: Warm, dry, excoriations from scratching/picking Neuro: Alert, oriented, grossly intact, sensation intact Psych: Cooperative, appropriate mood and affect [facility] Medical History Anxiety Benign essential hypertension BiPAP (biphasic positive airway pressure) dependence Brain aneurysm Depression DVT (deep venous thrombosis) history of bleeding aneurysm Hypertension Obesity Sleep apnea Smoker Substance abuse Tobacco abuse Home Medications ?Medication ?Instructions ?Recorded ?Last Taken ?Type gabapentin 600 mg tablet 600 mg PO .Q6 01/21/16 Unkno wn History bupropion HCl 300 mg 24 hr tablet, 300 mg PO DAILY Unknown History extended release prazosin 2 mg capsule 2 mg PO QHS 08/26/22 Unknown History quetiapine 100 mg tablet 100 mg PO QHS 08/26/22 Unkno wn History topiramate 200 mg tablet 200 mg PO QHS 08/26/22 Unkno wn History aripiprazole 10 mg tablet 10 mg PO DAILY 05/23/23 Unkn own History lithium carbonate 300 mg capsule 300 mg PO .QAM Unknown History lithium carbonate 600 mg capsule 600 mg PO QHS 3 Unknown History amlodipine 10 mg tablet 10 mg PO DAILY 30 days #30 t abs 05/29/25 Unknown Rx clonidine HCl 0.1 mg tablet 0.1 mg PO Q8H PRN hyperten sive 05/29/25 Unknown Rx emergency 5 days #15 tabs Allergy/AdvReac Type Severity Reaction Status Date / Time ondansetron HCl (From Zofran) Allergy Other Verified 05/23/23 16:22 Surgical History H/O foot surgery Social History Smoking Status: Heavy Smoker (>10/day) EXAM Physical Exam Const Vital Signs: 05/29/25 08:55 05/29/25 08:56 05/29/25 09:04 Temperature 98.7 F 97.8 F Temperature Source Oral Oral Pulse Rate 101 H 100 Respiratory Rate 22 H 18 Respiratory Effort Normal Non-Labored Respiratory Pattern Normal Blood Pressure 172/100 H 200/100 H Blood Pressure Mean 124 133 Pulse Ox 97 95 Oxygen Delivery Method Room Air Room Air 05/29/25 09:55 05/29/25 10:00 05/29/25 11:00 Temperature 98.7 F 97.8 F Temperature Source Oral Oral Pulse Rate 94 86 112 H Respiratory Rate 20 H 17 23 H Respiratory Effort Respiratory Pattern Blood Pressure 215/127 H 171/111 H 198/115 H Blood Pressure Mean 156 131 142 Pulse Ox 96 100 97 Oxygen Delivery Method Room Air Room Air Room Air 05/29/25 11:10 05/29/25 11:15 05/29/25 11:30 Temperature Temperature Source Pulse Rate 91 101 H 102 H Respiratory Rate 13 21 H 21 H Respiratory Effort Respiratory Pattern Blood Pressure 198/115 H 205/103 H Blood Pressure Mean 138 126 Pulse Ox 97 96 95 Oxygen Delivery Method 05/29/25 11:45 05/29/25 11:50 05/29/25 11:51 Temperature Temperature Source Pulse Rate 108 H 86 87 Respiratory Rate 20 H 15 Respiratory Effort Respiratory Pattern Blood Pressure 188/106 H 139/80 H 139/80 H Blood Pressure Mean 123 92 99 Pulse Ox 98 93 Oxygen Delivery Method 05/29/25 12:00 05/29/25 12:16 Temperature Temperature Source Pulse Rate 80 74 Respiratory Rate 9 L 18 Respiratory Effort Respiratory Pattern Blood Pressure 137/88 H 128/104 H Blood Pressure Mean 100 112 Pulse Ox 93 97 Oxygen Delivery Method MDM MDM MDM Narrative Medical decision making narrative: 50-year-old female with past medical history of HTN, depression, anxiety, methamphetamine abuse, history of brain aneurysm with coil presents for evaluation of hypertension and headache. Patient states that she did methamphetamine on Sunday. States she feels that it was completely out of her system yesterday. Has had a headache for the past 2 days. States she has been under a lot of stress due to recently losing a loved one. Denies acute onset ofheadache reaching maximal intensity in under one hour. This is neither the worstheadache that they have ever experienced, nor was the onset timed with exertional activity or trauma. Patient has not experienced any fever, unusual neck pain or stiffness, syncope, or near syncope. They deny numbness, tingling, or weakness of the extremities. Patient does have a history of a brain aneurysmwith coil. Chart review, patient does not take any medication for her known hypertension. On presentation, patient no acute distress, vitals are stable other than hypertension. Differential diagnosis includes but is not limited to untreated hypertension, hypertension urgency, hypertension emergency, tension headache, migraine headache, side effect from methamphetamines, anxiety suspect less likely intracranial bleed or aneurysm. Patient requesting medication for anxiety. NS bolus, morphine, Ativan, hydralazine ordered. EKG and chest x-ray reviewed. Hypertension/headache workup ordered. CBC without leukocytosis. Patient has hemoconcentration of 17.7. Platelets unremarkable. BMP unremarkable. BNP unremarkable. Troponin unremarkable x 2. Urine drug screen positive for opiates but otherwise negative. CT head negative for any acute intracranial abnormality. 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 No evidence of residual or recurrent aneurysm. Patient remained hypertensive here in the emergency department however hypertension improved with clonidine as well as labetalol. Her headache has resolved and patient now asymptomatic. Patient's headache was likely secondary to hypertension urgency. She has a history of hypertension in which she does not take anything for it. Will place her on amlodipine daily. She was told to watch her blood pressure frequently at home. Clonidine for SBP greater than 175. Return back to ED symptoms change or worsen. Follow-up with primary care physician. She confirmed understand the plan. Patient able to discharge home. EKG: Interpreted by me/EM physician: EKG shows normal sinus rhythm without any ST elevation. Normal QTc. Diagnostic: Interpreted by me/EM physician: Chest x-ray without pneumonia, effusion, cardiomegaly, pneumothorax. Radiology in agreement. Impression: 1. Hypertension urgency 2. History of hypertension not on medication 3. Headache, resolved 4. History of methamphetamine abuse Lab Data Labs: Laboratory Results - last 24 hr 05/29/25 05/29/25 05/29/25 09:15 10:50 11:31 WBC 10.7 RBC 6.08 H Hgb 17.7 H Hct 51.5 H MCV 84.7 MCH 29.1 MCHC 34.4 RDW Std Deviation 41.2 RDW Coeff of Miya 13.3 Plt Count 449 MPV 9.4 Immature Gran % (Auto) 0.300 Neut % (Auto) 65.2 Lymph % (Auto) 27.1 [place] % (Auto) 5.7 Eos % (Auto) 1.3 Baso % (Auto) 0.4 Absolute Neuts (auto) 7.0 Absolute Lymphs (auto) 2.89 Nucleated RBC % 0 Sodium 136 Potassium 4.0 Chloride 103 Carbon Dioxide 22.0 Anion Gap 12 BUN 12 Creatinine 0.70 Est GFR (MDRD) Non-Af 107 BUN/Creatinine Ratio 17.1 Glucose 122 H Calcium 9.6 Troponin T High Sens < 6 Troponin T Hi Sens 2 Hr 9 NT pro BNP II 241 Urine Opiates Screen PRESUMPTIVE POSITIVE U Buprenorphine Qual NEGATIVE Ur Oxycodone Screen NEGATIVE Urine Methadone Screen NEGATIVE Urine Fentanyl Screen NEGATIVE Ur Barbiturates Screen NEGATIVE Ur Phencyclidine Scrn NEGATIVE Ur Amphetamines Screen NEGATIVE U Benzodiazepines Scrn NEGATIVE Urine Cocaine Screen NEGATIVE U Cannabinoids Screen NEGATIVE Radiography Diagnostic Testing: Clinical Impression(s) from Imaging Studies Brain CT 05/29/25 10:00 IMPRESSION: No acute intracranial abnormalities. 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 No evidence of residual or recurrent aneurysm. Reading Location: [facility] Chest X-Ray 05/29/25 10:10 IMPRESSION: No acute pulmonary process Reading Location: [id number] Discharge Plan Triage Chief Complaint: Hypertension ED Provider: Ajit Robles Dx/Rx/DC Orders Clinical Impression: Hypertensive urgency Instructions: ED Hypertension, Established Prescriptions: New amlodipine 10 mg tablet 10 mg PO DAILY 30 Days Qty: 30 0RF clonidine HCl 0.1 mg tablet 0.1 mg PO Q8H PRN (Reason: hypertensive emergency) 5 Days Qty: 15 0RF Rx Instructions: Take if SBP greater than 175 No Action gabapentin 600 MG tablet 600 mg PO .Q6 quetiapine 100 mg tablet 100 mg PO QHS topiramate 200 mg tablet 200 mg PO QHS Patient Comments: TAKE ONE TABLET BY MOUTH DAILY prazosin 2 mg capsule 2 mg PO QHS Patient Comments: TAKE ONE CAPSULE BY MOUTH AT BEDTIME bupropion HCl 300 mg tablet extended release 24 hr 300 mg PO DAILY aripiprazole 10 mg tablet 10 mg PO DAILY lithium carbonate 300 mg capsule 300 mg PO .QAM lithium carbonate 600 mg capsule 600 mg PO QHS Patient Comments: TAKE ONE CAPSULE BY MOUTH AT BEDTIME Primary Care Provider: Care Physician,No Primary Referrals: Armani William MD [Med Staff - Active Staff, Family Practice] - 3-5 Days Activity Restrictions/Additional Instructions: Monitor your blood pressure closely at home. Follow-up with your primary care physician, if you do not have a primary care physician follow-up with the one listed above. You were written for an antihypertensive. Take this every day. Clonidine as needed for severe hypertension. Return back to ED if symptoms change or worsen. Print Language: Vietnamese Disposition Disposition: Home, Self Care What to do if you have Problems For any increased pain, shortness of breath, bleeding, nausea or vomiting, chestpain, or any unexpected problems, contact your Primary Care Provider. Call [facility] ([phone]) or report to the closest Emergency Room. Call 911 if necessary. 05/29/25 1305 <Electronically signed by Ajit Robles DO> Cosigner Signature (if applicable): CC: No Primary Care Physician ~ Signed [facility] Work Phone: Evaluation noteNo assessment information available [facility] Work Phone: Evaluation note* Diagnosis Sprain of right ankle, unspecified ligament, initial encounter- Primary Primary osteoarthritis of left ankle documented in this encounter [facility] Work Phone: Evaluation note* Diagnosis Acute right-sided low back pain with right-sided sciatica- Primary documented in this encounter [facility] Work Phone: Evaluation note* Diagnosis Lumbosacral radiculopathy- Primary Thoracic or lumbosacral neuritis or radiculitis, unspecified documented in this encounter [facility] Work Phone: Evaluation note* Diagnosis Lumbar strain, initial encounter- Primary Low back pain, unspecified back pain laterality, unspecified chronicity, unspecified whether sciatica present documented in this encounter [facility] Work Phone: Evaluation note* Diagnosis Encounter for screening mammogram for malignant neoplasm of breast documented in this encounter [facility] Work Phone: Hospital Discharge instructions Additional Instructions Please follow-up with your primary care doctor. Make sure you are drinking enough fluids. Your work-up was largely normal today. I think it safe for her to go home. Of note your lithium level was 0.3, which is mildly low. He can follow-up with this with your psychiatrist. [facility] Work Phone: Hospital Discharge instructions* Attachments The following attachments cannot be sent through Care Everywhere. * Radiculopathy Discharge Instructions (Vietnamese) * Radiculopathy of the neck and back (including sciatica) (Vietnamese) [facility] Hospital Discharge instructionsAdditional Instructions Monitor your blood pressure closely at home. Follow-up with your primary care physician, if you do not have a primary care physician follow-up with the one listed above. You were written for an antihypertensive. Take this every day. Clonidine as needed for severe hypertension. Return back to ED if symptoms change or worsen.[facility] Work Phone: Reason for referral (narrative)* Consultation (Routine) - Pending Review Specialty Diagnoses / Procedures Referred By Contac t Referred To Contact Orthopaedic Surgery / [place] [id number] [address] Department [place] [address] Referral ID Status Reason Start Date Expiration Date Visits Requested Visits Authorized [id number] Pending Review Specialty Services Required 06/09/2023 12/06/2023 1 1 [facility] Work Phone: Regcyp for referral (narrative)* Consultation (Routine) - Authorized Specialty Diagnoses / Procedures Referred By Contac t Referred To Contact Orthopaedic Surgery / [place] [id number] Department [place] [address] Referral ID Status Reason Start Date Expiration Date Visits Requested Visits Authorized [id number] Authorized Specialty Services Required 12/10/2023 12/09/2024 1 1 * Consultation (Routine) - Authorized Specialty Diagnoses / Procedures Referred By Contac t Referred To Contact Family Medicine / [place] [address] [address] Department [place] [address] Referral ID Status Reason Start Date Expiration Date Visits Requested Visits Authorized [id number] Authorized Specialty Services Required 12/10/2023 12/09/2024 1 1 [facility] Work Phone: reason for referral (narrative)* Consultation (Routine) - Pending Review Specialty Diagnoses / Procedures Referred By Contac t Referred To Contact Physical Therapy Diagnoses Low back pain, unspecified back pain laterality, unspecified chronicity, unspecified whether sciatica present Nadir, [place] [address] [address] Department [place] [address] Referral ID Status Reason Start Date Expiration Date Visits Requested Visits Authorized [id number] Pending Review Specialty Services Required 12/17/2023 12/16/2024 1 1 [facility] Work Phone: Reason for referral (narrative)No reason for referral information [facility] Work Phone: Summary Purpose Family History No Family History Records FoundNo Family History Records FoundNo Family History Records FoundNo Family History Records FoundNo Family History Records FoundNo Family History Records FoundNo Family History Records FoundNo Family History Records FoundNo Family History Records FoundNo Family History Records FoundNo Family History Records FoundNo Family History Records FoundNo Family History Records FoundNo Family History Records FoundNo Family History Records Found Advance Directives No Advanced Directives Records FoundLatest Code Status on File Code Status Date Activated Date Inactivated Comments Full Code 12/31/2018 1:52 PM Advance Directive Response Recorded Date/ Time Advance Directives No January 30 4 3:25pm Living Will No August 26 7:20pm Power of Showroom Consultant No August 26, 2022 7:20pm Documents on File Type Date Recorded Patient Hanger Off Expl anation Advance Directive(s) 02/21/2012 9:29 PM Advance Directive Response Recorded Date/ Time Advance Directives No January 30 4 4:25pm Living Will No May 23, 2023 4:39pm Power of Showroom Consultant No May 4:39pm Advance Directive Response Recorded Date/ Time Do you have a Healthcare Power of Showroom Consultant? No May 29, 2025 9:02am Advance Directives No January 30 4 4:25pm Discharge Instructions * Instructions* Zoey Hightower, RN - 01/01/2019 Skin Abscess: Care Instructions Your Care Instructions A skin abscess is a bacterial infection that forms a pocket of pus. A boil is a kind of skin abscess. The doctor may have cut an opening in the abscess so that the pus can drain out. You may have gauze in the cut so that the abscess will stay open and keep draining. You may need antibiotics. You will need to follow up with your doctor to make sure the infection has gone away. The doctor has checked you carefully, but problems can develop later. If you notice any problems ornew symptoms, get medical treatment right away. Follow-up care is a mcarthur part of your treatment and safety. Be sure to make and go to all appointments, and call your doctor if you are having problems. It's also a good idea to know your test resultsand keep a list of the medicines you take. How can you care for yourself at home? Apply warm and dry compresses, a heating pad set on low, or a hot water bottle 3 or 4 times a day for pain. Keep a cloth between the heat source and your skin. If your doctor prescribed antibiotics, take them as directed. Do not stop taking them just because you feel better. You need to take the full course of antibiotics. Take pain medicines exactly as directed. ? If the doctor gave you a prescription medicine for pain, take it as prescribed. ? If you are not taking a prescription pain medicine, ask your doctor if you can take an tuin-ywy-yndkpyv medicine. Keep your bandage clean and dry. Change the bandage whenever it gets wet or dirty, or at least one time a day. If the abscess was packed with gauze: ? Keep follow-up appointments to have the gauze changed or removed. If the doctor instructed you toremove the gauze, follow the instructions you were given for how to remove it. ? After the gauze is removed, soak the area in warm water for 15 to 20 minutes 2 times a day, untilthe wound closes. When should you call for help? Call your doctor now or seek immediate medical care if: You have signs of worsening infection, such as: ? Increased pain, swelling, warmth, or redness. ? Red streaks leading from the infected skin. ? Pus draining from the wound. ? A fever. Watch closely for changes in your health, and be sure to contact your doctor if: You do not get better as expected. Where can you learn more? Log into your personal health record on [email or web address] and enter D633 in the Education box to learn more about Skin Abscess: Care Instructions. Current as of: December 18, 2017 Content Version: 12.0 9784-2514 [employer]. Care instructions adapted under license by your healthcare professional. If you have questions about a medical condition or this instruction, always ask your healthcare professional. [employer] disclaims any warranty or liability for your use of this information. documented in this encounter History of Present Illness * Maura Mendez RN - 12/31/2018 8:41 PM EDT RECRUITMENT OFFICER Lashay notified this RN of patient crying and getting dressed to leave unit AMA, entered room while patient dressing, when asked whats wrong states I have so much anxiety and I am tired of sittinghere, I feel like I've been here days and no one is helping me. I want to leave and do this outpatient I don't care how long I have to wait. I cannot stay here with my anxiety, told patient that leaving now when surgery is scheduled for tomorrow would be ill advised due to uncertainty of when she would be rescheduled, patient verbalizes understanding stating Can I go off the unit and smoke and get some fresh air at least?, advised patient that leaving the unit is not recommended but we cannot stop her if she chooses to do so, instructed patient to take a minute to relax and think and to notify nursing if she chooses to leave the floor, also instructed patient not to leave hospital grounds with IV, patient verbalizes understanding and states I'm not going out now but I'll let you know, Davina RN notified of conversation with patient documented in this encounter Assessments Diagnosis Facial abscess- Primary Cellulitis and abscess of face Abscess Cellulitis and abscess of unspecified site Chief Complaint and Reason for Visit Chief Complaint LEFT KNEE PAIN Chief Complaint syncope Chief Complaint Admit Date HTN May 29, 2025 8:55am Health Concerns Infection Onset Date Last Indicated Resolved Time COVID-19 Rule-Out 05/10/2023 05/10/2023 05/11/2023 12:36 AM EDT Reason for Referral Specialty Diagnoses / Procedures Referred By Contgildardo t Referred To Contact Radiology Diagnoses Encounter for screening mammogram for malignant neoplasm of breast Procedures BI mammo bilateral screening tomosynthesis Lino-Angelita Richards MD [address] [place] [address] Referral ID Status Reason Start Date Expiration Date Visits Requested Visits Authorized [id number] Authorized Perform Procedure 12/21/2023 12/20/2024 1 1 Additional Source Comments INFORMATION SOURCE (unrecogn ized section and content) DATE CREATED AUTHOR 02/27/2018 [facility] DATE CREATED AUTHOR AUTHOR'S ORGANIZ ATION 04/01/2018 [facility] DATE CREATED AUTHOR AUTHOR'S ORGANIZ ATION 08/12/2018 [facility] DATE CREATED AUTHOR AUTHOR'S ORGANIZ ATION 01/23/2019 [facility] DATE CREATED AUTHOR AUTHOR'S ORGANIZ ATION 05/19/2019 [facility] DATE CREATED AUTHOR AUTHOR'S ORGANIZ ATION 06/24/2019 [facility] DATE CREATED AUTHOR AUTHOR'S ORGANIZ ATION 07/25/2019 [facility] DATE CREATED AUTHOR AUTHOR'S ORGANIZ ATION 12/15/2019 [facility] DATE CREATED AUTHOR AUTHOR'S ORGANIZ ATION 04/23/2021 [facility] DATE CREATED AUTHOR AUTHOR'S ORGANIZ ATION 09/18/2021 [facility] DATE CREATED AUTHOR AUTHOR'S ORGANIZ ATION 02/21/2023 [facility] DATE CREATED AUTHOR AUTHOR'S ORGANIZ ATION 05/28/2023 [facility] DATE CREATED AUTHOR AUTHOR'S ORGANIZ ATION 01/06/2024 [facility] DATE CREATED AUTHOR AUTHOR'S ORGANIZ ATION 05/09/2024 [facility] DATE CREATED AUTHOR AUTHOR'S ORGANIZ ATION 06/20/2025 [facility] Reason for Visit (unrecogniz ed section and content) Reason Comments Facial Swelling Status Reason Specialty Diagnoses / Procedures Referre d By Contact Referred To Contact Reason Onset Date Comments Medical Clearance 05/11/2023 Reason Comments Leg Swelling Right leg, concern f or blood clot Reason Comments Back Pain Pt slid down the colette ps at [facility] on 12/03/23, - head impact, - bld thnr, -LOC. Lower back pain. Hip Pain Right hip pain after slid down the steps. Reason Comments lower back pain/ numbness in groin/ kevin es incontinence uri Reason Comments New Patient Visit Specialty Diagnoses / Procedures Referred By Radha mann Referred To Contact Orthopaedic Surgery / [place] [address] [address] Department [place] [address] Referral ID Status Reason Start Date Expiration Date Visits Requested Visits Authorized [id number] Authorized Specialty Services Required 12/10/2023 12/09/2024 1 1 Specialty Diagnoses / Procedures Referred By Contgildardo t Referred To Contact Radiology Diagnoses Encounter for screening mammogram for malignant neoplasm of breast Procedures BI mammo bilateral screening tomosynthesis Lino-Angelita Richards MD [address] [place] [id number] Referral ID Status Reason Start Date Expiration Date Visits Requested Visits Authorized [id number] Authorized Perform Procedure 12/21/2023 12/20/2024 1 1 Lucio Wood Jr., DO - 01/01/2019 9:48 AM EDTEid, Artemio Crespo MD - 12/31/2018 1:58 PM EDT H&P Notes (unrecognized sect ion and content) INTERVAL HISTORY AND PHYSICAL Patient Name: Theodore Starkey Admit Date: [id number] MR #: [id number] : 1975 The H&P has been reviewed and the patient has been examined. I concur with the findings of the H&P. There are no significant changes. It is appropriate to proceed with the planned procedure. Lucio Wood Jr., DO 01/01/2019 9:48 AM [facility] Medicine Inpatient H&P 12/31/2018 Artemio Gaviria MD [facility] Patient: Theodore Starkey Date of : 1975 (43 y.o.) PCP: Physician No Assessment Theodore Starkey 43 y.o. female Principal Problem: Facial abscess SNOMED CT(R): ABSCESS OF FACE Active Problems: Abscess SNOMED CT(R): ABSCESS Sepsis (HCC) SNOMED CT(R): SEPSIS Plan: Admit MedSurg telemetry. Sepsis secondary to facial abscess. IV fluids. IV antibiotics clindamycin 600 mg 3 times daily. Blood culture. ENT consulted recommended incision and drainage 01/01. Keep patient n.p.o. after midnight. Pain controlled with Percocet sliding scale and IV Dilaudid. Chronic Suboxone treatment. Continue for now. PUD DVT prophylaxis CT maxillofacial IMPRESSION: 1. Cellulitis is noted along the upper lip. Associated abscess in the central/left paracentral region of the upper lip extending to the left nostril. 2. Facial bones are intact. No CT evidence of osteomyelitis. Chief Complaint: Left facial swelling History of Presenting Illness: Theodore Starkey is a 43 y.o. female with past medical history of obesity, hypertension, hyperlipidemia, anxiety/depression, cigarette smoking long-standing, came in today of left facial swelling. Condition started few days ago with left facial pain and swelling after she poked a small abscess in her left nose. 3 days ago condition progressively got worse with increased swelling and redness and pain. Patient denied any fever chills nausea vomiting abdominal pain. Denied any chest pain shortness of breath lightheadedness dizziness. Denied any dysuria hematuria frequency. Denied any focal weakness or slurred speech. Review of Systems: 10 systems reviewed and negative other than noted in HPI History: Past Medical History: Diagnosis Date Alcoholism (HCC) Aneurysm (HCC) Anxiety Deep vein thrombosis (HCC) Depression HPV (human papilloma virus) anogenital infection Hyperlipidemia Hypertension Migraine Past Surgical History: Procedure Laterality Date aneurysm coil CARPAL TUNNEL RELEASE Bilateral SECTION EXCISION BONE SPUR FOOT Left PARTIAL HYSTERECTOMY PLANTAR FASCIA RELEASE Left TUBAL LIGATION Family History Problem Relation Age of Onset Diabetes Paternal Aunt Hypertension Paternal Aunt Cancer Maternal Grandmother Dementia Maternal Grandmother Cancer Maternal Grandfather Cancer Paternal Grandmother Stroke Paternal Grandmother Cancer Paternal Grandfather Stroke Paternal Grandfather Aneurysm Neg Hx Seizures Neg Hx Social History Tobacco Use Smoking Status Current Every Day Smoker Packs/day: 2.00 Smokeless Tobacco Never Used Social History Substance and Sexual Activity Alcohol Use No Frequency: Never Family history reviewed as above unremarkable. Social history she does smoke cigarettes 1 to 2 packs a day for more than 20 years. Denied alcohol drink. Denied any illicit drug. Allergies: Ondansetron hcl (pf) Home Medications: Outpatient Medications as of 12/31/2018 Medication Sig DULoxetine (CYMBALTA) 60 MG capsule Take 60 mg by mouth daily. lisinopril-hydrochlorothiazide (PRINZIDE,ZESTORETIC) 10-12.5 mg per tablet Take 1 tablet by mouth daily. pregabalin (LYRICA) 75 MG capsule Take 75 mg by mouth daily. topiramate (TOPAMAX) 100 MG tablet Take 100 mg by mouth daily. cyclobenzaprine (FLEXERIL) 10 MG tablet Take 10 mg by mouth 3 (three) times a day as needed. SUBOXONE 8-2 mg Film Take by mouth daily. OBJECTIVE: Physical Examination: BP 119/79 (BP Location: Left arm, Patient Position: Lying) Pulse (!) 100 Temp 99.1 F (37.3 C) (Axillary) Resp 14 Ht 5' 3 Wt 98.3 kg (216 lb 12.8 oz) SpO2 97% BMI 38.40 kg/m General Appearance: Alert, well appearing, and in no acute distress. HEENT: Head - Normocephalic, atraumatic. Eyes - ZAFAR bilaterally and EOMI. Ears - normal external appearance, hearing intact. Nose -left facial swelling cellulitis. Abscess left nares. Throat - mucous membranes moist, pharynx without lesions. Neck: Supple, trachea midline. Cardiovascular: S1, S2 normal. No murmurs, rubs, clicks or gallops appreciated. No pedal edema. Respiratory: Lungs clear to auscultation, no wheezes, rales or rhonchi heard. Abdomen: Soft, non-tender, normal bowel sounds, non-distended, no masses or organomegaly appreciated. Neurological: Grossly normal motor and sensory exam. No focal deficits. Musculoskeletal: No joint tenderness, deformity or swelling. Skin: Normal coloration and turgor. No rashes. Psych: Alert, oriented x 3. Normal mood and affect. Laboratory and Additional Data Reviewed: Results/Medications Reviewed 12/31/18 1:59 PM: Results from last 7 days Lab Units 12/31/18 0417 SODIUM mmol/L 137 POTASSIUM mmol/L 3.5 CHLORIDE mmol/L 104 BUN mg/dL 8 CREATININE mg/dL 0.81 GLUCOSE mg/dL 88 Results from last 7 days Lab Units 12/31/18 0418 WBC K/mcL 13.80* HGB g/dL 12.9 HCT % 39.1 PLT K/mcL 342 Results from last 7 days Lab Units 12/31/18 0417 ALK PHOS U/L 108 BILIRUBIN TOTAL mg/dL 0.6 BILIRUBIN DIRECT mg/dL 0.1 TOTAL PROTEIN g/dL 7.3 ALTR U/L 27 AST U/L 15 CULTURES: Reviewed 1:59 PM IMAGING: Reviewed 1:59 PM documented in this encounter Jackelyn Hutchinson, AML ANALYST [employer]D ARCHITECT - 01/01/2019 9:45 AM Veronika Cordova, GRAIN RECEIVER - 01/01/2019 7:15 AM Lucio Ryan Jr., DO - 12/31/2018 12:15 PM EDT Consult Notes (unrecognized section and content) Associated Order(s): IP CONSULT TO CARE MANAGEMENT COMPLEX DISCHARGE Date: 01/01/2019 Time: 9:46 AM Patient Name: Theodore Starkey Date of : 1975 Sex: Female Initial assessment completed with patient. Patient educated to social work role. Patient Dx is Facial Abcess . Patient is currently homeless with fiance and her service animal and plans to find apartment at discharge. Patient has PCP at [facility], [employer] insurance and is currently observation status. [email or web address] for Dr. shaikh. Patient has no DME. Patient and significant other have no car and have been offered apartment that does not have running water or electricity at this time. This director of social media marketing shared with patient housing plan sheet with options to call available apartments and apply for metro housing. RN, Zoey updated. No indication of abuse or neglect. No further needs identified. [facility] following. Discharge Plan Shared UM/CC and RN Source of Information: Patient Contact Living Arrangements: Spouse/significant other Support Systems: Spouse/significant other Functional Status: Independent Type of Residence: Homeless Prior to Admission Home Care Services: No Current Home Equipment: None Regulatory Documentation: Medicare IM, Observation letter Regulatory Documentation Status: Signed Signed: Self Discharge Readiness Barriers to Discharge: No barriers [facility] Disposition D/C Disposition: Home Community/Outpatient Referral: Other (Comment)(Patient applying for metro housing and plans to rent home) Options Reviewed: List provided Reason for Choice: Other (Comment)(Plans to call to rent apartment in [place]. ) ANESTHESIA PREPROCEDURE EVALUATION Physical Exam Airway Mallampati: III Neck ROM: full Mouth opening: <[address]: no Cardiovascular - normal Pulmonary - normal Neurological Mental Status: alert Dental poor dentition edentulous (upper) Review of Systems / Medical History - No history of anesthetic complications Pulmonary - negative Neurological / Psychological Comment: History of brain aneurysm sp coiling Positive: headaches, depression, anxiety Cardiovascular Comment: History of DVT Positive: hypertension hyperlipidemia Gastrointestinal / Hepatic / Renal - negative Endocrine / Musculoskeletal - negative Comment: Nasal labial abscess Other Positive: a smoker, substance abuse (I have used anything and everything I havent used anything for a month, I think) Is Lucio Wood ENT dictating a consultation note on patient Theodore Starkey [facility] [id number] Date of is 1975 Date of consultation 12/31/2018 Chief complaint is left nasal labial abscess/fistula tract Consult placed by Dr Díaz History of present illness: This patient is a 43-year-old female presenting 2 days after she attempted to use a razor blade on her nasal sill to open a pimple. Subsequent development of lip swelling and pain over the past 2 days. Patient presents to [facility] emergency department for evaluation and treatment. CT was performed in the emergency room which reveals a fistula tract approximately 3.1 cm in length by 0.8 x 0.6 cm in width. ENT was consulted for evaluation and possible I&D. Allergies Allergen Reactions Ondansetron Hcl (Pf) Anxiety Social History Tobacco Use Smoking Status Current Every Day Smoker Packs/day: 1.50 Social History Substance and Sexual Activity Alcohol Use No Social History Substance and Sexual Activity Drug Use No Past Medical History: Diagnosis Date Alcoholism (HCC) Anxiety Deep vein thrombosis (HCC) Depression HPV (human papilloma virus) anogenital infection Hyperlipidemia Hypertension Migraine Past Surgical History: Procedure Laterality Date aneurysm coil CARPAL TUNNEL RELEASE Bilateral SECTION EXCISION BONE SPUR FOOT Left PARTIAL HYSTERECTOMY PLANTAR FASCIA RELEASE Left TUBAL LIGATION Review of systems: 10 point review of systems was gone over the patient. Pertinent positives are as previously stated in history present illness. Physical exam: Vitals: Vitals: 12/31/18 0816 12/31/18 0830 12/31/18 0934 12/31/18 1104 BP: 138/76 134/80 119/79 BP Location: Left arm Left arm Patient Position: Lying Lying Pulse: (!) 106 (!) 104 (!) 100 Resp: 14 14 Temp: TempSrc: SpO2: 96% 96% 97% 97% Weight: Height: WBC 4.50 - 11.00 K/mcL 13.80High RBC 4.00 - 5.20 M/mcL 4.45 Hemoglobin 12.0 - 16.0 g/dL 12.9 Hematocrit 36.0 - 46.0 % 39.1 MCV 80.0 - 100.0 fL 87.9 MCH 26.0 - 34.0 pg 29.0 MCHC 31.0 - 37.0 g/dL 33.0 Platelets 150 - 400 K/mcL 342 RDW - CV 11.6 - 14.8 % 13.7 MPV 9.0 - 15.5 fL 9.5 Neutrophils % 72.9 Lymphocytes % 19.5 Monocytes % 6.3 Eosinophils % 0.7 Basophils % 0.2 IG Percent % 0.40 Comment: The IG parameter is the percentage of metamyelocytes, myelocytes, and promyelocytes. Neutrophils Abs 1.70 - 7.00 K/mcL 10.06High Lymphocytes Abs 0.90 - 4.00 K/mcL 2.69 Monocytes Abs 0.30 - 0.90 K/mcL 0.87 Eosinophils Abs 0.00 - 0.50 K/mcL 0.09 Basophils Abs 0.00 - 0.30 K/mcL 0.03 IG Absolute 0.00 - 0.30 K/mcL 0.06 Nucleated RBC % 0.0 Nucleated RBC Abs 0.00 - 0.00 K/mcL 0.00 Ears external ears well formed. External auditory canals are intact bilaterally. Nose nasal mucosa is pink and moist. There is swelling and a prior incision jose in her left nasal sill. There is swelling of the left upper labia. There is fluctuance of the left upper labia extending from the origin site of the incision. Tongue protrusion is midline. Soft palate elevation symmetric. Neck: Neck is supple to palpation. Trachea is midline. No palpable adenopathy. Oral: Good mucous salivary flow from Stensen's worsens ducts bilaterally. Tongue protrusion is midline. Soft palate elevation is symmetric. Assessment and plan: 1. Nasal labial abscess: I discussed with the ER staff possibility of adding this patient onto my operating room schedule for tomorrow 01/01/2019. I will get the patient consented for surgery and have her n.p.o. at midnight tonight. I recommend continued IV antibiotics and Decadron 8 mg every 8 hours for 3 doses. After surgery patient is okay to be discharged home with follow-up in my office 7 days postop. End dictation Dictated not read documented in this encounter Nathalie Beck RN - 12/31/2018 12:15 PM EDTBrice Caputo RN - 12/31/2018 11:56 AM Brice Cho RN - 12/31/2018 11:19 AM EDTWJuju angel RN - 12/31/2018 11:13 AM EDT ED Notes (unrecognized secti on and content) Updated pt and family on POC Report given to Mirtha PELAYO at this time. Received report from Juju PELAYO. Report given to HERNAN PELAYO I took over the care of this patient from Dr. Hernandez at 7 AM I discussed the case with Dr. Wood over the phone and he recommends that he can do an I&D of the fistula tract tomorrow in the operating room and the patient should be admitted on the hospitalist service I did call and discussed this with the hospitalist and they agreed to admit this patient Diagnosis-facial abscess Patient will be admitted as observation on hospitalist service Arjun Landaverde MD 12/31/18 0941 Pt laying in bed w/ eyes closed, pt opens eyes easily to verbal stimuli. This RN introduces self to pt,pt and aware awaiting CT results. Pt voices understanding and denies questions. TO CT WITH TOBACCO DIPPER [facility] ED Physician Note: NAME: Theodore Starkey 43 y.o. CSN: [id number] PCP: Physician No History: Chief Complaint: Facial Swelling HPI: The history was obtained from the patient and friend. She is a 43 y.o. female who presents with a chief complaint of Facial Swelling. Patient states that yesterday morning she started to have swelling and pain inside the left nares. She states that it got worse throughout the day and last night they tried to sterilize a razor blade and cut inside the nares. Her friend states that they did get some pus and blood out but throughout the day today it is become become more swollen red and indurated. They are concerned that the infection is getting worse and is not improving. She has had no fevers at home PMHx: Past Medical History: Diagnosis Date Alcoholism (HCC) Anxiety Deep vein thrombosis (HCC) Depression HPV (human papilloma virus) anogenital infection Hyperlipidemia Hypertension Migraine PMSx: Past Surgical History: Procedure Laterality Date aneurysm coil CARPAL TUNNEL RELEASE Bilateral SECTION EXCISION BONE SPUR FOOT Left PARTIAL HYSTERECTOMY PLANTAR FASCIA RELEASE Left TUBAL LIGATION FAM. Hx: Family History Problem Relation Age of Onset Diabetes Paternal Aunt Hypertension Paternal Aunt Cancer Maternal Grandmother Dementia Maternal Grandmother Cancer Maternal Grandfather Cancer Paternal Grandmother Stroke Paternal Grandmother Cancer Paternal Grandfather Stroke Paternal Grandfather Aneurysm Neg Hx Seizures Neg Hx SOC. Hx: Social History Socioeconomic History Marital status: Spouse name: Not on file Number of children: Not on file Years of education: Not on file Highest education level: Not on file Social Needs Financial resource strain: Not on file Food insecurity - worry: Not on file Food insecurity - inability: Not on file Transportation needs - medical: Not on file Transportation needs - non-medical: Not on file Occupational History Not on file Tobacco Use Smoking status: Current Every Day Smoker Packs/day: 1.50 Substance and Sexual Activity Alcohol use: No Drug use: No Sexual activity: Not on file Other Topics Concern Not on file Social History Narrative Not on file MEDs: Previous Medications Medication Sig cyclobenzaprine (FLEXERIL) 10 MG tablet Take 10 mg by mouth 3 (three) times a day as needed. DULoxetine (CYMBALTA) 60 MG capsule Take 60 mg by mouth daily. lisinopril-hydrochlorothiazide (PRINZIDE,ZESTORETIC) 10-12.5 mg per tablet Take 1 tablet by mouth daily. pregabalin (LYRICA) 75 MG capsule Take 75 mg by mouth daily. SUBOXONE 8-2 mg Film Take by mouth daily. topiramate (TOPAMAX) 100 MG tablet Take 100 mg by mouth daily. ALL: Allergies Allergen Reactions Ondansetron Hcl (Pf) Anxiety ROS: Positives and pertinent negatives as per HPI. All other systems were reviewed and are negative. Physical Exam: Patient Vitals for the past 24 hrs: BP Temp Temp src Pulse SpO2 Height Weight 12/31/18 0310 (!) 141/86 99.1 F (37.3 C) Axillary (!) 109 99 % 5' 3 113.4 kg (250 lb) Physical Exam Constitutional: She is oriented to person, place, and time. She appears well-developed and well-nourished. No distress. HENT: Head: Normocephalic and atraumatic. Patient speech is clear and she is able to talk well able to swallow without difficulty Eyes: Conjunctivae and EOM are normal. Neck: Normal range of motion. Neck supple. Cardiovascular: Normal rate, regular rhythm and normal heart sounds. Pulmonary/Chest: Effort normal and breath sounds normal. No respiratory distress. Abdominal: Soft. She exhibits no distension. There is no tenderness. Musculoskeletal: Normal range of motion. She exhibits no tenderness or deformity. Lymphadenopathy: She has cervical adenopathy. Neurological: She is alert and oriented to person, place, and time. No cranial nerve deficit. She exhibits normal muscle tone. Coordination normal. Skin: Skin is warm. No rash noted. Psychiatric: She has a normal mood and affect. Her behavior is normal. Judgment and thought content normal. Nursing note and vitals reviewed. Laboratory & Radiological Imaging (if done): Labs Reviewed BLOOD CULTURE AEROBIC/ANAEROBIC BLOOD CULTURE AEROBIC/ANAEROBIC LACTIC ACID, PLASMA HEPATIC FUNCTION PANEL CHEM [address] Maxillofacial With Contrast 3D (Results Pending) Procedures: Procedures ED Course / Medical Decision Making: I have formally signed out Theodore Starkey's Emergency Department care to Dr. Hernandez. We discussed the history, physical, as well as any tests/consults that may still be pending. Please refer to my partner's documentation in Theodore's chart for the remaining ED course, clinical impression(s), and final disposition. Linda Salguero PA-C [facility] [employer] [facility] Emergency Department Linda Salguero PA-C 12/31/18 0443 Pt states she got a pimple in her L nare, began to make her upper lip swell. Redness, swelling noted. documented in this encounter Quick Note - Zoey Hightower RN - 01/01/2019 2:37 PM EDTOp Note - Lucio Wood Jr., - 01/01/2019 12:06 PM EDTQuick Note - Zoey Hightower RN - 01/01/2019 9:00 AM EDT Miscellaneous Notes (unrecog nized section and content) Reviewed discharge instructions and prescriptions with patient, no further questions at this time. Removed IV, tolerated well. Is KYREE Samuels dictating a postoperative note on patient Theodore Starkey [facility] [id number] Date of 1968 Date of operation 01/01/[address] Lucio Wood [employer] none Preoperative diagnosis nasal labial abscess Postoperative diagnosis same Procedure incision and drainage nasal labial abscess Anesthesia was LMA general ASA is 1 Counts correct Complications none Estimated blood loss 1 cc Disposition patient tolerated procedure well and is stable Findings: 5 cc of purulence drained from abscess. Clinical note: This patient is a 43-year-old female presenting initially to [facility] emergency department with lip swelling x2 days. Patient states that she was attempting to sterilize a straight razor blade and open a pimple in her nasal sill. This was 2 days prior to presentation. Subsequent lip cellulitis and CT scan revealed abscess formation measuring 3.1 cm long by 0.6 x 0.8 cm. ENT was subsequently consulted for evaluation and management for I&D of her facial abscess. Patient was not willing to tolerate I&D at bedside in the ER. She was subsequently admitted for planned I&D in the operating room. The risk benefits comp occasions and alternatives were discussed with the patient in detail. She appear to understand this completely wished to proceed with the operation. Operative note: Theodore was brought to the operative suite at [facility] over 7. Timeout was performed to confirm. She is placed in supine position administered mask and IV anesthesia. An LMA was then placed. Patient was sterilely prepped and draped in usual fashion. Utilizing nasal speculum to expose the fistula opening within her nasal sill a longitudinal incision was made over the fistula tract opening. A copious amount of yellow purulence was produced just due to pressure relief. The patient's lip was then massaged towards the incision opening producing approximately 5 cc of purulence. Using a 20 cc syringe and angiocatheter the abscess tract was copiously irrigated with bacitracin infused sterile saline. The incision was left open to allow for any residual drainage. Bactroban ointment was placed over the incision. A large mentation was removed from patient's field. Care the patient was returned to anesthesia. Patient was awoken, LMA was removed, and patient was transferred to postanesthesia recovery in back to her observation floor room. She will be discharged from her observation room floor. Patient's family member was given written instructions for follow-up as well as follow-up appointment date and time card and post procedure prescriptions. End dictation Dictated not read Patient stated that she was going down to the [facility], previous shift let patient do this. Told patient to come back to the unit as soon as she is done Patient currently off unit. Stated she needed some air due to anxiety. Awaiting her return to unit. Dr. Wood return call; no additional orders received continue current plan documented in this encounter <item><item><item><item><item><item><item> Privacy Markings (unrecogniz ed section and content) Section Author: Faye Choi PROHIBITION ON REDISCLOSURE OF CONFIDENTIAL INFORMATION This notice accompanies a disclosure of information concerning a client made to you with the consent of such client. Section Author: Faye Choi PROHIBITION ON REDISCLOSURE OF CONFIDENTIAL INFORMATION This notice accompanies a disclosure of information concerning a client made to you with the consent of such client. Section Author: Faye Choi PROHIBITION ON REDISCLOSURE OF CONFIDENTIAL INFORMATION This notice accompanies a disclosure of information concerning a client made to you with the consent of such client. Section Author: Faye Choi PROHIBITION ON REDISCLOSURE OF CONFIDENTIAL INFORMATION This notice accompanies a disclosure of information concerning a client made to you with the consent of such client. Section Author: Faye Choi PROHIBITION ON REDISCLOSURE OF CONFIDENTIAL INFORMATION This notice accompanies a disclosure of information concerning a client made to you with the consent of such client. Section Author: Faye Choi PROHIBITION ON REDISCLOSURE OF CONFIDENTIAL INFORMATION This notice accompanies a disclosure of information concerning a client made to you with the consent of such client. Section Author: Faye Choi PROHIBITION ON REDISCLOSURE OF CONFIDENTIAL INFORMATION This notice accompanies a disclosure of information concerning a client made to you with the consent of such client. Goals (unrecognized section and content) Goals may be documented in a n alternate sectionGoals may be documented in an alternate sectionGoals may be documented in an alternate section Source Comments (unrecognize d section and content) In the event this informatio n is protected by the Federal Confidentiality of Alcohol and Drug Abuse Patient Records regulations: The Federal rules restrict any use of the information to criminally investigate or prosecute any alcohol or drug abuse patient.[facility] Care Teams (unrecognized sec tion and content) It Consulting Manager Relationship Specialty Start Date End Date Adelaide Westbrook [facility] [address] [address] PCP - General Family Medicine 01/19/21 Team Status: Active Member Role Status Dates Dr. Jose Hdez MD Family Provider Active No Primary Care Physician Primary Care Provider Active Team Status: Inactive Member Role Status Dates Dr. Jasmine Hayes DO Emergency Provider Active No Primary Care Physician Primary Care Provider Active It Consulting Manager Relationship Specialty Start Date End Date Angelita Espinoza MD PCP - General 06/23/21 It Consulting Manager Relationship Specialty Start Date End Date Angelita Espinoza MD PCP - General Family Medicine 07/16/23 It Consulting Manager Relationship Specialty Start Date End Date Angelita Espinoza MD PCP - General Family Medicine 07/16/23 It Consulting Manager Relationship Specialty Start Date End Date Angelita Espinoza MD PCP - General Family Medicine 07/16/23 It Consulting Manager Relationship Specialty Start Date End Date Angelita Espinoza MD PCP - General Family Medicine 07/16/23 Team Status: Active Member Role/Relationship Status Dates Belen Wallace [facility], DO Primary care physician Active Team Status: Inactive Member Role/Relationship Status Dates No Primary Care Physician Primary care physician Activ e Start: May 29, 2025 End: May 29, 2025 Dr. Ajit Robles , DO Emergency Department Physician Active Start: May 29, 2025 End: May 29, 2025 Team Status: Active Member Role/Relationship Status Dates Belen Wallace [facility], DO Primary care physician Active Start: June 02, 2025 Belen Wallace [facility], DO Attending physician Active Start: June 02, 2025 Scheduled Active and Recently Administ ered Medications (unrecognized section and content) Medication Order 06/07/2023 06/08/2023 06/09/2023 ibuprofen tablet 600 mg (COMPLETED) 600 mg, oral, Once, On 06/09/23 at 0200, For 1 dose, If ordered PRN for pain, nurse is permitted to administer this medication for higher pain scores based on patient preference? Yes 0213 (Given - Provid er: Nathalie Fairbanks RN) Scheduled Medication Order 12/06/2023 12/07/2023 12/08/2023 ketorolac (Toradol) injection 30 mg (COMPLETED) 30 mg, intramuscular, Once, On 12/08/23 at 1640, For 1 dose 1641 (Given - Provid er: Jennifer Henning RN) orphenadrine (Norflex) injection 60 mg (COMPLETED) 60 mg, intramuscular, Once, On 12/08/23 at 1640, For 1 dose 1642 (Given - Provid er: Jennifer Henning RN) FOR RECORDS PERTAINING TO PATIENTS WHO ARE OR HAVE BEEN ENROLLED IN A CHEMICAL DEPENDENCY/SUBSTANCEABUSE PROGRAM, SOME INFORMATION MAY BE OMITTED. This clinical summary was aggregated from multiple sources. Caution should be exercised in using it in the provision of clinical care. This summary normalizes information from multiple sources, and as a consequence, information in this document may materially change the coding, format and clinical context of patient data. In addition, data may be omitted in some cases. CLINICAL DECISIONS SHOULD BE BASED ON THE PRIMARY CLINICAL RECORDS. [facility]. provides no warranty or guarantee of the accuracy or completeness of information in this document.
--- NOTE | 2025-06-20 17:46 | EKG12_ITS ---
Test Reason : SOB Blood Pressure : */* mmHG Vent. Rate : 89 BPM Atrial Rate : 89 BPM P-R Int : 142 ms QRS Dur : 92 ms QT Int : 402 ms P-R-T Axes : 55 58 67 degrees QTcB Int : 489 ms Normal sinus rhythm Nonspecific ST abnormality QTcB >= 480 msec Abnormal ECG Confirmed by ALVARO LOPEZ, ALETA ([id number]), book editor BAKARI GALE ([id number]) on 06/22/2025 6:39:07 AM Referred By: Confirmed By: ALETA JOHN MD
[2025-06-20 17:56] LABS: Hematocrit 42.3 % (37-47); Hemoglobin 14.5 g/dL (12.0-15.0); Immature Granulocytes Count 0.050 X10^3/uL (0.0-0.0); Mean Corp Hgb Conc 34.3 g/dL (32-36); Mean Corpuscular Volume 86.0 fL (81-99); Mean Platelet Vol. 9.7 fl (6.2-12.0); NRBC Flagged by Analyzer 0 % (0-5); Platelet Count 332 K/mm3 (150-450); RBC Distribution Width CV 13.4 % (11.6-14.6); RBC Distribution Width SD 42.5 fl (35.1-43.9); Red Blood Count 4.92 M/mm3 (4.2-5.4); White Blood Count 10.3 K/mm3 (4.4-11.0)
--- NOTE | 2025-06-20 18:01 | ED.VIS.CHEST ---
HPI History of Present Illness Chief Complaint: Chest Pain Narrative Narrative: 50-year-old female past medical history of hypertension, cerebral aneurysm with coiling as well as migraine headaches presents with elevated blood pressure and chest pain that began yesterday evening. She states that it happened yesterday evening, then again earlier today. She took her blood pressure and it was elevated at 170 systolic. She began having chest discomfort. No nausea or vomiting. She states she is having pain in the back of her neck, and at the top of her head. She usually takes clonidine 0.1 mg, but thinks she might of mistakenly took too. Her blood pressure has improved. She denies any exacerbating or alleviating factors. [facility] Medical History Anxiety Depression Substance abuse Smoker Brain aneurysm Hypertension DVT (deep venous thrombosis) BiPAP (biphasic positive airway pressure) dependence Sleep apnea Tobacco abuse history of bleeding aneurysm Obesity Benign essential hypertension Home Medications ?Medication ?Instructions ?Recorded ?Last Taken ?Type gabapentin 600 mg tablet 600 mg PO .Q6 01/21/16 Unknown History bupropion HCl 300 mg 24 hr tablet, 300 mg PO DAILY 08/26/22 Unknown History extended release prazosin 2 mg capsule 2 mg PO QHS 08/26/22 Unknown History quetiapine 100 mg tablet 100 mg PO QHS 08/26/22 Unknown History topiramate 200 mg tablet 200 mg PO QHS 08/26/22 Unknown History aripiprazole 10 mg tablet 10 mg PO DAILY 05/23/23 Unknown History lithium carbonate 300 mg capsule 300 mg PO .QAM 05/23/23 Unknown History lithium carbonate 600 mg capsule 600 mg PO QHS 05/23/23 Unknown History amlodipine 10 mg tablet 10 mg PO DAILY 30 days #30 tabs 05/29/25 Unknown Rx clonidine HCl 0.1 mg tablet 0.1 mg PO Q8H PRN hypertensive 05/29/25 Unknown Rx emergency 5 days #15 tabs Allergy/AdvReac Type Severity Reaction Status Date / Time ondansetron HCl (From Zofran) Allergy Other Verified 05/23/23 16:22 Surgical History H/O foot surgery Social History Smoking Status: Heavy Smoker (>10/day) ROS ROS ED ROS Narrative Review of systems is positive for headache on the top of her head and diffusely as well as left-sided neck pain on the back of her neck. Denies paresthesias. Elevated blood pressure yesterday evening and earlier today. No nausea or vomiting, no shortness of breath. Endorses chest discomfort that is improved. EXAM Physical Exam Narrative Exam Narrative: Afebrile. Vital signs noted. Nontoxic-appearing. Cardiovascular examination regular also regular rate and rhythm. Lungs are clear to auscultation bilaterally. Abdomen soft and nontender without guarding or rebound. Neurological examination nonfocal, nonlateralizing. No vertebral point tenderness or bony step-off of neck. No noted pedal edema. Const Vital Signs: 06/20/25 17:12 06/20/25 17:15 06/20/25 17:46 Temperature 97.6 F L Temperature Source Oral Pulse Rate 92 Respiratory Rate 19 H Respiratory Effort Normal Respiratory Pattern Normal Blood Pressure 132/92 H Blood Pressure Mean 105 Pulse Ox 95 Oxygen Delivery Method Room Air Room Air 06/20/25 18:11 Temperature Temperature Source Pulse Rate Respiratory Rate Respiratory Effort Respiratory Pattern Blood Pressure 125/81 H Blood Pressure Mean 95 Pulse Ox 95 Oxygen Delivery Method MDM MDM MDM Narrative Medical decision making narrative: The differential diagnosis includes but not limited to hypertensive urgency versus emergency versus ACS including STEMI versus non-STEMI. She may have more of a migraine headache, but given her history of aneurysmal coiling, concern would be for vertebral artery dissection versus aneurysm rupture. Her current blood pressure is 126 systolic on the monitor. ED protocol for chest pain has been started. I do feel given her history although she states that her aneurysm was checked out last month that she requires CTA of the head and neck. EKG obtained and interpreted by myself independently demonstrates normal sinus rhythm at 89 bpm without ectopy or acute ST changes. No STEMI. Patient was administered Compazine and Benadryl for her migrainous type headache. I reviewed her laboratory work and she has normal white count at 10.3 with hemoglobin 14.5, hematocrit 42.3, platelet count 332. BMP grossly unremarkable. Initial high-sensitivity troponin is less than 6. I did order a CTA of the head and neck given her history of cerebral aneurysm with coiling. I was informed by radiology that the patient did not want a chest x-ray, nor did she want a CTA of the head and neck. In discussion with the patient, she states that she would like to sign out AGAINST MEDICAL ADVICE. I feel she has the capacity to make this decision. She was warned of the risk of permanent disability and including but not limited to cerebral aneurysm rupture versus non-STEMI versus stroke. She acknowledges an understanding and wishes to proceed to sign out AGAINST MEDICAL ADVICE. She was told that she can return to the emergency department at any time. Disposition is signed out AGAINST MEDICAL ADVICE. Patient was in stable condition. History & Record Review Discussion w/independent historian: Patient Additional record(s) reviewed:: Prior ED visit (Seen at the end of May for hypertensive urgency) Lab Data Attestation: I reviewed the patient's lab results. Labs: Laboratory Results - last 24 hr 06/20/25 17:00 WBC 10.3 RBC 4.92 Hgb 14.5 Hct 42.3 MCV 86.0 MCH 29.5 MCHC 34.3 RDW Std Deviation 42.5 RDW Coeff of Miya 13.4 Plt Count 332 MPV 9.7 Immature Gran % (Auto) 0.500 Neut % (Auto) 56.4 Lymph % (Auto) 32.9 [place] % (Auto) 5.8 Eos % (Auto) 4.0 Baso % (Auto) 0.4 Absolute Neuts (auto) 5.8 Absolute Lymphs (auto) 3.39 Nucleated RBC % 0 Sodium 139 Potassium 4.2 Chloride 104 Carbon Dioxide 24.4 Anion Gap 11 BUN 14 Creatinine 0.73 Estim Creat Clear Calc 112.83 Est GFR (MDRD) Non-Af 101 BUN/Creatinine Ratio 18.9 Glucose 99 Calcium 9.1 Troponin T High Sens < 6 Discharge Plan Triage Chief Complaint: Chest Pain Other Complaint: Other, Pain/Inj ED Provider: Paresh Oh Dx/Rx/DC Orders Clinical Impression: Headache, Neck pain, Chest pain, Hypertension, History of cerebral aneurysm repair, Left against medical advice Instructions: ED Chest Pain, Uncertain Cause, ED High Blood Pressure Hypertension, ED Neck Pain Prescriptions: No Action gabapentin 600 MG tablet 600 mg PO .Q6 quetiapine 100 mg tablet 100 mg PO QHS topiramate 200 mg tablet 200 mg PO QHS Patient Comments: TAKE ONE TABLET BY MOUTH DAILY prazosin 2 mg capsule 2 mg PO QHS Patient Comments: TAKE ONE CAPSULE BY MOUTH AT BEDTIME bupropion HCl 300 mg tablet extended release 24 hr 300 mg PO DAILY aripiprazole 10 mg tablet 10 mg PO DAILY lithium carbonate 300 mg capsule 300 mg PO .QAM lithium carbonate 600 mg capsule 600 mg PO QHS Patient Comments: TAKE ONE CAPSULE BY MOUTH AT BEDTIME amlodipine 10 mg tablet 10 mg PO DAILY 30 Days Qty: 30 0RF clonidine HCl 0.1 mg tablet 0.1 mg PO Q8H PRN (Reason: hypertensive emergency) 5 Days Qty: 15 0RF Rx Instructions: Take if SBP greater than 175 Primary Care Provider: Belen Wallace Referrals: Belen Wallace, DO [Primary Care Provider, Family Practice] Activity Restrictions/Additional Instructions: You have signed out AGAINST MEDICAL ADVICE. You may return should you change your mind. You do run the risk of permanent disability or including but not limited to cerebral aneurysm rupture or acute heart attack or stroke. Print Language: [place] Disposition Disposition: Against Medical Advice
[2025-06-20 18:11] VITALS: BP 125/81; O2SAT 95
[2025-06-20] MEDS: DiphenhydrAMINE 50 MG/ML Syringe 25 MG IV (18:21)
[2025-06-20 18:26] LABS: Troponin T High Sensitivity < 6 ng/L (<=14)
[2025-06-20 18:27] LABS: Anion Gap 11 (5-15); BUN 14 mg/dL (4-19); BUN/Creat Ratio 18.9 RATIO (10-20); Calcium,Total 9.1 mg/dL (7.6-11.0); Carbon Dioxide 24.4 mmol/L (21.0-32.0); Chloride 104 mmol/L (98-108); Estimated Creatinine Clearance 112.83 ml/min (50-250); Glucose 99 mg/dL (70-99); Potassium 4.2 mmol/L (3.3-5.1)
[2025-06-20 18:59] VITALS: BP 125/81; PULSE 92; RESP 19; TEMP 36.4
== END 2025-06-20 18:59 | disposition left against medical advice (07) ==
PROVIDERS: Emergency Provider Emergency Medicine; PCP Family Medicine; Visit Provider Emergency Medicine
DX: G43.909 Migraine, unspecified, not intractable, without status migrainosus (principal); R07.9 Chest pain, unspecified; M54.2 Cervicalgia; Z53.29 Procedure and treatment not carried out because of patient's decision for other reasons; I10 Essential (primary) hypertension; I67.1 Cerebral aneurysm, nonruptured; F41.9 Anxiety disorder, unspecified; F32.A Depression, unspecified; G47.30 Sleep apnea, unspecified; F17.200 Nicotine dependence, unspecified, uncomplicated; Z86.718 Personal history of other venous thrombosis and embolism; Z79.899 Other long term (current) drug therapy; Z98.890 Other specified postprocedural states
CPT/HCPCS: 80048; 84484; 85025; 93005; 96374; 99285; A4216

== ENCOUNTER 2025-06-23 11:09 | Emergency (ER) | payer MEDICAID, SELFPAY ==
[2025-06-23 11:10] VITALS: BP 162/105; PULSE 81; RESP 18; TEMP 36.8; O2SAT 98; BMI 42.5
[2025-06-23 12:10] VITALS: BP 132/83; PULSE 80; RESP 18; O2SAT 98
[2025-06-23 13:00] VITALS: BP 145/85; PULSE 81; RESP 22; O2SAT 98
[2025-06-23 14:00] VITALS: BP 138/78; PULSE 78; RESP 16; O2SAT 98
[2025-06-23 15:00] VITALS: BP 141/66; PULSE 78; RESP 18; O2SAT 98
[2025-06-23 15:06] VITALS: BP 138/76; PULSE 78; RESP 14; TEMP 37.1; O2SAT 99
== END 2025-06-23 15:07 | disposition home or self-care (01) ==
PROVIDERS: Emergency Provider Emergency Medicine; PCP Family Medicine; Visit Provider Emergency Medicine
DX: I10 Essential (primary) hypertension (principal); M54.2 Cervicalgia; I67.1 Cerebral aneurysm, nonruptured; F41.9 Anxiety disorder, unspecified; F32.A Depression, unspecified; G47.30 Sleep apnea, unspecified; F17.200 Nicotine dependence, unspecified, uncomplicated; Z86.718 Personal history of other venous thrombosis and embolism; Z79.899 Other long term (current) drug therapy
CPT/HCPCS: 71046; 93005; 96374; 99284; A4216